=== PATIENT | female | born 1935 | race Caucasian/White ===

== ENCOUNTER 2019-10-29 17:15 | Emergency (ER) | payer MEDICARE, SELFPAY ==
--- NOTE | 2019-10-29 17:21 | ED.EAR ---
HPI - Ear Problem General Chief complaint: Ear Stated complaint: fever, ear pain and feels yuck Time Seen by Provider: 10/29/19 17:25 Source: patient and RN notes reviewed History of Present Illness HPI Narrative: Patient is an 84-year-old female who presents the urgent care with complaints of low-grade fever and left ear pain. Patient states that she did not feel very good when she woke up this morning and after laying back down, woke up with a low-grade fever of 101 and left ear pain. Patient also reports of sinus headache and postnasal drainage. Patient has not taken anything [id number] for her symptoms. Denies taking anything for the fever. States that she does have a history of urinary tract infections but does not currently have any urinary symptoms. Patient denies of any abdominal pain, nausea, vomiting, shortness of breath, chest pain. Patient states that this is not the worst headache she is ever experienced and it seems to be just behind the eyes . Patient denies of any weakness, dizziness, changes in vision. No other acute complaints. No acute distress noted. Patient read the plan of care. Related Data Home Medications Medication Instructions Recorded Confirmed atenolol 25 mg tablet 25 mg PO DAILY 04/15/19 10/29/19 atorvastatin 20 mg tablet 20 mg PO DAILY 04/15/19 10/29/19 loratadine 10 mg tablet 10 mg PO DAILY 04/15/19 10/29/19 verapamil 240 mg 24 hr 240 mg PO DAILY 04/15/19 10/29/19 capsule,extended release gabapentin 100 mg capsule 200 mg PO TID cap 07/25/19 10/29/19 pantoprazole 40 mg tablet,delayed 40 mg PO BID tablet 10/03/19 10/29/19 release Allergies Allergy/AdvReac Type Severity Reaction Status Date / Time adhesive tape Allergy Unknown Rash Verified 10/29/19 17:29 bacitracin Allergy Unknown Rash Verified 10/29/19 17:29 gramicidin D Allergy Unknown Rash Verified 10/29/19 17:29 polymyxin B Allergy Unknown Rash Verified 10/29/19 17:29 BACITRACIN ZINC Allergy Unknown Rash Uncoded 10/03/19 10:29 NEOMYCIN SULFATE Allergy Unknown Rash Uncoded 10/03/19 10:29 POLYMYXIN B SULFATE Allergy Unknown Rash Uncoded 10/03/19 10:29 Review of Systems Review of Systems: Narrative: CONSTITUTIONAL: Denies fever, chills, or sweats. EYES: Denies visual changes, redness, or discharge. ENT: Reports of sinus pressure and left otalgia CARDIOVASCULAR: Denies chest pain, palpitations, or edema. RESPIRATORY: Denies cough or dyspnea. GASTROINTESTINAL: Denies abdominal pain, nausea, vomiting, or diarrhea. GENITOURINARY: Denies dysuria or hematuria. SKIN: Denies rash or itching. MUSCULOSKELETAL: Denies back pain, joint pain, or myalgia. NEUROLOGIC: Denies headache, numbness, or weakness. All other systems reviewed are negative, except as documented in HPI. [facility] Past Medical History Medical History (Updated 10/29/19 @ 18:03 by DAVINA Mead) Anemia, unspecified Gastric ulcer Glaucoma Hip bursitis Incisional hernia Other intervertebral disc degeneration, lumbar region Visual loss Social History Social History Smoking status: Never smoker Alcohol intake: never Comments At the time of my signature, I reviewed and agree with the nursing past medical, surgical, social, and family history. There is no relevant family history pertinent to the patient complaint. Exam Narrative: Exam Narrative: GENERAL: This is a well-nourished, well-developed patient, in no apparent distress. HEAD: normocephalic, atraumatic. Frontal sinus tenderness EYES: PERRL. Sclera clear/white. Vision is grossly intact. EARS: External ears normal, auditory canals clear and without drainage, moderate fluid noted behind the left TM without otitis, left TMs normal without perforation. Hearing grossly intact. NOSE: External nose normal with no obvious nasal discharge, nares without redness, no rhinorrhea. THROAT: Mucous membranes moist, posterior pharynx clear. NECK: Neck supple, non
[2019-10-29 17:22] VITALS: BP 134/64; PULSE 88; RESP 16; TEMP 37.7; O2SAT 100
== END 2019-10-29 18:18 | disposition left against medical advice (07) ==
PROVIDERS: Emergency Provider Nurse Practitioner Family; PCP Family Medicine
DX: R51 Headache (principal); N39.0 Urinary tract infection, site not specified; E78.00 Pure hypercholesterolemia, unspecified; I10 Essential (primary) hypertension; J45.909 Unspecified asthma, uncomplicated; K21.9 Gastro-esophageal reflux disease without esophagitis; F32.9 Major depressive disorder, single episode, unspecified
CPT/HCPCS: 81003; 87086; 99213; G0463

== ENCOUNTER 2019-11-07 10:35 | Outpatient (CLI) | payer MEDICARE, SELFPAY ==
[2019-11-07 10:56] LABS: Basophils Percent Auto 0.6 % (0.2-1.2); Eosinophils Absolute Auto 0.1 K/mm3 (0-0.3); Hematocrit 32.7 % (37.0-47.0); Hemoglobin 10.1 g/dL (12.0-15.0); Immature Granulocyte Absolute 0.02 K/mm3 (0.00-0.031); Immature Granulocyte Percent A 0.4 % (0-0.5); Mean Corpuscular HGB Conc 30.9 g/dl (32-36); Mean Corpuscular Volume 84.3 fl (80-100); Monocytes Absolute Auto 0.4 K/mm3 (0.1-0.6); Monocytes Percent Auto 7.7 % (2.6-8.5); Neutrophils Absolute Auto 3.7 K/mm3 (1.3-6.7); Neutrophils Percent Auto 67.3 % (45.5-73.1); Platelet Count Result 251 k/mm3 (150-375); Red Blood Count 3.88 M/mm3 (4.2-5.4); White Blood Count 5.5 K/mm3 (4.5-10.0)
[2019-11-07 11:11] LABS: Alanine Aminotransferase 16 U/L (4-35); Albumin Level 4.2 g/dL (3.5-5.1); Alkaline Phosphatase 61 U/L (38-126); Aspartate Amino Transferase 23 U/L (14-36); Bilirubin,Total 0.3 mg/dL (0.2-1.3); Blood Urea Nitrogen 13 mg/dL (7-17); Calcium 8.9 mg/dL (8.4-10.2); Carbon Dioxide 30 mmol/L (22-30); Chloride 105 mmol/L (98-107); Cholesterol 183 mg/dL (0-200); Estimated Glomerular Filt Rate > 60; Glucose 95 mg/dL (65-105); HDL Direct 34 mg/dL; Potassium 4.3 mmol/L (3.4-5.0); Sodium 141 mmol/L (137-145); Triglycerides 234 mg/dL (<150)
[2019-11-07 11:22] LABS: LDL Cholesterol Direct 109 mg/dL
== END 2019-11-07 10:36 | disposition home or self-care (01) ==
PROVIDERS: PCP Family Medicine; Visit Provider Nurse Practitioner Family
DX: N39.0 Urinary tract infection, site not specified (principal); I10 Essential (primary) hypertension; E78.5 Hyperlipidemia, unspecified; Z79.899 Other long term (current) drug therapy; Z13.29 Encounter for screening for other suspected endocrine disorder
CPT/HCPCS: 36415; 80053; 80061; 84443; 85025

== ENCOUNTER 2019-11-28 13:23 | Outpatient (CLI) | payer MEDICARE, SELFPAY ==
--- NOTE | ~2019-11-28 | CT_ITS ---
EXAMINATION: CT brain wo/w con EXAM DATE: 11/28/2019 13:15 INDICATION: Memory loss, dizziness. Headache. TECHNIQUE: Spiral CT of the head was performed without contrast. Axial, coronal and sagittal images were reviewed. Patient was then injected with 100 cc Omnipaque 350 intravenous contrast and reimaged. Postcontrast axial, coronal, sagittal reformatted images reviewed. The dose-length product (DLP) fo r this examination was 1059.33 mGy-cm. The exposure was tailored according to patient size, and iter ative reconstruction (ASIR) was used as additional dose reduction technique. Comparison is made to pr ior examination from 10/23/2009. FINDINGS: There is no acute intraparenchymal hemorrhage. No evidence of intraparenchymal brain mass lesion. No evidence of acute infarction. Please note that initial head CT has limited sensitivity f or small or acute infarctions. There is old small right occipital lobe infarction, but new compared to 2010. There is mild periventricular and subcortical hypodensity, nonspecific but probably related to small vessel ischemic disease. There is mild prominence of the sulci and ventricles related to cerebral atrophy. There is intracranial carotid arteriosclerosis. There are no extra-axial collect ions. There is no mass effect or midline shift. Patient has had bilateral ocular lens surgery. Sof t tissue is unremarkable. Mild mucoperiosteal thickening. There are no areas of abnormal enhancemen t on the postcontrast images. IMPRESSION: 1. 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 2. Chronic age related findings. Reviewed, dictated and finalized at location B.
[2019-11-28 13:38] LABS: Hematocrit 32.8 % (37.0-47.0)
== END 2019-11-28 13:24 | disposition home or self-care (01) ==
LOC: ANHIMG 13:25
PROVIDERS: PCP Family Medicine; Visit Provider Family Medicine
DX: R41.3 Other amnesia (principal); D64.9 Anemia, unspecified; R51 Headache
CPT/HCPCS: 36415; 70470; 85014; 85018; Q9967

== ENCOUNTER → 2020-03-12 10:17 | Outpatient (CLI) | payer MEDICARE, SELFPAY ==
--- NOTE | ~2020-03-12 | US_ITS ---
EXAMINATION: US abdomen complete DATE: 03/12/2020 10:44 INDICATION: Liver disease. Diarrhea. TECHNIQUE: Multiple grayscale and Doppler ultrasound images of the abdomen were obtained. COMPARISON: CT abdomen and pelvis 11/27/2017 FINDINGS: The visualized portions of the head and body of the pancreas are normal. Abdominal aorta is normal in caliber. The liver is normal without focal lesion. There is normal flow in main portal vei n. The gallbladder is normal in size. No gallstones or gallbladder wall thickening. There was no sono graphic Rubio sign. The common duct is normal and measures 5 mm. The inferior vena cava is normal. T he kidneys are normal in size. The spleen is normal in size. Calcifications in the spleen are consist ent with old granulomatous disease. IMPRESSION: 1. No etiology for the patient's symptoms. Reviewed, dictated and finalized at location A.
== END ==
PROVIDERS: PCP Family Medicine; Visit Provider Family Medicine
DX: K76.9 Liver disease, unspecified (principal)
CPT/HCPCS: 76700

== ENCOUNTER 2020-04-27 12:07 | Outpatient (CLI) | payer MEDICARE, SELFPAY ==
[2020-04-27 12:43] LABS: Basophils Percent Auto 0.7 % (0.2-1.2); Eosinophils Absolute Auto 0.1 K/mm3 (0-0.3); Eosinophils Percent Auto 2.4 % (0-4.4); Hematocrit 32.3 % (37.0-47.0); Hemoglobin 10.1 g/dL (12.0-15.0); Immature Granulocyte Absolute 0.02 K/mm3 (0.00-0.031); Immature Granulocyte Percent A 0.4 % (0-0.5); Lymphocytes Absolute Auto 1.32 K/mm3 (0.9-3.2); Lymphocytes Percent Auto 24.7 % (18.3-44.2); Mean Corpuscular HGB Conc 31.3 g/dl (32-36); Mean Corpuscular Hemoglobin 28.3 pg (26-34); Mean Corpuscular Volume 90.5 fl (80-100); Mean Platelet Volume 8.9 fl (7.4-10.4); Monocytes Absolute Auto 0.6 K/mm3 (0.1-0.6); Monocytes Percent Auto 11.6 % (2.6-8.5); Neutrophils Absolute Auto 3.2 K/mm3 (1.3-6.7); Neutrophils Percent Auto 60.2 % (45.5-73.1); Platelet Count Result 178 k/mm3 (150-375); Red Blood Count 3.57 M/mm3 (4.2-5.4); Red Cell Distribution Width 16.2 % (11.5-14.5); White Blood Count 5.3 K/mm3 (4.5-10.0)
[2020-04-27 12:59] LABS: Alanine Aminotransferase 16 U/L (4-35); Albumin Level 3.8 g/dL (3.5-5.1); Alkaline Phosphatase 54 U/L (38-126); Anion Gap 3 mmol/L (8-16); Aspartate Amino Transferase 24 U/L (14-36); Bilirubin,Total 0.4 mg/dL (0.2-1.3); Blood Urea Nitrogen 15 mg/dL (7-17); CRP < 0.5 mg/dL (<1.0); Calcium 9.1 mg/dL (8.4-10.2); Carbon Dioxide 33 mmol/L (22-30); Chloride 103 mmol/L (98-107); Estimated Glomerular Filt Rate > 60; Glucose 100 mg/dL (65-105); Potassium 3.8 mmol/L (3.4-5.0); Sodium 139 mmol/L (137-145)
[2020-04-27 13:26] LABS: Thyroid Stimulating Hormone 0.739 uIU/mL (0.465-4.680)
[2020-05-06 23:36] LABS: Calprotectin, Stool 86 mcg/g
== END 2020-04-27 12:08 | disposition home or self-care (01) ==
LOC: ANHLAB 12:11
PROVIDERS: PCP Family Medicine
DX: R19.7 Diarrhea, unspecified (principal)
CPT/HCPCS: 36415; 80053; 83993; 84443; 85025; 86140; 87015; 87045; 87046; 87269; 87272; 87427

== ENCOUNTER → 2020-05-07 15:13 | Outpatient (CLI) | payer MEDICARE, SELFPAY ==
--- NOTE | ~2020-05-07 | MM_ITS ---
EXAMINATION: MM screening clemente BI w byron HISTORY: Screening TECHNIQUE: Craniocaudal and mediolateral oblique 3-D tomosynthesis images were obtained and synthetic 2-D images were generated. CAD analysis was submitted and interpreted. COMPARISON: Comparison to multiple prior studies sequentially, with oldest reviewed study dated 04/28. BREAST PARENCHYMAL COMPOSITION: There are scattered areas of fibroglandular density. FINDINGS: There is no evidence of suspicious mass, calcification, or architectural distortion to sugg est malignancy in either breast. There has been no suspicious interval change. IMPRESSION: 1. No mammographic evidence of malignancy. 2. Recommend routine screening mammography in one year. BI-RADS Category 1: Negative Reviewed, dictated and finalized at location A. 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
== END ==
PROVIDERS: PCP Family Medicine; Visit Provider Obstetrics & Gynecology
DX: Z12.31 Encounter for screening mammogram for malignant neoplasm of breast (principal)
CPT/HCPCS: 77063; 77067

== ENCOUNTER 2020-06-08 14:52 | Outpatient (CLI) | payer MEDICARE, SELFPAY ==
[2020-06-08 15:43] LABS: Basophils Percent Auto 0.4 % (0.2-1.2); Eosinophils Absolute Auto 0.1 K/mm3 (0-0.3); Eosinophils Percent Auto 1.4 % (0-4.4); Hematocrit 35.1 % (37.0-47.0); Hemoglobin 10.8 g/dL (12.0-15.0); Immature Granulocyte Absolute 0.02 K/mm3 (0.00-0.031); Immature Granulocyte Percent A 0.4 % (0-0.5); Lymphocytes Absolute Auto 1.37 K/mm3 (0.9-3.2); Lymphocytes Percent Auto 27.8 % (18.3-44.2); Mean Corpuscular HGB Conc 30.8 g/dl (32-36); Mean Corpuscular Hemoglobin 29.4 pg (26-34); Mean Corpuscular Volume 95.6 fl (80-100); Mean Platelet Volume 9.2 fl (7.4-10.4); Monocytes Absolute Auto 0.5 K/mm3 (0.1-0.6); Monocytes Percent Auto 9.5 % (2.6-8.5); Neutrophils Percent Auto 60.5 % (45.5-73.1); Platelet Count Result 186 k/mm3 (150-375); Red Blood Count 3.67 M/mm3 (4.2-5.4); Red Cell Distribution Width 15.8 % (11.5-14.5); White Blood Count 4.9 K/mm3 (4.5-10.0)
[2020-06-08 15:59] LABS: Anion Gap 5 mmol/L (8-16); Blood Urea Nitrogen 14 mg/dL (7-17); Calcium 8.4 mg/dL (8.4-10.2); Carbon Dioxide 29 mmol/L (22-30); Chloride 104 mmol/L (98-107); Estimated Glomerular Filt Rate > 60; Glucose 95 mg/dL (65-105); Sodium 138 mmol/L (137-145)
== END 2020-06-08 14:53 | disposition home or self-care (01) ==
PROVIDERS: PCP Family Medicine; Visit Provider Family Medicine
DX: R25.2 Cramp and spasm (principal); D64.9 Anemia, unspecified
CPT/HCPCS: 36415; 80048; 83735; 85025

== ENCOUNTER 2020-06-16 13:59 | Outpatient (CLI) | payer MEDICARE, SELFPAY ==
--- NOTE | ~2020-06-16 | US_ITS ---
EXAMINATION: US arterial ankle brachial ind DATE: 06/16/2020 14:33 INDICATION: Decreased pedal pulses TECHNIQUE: Segmental pressures and plethysmographic and Doppler waveforms of the brachial and lower e xtremity arteries were obtained. COMPARISON: None. FINDINGS: Right and left brachial artery pressures of 144 mm Hg and 133 mm Hg, respectively, are concordant (no rmal difference <= 30 mmHg). The right ankle-brachial index (EVERTON) is 1.10 (normal >= 0.9-1.0). The right great toe-brachial index (TBI) is 0.56 (normal >= 0.65). Arterial Doppler waveforms are biphasic with brisk systolic upstrokes of both the right posterior tibial and dorsalis pedis arteries. The left EVERTON is 1.06. The left TBI is 0.65. Arterial Doppler waveforms are biphasic with brisk systol ic upstrokes at both the left posterior tibial and dorsalis pedis arteries. IMPRESSION: 1. Mild arterial occlusive disease to the right lower limb with mildly decreased right TBI. Normal bi lateral ABIs and left TBI. Reviewed, dictated and finalized at location A. 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 Mild arterial occlusive disease to the right lower limb with mildly decrease d right TBI. Normal bilateral ABIs and left TBI.
== END 2020-06-16 14:00 | disposition home or self-care (01) ==
PROVIDERS: PCP Family Medicine; Visit Provider Family Medicine
DX: R09.89 Other specified symptoms and signs involving the circulatory and respiratory systems (principal)
CPT/HCPCS: 93922

== ENCOUNTER → 2020-07-20 12:55 | Outpatient (CLI) | payer MEDICARE, SELFPAY ==
[2020-07-21 14:42] LABS: SARS-CoV-2 RNA PCR Positive
== END ==
PROVIDERS: PCP Family Medicine; Visit Provider Nurse Practitioner Family
DX: U07.1 COVID-19 (principal)
CPT/HCPCS: C9803; U0003; U0005

== ENCOUNTER → 2020-08-25 14:26 | Outpatient (CLI) | payer MEDICARE, SELFPAY ==
--- NOTE | ~2020-08-25 | XR_ITS ---
EXAMINATION: XR humerus LT EXAM DATE: 08/25/2020 15:49 INDICATION: M79.622 - Pain in left upper arm TECHNIQUE: 2 orthogonal projections left humerus. There are no prior studies for comparison. FINDINGS: There are no acute left humerus fractures or dislocations identified. There is no subcutan eous gas. The soft tissue is unremarkable. There are no radiopaque foreign bodies. There is mild glenohumeral and acromioclavicular joint primary osteoarthritis. IMPRESSION: Mild left shoulder osteoarthritis. Reviewed, dictated and finalized at location A.
--- NOTE | ~2020-08-25 | XR_ITS ---
EXAMINATION: XR hip RT min 2V EXAM DATE: 08/25/2020 15:49 INDICATION: Fell 2 Months Ago. Hx Of Arthritis. Lateral Right Hip Pain With Numbness And Tingling Rad iates To Right Femur. Left Medial Elbow Pain Radiates To Left Lateral Shoulder. Pt States Bone Remov ed In First Digit Of Right Foot 25 Years Ago. TECHNIQUE: Right hip frontal, 'frog leg' projections for interpretation. Comparison is made to prior examination from 06/08/2017. FINDINGS: Smooth right hip femoral head contour, no radiographic evidence of avascular necrosis. The re is moderate right hip primary osteoarthritis. There are no acute fractures or dislocations identif ied. There is no subcutaneous gas. The soft tissue is unremarkable. Lumbar fusion hardware and a spine stimulator pack. IMPRESSION: No acute osseous findings. Reviewed, dictated and finalized at location A. IMPRESSION: No acute osseous findings.
--- NOTE | ~2020-08-25 | XR_ITS ---
EXAMINATION: XR foot RT min 3V EXAM DATE: 08/25/2020 15:49 INDICATION: M79.676 - Pain in unspecified toe(s) . PT States Bone Removed In First Digit Of Right F oot 25 Years Ago. TECHNIQUE: Right foot dorsoplantar, lateral and oblique projections obtained and reviewed. There is no prior study for comparison. FINDINGS: Right metatarsal bones unremarkable. There is mild 1st metatarsophalangeal joint primary o steoarthritis. There are no acute fractures or dislocations identified. There is no subcutaneous gas . The soft tissue is unremarkable. There are no radiopaque foreign bodies. IMPRESSION: Mild right 1st MTP osteoarthritis. Reviewed, dictated and finalized at location A.
--- NOTE | ~2020-08-25 | XR_ITS ---
EXAMINATION: XR elbow LT 2V EXAM DATE: 08/25/2020 15:49 INDICATION: Pain in left elbow. Fell 2 Months Ago. Hx Of Arthritis. Lateral Right Hip Pain With Numb ness And Tingling Radiates To Right Femur. Left Medial Elbow Pain Radiates To Left Lateral Shoulder. Pt States Bone Removed In First Digit Of Right Foot 25 Years Ago. TECHNIQUE: Frontal and lateral projections of the left elbow. There is no prior study for compariso n. FINDINGS: There is minimal left elbow primary osteoarthritis. There are no acute fractures or dislo cations identified. There is no subcutaneous gas. The soft tissue is unremarkable. There are no r adiopaque foreign bodies. IMPRESSION: Minimal left elbow osteoarthritis. Reviewed, dictated and finalized at location A.
== END ==
PROVIDERS: PCP Family Medicine; Referring Provider Nurse Practitioner Family; Visit Provider Nurse Practitioner Family
DX: M19.071 Primary osteoarthritis, right ankle and foot (principal); M19.012 Primary osteoarthritis, left shoulder; M19.022 Primary osteoarthritis, left elbow; M25.551 Pain in right hip
CPT/HCPCS: 73060; 73070; 73502; 73630

== ENCOUNTER 2020-11-12 08:45 | Outpatient (CLI) | payer MEDICARE, SELFPAY ==
--- NOTE | ~2020-11-12 | CT_ITS ---
EXAMINATION: CT abdomen pelvis w con DATE: 11/12/2020 09:26 INDICATION: Epigastric pain TECHNIQUE: Computed tomography (CT) of the abdomen and pelvis was performed with 100 cc Omnipaque 350 intravenous contrast. The dose-length product was 241.44 mGy-cm. Automated exposure control and iter ative reconstruction technique were employed. COMPARISON: CT dated 11/27/2017. FINDINGS: Lung bases are unremarkable. Cardiomegaly. No significant pleural or pericardial effusion. There is hiatal hernia with thickening of the distal esophagus. There is abnormal thickening of the d istal aspect of the stomach and duodenum, consistent with gastroenteritis. There are small low-densit y lesions in the liver, most likely benign cysts. There is hepatomegaly. There are calcified granulom as of the spleen. The pancreas, adrenal glands and kidneys are unremarkable. Gallbladder is present. Nonobstructive bowel gas pattern. There are spinal fusion at L2-L5. There are severe lumbar spondylos is. There is a partially visualized spinal stimulator lead. There are surgical changes of the anterio r abdominal wall with atrophy of the rectus muscles. IMPRESSION: 1. Thickening of the distal aspect of the stomach and duodenum, compatible with gastroenteritis. 2: Hiatal hernia with thickening of the distal esophagus, suspicious for reflux esophagitis. 3: Hepatomegaly. 4: Cardiomegaly. Reviewed, dictated and finalized at location A. IMPRESSION: 1. Thickening of the distal aspect of the stomach and duodenum, compatible with gastroenteritis. 2: Hiatal hernia with thickening of the distal esophagus, suspicious for reflu x esophagitis. 3: Hepatomegaly. 4: Cardiomegaly.
[2020-11-12 09:16] LABS: Estimated Glomerular Filt Rate > 60
== END 2020-11-12 08:46 | disposition home or self-care (01) ==
PROVIDERS: PCP Family Medicine; Visit Provider Family Medicine
DX: R10.13 Epigastric pain (principal); R10.2 Pelvic and perineal pain; K59.1 Functional diarrhea; K44.9 Diaphragmatic hernia without obstruction or gangrene; R16.0 Hepatomegaly, not elsewhere classified; I51.7 Cardiomegaly
CPT/HCPCS: 74177; Q9967

== ENCOUNTER 2021-06-12 10:43 | Emergency (ER) | payer MEDICARE, SELFPAY ==
[2021-06-12 10:48] VITALS: BP 135/46; PULSE 98; RESP 16; TEMP 36.5; O2SAT 100
--- NOTE | 2021-06-12 11:31 | ED.GENADULT ---
HPI - General Adult General Chief complaint: Upper Respiratory Infection Stated complaint: sinus problems Time Seen by Provider: 06/12/21 11:31 Source: patient Mode of arrival: ambulatory Limitations: no limitations History of Present Illness HPI narrative: 86-year-old female patient presents to the [facility] with complaints of cold symptoms that started 2 to 3 days ago. Patient was diagnosed with COVID in May 2020 but is not vaccinated. Patient states she has had a cough, slight fever, runny nose and congestion, some drainage to the back of the throat and a sore throat. Patient states she has been taking [id number] NyQuil, DayQuil and Tylenol for her symptoms. Related Data Home Medications Medication Instructions Recorded Confirmed atorvastatin 20 mg tablet 20 mg PO DAILY 04/15/19 06/12/21 atenolol 25 mg PO DAILY 06/12/21 06/12/21 fluoxetine 40 mg PO DAILY 06/12/21 06/12/21 gabapentin 200 mg PO DAILY 06/12/21 06/12/21 gabapentin 400 mg PO HS 06/12/21 06/12/21 Allergies Allergy/AdvReac Type Severity Reaction Status Date / Time adhesive tape Allergy Unknown Rash Verified 06/12/21 11:00 bacitracin Allergy Unknown Rash Verified 06/12/21 11:00 gramicidin D Allergy Unknown Rash Verified 06/12/21 11:00 polymyxin B Allergy Unknown Rash Verified 06/12/21 11:00 montelukast [From Singulair] AdvReac Intermediate Diarrhea Verified 06/12/21 11:00 BACITRACIN ZINC Allergy Unknown Rash Uncoded 06/07/21 12:52 NEOMYCIN SULFATE Allergy Unknown Rash Uncoded 06/07/21 12:52 POLYMYXIN B SULFATE Allergy Unknown Rash Uncoded 06/07/21 12:52 Review of Systems Review of Systems: CONSTITUTIONAL: Denies fever, chills, or sweats. EYES: Denies visual changes, redness, or discharge. ENT: Positive rhinorrhea, congestion, sore throat, and left otalgia. CARDIOVASCULAR: Denies chest pain, palpitations, or edema. RESPIRATORY: positive cough, denies dyspnea. GASTROINTESTINAL: Denies abdominal pain, nausea, vomiting, or diarrhea. GENITOURINARY: Denies dysuria or hematuria. SKIN: Denies rash or itching. MUSCULOSKELETAL: Denies back pain, joint pain, or myalgia. NEUROLOGIC: Denies headache, numbness, or weakness. PSYCHIATRIC: Denies anxiety or depression. [facility] Past Medical History Medical History Abdominal pain, epigastric Anemia, unspecified BMI 22.0-22.9, adult BMI 24.0-24.9, adult Body mass index [BMI] 23.0-23.9, adult Changing skin lesion Decreased pulses in feet Depression, major, in remission Duodenitis Foot callus Foot pain, right Gastric ulcer Glaucoma Headache Hip bursitis Incisional hernia Leg cramps Mixed hyperlipidemia Other intervertebral disc degeneration, lumbar region Sinus complaint Suprapubic abdominal pain Vagina, candidiasis Visual loss Family History Family History Mother Cerebrovascular accident Hypertension Sibling Family history of coronary artery disease Heart disease Hypertension Cerebrovascular accident Cancer Father Parkinsons disease Other Family history of mental disorder Social History Social History Second hand tobacco smoke exposure: No Alcohol intake: never Substance use: current Substance use type: marijuana Other substance usage details: creme/gummies Additional occupation/education comments: [employer] Gender identity (if verbalized by the patient): Female Comments At the time of my signature I agree with nursing past medical history, surgical, social, and family history. There is no relevant family history pertinent to the presenting complaint. Exam Narrative: GENERAL: ill-appearing, well-nourished, and in no acute distress. HEAD: Normocephalic, atraumatic. EYES: PERRLA and EOMI. ENT: Nares with erythema and edema noted bilaterally, no rhinorrhea or epistaxi
== END 2021-06-12 11:50 | disposition home or self-care (01) ==
PROVIDERS: Emergency Provider Nurse Practitioner Family; PCP Family Medicine
DX: U07.1 COVID-19 (principal); H40.9 Unspecified glaucoma; E78.2 Mixed hyperlipidemia; F32.A Depression, unspecified
CPT/HCPCS: 87426; 99213; C9803; G0463

== ENCOUNTER → 2021-11-19 14:21 | Outpatient (CLI) | payer MEDICARE, SELFPAY ==
--- NOTE | ~2021-11-19 | CT_ITS ---
EXAMINATION: CT shoulder LT wo con DATE: 11/19/2021 14:47 INDICATION: Rotator cuff tear presenting with left shoulder pain and limited range of motion TECHNIQUE: High resolution computed tomography (CT) of the left shoulder was performed without intrav enous contrast. Additional sagittal and coronal reconstructions were performed. Automated exposure co ntrol and iterative reconstruction technique were employed. The dose-length product was 247.14 mGy-cm . COMPARISON: 01/11/2011 FINDINGS: The acromion undersurface is curved in morphology (type II). Bone alignment is normal. No fracture. S uture anchor tracks along the lesser and greater tuberosities consistent with interval rotator cuff r epair. Dystrophic calcification and heterotopic ossicles in the soft tissues between the apex of the humeral head and the undersurface of the acromion likely along the rotator cuff tendons which could r epresent sequela prior surgery or calcific tendinitis. Mild acromioclavicular and glenohumeral osteoa rthritis. No bony humeral joint effusion. Visualized portions of the left lung are clear. Atheroscler otic coronary artery calcific location. No pathologically enlarged lymphadenopathy visualized left he mithorax including at the left axilla and left hilum. IMPRESSION: 1. Changes of prior rotator cuff repair on both the greater tuberosity and lesser tuberosity footplat es with dystrophic calcification and heterotopic ossification likely within the rotator cuff overlyin g the apex of the humeral head which could represent sequela of prior surgery or calcific tendinitis. Reviewed, dictated and finalized at location B. IMPRESSION: 1. Changes of prior rotator cuff repair on both the greater tuberosity and less er tuberosity footplates with dystrophic calcification and heterotopic ossifica tion likely within the rotator cuff overlying the apex of the humeral head whic h could represent sequela of prior surgery or calcific tendinitis.
== END ==
PROVIDERS: PCP Family Medicine; Visit Provider Anesthesiology
DX: M75.102 Unspecified rotator cuff tear or rupture of left shoulder, not specified as traumatic (principal)
CPT/HCPCS: 73200

== ENCOUNTER → 2021-12-17 07:35 | Outpatient (CLI) | payer MEDICARE, SELFPAY ==
--- NOTE | ~2021-12-17 | CT_ITS ---
EXAMINATION: CT cervical spine wo con DATE: 12/17/2021 08:08 INDICATION: Right neck pain. Cervical radiculopathy. TECHNIQUE: Computed tomography (CT) of the cervical spine was performed without intravenous contrast. Automated exposure control and iterative reconstruction technique were employed. The dose-length pro duct was 184.41 mGy-cm. COMPARISON: CT cervical spine 01/27/2009 FINDINGS: There is 6 reason levocurvature of cervical spine. There is 3 mm anterolisthesis of C7 on T 1 and T1 on T2 and 2 mm anterolisthesis of T2 on T3. There are changes of anterior fusion procedure f rom C4 to C6 with interbody bone graft and anterior plate and screws. There is moderate decreased dis c height at C2-C3 and severely decreased disc height at C3-C4 and C6-C7. The following disc levels ar e specifically discussed: C2-C3: There is severe right and moderate left uncovertebral joint osteoarthritis. There is severe bi lateral facet joint osteoarthritis. There is mild right neural foraminal stenosis. There is mild cent ral canal stenosis. C3-C4: There is severe bilateral uncovertebral joint osteoarthritis. There is severe bilateral facet joint osteoarthritis. There is mild bilateral neural foraminal stenosis. There is mild central canal stenosis. C4-C5: There is mild left uncovertebral joint hypertrophy. There is ankylosis of the facet joints wit h mild hypertrophy. There is mild left neural foraminal stenosis. There is no central canal stenosis. C5-C6: There is mild bilateral uncovertebral joint hypertrophy. There is mild right facet joint osteo arthritis. There is ankylosis of left facet joint with moderate hypertrophy. There is mild bilateral neural foraminal stenosis. There is mild central canal stenosis. C6-C7: There is severe bilateral uncovertebral joint osteoarthritis. There is severe bilateral facet joint osteoarthritis. There is mild bilateral neural foraminal stenosis. There is mild central canal stenosis. C7-T1: There is no uncovertebral joint osteoarthritis. There is severe bilateral facet joint osteoart hritis. There is mild bilateral neural foraminal stenosis. There is mild central canal stenosis. IMPRESSION: 1. Severe cervical spondylosis, worsened from 01/27/2009. 2. Anterior fusion procedure from C4 to C6. Reviewed, dictated and finalized at location A.
== END ==
PROVIDERS: PCP Family Medicine; Visit Provider Anesthesiology
DX: M47.813 Spondylosis without myelopathy or radiculopathy, cervicothoracic region (principal); M48.03 Spinal stenosis, cervicothoracic region; Z98.1 Arthrodesis status
CPT/HCPCS: 72125

== ENCOUNTER 2022-02-27 14:18 | Emergency (ER) | payer MEDICARE, SELFPAY ==
--- NOTE | ~2022-02-27 | XR_ITS ---
EXAM: XR elbow RT min 3V DATE: 02/27/2022 14:46 HISTORY: FALL X 10 DAYS, POST/LAT LACERATION . COMPARISON: None available. FINDINGS: Decreased mineralization. No fracture or dislocation. No lytic or blastic lesion. Joint sp aces are maintained. No erosion or periosteal change. Posterior soft tissue swelling. IMPRESSION: No acute osseous finding in the right elbow. Reviewed, dictated and finalized at location K.
[2022-02-27 14:24] VITALS: BP 142/48; PULSE 65; RESP 20; TEMP 37.3; O2SAT 99
--- NOTE | 2022-02-27 14:25 | ED.UPPEXIN ---
HPI - Extremity Injury (Upper) General Chief Complaint: Extremity Injury, Upper Stated Complaint: right elbow wound Time Seen by Provider: 02/27/22 14:25 Source: patient and RN notes reviewed History of Present Illness HPI narrative: Patient is an 86-year-old female who presents to urgent care with her spouse with complaints of right elbow pain. Patient states that she fell approximately 10 days ago hitting her elbow on the concrete. Patient denies hitting her head or any other injuries from the fall. States that she has been taking Tylenol. Patient states she leaves to go out of town in a couple days and make sure she does not have an infection. Patient is not up-to-date on her tetanus shot. No other acute complaints. No acute distress noted. Patient aware of the plan of care. Some parts of this dictation were generated by voice recognition software and may contain typographical and/or grammatical inaccuracies. Related Data Home Medications Medication Instructions Recorded Confirmed atenolol 25 mg tablet 25 mg PO DAILY 06/12/21 02/27/22 diclofenac sodium 1 % topical gel 2 g topical BID-TID 12/20/21 02/27/22 (Arthritis Pain (diclofenac)) Allergies Allergy/AdvReac Type Severity Reaction Status Date / Time adhesive tape Allergy Unknown Rash Verified 02/27/22 14:29 bacitracin Allergy Unknown Rash Verified 02/27/22 14:29 gramicidin D Allergy Unknown Rash Verified 02/27/22 14:29 polymyxin B Allergy Unknown Rash Verified 02/27/22 14:29 montelukast [From Singulair] AdvReac Intermediate Diarrhea Verified 02/27/22 14:29 BACITRACIN ZINC Allergy Unknown Rash Uncoded 02/27/22 14:29 NEOMYCIN SULFATE Allergy Unknown Rash Uncoded 02/27/22 14:29 POLYMYXIN B SULFATE Allergy Unknown Rash Uncoded 02/27/22 14:29 Review of Systems Review of Systems: CONSTITUTIONAL: Denies fever, chills, or sweats. EYES: Denies visual changes, redness, or discharge. ENT: Denies rhinorrhea, congestion, sore throat, or otalgia. CARDIOVASCULAR: Denies chest pain, palpitations, or edema. RESPIRATORY: Denies cough or dyspnea. GASTROINTESTINAL: Denies abdominal pain, nausea, vomiting, or diarrhea. GENITOURINARY: Denies dysuria or hematuria. SKIN: Reports of a wound to the right elbow MUSCULOSKELETAL: Reports of right elbow pain with movement NEUROLOGIC: Denies headache, numbness, or weakness. All other systems reviewed are negative, except as documented in HPI. [facility] Past Medical History Medical History (Updated 02/27/22 @ 15:13 by DAVINA Mead) Abdominal pain, epigastric Anemia, unspecified BMI 22.0-22.9, adult BMI 24.0-24.9, adult Body mass index [BMI] 23.0-23.9, adult Changing skin lesion Decreased pulses in feet Depression, major, in remission Duodenitis Family history of endometriosis in first degree relative Foot callus Foot pain, right Gastric ulcer Glaucoma Headache Hip bursitis Incisional hernia Leg cramps Mixed hyperlipidemia Other intervertebral disc degeneration, lumbar region RLQ abdominal pain Sinus complaint Suprapubic abdominal pain Vagina, candidiasis Visual loss Surgical History Surgical History (Updated 02/09/22 @ 11:09 by Bailey Hayden CMA) H/O Spinal surgery H/O: hysterectomy Family History Family History Mother Cerebrovascular accident Hypertension Sibling Family history of coronary artery disease Heart disease Hypertension Cerebrovascular accident Cancer Father Parkinsons disease Other Family history of mental disorder Social History Social History (Updated 02/09/22 @ 11:10 by Bailey Hayden CMA) Smoking status: Never smoker Second hand tobacco smoke exposure: No Alcohol intake: never Substance use: current Substance use type: marijuana Other substance usage details: creme/gummies 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
[2022-02-27 15:00] VITALS: BP 130/60
== END 2022-02-27 15:15 | disposition home or self-care (01) ==
PROVIDERS: Emergency Provider Nurse Practitioner Family; PCP Family Medicine
DX: S51.001A Unspecified open wound of right elbow, initial encounter (principal); W19.XXXA Unspecified fall, initial encounter; H40.9 Unspecified glaucoma; E78.2 Mixed hyperlipidemia
CPT/HCPCS: 73080; 99213; G0463

== ENCOUNTER 2022-05-08 12:12 | Emergency (ER) | payer MEDICARE, SELFPAY ==
[2022-05-08 12:25] VITALS: BP 145/44; PULSE 75; RESP 20; TEMP 36.8; O2SAT 100
--- NOTE | 2022-05-08 14:20 | ED.FEMALEGU ---
HPI - Female Genitourinary General Chief complaint: Urogenital-Female Stated complaint: Urinary Problem Time Seen by Provider: 05/08/22 14:10 Source: patient Mode of arrival: ambulatory Limitations: no limitations History of Present Illness HPI Narrative: 87 year old female who presents to [facility] care with urinary tract symptoms since Monday and feeling weak with no fevers reported. Patient reports that she had scheduled appointment with her doctor on Monday and was diagnosed with UTI and taking Macrobid but continues to feel weak and have bladder pressure, denies any fever. Patient reports that she has had COVID vaccinations but has not had flu shot this year. MD elicited complaint: UTI Onset (ago): day(s) (2) Severity scale (1-10): 4 Treatment prior to arrival: other (on Macrobid) Related Data Home Medications Medication Instructions Recorded Confirmed atenolol 25 mg tablet 25 mg PO DAILY 06/12/21 05/06/22 diclofenac sodium 1 % topical gel 2 g topical BID-TID 12/20/21 05/06/22 (Arthritis Pain (diclofenac)) Allergies Allergy/AdvReac Type Severity Reaction Status Date / Time adhesive tape Allergy Unknown Rash Verified 05/06/22 10:50 bacitracin Allergy Unknown Rash Verified 05/06/22 10:50 gramicidin D Allergy Unknown Rash Verified 05/06/22 10:50 polymyxin B Allergy Unknown Rash Verified 05/06/22 10:50 montelukast [From Singulair] AdvReac Intermediate Diarrhea Verified 05/06/22 10:50 BACITRACIN ZINC Allergy Unknown Rash Uncoded 05/06/22 10:50 NEOMYCIN SULFATE Allergy Unknown Rash Uncoded 05/06/22 10:50 POLYMYXIN B SULFATE Allergy Unknown Rash Uncoded 05/06/22 10:50 Review of Systems Review of Systems: CONSTITUTIONAL: Denies fever, chills, or sweats. CARDIOVASCULAR: Denies chest pain, palpitations, or edema. RESPIRATORY: Denies cough or dyspnea. GASTROINTESTINAL: Denies abdominal pain,some nausea, no vomiting, or diarrhea. GENITOURINARY: Reports dysuria, frequency, urgency, bladder pain Denies flank pain or hematuria. SKIN: Denies rash or itching. MUSCULOSKELETAL: Denies back pain or myalgia. Denies CVA tenderness NEUROLOGIC: Denies headache, reports feels weak All systems reviewed & are unremarkable except as noted in HPI and below PMFSH Past Medical History Medical History Abdominal pain, epigastric Anemia, unspecified BMI 22.0-22.9, adult BMI 24.0-24.9, adult Body mass index [BMI] 23.0-23.9, adult Changing skin lesion Decreased pulses in feet Depression, major, in remission Duodenitis Family history of endometriosis in first degree relative Foot callus Foot pain, right Gastric ulcer Glaucoma Headache Hip bursitis Incisional hernia Leg cramps Mixed hyperlipidemia Other intervertebral disc degeneration, lumbar region RLQ abdominal pain Sinus complaint Suprapubic abdominal pain Vagina, candidiasis Visual loss Surgical History Surgical History H/O Spinal surgery H/O: hysterectomy Family History Family History Mother Cerebrovascular accident Hypertension Sibling Family history of coronary artery disease Heart disease Hypertension Cerebrovascular accident Cancer Father Parkinsons disease Other Family history of mental disorder Social History Social History Smoking status: Never smoker Second hand tobacco smoke exposure: No Alcohol intake: never Substance use: current Substance use type: marijuana Other substance usage details: creme/gummies 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 There is no relevant family history pertinent to the
== END 2022-05-08 14:51 | disposition home or self-care (01) ==
PROVIDERS: Emergency Provider Registered Nurse; PCP Family Medicine
DX: N39.0 Urinary tract infection, site not specified (principal); J10.1 Influenza due to other identified influenza virus with other respiratory manifestations; Z20.822 Contact with and (suspected) exposure to COVID-19; H40.9 Unspecified glaucoma; E78.2 Mixed hyperlipidemia
CPT/HCPCS: 81003; 87086; 87426; 87804; 99213; C9803; G0463

== ENCOUNTER 2022-05-28 14:04 | Emergency (ER) | payer MEDICARE, SELFPAY ==
[2022-05-28 14:13] VITALS: BP 154/35; PULSE 68; RESP 16; TEMP 37; O2SAT 100
--- NOTE | 2022-05-28 14:49 | ED.URI ---
HPI - URI/Sore Throat General Chief Complaint: Upper Respiratory Infection Stated Complaint: cold Time Seen by Provider: 05/28/22 14:49 Source: patient, RN notes reviewed and old records reviewed Mode of arrival: ambulatory Limitations: no limitations History of Present Illness MD elicited complaint: cough and sore throat Related Data Home Medications Medication Instructions Recorded Confirmed atenolol 25 mg tablet 25 mg PO DAILY 06/12/21 05/06/22 diclofenac sodium 1 % topical gel 2 g topical BID-TID 12/20/21 05/06/22 (Arthritis Pain (diclofenac)) Allergies Allergy/AdvReac Type Severity Reaction Status Date / Time adhesive tape Allergy Unknown Rash Verified 05/06/22 10:50 bacitracin Allergy Unknown Rash Verified 05/06/22 10:50 gramicidin D Allergy Unknown Rash Verified 05/06/22 10:50 polymyxin B Allergy Unknown Rash Verified 05/06/22 10:50 [email or web address] [From Singulair] AdvReac Intermediate Diarrhea Verified 05/06/22 10:50 BACITRACIN ZINC Allergy Unknown Rash Uncoded 05/06/22 10:50 NEOMYCIN SULFATE Allergy Unknown Rash Uncoded 05/06/22 10:50 POLYMYXIN B SULFATE Allergy Unknown Rash Uncoded 05/06/22 10:50 Review of Systems Review of Systems: CONSTITUTIONAL: Denies malaise, chills, sweats, or fever. EYES: Denies visual changes, redness, or discharge. ENT: Reports rhinorrhea, congestion, sinus pain, otalgia and sore throat. CARDIOVASCULAR: Denies chest pain, palpitations, or edema. RESPIRATORY: Reports cough.? Denies dyspnea. GASTROINTESTINAL: Denies abdominal pain, nausea, vomiting, diarrhea SKIN: Denies rash or itching. MUSCULOSKELETAL: Denies myalgia. NEUROLOGIC: Denies headache. All systems reviewed & are unremarkable except as noted in HPI and below PMFSH Past Medical History Medical History Abdominal pain, epigastric Anemia, unspecified BMI 22.0-22.9, adult BMI 24.0-24.9, adult Body mass index [BMI] 23.0-23.9, adult Changing skin lesion Decreased pulses in feet Depression, major, in remission Duodenitis Family history of endometriosis in first degree relative Foot callus Foot pain, right Gastric ulcer Glaucoma Headache Hip bursitis Incisional hernia Leg cramps Mixed hyperlipidemia Other intervertebral disc degeneration, lumbar region RLQ abdominal pain Sinus complaint Suprapubic abdominal pain Vagina, candidiasis Visual loss Surgical History Surgical History H/O Spinal surgery H/O: hysterectomy Family History Family History Mother Cerebrovascular accident Hypertension Sibling Family history of coronary artery disease Heart disease Hypertension Cerebrovascular accident Cancer Father Parkinsons disease Other Family history of mental disorder Social History Social History Smoking status: Never smoker Second hand tobacco smoke exposure: No Alcohol intake: never Substance use: current Substance use type: marijuana Other substance usage details: creme/gummies Additional occupation/education comments: [employer] Gender identity (if verbalized by the patient): Female Comments At time of signature, agree with nursing past medical, surgical, social and family history. There is no relevant family history pertinent to the presenting complaint Exam Narrative: GENERAL: Well-appearing, well-nourished, and in no acute distress. HEAD: Normocephalic EYES: PERRLA, conjunctivae clear ENT: Nares clear, turbinates edematous and erythematous, clear discharge. Mucous membranes moist. TM pearly meza with dull light reflex bilaterally; no tragal tenderness. Oropharynx erythematous without lesions. Tonsils not enlarged and without exudate, no drooling, no hoarseness, no trismus, uvula midline.
--- NOTE | 2022-05-28 15:06 | ED.URI ---
HPI - URI/Sore Throat General Chief Complaint: Upper Respiratory Infection Stated Complaint: cold Time Seen by Provider: 05/28/22 14:49 Source: patient, RN notes reviewed and old records reviewed Mode of arrival: ambulatory Limitations: no limitations History of Present Illness HPI Narrative: 87 year old female accompanied by with 2 weeks of nasal drainage and has noted cough at night. Patient reports that she has had some sinus pressure and some headache discomfort. Patient reports that she has been taking DayQuil for her symptoms without relief. Patient also requests urine screen because she has had previous UTI and wants to make sure it has cleared, denies any urinary symptoms or any fevers. Patient has not had COVID vaccinations or any flu shot. MD elicited complaint: cough, rhinorrhea and nasal congestion Onset (ago): week(s) (2) Able to tolerate fluids by mouth: Yes Treatments prior to arrival: other (DayQuil) Related Data Home Medications Medication Instructions Recorded Confirmed atenolol 25 mg tablet 25 mg PO DAILY 06/12/21 05/06/22 diclofenac sodium 1 % topical gel 2 g topical BID-TID 12/20/21 05/06/22 (Arthritis Pain (diclofenac)) Allergies Allergy/AdvReac Type Severity Reaction Status Date / Time adhesive tape Allergy Unknown Rash Verified 05/06/22 10:50 bacitracin Allergy Unknown Rash Verified 05/06/22 10:50 gramicidin D Allergy Unknown Rash Verified 05/06/22 10:50 polymyxin B Allergy Unknown Rash Verified 05/06/22 10:50 [email or web address] [From Singulair] AdvReac Intermediate Diarrhea Verified 05/06/22 10:50 BACITRACIN ZINC Allergy Unknown Rash Uncoded 05/06/22 10:50 NEOMYCIN SULFATE Allergy Unknown Rash Uncoded 05/06/22 10:50 POLYMYXIN B SULFATE Allergy Unknown Rash Uncoded 05/06/22 10:50 Review of Systems Review of Systems: CONSTITUTIONAL: Denies malaise, chills, sweats, or fever. EYES: Denies visual changes, redness, or discharge. ENT: Reports rhinorrhea, congestion, sinus pain,no otalgia or sore throat. CARDIOVASCULAR: Denies chest pain, palpitations, or edema. RESPIRATORY: Reports cough.? Denies dyspnea. GASTROINTESTINAL: Denies abdominal pain, nausea, vomiting, diarrhea SKIN: Denies rash or itching. MUSCULOSKELETAL: Denies myalgia. NEUROLOGIC: reports headache. All systems reviewed & are unremarkable except as noted in HPI and below PMFSH Past Medical History Medical History Abdominal pain, epigastric Anemia, unspecified BMI 22.0-22.9, adult BMI 24.0-24.9, adult Body mass index [BMI] 23.0-23.9, adult Changing skin lesion Decreased pulses in feet Depression, major, in remission Duodenitis Family history of endometriosis in first degree relative Foot callus Foot pain, right Gastric ulcer Glaucoma Headache Hip bursitis Incisional hernia Leg cramps Mixed hyperlipidemia Other intervertebral disc degeneration, lumbar region RLQ abdominal pain Sinus complaint Suprapubic abdominal pain Vagina, candidiasis Visual loss Surgical History Surgical History H/O Spinal surgery H/O: hysterectomy Family History Family History Mother Cerebrovascular accident Hypertension Sibling Family history of coronary artery disease Heart disease Hypertension Cerebrovascular accident Cancer Father Parkinsons disease Other Family history of mental disorder Social History Social History Smoking status: Never smoker Second hand tobacco smoke exposure: No Alcohol intake: never Substance use: current Substance use type: marijuana Other substance usage details: creme/gummies 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
== END 2022-05-28 15:19 | disposition home or self-care (01) ==
PROVIDERS: Emergency Provider Registered Nurse; PCP Family Medicine
DX: J06.9 Acute upper respiratory infection, unspecified (principal); H40.9 Unspecified glaucoma; E78.2 Mixed hyperlipidemia
CPT/HCPCS: 81003; 99212; G0463

== ENCOUNTER → 2022-10-06 12:49 | Outpatient (CLI) | payer MEDICARE, SELFPAY ==
--- NOTE | ~2022-10-06 | CT_ITS ---
EXAMINATION: CT lumbar spine wo con DATE: 10/06/2022 13:13 INDICATION: Lumbar radiculopathy. TECHNIQUE: Computed tomography (CT) of the lumbar spine was performed without intravenous contrast. A utomated exposure control and iterative reconstruction technique were employed. The dose-length produ ct was 486.09 mGy-cm. COMPARISON: None FINDINGS: There is 22 degrees levoscoliosis of lumbar spine. S1 is a transitional segment. There is 5 mm retrolisthesis of L2 on L3. There is severely decreased disc height at T12-L1 and L1-L2 with endp late remodeling. There is severely decreased disc height at L2-L3 and L3-L4 with interbody fusion. Th ere are changes of anterior fusion procedure at L4-L5 with interbody device. There is mildly decrease d disc height at L5-S1. There are changes of posterior fusion procedure from L2 to L5 with pedicle sc rews. The following disc levels are specifically discussed: T12-L1: The disc is bulging. There is severe bilateral facet joint osteoarthritis. There is mild bila teral neural foraminal stenosis. There is mild central canal stenosis. L1-L2: The disc is bulging. There is severe bilateral facet joint osteoarthritis. There is mild bilat eral neural foraminal stenosis. There is mild central canal stenosis. L2-L3: There is moderate right and mild left facet joint hypertrophy. There is moderate right and mil d left neural foraminal stenosis. There is mild central canal stenosis with posterior decompression. L3-L4: The disc is bulging. There is mild bilateral facet joint hypertrophy. There is mild bilateral neural foraminal stenosis. There is mild central canal stenosis with posterior decompression. L4-L5: There is mild right and moderate left facet joint hypertrophy. There is mild bilateral neural foraminal stenosis. There is no central canal stenosis. L5-S1: The disc is bulging. There is severe bilateral facet joint osteoarthritis. There is mild bilat eral neural foraminal stenosis. There is mild central canal stenosis. IMPRESSION: 1. Severe lumbar spondylosis. 2. Lumbar levoscoliosis. 3. Anterior and posterior fusion from L2 to L5. Reviewed, dictated and finalized at location E.
--- NOTE | ~2022-10-06 | CT_ITS ---
EXAMINATION: CT cervical spine wo con DATE: 10/06/2022 13:13 INDICATION: Cervical radiculopathy. TECHNIQUE: Computed tomography (CT) of the cervical spine was performed without intravenous contrast. Automated exposure control and iterative reconstruction technique were employed. The dose-length pro duct was 155.94 mGy-cm. COMPARISON: CT cervical spine 12/17/2021 FINDINGS: There is 2 mm anterolisthesis of C3 on C4 and C6 on C7 and 3 mm anterolisthesis of C7 on T1 , T1 on T2, and T2 on T3. Vertebral body heights are normal. There are changes of anterior fusion pro cedure from C4 to C6 with interbody bone graft and anterior plate and screws. There is moderately dec reased disc height at C2-C3 and severely decreased disc height at C3-C4 and C6-C7. The following disc levels are specifically discussed: C2-C3: There is severe right and moderate left uncovertebral joint osteoarthritis. There is severe bi lateral facet joint osteoarthritis. There is mild bilateral neural foraminal stenosis. There is mild central canal stenosis. C3-C4: There is severe bilateral uncovertebral joint osteoarthritis. There is severe bilateral facet joint osteoarthritis. There is mild bilateral neural foraminal stenosis. There is mild central canal stenosis. C4-C5: There is mild left uncovertebral joint hypertrophy. There is moderate right and mild left face t joint hypertrophy. There is mild bilateral neural foraminal stenosis. There is no central canal bethany nosis. C5-C6: There is mild bilateral uncovertebral joint hypertrophy. There is mild bilateral facet joint h ypertrophy. There is mild lateral neural foraminal stenosis. There is mild central canal stenosis. C6-C7: There is severe bilateral uncovertebral joint osteoarthritis. There is severe bilateral facet joint osteoarthritis. There is mild bilateral neural foraminal stenosis. There is mild central canal stenosis. C7-T1: There is no uncovertebral joint osteoarthritis. There is severe bilateral facet joint osteoart hritis. There is mild bilateral neural foraminal stenosis. There is mild central canal stenosis. IMPRESSION: 1. Severe cervical spondylosis, stable from 12/17/2021. 2. Anterior fusion procedure from C4 to C6. Reviewed, dictated and finalized at location E.
== END ==
PROVIDERS: PCP Family Medicine; Visit Provider Anesthesiology
DX: M47.22 Other spondylosis with radiculopathy, cervical region (principal); M47.26 Other spondylosis with radiculopathy, lumbar region; M41.9 Scoliosis, unspecified; Z98.1 Arthrodesis status
CPT/HCPCS: 72125; 72131

== ENCOUNTER 2022-10-14 13:02 | Outpatient (CLI) | payer MEDICARE, SELFPAY ==
--- NOTE | ~2022-10-14 | CT_ITS ---
EXAMINATION: CT brain wo con DATE: 10/14/2022 13:25 INDICATION: Transient cerebral ischemic attack, unspecified. Dizziness. TECHNIQUE: Computed tomography (CT) of the head was performed without intravenous contrast. The mA wa s adjusted according to patient size. Iterative reconstruction technique was employed. The dose-lengt h product was 529.67 mGy-cm. COMPARISON: Head CT 11/28/2019 FINDINGS: There is an old infarct involving the left temporal occipital region in the expected distri bution of left posterior cerebral artery. There is no intracranial hemorrhage, acute infarction, or a bnormal intracranial mass lesion. The ventricles are normal in size. There are likely changes of ocul ar lens replacement surgeries. There is mild mucosal thickening in the paranasal sinuses. The mastoid air cells are normal. IMPRESSION: 1. 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 Reviewed, dictated and finalized at location A.
== END 2022-10-14 13:03 | disposition home or self-care (01) ==
LOC: ANHIMG 13:04
PROVIDERS: PCP Family Medicine; Visit Provider Family Medicine
DX: G45.9 Transient cerebral ischemic attack, unspecified (principal); R42 Dizziness and giddiness
CPT/HCPCS: 70450

== ENCOUNTER → 2022-12-07 13:30 | Outpatient (CLI) | payer MEDICARE, SELFPAY ==
--- NOTE | ~2022-12-07 | XR_ITS ---
EXAMINATION: XR_KNEE1-2VRT_CR, XR_KNEE1-2VLT_CR DATE: 12/07/2022 14:00 INDICATION: Nontraumatic bilateral knee pain TECHNIQUE: 1. Standing AP and lateral views of the right knee were obtained. 2. Standing AP and lateral views of the left knee were obtained. COMPARISON: None. FINDINGS: Alignment is normal at both knees. Chondrocalcinosis and mild joint space narrowing in the medial com partments of both knees. Joint spaces appear normal on the lateral and patellofemoral compartments. T iny patellofemoral marginal osteophytes. Soft tissues are unremarkable with no knee joint effusion at either knee. IMPRESSION: 1. Chondrocalcinosis and mild medial compartment predominant, medial and patellofemoral osteoarthriti s of both knees. Reviewed, dictated and finalized at location A. IMPRESSION: 1. 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
== END ==
PROVIDERS: PCP Nurse Practitioner Family; Visit Provider Nurse Practitioner Family
DX: M17.0 Bilateral primary osteoarthritis of knee (principal)
CPT/HCPCS: 73560

== ENCOUNTER 2023-05-29 09:29 | Emergency (ER) | payer MEDICARE, SELFPAY ==
[2023-05-29 09:38] VITALS: BP 154/50; PULSE 88; RESP 20; TEMP 37; O2SAT 98
--- NOTE | 2023-05-29 09:44 | ED.EAR ---
HPI - Ear Problem General Chief complaint: Upper Respiratory Infection Stated complaint: Sever Ear Pain Time Seen by Provider: 05/29/23 09:40 Source: patient, family, RN notes reviewed and old records reviewed Mode of arrival: ambulatory Limitations: no limitations History of Present Illness HPI Narrative: 88 year old female accompanied by spouse with complaints of left ear pain,headache, some sore throat, cough and congestion for the past 2 days. Patient reports pain to her left ear is severe and is holding her ear. Patient reports that she takes Tylenol 4 tabs daily routinely for her arthritis and has taken some NyQuil also at night for her cough and congestion. Patient reports that she has had unknown fevers but chills, has some generalized aching also and headaches. Patient has not had COVID or Flu vaccinations. MD Complaint: ear pain and decreased hearing Location: left ear Duration: constant Severity: severe Discharge from ear: Reports no Associated symptoms ear: decreased hearing Treatment prior to arrival: oral analgesic and other (NyQuil and Tylenol) Related Data Home Medications Medication Instructions Recorded Confirmed diclofenac sodium 1 % topical gel 2 g topical BID-TID 12/20/21 05/29/23 (Arthritis Pain (diclofenac)) gabapentin 100 mg capsule 300 mg PO TID 05/29/23 05/29/23 Allergies Allergy/AdvReac Type Severity Reaction Status Date / Time adhesive tape Allergy Unknown Rash Verified 05/29/23 09:36 bacitracin Allergy Unknown Rash Verified 05/29/23 09:36 gramicidin D Allergy Unknown Rash Verified 05/29/23 09:36 polymyxin B Allergy Unknown Rash Verified 05/29/23 09:36 montelukast [From Singulair] AdvReac Intermediate Diarrhea Verified 05/29/23 09:36 Review of Systems Review of Systems: CONSTITUTIONAL: Reports malaise,positive for chills, sweats, no known fever. EYES: Denies visual changes, redness, or discharge. ENT: Reports rhinorrhea, congestion,no sinus pain, left otalgia and sore throat. CARDIOVASCULAR: Denies chest pain, palpitations, or edema. RESPIRATORY: Reports cough.? Denies dyspnea. GASTROINTESTINAL: Denies abdominal pain, nausea, vomiting, diarrhea SKIN: Denies rash or itching. MUSCULOSKELETAL: positive myalgia. NEUROLOGIC: Positive for headache. All systems reviewed & are unremarkable except as noted in HPI and below PMFSH Past Medical History Medical History Abdominal pain, epigastric Anemia, unspecified BMI 22.0-22.9, adult BMI 24.0-24.9, adult BMI 25.0-25.9,adult Body mass index [BMI] 23.0-23.9, adult Changing skin lesion Contracture of palmar fascia Decreased pulses in feet Depression, major, in remission Duodenitis Elevated white blood cell count Family history of endometriosis in first degree relative Foot callus Foot pain, right Gastric ulcer Glaucoma H/O cataract Headache Hip bursitis Incisional hernia Leg cramps Mixed hyperlipidemia Other intervertebral disc degeneration, lumbar region RLQ abdominal pain Sinus complaint Strain of left triceps muscle Suprapubic abdominal pain Vagina, candidiasis Visual loss Surgical History Surgical History H/O Spinal surgery H/O: hysterectomy Family History Family History Mother Cerebrovascular accident Hypertension Sibling Family history of coronary artery disease Heart disease Hypertension Cerebrovascular accident Cancer Acute myocardial infarction Father Parkinsons disease Sibling Acute myocardial infarction Other Family history of mental disorder Social History Social History Smoking status: Never smoker Second hand tobacco smoke exposure: No Alcohol intake: never Substance use: current Substance use type: marijua
== END 2023-05-29 10:15 | disposition home or self-care (01) ==
PROVIDERS: Emergency Provider Registered Nurse; PCP Family Medicine
DX: H66.002 Acute suppurative otitis media without spontaneous rupture of ear drum, left ear (principal); Z20.822 Contact with and (suspected) exposure to COVID-19; E78.2 Mixed hyperlipidemia; H40.9 Unspecified glaucoma; M51.36 Other intervertebral disc degeneration, lumbar region
CPT/HCPCS: 87426; 87804; 99213; C9803; G0463

== ENCOUNTER 2023-10-06 11:16 | Outpatient (CLI) | payer OTHER, SELFPAY ==
--- NOTE | ~2023-10-06 | XR_ITS ---
Clinical Indication: Cough PA and lateral views of the chest: Comparison: 10/21/2009 Findings: The lungs are clear, without evidence of focal consolidation or pleural effusion. Cardiome diastinal silhouette is within normal limits. Stable calcified right hilar and right paratracheal lym ph nodes. Bones and soft tissues are unremarkable. Impression: No acute reality. Reviewed, dictated and finalized at location . Impression: No acute reality.
== END 2023-10-06 11:17 ==
PROVIDERS: PCP Family Medicine; Visit Provider Nurse Practitioner Adult Health
DX: R05.8 Other specified cough (principal)
CPT/HCPCS: 71046

== ENCOUNTER 2023-10-31 12:26 | Outpatient (CLI) | payer OTHER, SELFPAY ==
--- NOTE | ~2023-10-31 | CT_ITS ---
EXAMINATION: CT cervical spine wo con DATE: 10/31/2023 12:55 INDICATION: Chronic neck pain. TECHNIQUE: Computed tomography (CT) of the cervical spine was performed without intravenous contrast. Automated exposure control and iterative reconstruction technique were employed. The dose-length pro duct was 124.65 mGy-cm. COMPARISON: CT cervical spine 10/06/2022 FINDINGS: There is a left mastoid effusion. There is 4 mm anterolisthesis of C7 on T1 and 3 mm alicia listhesis of T1 on T2. There are changes of anterior fusion procedure from C4 to C6 with interbody crissy ne graft and anterior plate and screws. There is severely decreased disc height at C2-C3, C3-C4, and C6-C7 and mildly decreased disc height at C7-T1. The following disc levels are specifically discussed : C2-C3: There is severe bilateral uncovertebral joint osteoarthritis. There is severe bilateral facet joint osteoarthritis. There is mild bilateral neural foraminal stenosis. There is mild central canal stenosis. C3-C4: There is severe bilateral uncovertebral joint osteoarthritis. There is severe bilateral facet joint osteoarthritis. There is mild bilateral neural foraminal stenosis. There is mild central canal stenosis. C4-C5: There is mild bilateral uncovertebral joint hypertrophy. There is ankylosis of the facet joint s with mild hypertrophy. There is mild left neural foraminal stenosis. There is no central canal sten osis. C5-C6: There is mild bilateral uncovertebral joint hypertrophy. There is moderate right facet joint o steoarthritis. There is ankylosis of left facet joint with mild hypertrophy. There is mild bilateral neural foraminal stenosis. There is mild central canal stenosis. C6-C7: There is severe bilateral uncovertebral joint osteoarthritis. There is severe bilateral facet joint osteoarthritis. There is mild bilateral neural foraminal stenosis. There is mild central canal stenosis. C7-T1: There is no uncovertebral joint osteoarthritis. There is severe bilateral facet joint osteoart hritis. There is mild bilateral neural foraminal stenosis. There is no central canal stenosis. IMPRESSION: 1. Severe cervical spondylosis, stable from 10/06/2022. 2. Anterior fusion procedure from C4 to C6. Reviewed, dictated and finalized at location A.
== END 2023-10-31 12:27 | disposition home or self-care (01) ==
PROVIDERS: PCP Family Medicine; Visit Provider Nurse Practitioner Family
DX: M43.02 Spondylolysis, cervical region (principal); M25.512 Pain in left shoulder; Z98.1 Arthrodesis status
CPT/HCPCS: 72125

== ENCOUNTER 2024-01-09 09:24 | Day surgery (SDC) | payer OTHER, SELFPAY ==
[2024-01-04 12:57] VITALS: BMI 25.8
--- NOTE | ~2024-01-09 | XR_ITS ---
EXAMINATION: XR fluoroscopy no charge DATE: 01/09/2024 11:45 CDT INDICATION: YARIEL SI JT INJ . TECHNIQUE: 9 fluoroscopic images and one cine clip of the bilateral SI joints were obtained during bi lateral SI joint injection, performed by Faisal Escudero MD. I was not present during the procedure. Fluoroscopy exposure time was 17.2 seconds. Air Kerma 4.17 mGy. COMPARISON: None FINDINGS/IMPRESSION: Fluoroscopic documentation of bilateral SI joint injection. Please refer to the operative note for co mplete procedural details . Reviewed, dictated and finalized at location K.
--- NOTE | 2024-01-09 05:54 | WPDHPUPDATE1 ---
History and Physical Update Update Date/Time: 01/09/24 05:54 History and Physical has been reviewed, including an updated exam of the patient. There are NO changes in the patient's condition. Risks, benefits, and alternatives have been discussed and questions answered. Patient agrees to proceed with procedure.
--- NOTE | 2024-01-09 05:56 | W.PM.PROC2 ---
Procedure Note - Detailed Date of Procedure 01/09/24 Pre-op Diagnosis Sacroiliitis, chronic low back pain Post-op Diagnosis Same Procedure Performed Bilateral Sacroiliac Joint Steroid Injection under Fluoroscopic Guidance and with Contrast Control. Surgeon Faisal Escudero MD Anesthesia Local Description of Procedure INFORMED CONSENT: Risks, benefits and alternatives to the procedure were discussed in detail with the patient who expressed explicit understanding and consent to proceed. Patient was informed verbally and in written form regarding the risks associated with the procedure including the low risk of serious infection, bleeding/bruising, allergic reaction, nerve or organ injury, paralysis, procedural site pain or discomfort, worsening pain and/or mobility, failure to treat and/or disfigurement. The patient expressed explicit understanding and consent to proceed. All materials required for the procedure were available prior to procedure start. Site and side were marked prior to procedure and confirmed in the presence of the patient. PROCEDURE IN DETAIL: The patient was brought to the procedural suite and placed in the prone position. Patient was made comfortable with use of pillows under the head/chest, hips and ankles. Skin overlying the injection site on the affected side(s) was prepared broadly with ChloraPrep applicator and draped in a sterile manner. Aseptic technique was used throughout. The right SI joint was identified in the AP view and contralateral oblique angulation with caudal tilt was utilized to optimize visualization of the inferior and medial joint line representing the posterior portion of the joint. Local anesthesia was established by infiltration with approximately 5 mL of 2% lidocaine via a 1-1/2 inch 27-gauge needle. A 22-gauge 3.5 inch Quincke spinal needle was advanced until the needle entered the inferior third of the joint space approximately 1cm cephalad from its most inferior point. In the AP view, 0.5 mL of Omnipaque 300 contrast medium was injected after negative aspiration for CSF, blood or other bodily fluid, showing appropriate intra-articular spread of contrast without evidence of intravascular, perineural or intrathecal placement. A 1.5 mL solution containing 3 mg of betamethasone in 0.5% PF bupivacaine was injected after repeat negative aspiration. Appropriate spread of the injectate was confirmed with washout of previous injected contrast. No parasthesias were elicited. Needle was removed completely intact without difficulty. The same exact procedure was repeated for all remaining levels on the contralateral side, left SI joint, modified as necessary to accommodate for the new target location with identical findings/results and no evidence of complication. Images were saved and documented in the patient chart. Patient's skin was cleansed and sterile bandage applied. The patient tolerated the procedure well. The patient was transported to the recovery area in stable condition where they were observed for an appropriate amount of time prior to discharge, without evidence of complication. The patient was instructed to avoid excessive activity for the next 48 hours, including climbing and frequent use of stairs. Showers only for 48 hours. They were instructed not to drive or operate heavy machinery for 24 hours. They are to monitor for severe headaches, fevers, chills, night sweats, erythema/swelling at the site or any other signs of infection, bleeding/bruising, bowel or bladder changes as well as new pain, weakness or numbness in the upper or lower extremity. Should they notice these changes, they are instructed to call our office immediately or report directly to the nearest Emergency Department if no answer or if after posted office hours. COMPLICATIONS: None COMMENTS: None CONTRAST WASTED: 29.0mL Omnipaque 300. Complications No immediate complications Condition Stable Disposition Same day [facility]
[2024-01-09 11:42] VITALS: BP 126/33; PULSE 66; RESP 18; TEMP 37; O2SAT 100; BMI 25.8
[2024-01-09 11:54] VITALS: BP 135/77; PULSE 69; RESP 16; O2SAT 100
[2024-01-09] MEDS: LIDOCAINE HCL 1% PF INJ 5 ML VIAL 3 ML INFILTRATE (11:54)
[2024-01-09] MEDS: BETAMETHASONE SODIUM PHOSPHATE PF INJ 6 MG/ML VIAL INFILTRATE (11:59)
[2024-01-09] MEDS: BUPivacaine HCL 0.5% PF 30 ML VIAL INFILTRATE (11:59)
[2024-01-09 12:06] VITALS: BP 112/42; PULSE 67; RESP 16; O2SAT 100
== END 2024-01-09 12:21 | disposition home or self-care (01) ==
PROVIDERS: PCP Family Medicine; Visit Provider Anesthesiology Pain Medicine
PROC: (CPT 27096; principal; 2024-01-09 11:45)
DX: M46.1 Sacroiliitis, not elsewhere classified (principal); M54.59 Other low back pain
CPT/HCPCS: 27096 ×2; 99199; G0260

== ENCOUNTER 2024-01-19 09:11 | Outpatient (CLI) | payer OTHER, SELFPAY ==
--- NOTE | ~2024-01-19 | XR_ITS ---
XR shoulder RT min 2V Ordering provider: Moisés Apodaca NP History: . a couple recent falls bilateral shoulder pain . Comparison: None. FINDINGS: BONES: No acute fracture or dislocation. JOINT SPACES: The acromioclavicular joint is normal. The glenohumeral joint is normal. SOFT TISSUES: Normal. Spinal stimulator is seen in the midthoracic area. Calcified right hilar lymph nodes. IMPRESSION: No acute osseous abnormality right shoulder. Reviewed, dictated and finalized at location A.
--- NOTE | ~2024-01-19 | XR_ITS ---
XR shoulder LT min 2V Ordering provider: Moisés Apodaca NP History: . a couple recent falls bilateral shoulder pain . Comparison: October 31, 2022 FINDINGS: BONES: No acute fracture or dislocation. JOINT SPACES: The acromioclavicular joint is normal. The glenohumeral joint is normal. SOFT TISSUES: Normal. IMPRESSION: No acute osseous abnormality left shoulder. Reviewed, dictated and finalized at location A.
--- NOTE | ~2024-01-19 | XR_ITS ---
2 VIEWS SOFT TISSUES NECK Ordering provider: Moisés Apodaca NP History: . neck pain right side after a few falls hx of neck surgery . Comparison: January 06, 2009 FINDINGS: SOFT TISSUES: No prevertebral soft tissue swelling. The epiglottis is normal. The pharynx and trach ea appear patent. VERTEBRAL BODIES: Normal height and alignment. No acute osseous findings. Postoperative changes at th e level of C4, C5 and C6 with disc spacers. Multilevel facet joint disease. DISK SPACES: Narrowing of the disc C6-C7. IMPRESSION: No acute osseous abnormality. Normal prevertebral soft tissues. Postoperative changes. Degenerative disc disease at the level of C6-C7. Reviewed, dictated and finalized at location A.
== END 2024-01-19 09:12 ==
PROVIDERS: PCP Family Medicine
DX: M25.511 Pain in right shoulder (principal); M25.512 Pain in left shoulder; R29.6 Repeated falls; M79.89 Other specified soft tissue disorders; M50.323 Other cervical disc degeneration at C6-C7 level
CPT/HCPCS: 70360; 73030

== ENCOUNTER 2024-04-08 00:40 | Day surgery (SDC) | payer OTHER, SELFPAY ==
[2024-03-29 13:56] VITALS: BMI 25.6
--- NOTE | 2024-03-29 14:23 | PC.NURSE ---
Spoke with patient regarding medication Plavix. Pt. verbalizes understanding that the last dose of Plavix is to be taken on 04/02/2024 and the Endoscopist will instruct them when to restart after the procedure. Called and clarified with [facility] office the note that was sent over on the clearance for the Plavix. 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
[2024-04-08 07:02] VITALS: BP 143/32; PULSE 71; RESP 18; TEMP 36.1; O2SAT 99
[2024-04-08] MEDS: LACTATED RINGERS 1,000 ML 150 ML IV CONT (07:16)
--- NOTE | 2024-04-08 07:40 | P.PNAN_ITS ---
Anes - Initial Pre Proc Eval Procedure: Operation Date: 04/08/24 08:00 Proposed Procedures p Esophagogastroduodenoscopy - Los Cagle MD Date/Time: 04/08/24 07:40 Surgeon: Los Cagle MD Pre Op Diagnosis: GERD, hx of peptic ulcer disease Patient Data Age: 89 Gender: F Height: 1.55 m Weight: 61.5 kg Last Vital Signs Temp 36.1 C L 04/08/24 07:02 Pulse 71 04/08/24 07:02 Resp 18 04/08/24 07:02 BP 143/32 H 04/08/24 07:02 Pulse Ox 99 04/08/24 07:02 O2 Del Method Room Air 04/08/24 07:02 Allergies Allergy/AdvReac Type Severity Reaction Status Date / Time adhesive tape Allergy Unknown Rash Verified 04/08/24 06:43 bacitracin Allergy Unknown Rash Verified 04/08/24 06:43 gramicidin D Allergy Unknown Rash Verified 04/08/24 06:43 polymyxin B Allergy Unknown Rash Verified 04/08/24 06:43 OBEY Inhibitors AdvReac Intermediate Cough Verified 04/08/24 06:43 montelukast [From Singulair] AdvReac Intermediate Diarrhea Verified 04/08/24 06:43 Home Medications Medication Instructions Recorded Confirmed Type aspirin 81 mg tablet,delayed 81 mg PO DAILY 06/13/23 04/08/24 History release (Adult Low Dose Aspirin) clopidogrel 75 mg tablet 75 mg PO DAILY 06/13/23 04/08/24 History carvedilol 12.5 mg tablet 12.5 mg PO BID 08/28/23 04/08/24 History atorvastatin 80 mg tablet 80 mg PO DAILY 09/25/23 04/08/24 History losartan 50 mg tablet 50 mg PO DAILY #30 tabs 11/28/23 04/08/24 Rx fluticasone propionate 50 2 spray intranasal DAILY #16 grams 12/28/23 04/08/24 Rx mcg/actuation nasal spray,suspension (Flonase Allergy Relief) pantoprazole 40 mg tablet,delayed 40 mg PO DAILY #90 tabs 03/04/24 04/08/24 Rx release famotidine 40 mg tablet 40 mg PO DAILY #100 tabs 03/05/24 04/08/24 Rx gabapentin 600 mg tablet 600 mg PO TID #300 tabs 03/05/24 04/08/24 Rx duloxetine 60 mg capsule,delayed 30 mg PO DAILY 03/29/24 04/08/24 History release albuterol sulfate 90 mcg/actuation 1 inh inhalation Q4H PRN shortness 04/02/24 04/08/24 Rx aerosol inhaler of breath or wheezing #6.7 grams Patient hx anesthesia problems: none Family hx anesthesia problems: none Results Review: All pre-operative results and documents have been reviewed as part of the pre- operative evaluation. [facility] Past Medical History Medical History (Updated 04/07/24 @ 10:01 by Carlos Mcclain DO) Abdominal pain, epigastric Anemia Anemia, unspecified Asthma CAD (coronary artery disease) Changing skin lesion Chronic rhinitis Contracture of palmar fascia Cough due to OBEY inhibitor Cough present for greater than 3 weeks COVID-19 virus infection Decreased pulses in feet Depression, major, in remission Duodenitis Elevated white blood cell count Face pain Fall Family history of endometriosis in first degree relative Foot callus Foot pain, right Gastric ulcer Glaucoma H/O cataract Headache Hip bursitis History of heart attack Hypertension Incisional hernia Leg cramps Mixed hyperlipidemia Neuralgia and neuritis, unspecified Otalgia of left ear Other intervertebral disc degeneration, lumbar region RLQ abdominal pain Shingles outbreak Sinus complaint Strain of left triceps muscle Suprapubic abdominal pain UTI (urinary tract infection) Vagina, candidiasis Visual loss Surgical History Surgical History (Updated 04/07/24 @ 10:01 by Carlos Mcclain DO) H/O heart artery stent x3 H/O Spinal surgery H/O: hysterectomy Hx of right coronary artery stent placement Family History Family History Mother Cerebrovascular accident Hypertension Sibling Family history of coronary artery disease Heart disease Hypertension Cerebrovascular accident Cancer Acute myocardial infarction Father Parkinsons disease Sibling Acute myocardial infarction Heart disease Other Family history of mental disorder Social History Social History Social History: Caffeine-tea Smoking status: Never smoker Second hand tobacco smoke exposure: Yes Alcohol intake: never Substance use: current Substance use type: does not use Other substance usage details: THC cream for pain Do You Feel Safe in your Home?: Yes Lack of Transportation: No Lack of Food: Never True Current Housing: I Have Housing Concerned About Future Housing: No Difficulty Paying Gas/Electric Bills: No Difficulty Paying for Meds: No Currently Unemployed: No Education: High School Diploma/GED Difficulty w/ Childcare or Family Care: No Living arrangements: with family Additional living arrangements comments: with sp Occupation/Education: retired 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 Informed Consent: The patient's anesthetic plan and its attendant risks and benefits were discussed with the patient/family/POA. Questions were solicited and answers provided to the satisfaction of the patient/family/POA.
[2024-04-08 07:53] VITALS: BP 123/47; PULSE 69; RESP 19; O2SAT 100
--- NOTE | 2024-04-08 07:56 | PM.HPGS ---
History of Present Illness History of Present Illness Consent: Risks, benefits, and alternatives have been discussed and questions answered. Patient agrees to proceed with procedure. Chief complaint: GERD, hx of peptic ulcer disease Narrative: Vicki Lezama is a 89 year old female with epigastric pain, remote history of gastric ulcer, now on ppi Review of Systems Review of Systems: All systems reviewed & are unremarkable except as noted in HPI and below PMFSH Past Medical History Medical History (Updated 04/07/24 @ 10:01 by Carlos Mcclain DO) Abdominal pain, epigastric Anemia Anemia, unspecified Asthma CAD (coronary artery disease) Changing skin lesion Chronic rhinitis Contracture of palmar fascia Cough due to OBEY inhibitor Cough present for greater than 3 weeks COVID-19 virus infection Decreased pulses in feet Depression, major, in remission Duodenitis Elevated white blood cell count Face pain Fall Family history of endometriosis in first degree relative Foot callus Foot pain, right Gastric ulcer Glaucoma H/O cataract Headache Hip bursitis History of heart attack Hypertension Incisional hernia Leg cramps Mixed hyperlipidemia Neuralgia and neuritis, unspecified Otalgia of left ear Other intervertebral disc degeneration, lumbar region RLQ abdominal pain Shingles outbreak Sinus complaint Strain of left triceps muscle Suprapubic abdominal pain UTI (urinary tract infection) Vagina, candidiasis Visual loss Surgical History Surgical History (Updated 04/07/24 @ 10:01 by Carlos Mcclain DO) H/O heart artery stent x3 H/O Spinal surgery H/O: hysterectomy Hx of right coronary artery stent placement Family History Family History Mother Cerebrovascular accident Hypertension Sibling Family history of coronary artery disease Heart disease Hypertension Cerebrovascular accident Cancer Acute myocardial infarction Father Parkinsons disease Sibling Acute myocardial infarction Heart disease Other Family history of mental disorder Social History Social History Social History: Caffeine-tea Smoking status: Never smoker Second hand tobacco smoke exposure: Yes Alcohol intake: never Substance use: current Substance use type: does not use Other substance usage details: THC cream for pain Do You Feel Safe in your Home?: Yes Lack of Transportation: No Lack of Food: Never True Current Housing: I Have Housing Concerned About Future Housing: No Difficulty Paying Gas/Electric Bills: No Difficulty Paying for Meds: No Currently Unemployed: No Education: High School Diploma/GED Difficulty w/ Childcare or Family Care: No Living arrangements: with family Additional living arrangements comments: with sp Occupation/Education: retired 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[employer] Gender identity (if verbalized by the patient): Female Spiritual care concerns: No Meds Home Medications and Allergies Home Medications Medication Instructions Recorded Confirmed Type aspirin 81 mg tablet,delayed 81 mg PO DAILY 06/13/23 04/08/24 History release (Adult Low Dose Aspirin) clopidogrel 75 mg tablet 75 mg PO DAILY 06/13/23 04/08/24 History carvedilol 12.5 mg tablet 12.5 mg PO BID 08/28/23 04/08/24 History atorvastatin 80 mg tablet 80 mg PO DAILY 09/25/23 04/08/24 History losartan 50 mg tablet 50 mg PO DAILY #30 tabs 11/28/23 04/08/24 Rx fluticasone propionate 50 2 spray intranasal DAILY #16 grams 12/28/23 04/08/24 Rx mcg/actuation nasal spray,suspension (Flonase Allergy Relief) famotidine 40 mg tablet 40 mg PO DAILY #100 tabs 03/05/24 04/08/24 Rx gabapentin 600 mg tablet 600 mg PO TID #300 tabs 03/05/24 04/08/24 Rx duloxetine 60 mg capsule,delayed 30 mg PO DAILY 03/29/24 04/08/24 History release albuterol sulfate 90 mcg/actuation 1 inh inhalation Q4H PRN shortness 04/02/24 04/08/24 Rx aerosol inhaler of breath or wheezing #6.7 grams pantoprazole 40 mg tablet,delayed 40 mg PO Q12H #180 tabs 04/08/24 04/08/24 Rx release Allergies Allergy/AdvReac Type Severity Reaction Status Date / Time adhesive tape Allergy Unknown Rash Verified 04/08/24 06:43 bacitracin Allergy Unknown Rash Verified 04/08/24 06:43 gramicidin D Allergy Unknown Rash Verified 04/08/24 06:43 polymyxin B Allergy Unknown Rash Verified 04/08/24 06:43 OBEY Inhibitors AdvReac Intermediate Cough Verified 04/08/24 06:43 montelukast [From Singulair] AdvReac Intermediate Diarrhea Verified 04/08/24 06:43 Vital Signs Vital Signs - 24 hr 04/08/24 07:02 Temperature 97 F L Pulse Rate 71 Respiratory Rate 18 Blood Pressure 143/32 H Pulse Oximetry 99 Oxygen Delivery Room Air Exam Const: General: comfortable and no acute distress HENMT: Face/Nose/Sinus: Normal nares present Eyes: General: appearance normal, both eyes and all related structures Neck: Neck: no JVD Resp: Auscultation: clear to auscultation bilaterally Cardio: Rate: regular rate Rhythm: regular rhythm GI: Inspection: non-distended GI Palp: Yes Soft to palpation Skin: General skin exam: normal color Neuro: General: gait normal Speech: normal speech Extrem: General: normal to inspection Psych: Mental Status: mental status grossly normal Assessment and Plan Assessment and plan (1) History of gastric ulcer: Code(s): Z87.11 - Personal history of peptic ulcer disease Status: Acute Assessment and Plan: egd with bx (2) Abdominal pain, epigastric: Code(s): R10.13 - Epigastric pain Status: Acute
[2024-04-08 08:03] VITALS: BP 103/39; PULSE 68; RESP 24; O2SAT 96
[2024-04-08 08:13] VITALS: BP 125/50; PULSE 71; RESP 26; O2SAT 98
[2024-04-08 09:00] LABS: HPYLORIRESULT Negative (Negative)
== END 2024-04-08 08:30 | disposition home or self-care (01) ==
PROVIDERS: PCP Family Medicine; Referring Provider Family Medicine; Visit Provider Internal Medicine Gastroenterology
PROC: 0DJ08ZZ Inspection of Upper Intestinal Tract, Via Natural or Artificial Opening Endoscopic (ICD-10-PCS; CPT 43235; principal; 2024-04-08 08:00)
DX: K29.50 Unspecified chronic gastritis without bleeding (principal); K44.9 Diaphragmatic hernia without obstruction or gangrene; K31.7 Polyp of stomach and duodenum; Z87.11 Personal history of peptic ulcer disease; I25.10 Atherosclerotic heart disease of native coronary artery without angina pectoris; J45.909 Unspecified asthma, uncomplicated; I10 Essential (primary) hypertension; E78.2 Mixed hyperlipidemia; I25.2 Old myocardial infarction; F32.5 Major depressive disorder, single episode, in full remission; Z79.82 Long term (current) use of aspirin; Z79.02 Long term (current) use of antithrombotics/antiplatelets; Z79.51 Long term (current) use of inhaled steroids; Z95.5 Presence of coronary angioplasty implant and graft
CPT/HCPCS: 43239; 87081; 88305; J2704; J7120

== ENCOUNTER 2024-04-23 16:46 | Outpatient (CLI) | payer OTHER, SELFPAY ==
--- NOTE | ~2024-04-23 | XR_ITS ---
EXAMINATION: XR chest 2V Exam Date/Time: 04/23/2024 16:48 PAIRER HISTORY: R07.89 - Other chest pain Comparison: None. RESULT: Lines, tubes, and devices: Partially visualized cervical and lumbar fusion hardware. Stimulator lead s project over the midthoracic spine. Lungs and pleura: Senescent/emphysematous change. Calcified right lower lobe granuloma. Cardiomediastinal silhouette: Stable. Moderate hiatal hernia. Calcified hilar and mediastinal lymph nodes. Other: No acute osseous or upper abdominal finding. IMPRESSION: No acute cardiopulmonary process. Reviewed, dictated and finalized at location K. ER
--- NOTE | ~2024-04-23 | XR_ITS ---
EXAM: XR hip LT min 2V DATE: 04/23/2024 16:58 HISTORY: M25.559 - Pain in unspecified hip . COMPARISON: 07/06/2016. FINDINGS: Incompletely visualized lumbar fusion hardware. Soft tissue sutures project over the midli ne. Decreased mineralization. No fracture or dislocation. No lytic or blastic lesion. Mild degenerati ve changes in the left hip and pubic symphysis. No erosion or periosteal change. Soft tissues within normal limits. IMPRESSION: Osteopenia. Mild left hip osteoarthritis. Mild osteitis pubis. Reviewed, dictated and finalized at location K. OM STAINER
== END 2024-04-23 16:47 | disposition home or self-care (01) ==
LOC: MICIMG 16:47
PROVIDERS: PCP Family Medicine; Visit Provider Nurse Practitioner Adult Health
DX: R07.89 Other chest pain (principal); M16.12 Unilateral primary osteoarthritis, left hip; M81.0 Age-related osteoporosis without current pathological fracture
CPT/HCPCS: 71046; 73502

== ENCOUNTER 2024-04-30 11:05 | Outpatient (CLI) | payer OTHER, SELFPAY ==
--- NOTE | ~2024-04-30 | US_ITS ---
EXAMINATION: US soft tissue chest DATE: 04/30/2024 11:24 INDICATION: Right upper chest pain. TECHNIQUE: Multiple grayscale and Doppler ultrasound images of the chest were obtained. COMPARISON: None FINDINGS: There is no abnormal mass in the right chest wall in the patient's area of concern. IMPRESSION: 1. No abnormal mass in the right chest wall in the patient's area of concern. Reviewed, dictated and finalized at location A. ICAL EDUCATION PROFESSOR
== END 2024-04-30 11:06 | disposition home or self-care (01) ==
LOC: MICIMG 11:05
PROVIDERS: PCP Family Medicine; Visit Provider Nurse Practitioner Adult Health
DX: R07.89 Other chest pain (principal); R22.2 Localized swelling, mass and lump, trunk
CPT/HCPCS: 76604

== ENCOUNTER 2024-06-21 12:20 | Outpatient (CLI) | payer OTHER, SELFPAY ==
--- OUTSIDE RECORDS SUMMARY | 2024-06-21 12:34 | XMS_ITS | Clinical Summary ---
Author Organization [facility] Address [address] [place] [address] Phone Care Team Providers Care Conservator Artifacts Name Role Phone Satish Desai MD Primary Care Provider [phone] Allergies Active Allergy Reactions Criticality Noted Date Comments Adhesive Rash Low 02/14/2017 Adhesive Tape-Silicones Rash,Itching Low 05/04/2011 Medications atenolol (TENORMIN) 25 mg Oral tablet Take 25 mg by mouth Daily LATE. Active calcium carbonate-vitam in d2 (OSCAL) 250 (625)-125 mg-unit Oral tablet Take 1 Tab by mouth daily. Active multivitamin (DAILY-LORENZA) Oral tablet Take 1 Tab by mouth daily. Active ACETAMINOPHEN (TYLENOL ARTHRITIS ORAL) Take 1 Tab by mouth 1 time daily as needed. Active vitamin E 1,000 unit Oral Cap Take 1,000 Units by mouth daily. Active docusate sodium (STOOL SOFTENER) 100 mg Oral capsule Take 100 mg by mouth daily at bedtime. Active FLUoxetine (PROzac) 20 mg capsule Take 20 mg by mouth daily. Active gabapentin (NEURONTIN) 600 mg tablet Take 200 mg by mouth 2 times daily. 200 mg in the morning and 400 mg at night Active montelukast (SINGULAIR) 10 mg tablet Take 10 mg by mouth daily at bedtime. Active fluticasone furoate (ARNUITY ELLIPTA INHALATION) Take by inhalation. Active donepezil HCl (DONEPEZIL ORAL) Take by mouth. Activ e pantoprazole (PROTONIX) 40 mg Tablet, Delayed Release (E.C.)Indicatio ns:Acute gastric ulcer with hemorrhage TAKE 1 TABLET BY MOUTH BEFORE BREAKFAST 30 Tablet 14 1 Active Active Problems Problem Noted Date Diagnosed Date Acute upper GI bleed 08/02/2019 Epigastric abdominal pain 08/02/2019 Depression with anxiety 08/02/2019 Mild intermittent asthma without complication HTN (hypertension), benign 08/02/2019 Dyslipidemia 08/02/2019 Acute blood loss anemia 08/02/2019 Heartburn 09/16/2011 Colon adenoma 09/16/2011 Vaginal vault prolapse after hysterectomy 2010 Immunizations Immunization Administration Dates Next Due Influenza Seasonal Unspecified Formulation IM ,02/26/2011 Family History Medical History Relation Name Comments Heart Disease Brother Stroke Brother Heart Disease Sister Colon Cancer Neg Hx Relation Name Status Comments Brother Sister Social History Tobacco Use Types Packs/Day Years Used Date Smoking Tobacco: Never Smokeless Tobacco: Never Alcohol Use Standard Drinks/Week Comments No 0 (1 standard drink = 0.6 oz pur e alcohol) Comments No Sex and Gender Information Value Date Recorded Sex Assigned at Not on file Legal Sex Female 4:00 AM PIZZA DELIVERY Gender Identity Not on file Sexual Orientation Not on file Occupation Industry Job Start Date Job End Date Not on file Not on file Not on file Not on file Last Filed Vital Signs Vital Sign Reading Time Taken Comments Blood Pressure 142/80 11/25/2020 1:22 PM CDT Pulse 78 11/25/2020 1:22 PM CDT Temperature 36.1 ??C (97 ??F) 10/25/2019 8:24 AM CDT Respiratory Rate 18 10/25/2019 8:41 AM CDT Oxygen Saturation 97% 10/25/2019 8:41 AM CDT Inhaled Oxygen Concentration - - Weight 53.5 kg (118 lb) 11/25/2020 1:22 PM CDT Height 154.9 cm (5' 1 ) 11/25/2020 1:22 PM CDT Body Mass Index 22.3 11/25/2020 1:22 PM CDT Plan of Treatment Health Maintenance Due Date Last Done Comments DTAP/TDAP/TD VACCINES (1 - Tdap) 1956 PNEUMOCOCCAL VACCINE 65+ YEA RS (1 of 2 - PCV) 1956 ZOSTER VACCINE (1 of 2) 1987 OSTEOPOROSIS SCREENING 2002 RSV VACCINE (60+ or ) (1 - 1-dose 75+ series) 2012 INFLUENZA VACCINE (#1) 2023 02/26/2019, 2010 COLORECTAL SCREENING 04/19/2024 04/19/2019, 04/19/2019, 02/16/2017, Additional history exists Medical Devices Implanted Type Area Vision Specialist Device Identifier Shelf Expiration Date Model / Serial / Lot Log [id number] - Bladder Slings And Tapes - 1 - Sling Desara System [id number]-[id number] Implanted:Qty: 1 on 05/07/2011 at [facility] Sling Vagina [employer] 08/05/2013 NAVIN-DS01 / / [id number] Procedures Procedure Name Priority Date/Time Associated Diagnosis Comments COLONOSCOPY REPORT 04/19/2019 12 :22 PM PIZZA DELIVERY from Last 3 Months or Most Recently Relevant to Health Maintenance Results * COLONOSCOPY REPORT (04/19/2019 12:22 PM PIZZA DELIVERY) Narrative Procedure Note Jason Huang MD - 04/19/2019 12:22 PM CST [facility] Endoscopy Patient Name: Vicki Lezama Procedure Date: 04/19/2019 Date of : 1935 Admit Type: Outpatient Attending MD: Jason Huang MD Procedure: Colonoscopy Indications: Chronic diarrhea, Personal history of colonic polyps Providers: Jason Huang MD Referring MD: Satish Desai MD Medicines: Monitored Anesthesia Care Complications: No immediate complications. Procedure: Informed consent was obtained for the procedure, including moderate sedation after risks were discussed. Based on the pre-procedure assessment, including review of the patient's medical history, medications, allergies, and review of systems, the patient was deemed to be an appropriate candidate for sedation. A timeout was performed. Continuous ECG monitoring, pulse oximetry, blood pressure monitoring, and direct observation were performed. The Colonoscope was introduced through the anus and advanced to the terminal ileum. The quality of the bowel preparation was excellent. Estimated Blood Loss: Estimated blood loss: none. Findings: Normal mucosa was found in the entire colon. Biopsies for histology were taken with a cold forceps for evaluation of microscopic colitis. A 7 mm polyp was found in the ascending colon. The polyp was flat. The polyp was removed with a cold snare. Resection and retrieval were complete. External and internal hemorrhoids were found during retroflexion and during perianal exam. The hemorrhoids were mild. The terminal ileum appeared normal. Impression: - Normal mucosa in the entire examined colon. Biopsied. - One 7 mm polyp in the ascending colon, removed with a cold snare. Resected and retrieved. - External and internal hemorrhoids. - The examined portion of the ileum was normal. Recommendation: - Await pathology results. - Repeat colonoscopy could be considered in 5 years for surveillance depending on pathology and overall health. However, risks may outweigh benefits at 89. - Patient reports symptoms have improved. Jason Huang MD 04/19/2019 12:22:19 PM This report has been signed electronically. Number of Addenda: [address]; [place] [address] Jason Huang MD GI PROCEDURE ORDERABLES Final Result from Last 3 Months or Most Recently Relevant to Health Maintenance Insurance MEDICARE PART A AND B [facility] MEDICARE SUPPLEMENT Advance Directives For more information, please contact: [phone] * Full Code (Latest Code Status on File) Date Activated Date Inactivated Comments 10/25/2019 7:28 AM 10/25/2019 11:09 AM * Full Code Date Activated Date Inactivated Comments 08/02/2019 6:48 PM 08/05/2019 6:36 PM * Full Code Date Activated Date Inactivated Comments 02/16/2017 10:11 AM 02/16/2017 2:50 PM * Full Code Date Activated Date Inactivated Comments 10/06/2011 7:26 AM 10/07/2011 2:01 AM * Full Code Date Activated Date Inactivated Comments 05/07/2011 10:07 AM 05/08/2011 1:30 PM Care Teams Conservator Artifacts Relationship Specialty Start Date End Date Satish Desai MD [address] [place] [address] PCP - General Family Practice 05/04/11
--- OUTSIDE RECORDS SUMMARY | 2024-06-21 12:34 | XMS_ITS ---
Author Organization [facility] Address [address] [place] [address] [place] [address] Care Team Providers Care Lending Activities Supervisor Name Role Phone CAYLA ALEXANDER, SUSAN Primary Care Provider Odilon Medina Unavailable [phone] ALLERGIES Allergen (clinical drug ingredient) Drug/Non Drug Allergy documented on EMR Reaction Allergy Type Onset Date Status neomycin Neomycin hives Drug Allergy Active Tape peels skin off Allergy Activ e REASON FOR VISIT Left > Right Neck Pain, Left Upper Extremity Pain MEDICATIONS Medication SIG (Take, Route, Frequency, Duration) Notes Start Date End Date Status Lisinopril 10 MG TAKE 1 TABLET BY CHUN TH DAILY Oral for 90 Active Losartan Potassium 50 MG Oral for 90 Active Voltaren 1 % apply 4 grams to beto nful joint(s) Transdermal 4x/day as needed for pain for 30 days Active FLUoxetine HCl 40 MG 1 capsule Orally On ce a day for 30 day(s) Active Gabapentin 100 MG as directed Orally 2 am, 2 at noon, and 3 at night Active Pantoprazole Sodium 20 MG 1 tablet Orall y Once a day for 30 day(s) Active Carvedilol 12.5 MG Oral for 90 Active Calcium 600 MG 1 tablet with meals Orally Twice a day for 30 day(s) Active DULoxetine HCl 60 MG TAKE 1 CAPSULE BY M OUTH DAILY Oral for 90 Active Aspirin 81 81 MG 1 tablet Orally Once a day for 30 day(s) Active Fluticasone Propionate 50 MCG/ACT Nasal for 30 Active Atorvastatin Calcium 40 MG Oral for 90 Active Clopidogrel Bisulfate 75 MG Oral for 90 Active Airsupra 90-80 MCG/ACT Inhalation for 30 Active VITAL SIGNS Blood pressure systolic 147 mm Hg 11/06/19 24 Blood pressure diastolic 60 mm Hg 024 Heart Rate 73 /min 11/06/2023 Respiratory Rate 16 /min 11/06/2023 Height 5 ft 1 in in 11/06/2023 Weight 125 lbs 11/06/2023 BMI 23.62 kg/m2 11/06/2023 Post procedure javmgr=TJ=059 /84, P=69, R=14. Discharged home per ambulatory. Josué acute distress noted. Encounters Encounter Location Date Provider Diagnosis [facility] [address] [facility] [place] [address] 11/06/2023 Odilon Davisick Radiculopathy, cervical region M54.12 ; Radiculopathy, cervicothoracic region M54.13 and Spinal stenosis, cervical region M48.02 ASSESSMENTS Encounter Date Diagnosis Assessment Notes Treatment Notes Treatment Clinical Notes 11/06/2023 Radiculopathy, cervical region (ICD-10 - M54.12) 11/06/2023 Radiculopathy, cervicothoracic region (ICD-10 - M54.13) 11/06/2023 Spinal stenosis, cervical region (ICD-10 - M48.02) PLAN OF TREATMENT Next Appt Details Follow Up: 11/21/23 OPV, Reas on: Procedure Notes * Category Sub-Category Detail Notes Cervical Epidural Steroid In jection Under Fluoroscopy Anesthesia: Local without IV sedation Operative Technique: After the risks, be nefits, alternative treatment options and potential complications related to the procedure were discussed, informed consent was obtained. The specific risks of this procedure including pain, bleeding, infection, spinal headache, persistent spinal fluid leak, epidural hematoma, nerve damage, spinal cord injury, paralysis, total spinal anesthesia resulting in cardiopulmonary arrest/, respiratory distress requiring intubation, insomnia, hyperglycemia, hair loss, muscle atrophy, skin depigmentation, weight gain, fluid retention, adrenal suppression, immunosuppression, osteoporosis resulting in fractures, avascular necrosis of the hip, cataracts, bleeding gastric ulcer, worsening pain and failure to relieve pain were discussed and the patient is agreeable to proceeding at this time. The patient was placed in the prone position on the fluoroscopy table and standard ASA monitors were applied. The neck was prepped and draped in the usual sterile fashion with chlorhexidine 2%/IPA 70%. The C7-T1 interspace was identified under x-ray guidance and the skin and subcutaneous structures above it were anesthetized with 3 mL of 1% Preservative-Free lidocaine through a 25 g 1.5 inch needle and then through the epidural needle. A 20 gauge 9 cm Toy epidural needle was inserted under fluoroscopic guidance. Multiple AP and lateral views were taken to ensure correct needle tip placement. Using a NANCY technique, 1 mL of Preservative-Free normal saline was injected into the posterior epidural space. After negative aspiration for blood, air or CSF, 2 mL of Omnipaque 240 contrast dye was injected for an epidurogram under live fluoroscopy (except in cases of contrast allergy) showing good spread within the epidural space. No intravascular or intrathecal spread was noted. A solution of 10 mg of Dexamethasone (10 mg/mL) plus 2 mL of Preservative-Free normal saline was mixed and after negative aspiration this solution was slowly injected into the epidural space without resistance. The needle was removed, the skin was cleaned and a band-aid was placed over the puncture site. The patient tolerated the procedure well, was able to ambulate without difficulty and was monitored for 20 minutes. The patient remained hemodynamically and neurologically stable. No apparent complications were observed. Postoperative instructions were reviewed with the patient. 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 X-ray time: 6 seconds Progress Notes * Examination Category Sub-Category Detail Notes Examination/ Pre-Anesthesia Assessment General: The patient is alert and keyona ented X 3 in moderate distress secondary to pain HEENT: Normocephalic, atrau matic. PERRL. The oropharynx is clear Neck: There is limited ran ge of motion of the cervical spine to 60 degrees with extension and lateral rotation bilaterally. There is tenderness to palpation over the bilateral C3-4 through C7-T1 facet joints. Extension and lateral rotation of the cervical spine reproduces the patients typical axial neck pain. The axial loading test is positive. There is diffuse tenderness to palpation over the bilateral cervical paraspinal muscles and significant muscle spasm throughout. There are palpable myofascial trigger points within the body of the trapezius muscles bilaterally Heart: Regular rate and rhy thm Chest: Clear to auscultatio n bilaterally Abdomen: Soft and benign Musculoskeletal and Extremities: There i s tenderness to palpation over the bilateral L2-3 through L5-S1 facet joints. Extension and lateral rotation of the lumbar spine reproduces the patient's typical axial low back pain. Racheal's Malvern's and Gaenslen's are positive bilaterally. There is severe tenderness to palpation over the bilateral sacroiliac joints. There is tenderness to palpation over the bilateral lumbar paraspinal muscles and palpable myofascial trigger points throughout. There is weakness and atrophy of the bilateral lumbar paraspinal muscles. There is tenderness to palpation about the left shoulder. The patient's typical left shoulder pain is reproducible by left shoulder abduction. There is left shoulder impingement at 90 degrees Neurological: There is positive st raight leg raising bilaterally. Spurling sign is positive bilaterally. There are no focal strength deficits in the bilateral upper and lower extremities Skin: Clean, dry and intac t Psychiatric: Mood and affect are normal History and Physical Notes * HPI (History of Present Illness) Category Sub-Category Detail Notes Pain Management Radiographic Imaging CT cervical spine done on 01/14/15 demonstrating an anterior discectomy and fusion at C4-5 and C5-6. There is DDD above at C3-4. There is bilateral facet arthropathy from C2-3 through C7-T1. There is bilateral foraminal stenosis at C7-T1. A CT lumbar spine done on 06/07/13 demonstrates a laminectomy and posterior fusion at L4-5. There is bilateral facet arthropathy from L1-2 through L5-S1. There is severe DDD at L2-3 and L3-4. There is mild DDD at L1-2 and L5-S1. There is a retrolisthesis of L2 on L3 and L3 on L4. There is a moderate mid lumbar levoscoliosis. There is bilateral foraminal stenosis at L2-3, L3-4 and L5-S1 . Left shoulder. CT scan without contrast 11/15/21: Acromioclavicular and glenohumeral osteoarthritis. Changes of prior rotator cuff repair Lumbar CT performed on 10/06/22: T12-L1: Disc bulge. Severe bilateral facet joint osteoarthritis. There is mild bilateral neural foraminal stenosis. There is mild central canal stenosis. L1-L2 bulging disc. There is severe bilateral facet joint osteoarthritis. There is mild bilateral neural foraminal stenosis. There is mild central canal stenosis. There is moderate right and mild left neural foraminal stenosis. There is mild central canal stenosis with posterior decompression. L3-4 bulging disc there is bilateral facet joint hypertrophy. There is mild bilateral neural foraminal stenosis. Mild central canal stenosis with posterior decompression. L4-5 mild right and moderate left facet joint hypertrophy. Mild bilateral neural foraminal stenosis. No central canal stenosis noted. L5-S1 bulging disks. There is severe bilateral facet joint osteoarthritis. Mild bilateral neural foraminal stenosis. There is mild central canal stenosis. CT of cervical spine performed on 12/17/21: C2-3 severe right and moderate left uncovertebral joint osteoarthritis. Severe bilateral facet joint osteoarthritis. Mild right neuroforaminal stenosis. Mild central canal stenosis. C3-C4 there is severe bilateral uncovertebral joint osteoarthritis. There is severe bilateral facet joint osteoarthritis. Mild bilateral neural foraminal stenosis. Mild central canal stenosis. C4-5: Mild left uncovertebral joint hypertrophy. Ankylosis of the facet joints with mild hypertrophy. Mild left neural foraminal stenosis. No central canal stenosis. C5-C6 mild bilateral uncovertebral joint hypertrophy. Mild right facet joint osteoarthritis. Ankylosis of the left facet joint with moderate hypertrophy. Bilateral neural foraminal stenosis. Mild central canal stenosis. C6-C7 severe bilateral uncovertebral joint osteoarthritis. Severe bilateral facet joint osteoarthritis. Mild bilateral neural foraminal stenosis. Mild central canal stenosis. C7-T1: Severe bilateral facet joint osteoarthritis. Mild bilateral neural foraminal stenosis. Mild central canal stenosis. Assessment and Follow-up: Follow-up Plan documevan jacqueline:: Yes MIPS Quality 2020: MIPS Documented:: Compliant
--- OUTSIDE RECORDS SUMMARY | 2024-06-21 12:34 | XMS_ITS | Clinical Summary ---
Author Organization [facility] Address [address] [place] [address] Care Team Providers Care Insert Molding Operator Name Role Phone Satish Desai MD Primary Care Provider Allergies Active Allergy Reactions Criticality Noted Date Comments Adhesive Rash Medium Adhesive Tape-Silicones Itching,Rash Medium 05/04/2011 Neomycin Hives Medium 12/27/2021 Hsauycmr-Hrckhkeblw-Ezbpeqhcx Rash Medium 2018 Neosporin (Neomycin-Polymyx) Rash Medium Medications docusate sodium (COLACE) 100 mg capsule Take 1 capsule (100 mg total) by mouth daily as needed Active FLUoxetine (PROzac) 40 mg capsule Take 1 capsule (40 mg total) by mouth every morning Active gabapentin (NEURONTIN) 100 mg capsule Take 2 capsules (200 mg total) by mouth 2 (two) times a day 9 Active multivitamin tablet Take 1 tablet by mouth daily Active acetaminophen ER (TYLENOL) 650 mg 8 hr tablet Take 1 tablet (650 mg total) by mouth 2 (two) times a day 2 in morning and 2 in evening Active pantoprazole DR (PROTONIX) 40 mg EC tablet 0 Active calcium carbonate (OS-NAVIN) 1,500 mg (600 mg elemental) tablet every 12 hours Activ e diclofenac sodium (Voltaren Arthritis Pain) 1 % gel Active aspirin 81 mg chewable tablet Take 1 tablet (81 mg total) by mouth daily 30 tablet 11 4 Active lisinopriL (PRINIVIL,ZESTR IL) 10 mg tablet Take 1 tablet (10 mg total) by mouth daily 30 tablet 11 4 Active Additional Information Patient not taking.Reported on 07/17/2023 losartan (COZAAR) 50 mg tablet Oral for 90 Active gabapentin (NEURONTIN) 300 mg capsule TAKE 1 CAPSULE BY MOUTH EVERY MORNING AND AFTERNOON AND 2 EVERY NIGHT AT BEDTIME 4 Active atorvastatin (LIPITOR) 80 mg tablet Take 1 tablet (80 mg total) by mouth daily 30 tablet 11 4 07/16/19 25 Active carvediloL (COREG) 12.5 mg tablet Take 1 tablet (12.5 mg total) by mouth 2 (two) times a day with meals 180 tablet 3 4 Active clopidogreL (PLAVIX) 75 mg tablet TAKE 1 TABLET BY MOUTH EVERY DAY 90 tablet 1 4 Active Active Problems Problem Noted Date Diagnosed Date Bilateral carotid artery stenosis 07/17/2023 CAD (coronary artery disease) 06/08/2023 Nonrheumatic aortic valve insufficiency 06/08/19 24 Chest pain 06/02/2023 Coronary artery disease invo lving [place] coronary artery of [place] heart 06/02/2023 Myogenic ptosis of eyelid of both eyes 2 Assessment & Plan (12/30/2021 9:53 PM CDT): Bilateral upper eyelid ptosis with symptomatic visual obstruction. Risks, benefits and alternatives were discussed. Risks of surgery included but were not limited to pain, infection, bleeding, scarring, eyelid asymmetry, need for additional procedures, anesthetic morbidity. Following this discussion, the patient wishes to proceed with bilateral upper eyelid ptosis repair. We will schedule this in the near future pending GVF ptosis testing. Decreased peripheral vision, bilateral 2 Acquired spondylolisthesis 12/28/2021 Lumbar radiculopathy 12/28/2021 Lumbosacral radiculopathy 12/28/2021 Spinal stenosis in cervical region 12/28/2021 Spinal stenosis of lumbar region 12/28/2021 Cervical spondylosis without myelopathy 12/29/19 22 Degeneration of lumbar intervertebral disc 12/28 Lumbosacral spondylosis without myelopathy 12/28 Osteoarthritis 12/28/2021 Muscle pain 12/28/2021 Overflow incontinence of urine 12/28/2021 Scoliosis 12/28/2021 Sacroiliitis, not elsewhere classified 2 Primary localized osteoarthrosis of shoulder reg ion 12/28/2021 Vulvitis 12/28/2021 Urinary urgency 12/28/2021 Unspecified rotator cuff tea r or rupture of left shoulder, not specified as traumatic 12/28/2021 Dermatochalasis of both upper eyelids 08/21/2020 Assessment & Plan (08/21/2020 11:44 AM CDT): Bilateral upper eyelid dermatochalasis. Risks, benefits and alternatives were discussed. Risks included but were not limited to pain, infection, bleeding, scarring, eyelid asymmetry, need for additional procedures, anesthetic morbidity. Following this discussion, we have elected to defer surgery as the patient is not having symptoms related to the dermatochalasis that is impacting ADLs. Atherosclerosis of [place] ar kieran of both lower extremities with intermittent claudication 07/06/2020 Assessment & Plan (07/06/2020 11:20 AM BELT BRANDER): Impression: Patient complain of cool right foot with outside facility lower extremity arterial Doppler study suggestive of mild arterial occlusive disease of her right lower extremity. Arterial Doppler studies performed in office were benign with normal blood flow both lower extremities with ABIs of 1+. Plan: No further vascular surgical workup or ntervention needed at this time. Recommend following up with her primary care physician to further evaluate her complaint. Patient follow-up with our practice on a as needed basis. Essential hypertension 07/06/2020 Assessment & Plan (07/06/2020 11:26 AM BELT BRANDER): Impression: Stable chronic hypertension. Plan: Medications reviewed and I recommend continued ongoing daily antihypertensive regimen as directed by her primary care physician. PCO (posterior capsular opacification) 0 Assessment & Plan (02/07/2020 11:20 AM CDT): Patient presents for YAG capsulotomy OS. The patient understands the risks, benefits, alternatives and wishes to proceed with YAG capsulotomy OS. RTC 1-2 weeks with MRx Acute upper GI bleed 08/02/2019 Acute blood loss anemia 08/02/2019 Dyslipidemia 08/02/2019 Depression with anxiety 08/02/2019 Epigastric abdominal pain 08/02/2019 Mild intermittent asthma without complication HTN (hypertension), benign 08/02/2019 Punctate keratitis of both eyes 03/29/2019 Postop check 03/05/2019 Pseudophakia of both eyes 12/22/2017 Primary open angle glaucoma (POAG) of right eye, moderate stage 08/15/2017 Assessment & Plan (03/08/2019 10:14 AM CDT): POW1 Placement Glaucoma Drainage Implant With Pharmacy Med - Xen Implant Right Eye With [facility] - Right Postoperative instructions were given. The patient is to use: Durezol QID until seen again D/C antibiotic on Monday Continue Durezol BID on the left Hold timolol/PGA OU Signs, symptoms of retinal detachment, tear, hole, and endophthalmitis and hypotony were reviewed and the patient is to call immediately for concerns. We discussed that things should improve until they stabilize. Should there be any worsening of pain, vision, or redness the patient is to call. Primary open-angle glaucoma, left eye, moderate stage 02/09/2017 Shoulder joint pain 01/11/2012 Colon adenoma 09/16/2011 Heartburn 09/16/2011 Delayed union of fracture 12/28/2010 Resolved Problems Problem Noted Date Diagnosed Date Resolved Date Primary open angle glaucoma of left eye, moderate stage 02/06/2019 01/28/2020 Overview (02/06/2019): Added automatically from request for surgery [id number] Borderline glaucoma with ocular hypertension 7 02/08/2018 Immunizations Name Administration Dates Next Due Tdap 04/21/2023 Surgical History Surgery Date Site/Laterality Comments EYE SURGERY CATARACT EXTRACTION W/ INTRA OCULAR LENS IMPLANT Bilateral TRABECULOPLASTY 08/31/2017 Left XEN BACK SURGERY lumbar, cervical HYSTERECTOMY COLON SURGERY Medical History Medical History Date Comments Glaucoma Asthma Depression Hypertension Back pain Family History Medical History Relation Name Comments Heart attack Brother Leukemia Brother Stroke Brother Heart attack Sister Relation Name Status Comments Brother Sister Social History Tobacco Use Types Packs/Day Years Used Date Smoking Tobacco: Never Smokeless Tobacco: Never Tobacco Cessation:Counseling Given: Not Answered Alcohol Use Standard Drinks/Week Comments Never 0 (1 standard drink = 0.6 oz pur e alcohol) AUDIT-C Answer Date Recorded Frequency of Alcohol Consumption Never 02/18/2019 Average Number of Drinks Not on file 019 Frequency of Binge Drinking Not on file 01/28 PHQ-2 Answer Date Recorded PHQ-2 Score 0 04/05/2019 Personal Safety Answer Date Recorded Have you ever been in or are you currently in a harmful physical or emotional relationship or is someone making you feel afraid or unsafe? Denies 06/08/2023 Comments No Sex and Gender Information Value Date Recorded Sex Assigned at Not on file Legal Sex Female 2:03 AM BELT BRANDER Gender Identity Not on file Sexual Orientation Not on file Obstetrics History Last Filed Vital Signs Vital Sign Reading Time Taken Comments Blood Pressure 115/43 01/30/2024 2:15 PM CDT Pulse 71 01/30/2024 2:15 PM CDT Temperature 36.3 ??C (97.4 ??F) 06/09/2023 4:02 AM CS T Respiratory Rate 18 01/30/2024 2:15 PM CDT Oxygen Saturation 97% 06/09/2023 4:02 AM BELT BRANDER Inhaled Oxygen Concentration - - Weight 61.2 kg (135 lb) 01/30/2024 2:15 PM CDT Height 154.9 cm (5' 1 ) 01/30/2024 2:15 PM CDT Body Mass Index 25.51 01/30/2024 2:15 PM CDT Plan of Treatment Health Maintenance Due Date Last Done Comments Pneumococcal vaccine 65+ (1 of 2 - PCV) 1943 Hepatitis B Screening 1955 Zoster Vaccine (1 of 2) 1987 Well Visit 65+ 2002 Depression Screening 04/04/2020 04/04/2019 Influenza Vaccine (#1) 2024 9, 04/03/2018, 02/01/2016, Additional history exists Fall Risk Assessment 06/09/2024 06/09/2023 DTaP/Tdap/Td Vaccine (2 - Td or Tdap) 04/21/2033 04/21/2023 Medical Devices Implanted Type Area Machine Clipper Device Identifier Shelf Expiration Date Model / Serial / Lot [employer] 5513-001 Xen 150um 45um 6mm Treatment System Preload Injector Intraocular Latex Free - [id number] - [id number] Implanted:Qty: 1 on 03/04/2019 by Katerina Shirley MD at [facility] Advanced Medicine Drain Right: Eye [employer] [id number] 07/26/2021 5513-001 / [id number] / [id number] Description:XEN REF 5513-001 Right eye Spinal Cord Stimulator Back [employer] Synergy Xd Monorail 2.25mm 16mm 144cm Delivery System 1 Access [id number] - [id number] Implanted:Qty: 1 on 06/08/2023 by Daniel Prince MD at [facility] [employer] Scientific Maya 11/22/2024 [id number] / / [id number] [place] [employer] Synergy Xd Monorail 2.5mm 20mm 144cm Delivery System 1 Access [id number] - [id number] Implanted:Qty: 1 on 06/08/2023 by Daniel Prince MD at [facility] [employer] 06/12/2024 [id number] / / [id number] [place] [employer] Synergy Xd Monorail 3.5mm 24mm 144cm Delivery System 1 Access [id number] - [id number] Implanted:Qty: 1 on 06/08/2023 by Daniel Prince MD at [facility] [employer] 06/07/2024 [id number] / / [id number] [employer] Angio-Seal Vip 6fr Closere Device [id number] - [id number] Implanted:Qty: 1 on 06/08/2023 by Daniel Prince MD at [facility] [employer] 01/19/2024 [id number] / / [id number] Insurance COMMERCIAL GENERIC MEDICARE [facility] [place] [address] Advance Directives For more information, please contact: [phone] * Full Code (Latest Code Status on File) Date Activated Date Inactivated Comments 06/08/2023 2:44 PM 06/09/2023 3:19 PM Care Teams Insert Molding Operator Relationship Specialty Start Date End Date Satish Desai MD [facility] - General 03/08/11
--- OUTSIDE RECORDS SUMMARY | 2024-06-21 12:34 | XMS_ITS ---
Author Organization [facility] Address [address] [place] [address] [place] [address] Care Team Providers Care Production Or Plant Engineer Name Role Phone CAYLA ALEXANDER, SUSAN Primary Care Provider Odilon Medina Unavailable [phone] ALLERGIES Allergen (clinical drug ingredient) Drug/Non Drug Allergy documented on EMR Reaction Allergy Type Onset Date Status neomycin Neomycin hives Drug Allergy Active Tape peels skin off Allergy Activ e REASON FOR VISIT Follow Up, Left > Right Low Back Pain, Right equal to left neck pain MEDICATIONS Medication SIG (Take, Route, Frequency, Duration) Notes Start Date End Date Status Lisinopril 10 MG TAKE 1 TABLET BY CHUN TH DAILY Oral for 90 Active Clopidogrel Bisulfate 75 MG Oral for 90 Active Voltaren 1 % apply 4 grams to beto nful joint(s) Transdermal 4x/day as needed for pain for 30 days Active Losartan Potassium 50 MG Oral for 90 Active Atorvastatin Calcium 40 MG Oral for 90 Active Gabapentin 100 MG as directed Orally 2 am, 2 at noon, and 3 at night Active FLUoxetine HCl 40 MG 1 capsule Orally On ce a day for 30 day(s) Active Calcium 600 MG 1 tablet with meals Orally Twice a day for 30 day(s) Active Pantoprazole Sodium 20 MG 1 tablet Orall y Once a day for 30 day(s) Active Aspirin 81 81 MG 1 tablet Orally Once a day for 30 day(s) Active DULoxetine HCl 60 MG TAKE 1 CAPSULE BY M OUTH DAILY Oral for 90 Active Carvedilol 12.5 MG Oral for 90 Active Fluticasone Propionate 50 MCG/ACT Nasal for 30 Active Airsupra 90-80 MCG/ACT Inhalation for 30 Active PROBLEMS Problem Type ICD Code Onset Dates Problem Status W/U Status Risk SNOMED Code Notes Problem 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 (Z79.01) Active confirmed Long-term current use of anticoagulant (488472180) VITAL SIGNS Blood pressure systolic 122 mm Hg 10/27/19 24 Blood pressure diastolic 55 mm Hg 024 Heart Rate 68 /min 10/27/2023 Respiratory Rate 18 /min 10/27/2023 Height 5 ft 1 in in 10/27/2023 Weight 125 lbs 10/27/2023 BMI 23.62 kg/m2 10/27/2023 Encounters Encounter Location Date Provider Diagnosis [facility] [address] [place] [address] 10/27/2023 Odilon Benton Radiculopathy, lumbosacral region M54.17 ; Radiculopathy, cervical region M54.12 ; Sacroiliitis, not elsewhere classified M46.1 ; Spondylosis without myelopathy or radiculopathy, cervical region M47.812 ; Spondylosis without myelopathy or radiculopathy, lumbar region M47.816 ; Postlaminectomy syndrome, not elsewhere classified M96.1 ; Primary osteoarthritis, 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 The risks of this procedure including pain, bleeding, [...] is agreeable to proceeding at this time. 10/27/2023 Sacroiliitis, not elsewhere classified (ICD-10 - M46.1) 10/27/2023 Spondylosis without myelopathy or radiculopathy, 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) 10/27/2023 Spondylosis without myelopathy or radiculopathy, lumbar region (ICD-10 - M47.816) 10/27/2023 Postlaminectomy syndrome, not elsewhere classified (ICD-10 - M96.1) 10/27/2023 Primary osteoarthritis, left shoulder (ICD-10 - M19.012) 10/27/2023 Unspecified rotator cuff tear or rupture of left shoulder, not specified as traumatic (ICD-10 - M75.102) 10/27/2023 Radiculopathy, lumba r region (ICD-10 - M54.16) 10/27/2023 Osseous stenosis of neural canal of cervical region (ICD-10 - M99.31) 10/27/2023 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 (ICD-10 - Z79.01) The patient was instructed to discontinue aspirin for 6 days prior to the procedure. I made the patient aware that she will be at an increased risk for a thromboembolic event during this time and she is willing to accept this risk. The patient was instructed to notify her primary care physician and/or case management associate to obtain clearance prior to discontinuing this medication. 10/27/2023 Other The above-named patient was evaluated in conjunction with Dr. Benton. I have discussed and reviewed all of the pertinent history, physical examination findings and diagnostic imaging results with him. As a result of our discussion, Dr. Benton has determined the above assessment and directed the treatment plan. This note was dictated using voice recognition software and therefore inadvertent errors may have occurred. This note was dictated by DELFIN Burch PLAN OF TREATMENT Treatment Notes Assessment Notes Radiculopathy, cervical region Schedule a cervical epidural steroid injection at C7-T1. The risks of this procedure including pain, bleeding, [...] is agreeable to proceeding at this time. termite treater helper (current) use of anticoagulant s The patient was instructed to discontinue aspirin for 6 days prior to the procedure. I made the patient aware that she will be at an increased risk for a thromboembolic event during this time and she is willing to accept this risk. The patient was instructed to notify her primary care physician and/or case management associate to obtain clearance prior to discontinuing this medication. Other The above-named katja ent was evaluated in conjunction with Dr. Benton. I have discussed and reviewed all of the pertinent history, physical examination findings and diagnostic imaging results with him. As a result of our discussion, Dr. Benton has determined the above assessment and directed the treatment plan. This note was dictated using voice recognition software and therefore inadvertent errors may have occurred. This note was dictated by DELFIN Burch Next Appt Details Follow Up: SHANTEL C7-T1 , Reas on: Progress Notes * Examination Category Sub-Category Detail [...] patient's typical axial low back pain. Racheal's [place]'s and [place]'s are positive bilaterally. There is [...] and Follow-up: Follow-up Plan documevan jacqueline:: Yes [facility] Quality 2020: [facility] Documented:: Compliant
--- OUTSIDE RECORDS SUMMARY | 2024-06-21 12:34 | XMS_ITS | Referral Summary ---
Author Organization [facility] Address [address] [place] [address] Care Team Providers Care Rivet Machine Operator Name Role Phone Satish Desai MD Primary Care Provider Allergies Active Allergy Reactions Criticality Noted Date Comments Adhesive Rash Medium Adhesive Tape-Silicones Itching,Rash Medium 05/04/2011 Neomycin Hives Medium 12/27/2021 Jdcughzl-Lpwwftydbt-Byqhfgmgj Rash Medium 2018 Neosporin (Neomycin-Polymyx) Rash Medium [...] 07/06/2020 Assessment & Plan (07/06/2020 11:20 AM TOOL POLISHING MACHINE OPERATOR): Impression: Patient complain of cool right foot [...] 07/06/2020 Assessment & Plan (07/06/2020 11:26 AM TOOL POLISHING MACHINE OPERATOR): Impression: Stable chronic hypertension. Plan: Medications reviewed [...] (02/06/2019): Added automatically from request for surgery [id number] Borderline glaucoma with ocular hypertension 7 02/08/2018 Immunizations Name Administration Dates Next Due Tdap 04/21/2023 Social History Tobacco Use Types Packs/Day Years [...] on file Legal Sex Female 2:03 AM TOOL POLISHING MACHINE OPERATOR Gender Identity Not on file Sexual Orientation Not on file Last Filed Vital Signs Vital Sign Reading Time Taken Comments Blood Pressure 115/43 01/30/2024 2:15 PM CDT Pulse 71 01/30/2024 2:15 PM CDT Temperature 36.3 ??C (97.4 ??F) 06/09/2023 4:02 AM CS T Respiratory Rate 18 01/30/2024 2:15 PM CDT Oxygen Saturation 97% 06/09/2023 4:02 AM TOOL POLISHING MACHINE OPERATOR Inhaled Oxygen Concentration - - Weight 61.2 kg (135 lb) 01/30/2024 2:15 PM CDT Height 154.9 cm (5' 1 ) 01/30/2024 2:15 PM CDT Body Mass Index 25.51 01/30/2024 2:15 PM CDT Plan of Treatment Not on file Medical Devices Implanted Type Area Fourth Grade Teacher Device Identifier Shelf Expiration Date Model / Serial / Lot [employer] 5513-001 Xen 150um 45um 6mm Treatment System Preload Injector Intraocular Latex Free - [id number] - [id number] Implanted:Qty: 1 on 03/04/2019 by Katerina Shirley MD at [facility] Drain Right: Eye [employer] [id number] 07/26/2021 5513-001 / [id number] / [id number] Description:XEN REF 5513-001 Right eye Spinal Cord Stimulator Back [employer] Synergy Xd Monorail 2.25mm 16mm 144cm Delivery System 1 Access [id number] - [id number] Implanted:Qty: 1 on 06/08/2023 by Daniel Prince MD at [facility] [employer] 11/22/2024 [id number] / / [id number] [place] [employer] Synergy Xd Monorail 2.5mm 20mm 144cm Delivery System 1 Access [id number] - [id number] Implanted:Qty: 1 on 06/08/2023 by Daniel Prince MD at [facility] [employer] 06/12/2024 [id number] / / [id number] [employer] Synergy Xd Monorail 3.5mm 24mm 144cm Delivery System 1 Access [id number] - [id number] Implanted:Qty: 1 on 06/08/2023 by Daniel Prince MD at [facility] [employer] 06/07/2024 [id number] / / [id number] [employer] Angio-Seal Vip 6fr Closere Device [id number] - [id number] Implanted:Qty: 1 on 06/08/2023 by Daniel Prince MD at [facility] [employer] 01/19/2024 [id number] / / [id number] Insurance COMMERCIAL GENERIC MEDICARE [employer] [place] [address] Advance Directives For more information, please contact: [phone] * Full Code (Latest Code Status on File) Date Activated Date Inactivated Comments 06/08/2023 2:44 PM 06/09/2023 3:19 PM Care Teams Rivet Machine Operator Relationship Specialty Start Date End Date Satish Deasi MD PCP - General 03/08/11
--- OUTSIDE RECORDS SUMMARY | 2024-06-21 12:34 | XMS_ITS | Continuity of Care Document ---
Author Organization [facility] Address [address] [place] [address] Phone Care Team Providers Care Steel Die Printer Name Role Phone Omid Tobar MD Unavailable Unavailable Allergies, Adverse Reactions, Alerts Substance Reaction Status Criticality No Known Drug Allergies Active No I nformation Procedures Procedure Date Office/outpatient visit,toña han 2012 Asp/inject major joint or bursa 013 Depo Medrol Methylprednisolone 40 MG inj Asp/inject major joint or bursa 013 Depo Medrol Methylprednisolone 40 MG inj X-ray exam shoulder minimun 2 views Office/outpatient visit,eliseo antony 2012 Advance Directives Directive Yes / No Effective Date File Name Resuscitation Not Answered N/A N/A Life Support Not Answered N/A N/A Intubation Not Answered N/A N/A Antibiotics Not Answered N/A N/A IV Fluid Support Not Answered N/A N/A Tube Feed Not Answered N/A N/A Other Directive N/A N/A WARNING:The information contained in this section is historical and is provided for information only and does not constitute a legal document or any assurance that the information is still accurate. Please verify the information with the forrester of the legal document before using it for clinical purposes. Encounters Encounter Description Practice Location Reason(s) For Visit Diagnoses Date Provider Providers Copied on Encounter Office/outpat ient visit,toña han [facility], [address], [place], [place], [id number], [place] tel:[phone] [facility] LOC PRIM OSTEOARTH-ONEAL DROTATOR CUFF RUPTURE 3-201 3 Ekaterina Anne. [address], [address], [place], [place], [id number] , [place]. tel:[phone] Referring Provider: Robert Alvarado, [address] [place] [address], [place], [address]. tel:[phone] Office/outpat ient visit,[place] [facility], [address] [facility], [place], [place], [id number], tel:[phone] [facility] PAIN IN LIMBROTATOR CUFF RUPTURE 3 Ekaterina Anne. [address], [address], [place], [place], [id number] , [place]. tel:[phone] Referring Provider: Robert Alvarado, [address] [place] [address], [place], [address]. tel:[phone] Family History Family Member Type Diagnosis Age At Onset No Information Immunizations Vaccine Date Status Comments Flu (split) (3 yrs or older) administered Source: New Immunization Record Payers Payer name Insurance type Covered alliance party ID Authoriza tion(s) [place] [id number] [facility] [id number] Social History Type Description Quantity Date Captured Comments Alcohol Use Details Unknown Caffeine Use Details Unknown Tobacco Use Status No Information Smoking Status Never smoker Sex Female Chief Complaint And Reason For Visit No Information Reason For Referral Reason For Referral No Information Plan Of Treatment Date Type Action Status Referral Ordered: Other LT shoulder Appointment date/timeframe: 09/25/2012 ordered Referral Ordered: X-ray exam shoulder minimun 2 views LT shoulder ordered History Of Present Illness Encounter Date Complaint History Of Prese nt Illness No Information Functional Status Date Functional Assessmen t No Information Instructions Date Instruction Additional Infor mation No Information Assessments Type Assessment Date No Information Patient Care Teams Name Effective Dates (start - stop) Status Members No Information
--- NOTE | 2024-06-21 12:35 | ECG_ITS ---
Test Date: 2024-06-21 12:50:09 Measurements Intervals [place] Rate: 68 P: 23 AR: 147 QRS: -32 QRSD: 106 T: -3 QT: 401 QTc: 429 Interpretive Statements SINUS RHYTHM MARKED LEFT AXIS DEVIATION [QRS AXIS < -30] MODERATE VOLTAGE CRITERIA FOR LVH, CONSIDER NORMAL VARIANT [MEETS CRITERIA IN ONE OF: R(aVL), S(V1), R(V5), R(V5/V6)+S(V1)] POSSIBLE ANTERIOR MYOCARDIAL INFARCTION [30 ms Q WAVE IN V3/V4, OR R < 0.2 mV IN V4], PROBABLY OLD No previous ECG available for comparison Electronically Signed On 06-21-2024 23:56:07 SUPERVISOR OF COMMUNICATIONS by Hema Kwan M.D.
--- OUTSIDE RECORDS SUMMARY | 2024-06-21 12:35 | XMS_ITS | Clinical Summary ---
Author Organization [facility] Address [address] [place] [address] Care Team Providers Care Operations Leader Name Role Phone Satish Desai MD Primary Care Provider [phone] Source Comments [facility],non-owned Affiliates and Associated Physician Practices is amultiple site organization consisting of ambulatory clinics and hospital sitesin [place], [place], [place] and [place]. This disclosure is being madepursuant to the Care Everywhere program and may not contain all information available regarding this patient. Last updated 18.[facility] Allergies Active Allergy Reactions Criticality Noted Date Comments Qwdcwmxo-Ejnkpbjrwf-Lnjrwjigi Rash Medium 2018 Medications * Be aware that medications may not be up to date on this document. Alwaysverify current medications with the patient. Medication Sig Dispensed Refills Start Date End Date Status ARNUITY ELLIPTA 100 MCG/ACT inhaler 1 tablet every morning 08/18/2018 Active atenolol (TENORMIN) 25 MG tablet 1 tablet every morning 09/03/2018 Active montelukast (SINGULAIR) 10 MG tablet 1 tablet at bedtime 09/03/2018 Active omeprazole (PRILOSEC) 40 MG capsule 1 capsule every morning 08/02/2018 Active gabapentin (NEURONTIN) 600 MG tablet 1 tablet 2 times daily 08/02/2018 Active traMADol (ULTRAM) 50 MG tablet 1 tablet as needed 05/28/2018 Active timolol maleate (TIMOPTIC) 0.5 % ophthalmic solution 1 drop once daily 08/20/2018 Active ketorolac 0.5% (ACULAR) 0.5 % ophthalmic solution 1 drop once daily 08/18/2018 Active latanoprost (XALATAN) 0.005 % ophthalmic solution 1 drop once daily 08/02/2018 Active FLUoxetine (PROZAC) 40 MG capsule Take 40 mg by mouth once daily Active aspirin (ASPIRIN) 81 MG tablet Take 81 mg by mouth once daily Active SIMBRINZA 1-0.2 % ophthalmic suspension 1 drop once daily 07/21/2018 Active Social History Tobacco Use Types Packs/Day Years Used Date Smoking Tobacco: Never Smokeless Tobacco: Never Alcohol Use Standard Drinks/Week Comments No 0 (1 standard drink = 0.6 oz pur e alcohol) Sex and Gender Information Value Date Recorded Sex Assigned at Not on file Gender Identity Not on file Sexual Orientation Not on file Plan of Treatment Health Maintenance Due Date Last Done Comments BONE DENSITY TESTING 1935 MEDICARE AWV ? 12 MONTHS 1935 DTAP/TDAP/TD VACCINES (1 - Tdap) 1956 PNEUMOCOCCAL VACCINE 50+ (1 of 1 - PCV) 1987 ZOSTER VACCINE (1 of 2) 1987 Respiratory Syncytial Virus (RSV) Vaccine Pt: or over 60 yrs (1 - 1-dose 75+ series) 2012 COVID-19 VACCINE (2023-2 5 season) 2024 INFLUENZA VACCINE (#1) 2024 DEPRESSION SCREENING 05/29/2024 HEPATITIS B VACCINE Aged Out No longe r eligible based on patient's age to complete this topic HIB VACCINE Aged Out No longer eligi ble based on patient's age to complete this topic HPV VACCINE Aged Out No longer eligi ble based on patient's age to complete this topic MENINGOCOCCAL (Group B) VACCINE Aged Out No longer eligible based on patient's age to complete this topic MENINGOCOCCAL VACCINE Aged Out No cristofer ruben eligible based on patient's age to complete this topic Care Teams Operations Leader Relationship Specialty Start Date End Date Satish Desai MD [address] [place] [address] PCP - General 09/18/18
--- OUTSIDE RECORDS SUMMARY | 2024-06-21 12:35 | XMS_ITS | Continuity of Care Document ---
Author Organization [facility] Address [address] [place] [address] Phone Care Team Providers Care Venipuncturist Name Role Phone Alden ESPINOSA, Katelynn Unavailable Unavailable Allergies, Adverse Reactions, Alerts Substance Reaction Status Criticality TAPE, OCCLUSIVE ADHESIVE Active No Information PRAMOXINE HCL Active No Information POLYMYXIN B SULFATE Active No Infor mation NEOMYCIN SULFATE Active No Informat ion BACITRACIN ZINC Active No Informati on naproxen Active No Information Medications Medication Instructions Dosage Effective Dates (start - stop) Status Comments Calcium 600 600 mg calcium (1,500 mg) tablet take one tablet daily - Active Tylenol Arthritis Pain 650 mg tablet,extended release take 2 tablet by oral route every 8 hours as needed swallowing whole with water. Do not break, crush, dissolve and/or chew. 1300 MG - Active aspirin 81 mg tablet,delayed release take 1 tablet by oral route every day 81 MG - Active multivitamin capsule take 1 capsule by oral route every day - Active Stool Softener 50 mg capsule take 1 capsule by oral route every day at bedtime as needed 50 MG - Active gabapentin 300 mg capsule take 1 capsule by oral route 3 times every day 300 MG - Active vitamin E 400 unit capsule take one tablet daily - No Longer Active omeprazole 40 mg capsule,delayed release take 1 capsule by oral route every day before a meal 40 MG - No Longer Active Prozac 20 mg capsule take 1 capsule by oral route every day in the morning 20 MG - No Longer Active Arnuity Ellipta 100 mcg/actuation powder for inhalation inhale 1 puff by inhalation route every day at the same time each day 100 MCG - No Longer Active montelukast 10 mg tablet take 1 tablet by oral route every day in the evening 10 MG - No Longer Active ProAir HFA 90 mcg/actuation aerosol inhaler inhale 2 puff by inhalation route every 4 - 6 hours as needed - No Longer Active verapamil ER (SR) 240 mg tablet,extended release take 1 tablet by oral route every day with food 240 MG - No Longer Active ATENOLOL (unknown strength) take 1 tablet by oral route every day Not Available - No Longer Active Procedures Procedure Date No Charge Optomap Fundus Photos 024 Office/outpatient Visit, Est Refraction SCODI, Retina No Charge Optomap Fundus Photos 023 Eye Exam & Treatment No Charge Optomap Fundus Photos 022 SCODI, Retina Eye Exam & Treatment Fundus Photography W/ Report Refraction Eye Exam & Treatment Fundus Photography W/ Report Eye Exam & Treatment Visual Field Examination(s) SCODI, Retina No Charge Refraction Office/outpatient Visit, Est No Charge Refraction SCODI, Posterior Segment Visual Field Examination(s) Eye Exam & Treatment SCODI, Posterior Segment Refraction No Charge GDX Retina Eye Exam & Treatment Visual Field Examination(s) Office/outpatient Visit, Est Office/outpatient Visit, Est Office/outpatient Visit, Est No Charge Refraction SCODI, Posterior Segment Eye Exam Established Pt Fundus Photography W/ Report Office/outpatient Visit, Est Office/outpatient Visit, Est Office/outpatient Visit, Est Office/outpatient Visit, Est Office/outpatient Visit, Est Fundus Photography W/ Report Eye Exam & Treatment Eye Exam & Treatment Fundus Photography W/ Report Office/outpatient Visit, Est Fundus Photography W/ Report Office/outpatient Visit, Est Office/outpatient Visit, Est No Charge Optomap Fundus Photos 013 One Or More Rx Generated And Transmitted Office/outpatient Visit, Est Post-op Follow-up Visit No Charge Refraction Post-op Follow-up Visit Remove Cataract, Post Op Care 2 Remove Cataract, Insert Lens,Comanaged N Echo Exam Of Eye-Professional 2 Office/outpatient Visit, Est Certified EMR Fundus Photography W/ Report Eye Exam & Treatment Eye Exam & Treatment Eye Exam & Treatment Office/outpatient Visit, Est Eye Exam & Treatment Eye Exam & Treatment Advance Directives Directive Yes / No Effective Date File Name Other Directive No N/A N/A WARNING:The information contained in this [...] Diagnoses Date Provider Providers Copied on Encounter Office/outpa tient Visit, Est [facility], [address], [place], [place], [address], [place] tel:[phone] SEC Cong SLADE Professional Work In Emergency (chief complaint) Subconjuncti vamsi hemorrhage of left eye Oct-2 4 Alden OD Katelynn. [address] [place] [address] [address], [address], [place], [place], [address], [place]. tel:[phone] Ray Hernandez MD.Omid Mitchell MD.Scooter Solorzano MD.Referrin g Provider: Trev Mead, [facility] [address] [employer] [facility] [address], [place], [address]. tel:[phone] [facility], [address] [place] [address] [address], [place], [place], [address], [place] tel:[phone] SEC [place] Professional Follow up visit (chief complaint) Pseudophakia of both eyesEpiretin al membrane (ERM) of left eyePrimary open-angle glaucoma, bilateral, severe stage 3 Kip Biggs. [address] [facility], [address], [place], [place], [address], [place]. tel:[phone] Ray Hernandez MD.Omid Mitchell MD.Scooter Solorzano MD.Referrin g Provider: Trev Mead, [facility] [address], [place], [address]. tel:[phone] [facility], [address] [place] [address] [address], [place], [place], [address], [place] tel:[phone] SEC [place] Professional Complete Exam (chief complaint) Chorioretina l scar of right eyePseudopha kit of both eyesEpiretin al membrane (ERM) of left eyePrimary open-angle glaucoma, bilateral, severe stagePtosis of both upper eyelids 2 Kip Biggs. [address] [facility], [address], [place], [place], [address], [place]. tel:[phone] Ray Hernandez MD.Omid Mitchell MD.Scooter Solorzano MD.Speciali [place]: [place], [address] [facility] [address], [place], [address]. tel:[phone] ring Provider: Trev Mead, [facility] [address], [place], [address]. tel:[phone] [employer] [facility], [facility] [address], [place], [place], [address], [place] tel:[phone] SEC [place] Professional Complete Exam (chief complaint) Chorioretina l scar of right eyeEpiretina l membrane (ERM) of left eyePrimary open-angle glaucoma, bilateral, severe stagePseudop hakia of both eyes 1 Kip Biggs. [address], [address], [place], [place], [address], [place]. tel:[phone] Specialist: Ray Hernandez MD, [address] [facility] 6th [facility], [place], [address]. [phone] alist: Omid Mitchell MD, [address] [place], [address]. [phone] alist: Scooter Solorzano MD, [address] [place], [address]. [phone] [facility] Provider: Trev Mead, [address] [address], [place], [address]. tel:[phone] [employer] [facility], [facility] [address] [facility] [address], [place], [place], [address], [place] tel:[phone] SEC Cong [place] Professional Complete Exam (chief complaint) Primary open-angle glaucoma, bilateral, severe stagePresenc e of pseudophakia Other secondary cataract, left eye 0 Kip Biggs. [address], [address], [place], [place], [address], [place]. tel:[phone] Ray Hernandez MD.Omid Mitchell MD.Referrin g Provider: Trev Mead, [address] [address] [address], [place], [address]. [phone] Office/outpa tient Visit, Est [facility], [address], [place], [place], [address], [place] tel:[phone] SEC Cong [place] Professional WIE (chief complaint) Bilateral visual field constriction Band keratopathy of right eyeAge-relat ed macular degeneration with central geographic atrophyGlauc bonnie filtering bleb of left eyeOther secondary cataract, left eyePrimary open-angle glaucoma, bilateral, severe stage Feb-2 6-202 0 Sakina OD Jak. [address], [place], [address], [place]. tel:[phone] Specialist: Ray Hernandez MD, [address] [facility] [address] [facility], [place], [address]. tel:[phone] alist: Omid Mitchell MD, [address] [place], [address]. tel:[phone] ring Provider: Trev Mead, [address], [place], [address]. tel:[phone] [facility], [address], [place], [place], [address], [place] tel:[phone] SEC Cong [employer] Professional Complete Exam (chief complaint) Primary open-angle glaucoma, bilateral, severe stagePseudop hakia of both eyesOther secondary cataract, left eyeBand keratopathy of right eyeChorioret inal scar of right eyeEpiretina l membrane (ERM) of left eyeVitreous degeneration , left eyeGlaucoma filtering bleb of left eyeRPE mottling of macula 9-201 9 Kip Biggs. [address] [facility], [address], [place], [place], [address], [place]. tel:[phone] Specialist: Ray Hernandez MD, [facility], [place], [address]. tel:[phone] alist: Omid Mitchell MD, [address] [facility], [address], [place], [address]. tel:[phone] Provider: Omid Mitchell MD, [address] [facility], [address], [place], [address]. tel:[phone] Provider: Ray Hernandez MD, [address] [facility] [address] [address], [place], [address]. tel:[phone] ring Provider: Trev Mead, [address], [place], [address]. tel:[phone] [facility], [address] [place] [address] [address], [place], [place], [address], [place] tel:[phone] SEC Cong [employer] Professional Complete Exam and OCT (chief complaint) Primary open-angle glaucoma, bilateral, severe stageVitreou s degeneration , left eyeDry eye syndrome of bilateral lacrimal glandsPresen ce of pseudophakia Epiretinal membrane (ERM) of right eyeAge-relat ed macular degeneration with central geographic atrophyMacul ar edema 8 Kip Biggs. [address] [facility], [address], [place], [place], [address], [place]. tel:[phone] Referring Provider: Trev Mead, [address] [facility] [address], [place], [address]. tel:[phone] Office/outpa tient Visit, [facility], [address], [place], [place], [address], [place] tel:[phone] SEC Jorge Umanzor glaucoma, pressure check (chief complaint) No Information 7 Kip Biggs. [address] [facility], [address], [place], [place], [address], [place]. tel:[phone] Referring Provider: Roney Mead, [address] [facility] [address], [place], [address]. tel:[phone] Office/outpa tient Visit, [facility], [facility] [address], [place], [place], [address], tel:[phone] SEC [place] YANY Professional glaucoma, pressure check (chief complaint) No Information Kip Biggs. [address], [address], [place], [place], [address], . tel:[phone] Referring Provider: Roney Mead, [address], [place], [address]. tel:[phone] Office/outpa tient Visit, [facility], [address] [place] [address] [address], [place], [place], [address], tel:[phone] SEC Kimberly N [address] IOP ck (chief complaint) No Information Kip Biggs. [address], [place], [address], . tel:[phone] Referring Provider: Roney Mead, [address], [place], [address]. tel:[phone] [facility], [address] [place] [address] [address], [place], [place], [address], tel:[phone] SEC Jorge N [address] Blurry vision (chief complaint) No Information Karthikeyan Karimi. [address] [place] [address], [address], [place], [place], [address], [place]. tel:[phone] Referring Provider: Roney Mead, [address], [place], [address]. tel:[phone] Office/outpa tient Visit, [facility], [address] [place] [address] [address], [place], [place], [address], tel:[phone] SEC Cong [place] Professional glaucoma, pressure check (chief complaint) No Information 7 Karthikeyan Karimi. [address] [place] [address], [address], [place], [place], [address], [place]. tel:[phone] Referring Provider: Roney Mead, [address] [facility] [address], [place], [address]. tel:[phone] Office/outpa tient Visit, [facility], [address] [place] [address] [address], [place], [place], [address], [place] tel:[phone] SEC [facility] Professional IOP ck (chief complaint) No Information 6 [place] Trev. [address] [place] [address], [address], [place], [place], [address], [place]. tel:[phone] Referring Provider: Roney Mead, [address] [facility] [address], [place], [address]. tel:[phone] Office/outpa tient Visit, [facility], [address] [place] [address] [address], [place], [place], [address], [place] [phone] SEC [place] Professional Discharge, mucus (chief complaint) No Information 6 Kip Biggs. [address] [facility], [facility], [place], [place], [address], [place]. tel:[phone] Referring Provider: Roney Mead, [address] [facility] [address], [place], [address]. tel:[phone] Office/outpa tient Visit, [facility], [address] [place] [address] [address], [place], [place], [address], [place] tel:[phone] [facility] (chief complaint) No Information 6 Karthikeyan Trev. [address] [place] [address], [address], [place], [place], [address], [place]. tel:[phone] Referring Provider: Omid Verduzco, [address] [place], [address]. tel:[phone] Office/outpa tient Visit, Est [facility], [address], [place], [place], [address], [place] tel:[phone] SEC Cong [employer] Professional 3 week IOP check (chief complaint) No Information 6 Reganbessy Sim. [address], [address], [place], [place], [address], [place]. tel:[phone] Referring Provider: Roney Mead, [address] [employer] [address], [place], [address]. [phone] [facility], [address] [place] [address] [address], [place], [place], [address], [place] tel:[phone] SEC Cong [place] Professional Yearly-Compl ete (chief complaint) No Information 6 Karthikeyan Karimi. [facility] [address], [address], [place], [place], [address], [place]. tel:[phone] Referring Provider: Roney Mead, [address], [place], [address]. [phone] [facility], [address], [place], [place], [address], [place] tel:[phone] SEC Cong [employer] Professional No Information 6 Nathan Sim. [address], [address], [place], [place], [address], [place]. tel:[phone] [address] Eye [facility], [address], [place], [place], [address], [place] tel:[phone] SEC Jorge Silva Complete Exam (chief complaint) No Information 4 [place] Trev. [address] [facility], [address], [place], [place], [address], . tel:[phone] Referring Provider: Roney Mead, [address] [facility], [place], [address]. tel:[phone] Office/outpa tient Visit, [facility], [address] [place] [address] [address], [place], [place], [address], tel:[phone] SEC Jorge Umanzor 4 Month IOP Check (chief complaint) No Information 4 Karthikeyan Karimi. [address] [place] [address], [address], [place], [place], [address], . tel:[phone] Referring Provider: Roney Mead, [address] [facility], [place], [address]. tel:[phone] Office/outpa tient Visit, [facility], [address] [place] [address] [address], [place], [place], [address], [place] tel:[phone] SEC Jorge Umanzor eyes doing well, without complaint. (chief complaint) No Information Apr- 3 Karthikeyan Karimi. [address] [place] [address], [address], [place], [place], [address], . tel:[phone] Referring Provider: Roney Mead, [address] [facility], [place], [address]. tel:[phone] Office/outpa tient Visit, [facility], [address] [place] [address] [address], [place], [place], [address], [place] tel:[phone] SEC Kimberly N [address] a comprehensiv e exam (chief complaint)a comprehensiv e exam (chief complaint)ey es doing well, without complaint. (chief complaint) No Information Jan- 3 Karthikeyan Karimi. [address] [place] [address], [address], [place], [address], [place]. tel:[phone] Referring Provider: Omid Verduzco, [address] [place], [address]. tel:[phone] Office/outpa tient Visit, Est [facility], [address], [place], [place], [address], [place] tel:[phone] SEC [place] Professional eyes doing well, without complaint. (chief complaint) No Information 0 3 Nathan Sim. [address], [address], [place], [place], [address], [place]. tel:[phone] Referring Provider: Roney Mead, [address], [place], [address]. tel:[phone] [facility], [address], [place], [place], [address], [place] tel:[phone] SEC [place] Professional blurry vision (chief complaint)bl urry vision (chief complaint) No Information 3 Nathan Sim. [address], [address], [place], [place], [address], [place]. tel:[phone] Referring Provider: Roney Mead, [address], [place], [address]. tel:[phone] [facility], [address], [place], [place], [address], [place] tel:[phone] SEC [place] Professional a comprehensiv e exam (chief complaint) No Information 3-201 2 Reganbessy Learyald. [address], [address], [place], [place], [address], [place]. tel:[phone] Referring Provider: Roney Mead, [address], [place], [address]. tel:[phone] [address] Eye [facility], [address] [address], [place], [place], [address], [place] tel:[phone] SEC [place] Professional 1 day post op (chief complaint) No Information Mar-3 0-201 2 Wanbessy Sim. [address], [address], [place], [place], [address], [place]. tel:[phone] Referring Provider: Roney Mead, [address], [place], [address]. tel:[phone] [employer] [facility], [address], [place], [place], [address], tel:[phone] NovFormerly [facility] No Information 2 [place] Trev. [facility] [address], [address], [place], [place], [address], [place]. tel:[phone] Referring Provider: Roney Mead, [address], [place], [address]. tel:[phone] [employer] [facility], [address], [place], [place], [address], [place] tel:[phone] SEC Kimberly Mag[facility] No Information 2 Karthikeyan Trev. [address], [address], [place], [place], [address], [place]. tel:[phone] Referring Provider: Roney Mead, [address], [place], [address]. tel:[phone] Office/outpa tient Visit, Est [facility], [address] [address], [place], [place], [address], [place] tel:[phone] SEC [place] Professional blurry vision (chief complaint) No Information 1-201 2 Karthikeyan Karimi. [address] [place] [address], [address], [place], [place], [address], [place]. tel:[phone] Referring Provider: Roney Mead, [address] [facility] [address], [place], [address]. tel:[phone] [facility], [address] [place] [address] [address], [place], [place], [address], [place] tel:[phone] SEC Cong [place] Professional No Information 3-201 2 Wankanderson Roney. [address] [facility], [facility] [place], [address], [place]. tel:[phone] Referring Provider: Roney Mead, [address] [facility] [place], [address]. tel:[phone] [facility], [address] [place] [address] [address], [place], [place], [address], [place] tel:[phone] SEC Cong [place] Professional No Information 8201 1 Wankum Roney. [address] [facility], [facility], [place], [place], [address], [place]. tel:[phone] [facility], [address], [place], [place], [address], [place] tel:[phone] SEC [place] Professional No Information 0 7-201 0 Wankum Roney. [address] [facility], [address] [place], [place], [address], [place]. tel:[phone] Office/outpa tient Visit, Est [facility], [address], [place], [place], [address], [place] tel:[phone] SEC [place] Professional No Information Nov-2 4-200 9 Wankum Roney. [address], [facility] [place], [address], . tel:[phone] [facility], [address], [place], [place], [address], tel:[phone] SEC [place] YANY Professional No Information 9 Nathan Sim. [address] [facility], [facility] [place], [address], . tel:[phone] [facility], [address], [place], [place], [address], tel:[phone] SEC [place] Professional No Information 8 Nathan Sim. [address] [employer] [facility], [facility], [place], [place], [address], . tel:[phone] Family History Family Member Type Diagnosis Age At Onset Multiple Problem (finding) Heart Disease Problem (finding) Family history of diabetes mellitus type 2 Payers Payer name Insurance type Covered constitution party ID Authorsamsona tidomonique(s) [employer] Claims [id number] Social History Type Description Quantity Date Captured Comments Alcohol Use Details No Caffeine Use Details 1 cup per day Tobacco Use Status Current non-smoker Smoking Status Never smoker Non-Smoking Tobacco Use Details : No Details Available : No Details Available Sex Female Chief Complaint And Reason For Visit From encounter dated '03/21/2024 09:15'. Work In Emergency (chief complaint). Description: The 89 year old patient presents for evaluation of Work In Emergency in the left eye. Pt states Monday evening she noticed her eye was looking like it was all bloody. Pt states later in the evening she felt a lot of pressure on her eye like there was something in her eye. Pt states it cleared up a lot by next morning but is still looking bloody. Pt denies any pain or change to vision. Pt states she did sneeze hard the other day but can not recall if it was around the same time as this occurred. Pt is taking an Aspirin 81mg but no other blood thinners. Pt states she has had 3 stents placed since we last saw her and she also states her BP has been quite high lately and is on a few new meds but can not recall the names of them. Pt hx of ERM OS. Reason For Referral Reason For Referral No Information Plan Of Treatment Date Type Action Status Referral Referred To: Ray Hernandez [address], [place] [id number] Ordered: Referrals: Ophthalmology. Ray Hernandez. Evaluate and treat ordered Patient Education Open-Angle Glaucoma: Ca re Instructions completed Patient Education Open-Angle Glaucoma: Ca re Instructions completed Patient Education Open-Angle Glaucoma: Ca re Instructions completed Patient Education Open-Angle Glaucoma: Ca re Instructions completed Patient Education Open-Angle Glaucoma: Ca re Instructions completed History Of Present Illness Encounter Date Complaint History Of Prese nt Illness Work In Emergency The 89 year ol d patient presents for evaluation of Work In Emergency in the left eye. Pt states Monday evening she noticed her eye was looking like it was all bloody. Pt states later in the evening she felt a lot of pressure on her eye like there was something in her eye. Pt states it cleared up a lot by next morning but is still looking bloody. Pt denies any pain or change to vision. Pt states she did sneeze hard the other day but can not recall if it was around the same time as this occurred. Pt is taking an Aspirin 81mg but no other blood thinners. Pt states she has had 3 stents placed since we last saw her and she also states her BP has been quite high lately and is on a few new meds but can not recall the names of them. Pt hx of ERM OS. Follow up visit The 87 year old patient presents for an office visit. Patient is pseudo ou with yag caps ou, S/p SLT ou and XEN ou. Patient has Band K ou. Patient states she was going to [facility] for glaucoma but hasn't gone for about 1 year. Patient is using AT prn. Patient states for the last 3 weeks she doesn't think she is seeing as well. Complete Exam The 86 year old patient presents for evaluation of Complete Exam in the right eye and left eye. Hx of POAG OU s/p SLT OU, PCIOL OU, CME OU, YAG PC OU, Band-K OU, PVD OS, CR Scar OD, Vitrectomy OD, and XEN OU. Patient states she wishes her VA could be better at a distance and up close. Patient states she hasn't seen Dr. Solorzano for awhile and she is followed by ARJUN for her glaucoma. Patient not using any gtts at this time. Complete Exam The 85 year old female presents for evaluation of Complete Exam in the right eye and left eye. Hx of PCIOL OU, YAG PC OU, PVD OS, ERM OS, POAG OU s/p SLT OU, Vitrectomy OD, and Bleb OS. Patient denies any changes with eyes. VA seems stable OU. Patient using Pred and Ket BID OU and an ART prn OU. Complete Exam The 84 year old female presents for a complete POAG ou IOP check. Patient is pseudo ou. Patient has hx of Vitrectomy OD, Bleb OS, and SLT ou. Patient is using Pred qd ou and Ketorolac qd ou per Dr. Mitchell. Patient saw him last week. Patient states her floaters are better. Patient denies any changes in vision ou. WIE The 84 year old female presents for evaluation of WIE in the right eye. Hx of PCIOL OU, YAG PC OU, Vitrectomy OD, XEN implant OS, CME OD, POAG OU s/p SLT OU, Bleb OS, PVD OS, ERM OS, and RPE mottling OD. Patient states there is an area in her right eye VA that she lost VA out of this morning. Patient states when she was watching tv the temporal side of right VA was not there. Denies any flashes or increased floaters. Has had floaters in the past but not noticing any today. Patient states she is NOT on any gtts at this time. She had a XEN implant put into the right eye back in March 2019 and has been off all gtts. Patient sees Dr. Mitchell her last visit to him was on Monday. Complete Exam The 83 year old female presents for evaluation of Complete Exam in the right eye and left eye. Hx of PCIOL OU, YAG PC OU, Vitrectomy OD, CME OD (followed by RUPESH), POAG OU s/p Bleb OS, SLT OU, and Xen procedure OS (followed by Dr. Hernandez), Ptosis OU. Pt reports she uses Pred QAM OD only, Timolol QAM OS only, Ketorolac BID OU, Simbrinza BID OU, and Latanoprost QHS OD only. Pt reports she last used the Simbrinza and Timolol about 5:45 am today and last used the Latanoprost at 9:30-10 pm last night. Pt reports she has been having real sharp pains in OS, lasting 10-15 seconds, has had 2 episodes in the last couple weeks. Pt reports VA has decreased, OU, and she doesn't drive because of her VA, x several mos Complete Exam and OCT The 82 yea r old female presents for Complete Exam and OCT in the right eye and left eye. Hx POAG OU, Vitrectomy OD, PCIOL OU, CME OU, Epiretinal Membrane OU, Ocular Hypertension OU, YAG-PC OU, PPCA OU, SLT OU. Pt currently using Ketorolac BID OU, Latanoprost QHS OU, and Simbrinza TID OU. Pt states vision after STL is still very blurred, reports sometimes are better than other but is always blurry. Pt has tried blinking, covering one eye at a time to clear vision and to see if it is one eye or the other, but nothing resolves the blurriness and can not determine if it is one eye or both. Pt scheduled to have Pt reports that blurriness worsens sporadically. Pt denies any new flashers, floaters pain or discomfort at this time. glaucoma, pressure check The 81 year old female presents for POAG, pressure check OU and HVF 24-2. Patient is using Timolol OU BID, Travatan QHS OU almost ready to switch to latanoprost, Simbrinza TID OU and Ketorolac BID OU. Pt also has Hx of MGD; she reports she has been doing warm compresses OU at least one time a day, occasionally she will do them BID and using AFTS BID in the am and pm and cold compress for itching PRN. Pt reports last Monday her eye felt funny and she experienced blurry visioin; like there was a film over her eye. Pt reports this lasted throughout the entire day and then eventually went way. glaucoma, pressure check The 81 year old female presents for a POAG ou IOP check. Patient saw Dr. Mitchell yesterday and wanted her pressure checked today. Patient is using Travatan qhs ou, Simbrinza tid ou and Ketorolac bid ou. IOP ck The 81 year old female presents for IOP ck in the right eye and left eye. Hx of PC IOL OU, Yag PC OD, Vitrectomy OD, CME OU, ERM OU, and Oc HTN OU. Pt using FML OU qd, Simbrinza OU tid, Keroolac OU bid, Travatan Z OU qhs. Pred was changed to FML OU and Keanu Z was added at last visit. Pt states OU VA is stable and denies any pain or discomfort from new gtts. Blurry vision The 81 year old female presents for Blurry vision, patient states she has been having problems seeing for the last couple of months but Monday it seemed to get very bad, she states that the v/a became better this morning, patient believes that it is both eyes that have decresed, not just OS. Patient has mostly noticed it while watching TB and up close work. Patient denies any pain or discomfort at this time. Patient states she is more concerned with the film that came over her eye Monday in OS. Patient uses Simbrinza TID OU, Pred BID OU, and Ketorolac BID OU. Hx of PCIOL OU, YAG PC OD, PCF OS, PPCA OU. glaucoma, pressure check The 81 year old female presents for a 6 month IOP check due to ocular hypertension. Patient is using Simbrinza tid ou, Pred bid ou and Ketorolac bid ou. Patient has hx of pseudo ou and yag cap OD and hx of Vitrectomy OD. Patient denies any changes in vision ou. Patient sees Dr. Mitchell in October 2016. IOP ck The 80 year old female presents for IOP ck in the right eye and left eye. Hx of PC IOL OU, Yag PC OD, OCC HTN, and Vitrectomy followed by Dr Mitchell at [place]. Pt saw [place] 02-26-[address] Mitchell suggests adding to the existing Glc Tx, due to recurrent CME when Prednisolone is d/c'd. Pt using Simbrinza OU TID, PF1% OU BID, and Kertorolac OU BID. Pt states no VA or discomfort complaints. Discharge, mucus The 80 year old female presents for an evaluation of yellow discharge ou x 1 day. Patient states it is much better today but was worried since today is Monday. Patient uses Simbrinza tid ou, Pred bid ou and Ketorolac bid ou.*Dr. Mitchell prescribed the Prednisolone and Ketorolac for Macular Edema OU. IOP ck The 80 year old female presents for evaluation of IOP in the right eye. Hx of PC IOL OU, Yag PC OD, Vitrectomy, and Occ HTN. Pt saw Dr Mitchell at [place] and he was concrened that OD IOP was 23 on 11-23-15. Pt states no pain, feeling of pressure, or VA loss. Pt is taking Ketoralac, PF1% OU BID and Brim OU TID 3 week IOP check The 80 year old female presents for a 3 week IOP check in the right eye and left eye. Patient denies any problems or changes since she was here last. Patient D/C Pred and increased the Ketorlac and Brim to TID OD. OS gtts the same. Patient needs refills on gtts. Yearly-Complete The 80 year old female with history of Ocular Hypertension, PCIOL OU, YAG OD, Vitrectomy OD, and Macular Puker, presents for yearly evalutaion. Patient states she is using Prednisolone BID OU, Brimonidine BID OU, and Ketorolac BID OU. Patient says her vision has been doing really good. Patient says but last week she noticed her left eye had for about one day had been blurry and then cleared up she said the eye got blurry and then clear. Patient says it hasn't done it since and no pain associated with it. Patient was a little concerned, but states it hasn't happened again. Complete Exam The 78 year old female presents for a Compete Eye Exam. Patient has HX OHTN OU, HX Vitrectomy OD, IOL OU and Yag OD.Patient taking Brimonidine OU BID and Ketorolac Tromethamine 0.5% QD OU.Patient states vision doing the same with no changes.Patient see's Dr Mitchell at [place]. Functional Status Date Functional Assessmen t No Information Instructions Date Instruction Additional Infor nola Impression/Plan Impression/Plan Impression/Plan Impression/Plan Impression/Plan Impression/Plan Impression/Plan Use of eye drops discussed. Rela jacqueline to Primary open-angle glaucoma, bilateral, severe stage Impression/Plan Primary open-angle g laucoma, right eye, severe stage - Educational material provided Related to Primary open-angle glaucoma, right eye, severe stage Impression/Plan - PO AG OU:- IOP elevated OU- Patient on maximum drop regimen- Recent treatment with topical steroids for CME; stopped due to IOP elevation; Off all steroids for 2 weeks; IOP still elevated- HVF today shows significant VF defects OU (OS>OD)- Advised referral to undercar specialist for evaluation for possible surgical treatment given inadequate response to maximal drop therapy- Refer to Ray Hernandez MD for evaluation and treatment- Continue same drops in the interim Follow up - Refer to [facility] Dr Hernandez for Glaucoma evaluation and possible treatment Impression/Plan - PO AG with elevated IOP OS:- IOP in 30s OS yesterday in Dr. 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 Follow up - Return t o clinic in 1 month for Complete + HVF 24-2 and PACHS Follow up - IOP check in 1-2 wee ks Impression/Plan - IO P is significant elevated today on current regimen. OCT obtained for baseline and does show early damage associated with IOP elevation. Will DC Pred and use FML ou Qday- Erx to [facility]. Continue Simbrinza ou TID, Ketorolac ou BID and add Travatan Z ou Qhs. Sample given. If IOP is improved when she returns in 1-2 weeks for IOP check will send in Latanoprost or Travatan depending on her insurance coverage. Ok to schedule in [place] with JOSE or ALETA. Pt will be leaving town for 1 week to take care of her sister. Primary open-angle g laucoma, bilateral, mild stage - Use of eye drops discussed Related to Primary open-angle glaucoma, bilateral, mild stage Other secondary landry ract, left eye - Surgery not indicated now. Related to Other secondary cataract, left eye Impression/Plan - PC F discussed along with signs/symptoms of progression explained and YAG PC for treatment. Pt aware treatment is not indicated at this time, but rec returning sooner if vision worsens Intraocular pressure well controlled, tolerating medications. Will continue with same regimen. No refills are needed at this time. Discussed her occasional headaches and location. Explained these can be associated with her sinus and rec she discuss this with her PCP. Follow up - 6 months complete ex am Follow up - 6 moths IOP check Impression/Plan - In traocular pressure well controlled, tolerating medications. Will continue with same regimen. Will alternate visits with Dr. Mitchell so she is being seen by someone every 6 months. Ocular hypertension, bilateral - Use of eye drops discussed Related to Ocular hypertension, bilateral Impression/Plan - Di agnosis discussed with patient. Explained there is no evidence of an infection or other superficial problem OU. Reassured her there are no signs for anything concerning at this time. The IOP OD>OS was slightly elevated today. Patient is on Prednisolone and Ketorolac per Dr. Mitchell for CME OU. We have her using Simbrinza TID OU, which is helping, but the IOP is still above normal. Explained the Prednisolone can raise the eye pressure. Advised patient speak with Dr. Mitchell at her appointment next month and ask if there is a way to decrease the Prednisolone and to eventually discontinue it. Patient understands to continue both medications as directed until Dr. Mitchell tells her otherwise. Recommend patient return as scheduled or sooner with problems. Follow up - Return t o clinic as scheduled Impression/Plan - IO P is not at target. Will change to Simbrinza TID. ERX to [facility]. If too expensive she will contact our office for a substitution. Return to the office in a few months for IOP check Follow up - Return t o Dr Mitchell for follow up Impression/Plan - IO P within normal range. Use Ketorlac and Brim to BID OD. Keep appt with Dr Mitchell in 2 weeks. Return to clinic as needed. Impression/Plan - Di agnosis discussed in detail with patient. Discussed with patient that her IOP was elevated in the right eye today. Due to this we instructed patient to decrease the Prednisolone to QD OD for a few days, then DC. Patient will increase the Ketorolac and Brimonidine to TID OD. Patient understands to keep all drops the same in OS. Patient continue to follow retina for ERM/CME OU. Ocular hypertension, bilateral - Educational material provided Related to Ocular hypertension, bilateral Follow up - 2 week I OP Check with RAFAELA or JOSE - 6 months follow up Related to See list of assessments above - OU: Discussed diag nosis in detail with patient. Will continue to observe condition and or symptoms. Call if VA worsens. Educational materials provided:about today's exam. Keep appointment with Dr. Mitchell Related to See list of assessments above - 3-4 months complete Related to MACULAR PUCKERING OCULAR HYPERTENSION MACULAR PUCKERING monitored by RI - Meds reviewed Pred taper to qday for 1 week, then every other day for 1 week then stop Pred. Continue Bromday. Use Brimonidine OU BID. Pt planning a trip to [place] to see her son. Educational materials provided:about today's exam.Pt will call if refills are needed Related to MACULAR PUCKERING - 4 months IOP check Related to See impression: general plan General plan -OCULAR HYPERTENSION - Intraocular pressure well controlled, tolerating medications. Will continue with same regimen. Educational materials provided:Medication Instruction.will rotate every [address] Mitchell Related to See impression: general plan OCULAR HYPERTENSION OU - Ocular hypertension, intraocular pressure elevated OD, will start medication(s). Brimonidine OD qday- Erx'd to pharmacy Prescription(s) given to patient. Diagnosis explained and patient verbalized understanding. Related to OCULAR HYPERTENSION - 3 months IOP check Related to OCULAR HYPERTENSION - [facility]. [facility] elevated iop os but nl optic n cme-saw Dr. Mitchell and he adjusted meds ou and told her ok to get glasses os-already has od - new left lens resolving cme-review ed Dr Hernandez letter from [place]-he suggested tapering drops - PF bid for 2weeks then dc os - 3-4 weeks and rech armando iop and refract ou FOLLOW-UP SURGERY NO S, OS - 2 week po phaco w/ PCIOL- established, stable - vision worse - will continue to monitor - Continue tapering gtts. No activity restrictions. Discussed blurred vision. Start Bromday qd OS. Mrx given for OD, anticipates OS to change. Rx given for Pred 1% BID OS until seen. Recommends having Dr. Hernandez check retina OS. Related to FOLLOW-UP SURGERY NOS - Dr. Hernandez to see pt then return to [facility] Related to FOLLOW-UP SURGERY NOS 1day postop cat with pciol os-corneal edema - start drops - 2weeks-refract ou Cataract, Nuclear Sc lerosis, OS - established, worsening - vision affected - may improve with surgery - Cataract(s) accounts for patient's complaints. Discussed all risks, benefits, procedures and recovery. Patient understands changing glasses will not improve vision. Patient desires to have surgery, recommend PE w/IOL. Related to Cataract, Nuclear Sclerosis - eval with Dr. Hernandez prior to CE Related to EpiRetinal Membrane EpiRetinal Membrane, OD - vision affected, h/o PPV 2008 - Discussed dx with pt rec seeing Dr. Hernandez for eval and treatment prior to any surgery in the OSLetter dictated to Dr. Hernandez Related to EpiRetinal Membrane - sched CE OS Related to Catar act, Nuclear Sclerosis Assessments Type Assessment Date assessment Subconjunctival hemorrhage of le ft eye Patient Care Teams Name Effective Dates (start - stop) Status Members No Information
--- OUTSIDE RECORDS SUMMARY | 2024-06-21 12:35 | XMS_ITS | Patient Health Summary ---
Author Organization [facility] Address [address] [place] [address] Care Team Providers Care Sales Representative [employer] Name Role Phone Satish Desai MD Primary Care Provider [phone] [facility],non-owned Affiliates and Associated Physician Practices is amultiple site organization consisting of ambulatory clinics and hospital sitesin [place], [place], [place] and [place]. This disclosure is being madepursuant to the Care Everywhere program and may not contain all information available regarding this patient. Last updated 18.[facility] Allergies * Kpabffsh-Yltkbjxtno-Nelfybqep(Rash) -Medium Criticality Medications * Be aware that medications may not be up to date on this document. Alwaysverify current medications with the patient. * ARNUITY ELLIPTA 100 MCG/ACT inhaler(Started 08/18/2018) 1 tablet every morning * atenolol (TENORMIN) 25 MG tablet(Started 09/03/2018) 1 tablet every morning * montelukast (SINGULAIR) 10 MG tablet(Started 09/03/2018) 1 tablet at bedtime * omeprazole (PRILOSEC) 40 MG capsule(Started 08/02/2018) 1 capsule every morning * gabapentin (NEURONTIN) 600 MG tablet(Started 08/02/2018) 1 tablet 2 times daily * traMADol (ULTRAM) 50 MG tablet(Started 05/28/2018) 1 tablet as needed * timolol maleate (TIMOPTIC) 0.5 % ophthalmic solution(Started 08/20/2018) 1 drop once daily * ketorolac 0.5% (ACULAR) 0.5 % ophthalmic solution(Started 08/18/2018) 1 drop once daily * latanoprost (XALATAN) 0.005 % ophthalmic solution(Started 08/02/2018) 1 drop once daily * FLUoxetine (PROZAC) 40 MG capsule Take 40 mg by mouth once daily * aspirin (ASPIRIN) 81 MG tablet Take 81 mg by mouth once daily * SIMBRINZA 1-0.2 % ophthalmic suspension(Started 07/21/2018) 1 drop once daily Social History Tobacco Use Types Packs/Day Years Used Date Smoking Tobacco: Never Smokeless Tobacco: Never Alcohol Use Standard Drinks/Week Comments No 0 (1 standard drink = 0.6 oz pur e alcohol) Sex and Gender Information Value Date Recorded Sex Assigned at Not on file Gender Identity Not on file Sexual Orientation Not on file Procedures * EYE EXAM(Performed 09/19/2018) * DERMATOPATHOLOGY(Performed 02/25/2015) * DERMATOPATHOLOGY(Performed 04/03/2013) * DERMATOPATHOLOGY(Performed 02/02/2012) * DERMATOPATHOLOGY(Performed 11/11/2011) Results * EYE EXAM (09/19/2018 8:56 AM CDT) Anatomical Region Laterality Modality Other Narrative 09/19/2018 8:56 AM CDT Ordered by an unspecified provider. Scanned Document SCANNING ONLY * PATHOLOGY TISSUE FOR DERMATOLOGY (02/25/2015 12:00 AM CDT) Only the most recent of4 resultswithin the time period is included. 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 Check margins. GROSS DESCRIPTION: Received is one formalin filled container labeled with the patients name and designated ant to right sideburn. The specimen consists of a shave biopsy measuring [id number]. The margin is inked green. Jar 0. MICROSCOPIC DESCRIPTION: Sections show an acanthotic lesion composed of relatively uniform keratinocytes. There is hyperkeratosis and pseudo horn cysts. ??Pigment is present in the keratinocytes composing this tumor. Lesion is present at the margin of the specimen. Electronically signed out by Della Torres M.D., PhD. 02/27/2015 2:47:25PM [facility] DERMATOLOGY LAB Comment: Performed at: Dermatopathology Laboratory [facility] - Department of Dermatology [address] [place] [address], [address] [place] [address] Phone number: [phone] FAX: [phone] 02/25/2015 02/26/2015 Sarbjit Han MD LAB - PATHOLOGY/CYTO LOGY ORDER[facility] DERMATOLOGY LAB [address] [place] [address], [facility] [phone] Care Teams Sales Representative [employer] Relationship Specialty Start Date End Date Satish Desai MD [address] [place] [address] PCP - General 09/18/18
--- OUTSIDE RECORDS SUMMARY | 2024-06-21 12:35 | XMS_ITS | Encounter Summary ---
Author Organization [facility] Healthcare Address [address] [place] [address] Care Team Providers Care Airborne Weapons Technical Manager Name Role Phone Satish Desai MD Primary Care Provider [phone] Encounter Details Date Type Department Care Team (Late st Contact Info) Description 02/15/2019 Telephone [facility] - Interventional Radiology [address] [place] [address] Keyonna Canela RN Social History Tobacco Use Types Packs/Day Years Used Date Smoking Tobacco: Never Smokeless Tobacco: Never AUDIT-C Answer Date Recorded Frequency of Alcohol Consumption Never 02/18/2019 Average Number of Drinks Not on file 019 Frequency of Binge Drinking Not on file 01/28 Comments Unknown Sex and Gender Information Value Date Recorded Sex Assigned at Not on file Legal Sex Female 2:03 AM ADULT CARE MANAGER Gender Identity Not on file Sexual Orientation Not on file documented as of this encounter Plan of Treatment Not on file documented as of this encounter Visit Diagnoses Not on filedocumented in this encounter Care Teams Airborne Weapons Technical Manager Relationship Specialty Start Date End Date Satish Desai MD PCP - General 03/08/11 documented as of this encounter
--- OUTSIDE RECORDS SUMMARY | 2024-06-21 12:35 | XMS_ITS | Referral Summary ---
Author Organization [facility] Address [address] [place] [address] Care Team Providers Care Silver Solderer Name Role Phone Satish Desai MD Primary Care Provider [phone] Source Comments [facility],non-owned Affiliates and Associated Physician Practices is amultiple site organization consisting of ambulatory clinics and hospital sitesin [place], [place], [place] and [place]. This disclosure is being madepursuant to the Care Everywhere program and may not contain all information available regarding this patient. Last updated 18.[facility] Allergies Active Allergy Reactions Criticality Noted Date Comments Qaivzskn-Snrghcsskg-Xdfazumnh Rash Medium 2018 Medications * Be aware [...] Orientation Not on file Plan of Treatment Not on file Care Teams Silver Solderer Relationship Specialty Start Date End Date Satish Desai MD [address] [place] [address] PCP - General 09/18/18
--- OUTSIDE RECORDS SUMMARY | 2024-06-21 12:35 | XMS_ITS ---
Author Organization [facility] Address [address] [place] [address] [facility] [place] [address] Care Team Providers Care Land Leases And Rentals Manager Name Role Phone CAYLA ALEXANDER, SUSAN Primary Care Provider Odilon Medina Unavailable [phone] ALLERGIES Allergen (clinical drug ingredient) Drug/Non Drug Allergy documented on EMR Reaction Allergy Type Onset Date Status neomycin Neomycin hives Drug Allergy Active Tape peels skin off Allergy Activ e REASON FOR VISIT FOLLOW UP- ESSENCE PPO MEDICATIONS Medication SIG (Take, Route, Frequency, Duration) Notes Start Date End Date Status Atorvastatin Calcium 40 MG Oral for 90 Active Fluticasone Propionate 50 MCG/ACT Nasal for 30 Active Carvedilol 12.5 MG Oral for 90 Active Airsupra 90-80 MCG/ACT Inhalation for 30 Active DULoxetine HCl 60 MG TAKE 1 CAPSULE BY M OUTH DAILY Oral for 90 Active Voltaren 1 % apply 4 grams to beto nful joint(s) Transdermal 4x/day as needed for pain for 30 days Active Losartan Potassium 50 MG Oral for 90 Active FLUoxetine HCl 40 MG 1 capsule Orally On a day for 30 day(s) Active Lisinopril 10 MG TAKE 1 TABLET BY CHUN TH DAILY Oral for 90 Active Clopidogrel Bisulfate 75 MG Oral for 90 Active Calcium 600 MG 1 tablet with meals Orally Twice a day for 30 day(s) Active Pantoprazole Sodium 20 MG 1 tablet Orall y Once a day for 30 day(s) Active Aspirin 81 81 MG 1 tablet Orally Once a day for 30 day(s) Active Gabapentin 100 MG as directed Orally 2 am, 2 at noon, and 3 at night Active Encounters Encounter Location Date Provider Diagnosis [facility] [address] [facility] [place] [address] 11/21/2023 Odilon Stynowick Radiculopathy, lumbosacral region M54.17 ; Radiculopathy, cervical [...] neural canal of cervical region M99.31 and 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 of anticoagulants Z79.01 ASSESSMENTS Encounter Date Diagnosis Assessment Notes Treatment Notes Treatment Clinical Notes 11/21/2023 Radiculopathy, lumbosacral region (ICD-10 - M54.17) 11/21/2023 Radiculopathy, cervical region (ICD-10 - M54.12) 11/21/2023 Sacroiliitis, not elsewhere classified (ICD-10 - M46.1) 11/21/2023 Spondylosis without myelopathy or radiculopathy, 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) 11/21/2023 Spondylosis without myelopathy or radiculopathy, lumbar region (ICD-10 - M47.816) 11/21/2023 Postlaminectomy syndrome, not elsewhere classified (ICD-10 - M96.1) 11/21/2023 Primary osteoarthritis, 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 Racheal's [place]'s and Gaenslen's are positive bilaterally. There is [...] canal stenosis. Assessment and Follow-up: Follow-up Plan documen jacqueline:: Yes [facility] Quality 2020: [facility] Documented:: Compliant
== END 2024-06-21 12:21 | disposition home or self-care (01) ==
PROVIDERS: PCP Family Medicine; Visit Provider Anesthesiology Pain Medicine
DX: Z01.818 Encounter for other preprocedural examination (principal); I10 Essential (primary) hypertension; E78.2 Mixed hyperlipidemia; I44.4 Left anterior fascicular block; Z95.5 Presence of coronary angioplasty implant and graft
CPT/HCPCS: 93005

== ENCOUNTER 2024-06-25 00:16 | Day surgery (SDC) | payer OTHER, SELFPAY ==
[2024-06-20 13:16] VITALS: BMI 25.0
--- NOTE | 2024-06-20 13:31 | PC.NURSE ---
Report to the Outpatient Waiting Room, entrance under the green pavilion located off [facility], at time __07:00am on date _06/25/24 Planned Procedure Time: _09:00am .? Time changes happen often and if your time is changed the preop area will call you the afternoon before. - You and your visitor will be asked to self-screen and do not enter if you have any COVID symptoms. Please call surgeon if you need to reschedule. - A mask is optional within the hospital at this time. Patients - No food from midnight until time of surgery and no smoking. This includes no chewing gum, candy or mints. Take only the following medications with a SIP of water on the morning of surgery: ____Coreg, Albuteral, Duloxetine, Gabapentin DO NOT STOP ANY OF YOUR OTHER PRESCRIPTION MEDICATIONS PRIOR TO SURGERY EXCEPT THE FOLLOWING Medications to discontinue per physician ___Hold your Aspirin and Plavix/Clopidogrel for 7 days prior to surgery per Dr. Escudero Date to take last dose____06/17/24 Please no make-up, nail thai, hairspray, perfume, deodorant, or body powder the day of surgery.? No jewelry (including any body piercings) or valuables the day of surgery, leave them at home.? Please take a shower or bath the night before, & the morning of, surgery with an antibacterial soap.? Wear comfortable, loose fitting clothing.? - Jewelry must be removed prior to entering the operating room.? Rings and piercings that are not removed may be cut off. - The hospital will not accept responsibility for valuables.? - Please leave all valuables, including medications, at home the day of surgery. If you are going home after surgery, a licensed driver guide must drive you home.? - NO public transportation without another adult if you receive anesthesia. - We recommend that an adult stay with you for 24 hours following discharge. - We also recommend that you do not drive, make important decision, drink alcoholic beverages, or take any drugs that were not prescribed by your health care provider for at least 24 hours after your discharge time. Follow any additional instructions given to you from your surgeon. Telephone instructions given to __patient & and asked if any additional questions and then verbalized understanding. Patient advised to call surgeon office or pre surgery nurse liaison [phone] if any additional questions.
[2024-06-25] VITALS (12 sets, daily range): BP systolic 114–157; BP diastolic 42–62; PULSE 69–88; RESP 12–19; TEMP 36.8–36.9; O2SAT 92–99; BMI 26.0
--- NOTE | ~2024-06-25 | XR_ITS ---
EXAMINATION: XR fluoroscopy no charge DATE: 06/25/2024 11:53 INDICATION: Implant exchange TECHNIQUE: 6 fluoroscopic images of the lumbar and lower thoracic spine and adjacent paraspinal soft tissue tissues were obtained during procedure performed by Dr. Escudero. Radiologist was not present for the imaging or procedure. The amount of fluoroscopy time used during this procedure was 0.3 minutes. Total DAP was 1.28 Gycm^2 COMPARISON: None. FINDINGS: Images demonstrate a power supply for a projecting lateral to L5. There are postoperative change of p rior instrumented L4-L5 anterior spinal fusion and lower lumbar posterior spinal fusion with vertical robin and pedicle screw fixation. Projects over the lower thoracic central canal. IMPRESSION: 1. Fluoroscopy utilized during spinal stimulator implant placement. See procedure note for further de tail. Reviewed, dictated and finalized at location A. [facility] [employer] IMPRESSION: 1. Fluoroscopy utilized during spinal stimulator implant placement. See procedu re note for further detail.
--- OUTSIDE RECORDS SUMMARY | 2024-06-25 00:20 | XMS_ITS | Continuity of Care Document ---
Author Organization [facility] Address [address] [place] [address] Phone Care Team Providers Care Conventional Underwriter Name Role Phone Omid Tobar MD Unavailable [...] on Encounter Office/outpat ient visit,toña han [facility], [address], [place], [place], [address], [place] tel:[phone] [facility] LOC PRIM OSTEOARTH-ONEAL DROTATOR CUFF RUPTURE 3-201 3 Ekaterina Anne. [address], [address], [place], [place], [address] , [place]. tel:[phone] Referring Provider: Robert Alvarado, [address] [place] [address], [place], [address]. tel:[phone] Office/outpat ient visit,new, [facility], [address] [facility], [place], [place], [address], tel:[phone] [facility] PAIN IN LIMBROTATOR CUFF RUPTURE 3 Ekaterina Anne. [address], [address], [place], [place], [address] , [place]. tel:[phone] Referring Provider: Robert Alvarado, [address] [place] [address], [place], [address]. tel:[phone] Family History Family Member Type Diagnosis Age At Onset No Information Immunizations Vaccine Date Status Comments Flu (split) (3 yrs or older) administered Source: New Immunization Record Payers Payer name Insurance type Covered constitution party ID Authoriza tion(s) [place] Part B [id number] [facility] [id number] Social History Type Description Quantity Date Captured Comments Alcohol Use Details Unknown Caffeine Use Details Unknown Tobacco Use Status No Information Smoking Status Never smoker Sex Female Chief Complaint And Reason For Visit No Information Reason For Referral Reason For Referral No Information Plan Of Treatment Date Type Action Status Referral Ordered: X-ray exam shoulder minimun 2 views LT shoulder ordered Referral Ordered: Other LT shoulder Appointment date/timeframe: 09/25/2012 ordered History Of Present Illness Encounter Date Complaint History Of Prese nt Illness No Information Functional Status Date Functional Assessmen t No Information Instructions Date Instruction Additional Infor mation No Information Assessments Type Assessment Date No Information Patient Care Teams Name Effective Dates (start - stop) Status Members No Information
--- OUTSIDE RECORDS SUMMARY | 2024-06-25 00:20 | XMS_ITS ---
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.01) Active confirmed Long-term current use of anticoagulant (131050446) VITAL SIGNS Blood pressure systolic 122 mm Hg 10/27/19 24 Blood pressure diastolic 55 mm Hg 024 Heart Rate 68 /min 10/27/2023 Respiratory Rate 18 /min 10/27/2023 Height 5 ft 1 in in 10/27/2023 Weight 125 lbs 10/27/2023 BMI 23.62 kg/m2 10/27/2023 Encounters Encounter Location Date Provider Diagnosis [facility] [address] [place] [address] 10/27/2023 Odilon Benton Radiculopathy, lumbosacral region M54.17 [...] neural canal of cervical region M99.31 and half-way (current) use of anticoagulants Z79.01 ASSESSMENTS Encounter [...] of cervical region (ICD-10 - M99.31) 10/27/2023 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 I made the patient aware that she will be at an increased risk for a thromboembolic event during this time and she is willing to accept this risk. The patient was instructed to notify her primary care physician and/or recyclable products sorter to obtain clearance prior to discontinuing this [...] is agreeable to proceeding at this time. 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 I made the patient aware that she will be at an increased risk for a thromboembolic event during this time and she is willing to accept this risk. The patient was instructed to notify her primary care physician and/or recyclable products sorter to obtain clearance prior to discontinuing this [...] patient's typical axial low back pain. Racheal's [place]'s and Gaenslen's are positive bilaterally. There is [...] and Follow-up: Follow-up Plan documevan jacqueline:: Yes [facility] Quality 2020: [facility] Documented:: Compliant
--- OUTSIDE RECORDS SUMMARY | 2024-06-25 00:20 | XMS_ITS ---
Author Organization [facility] Address [address] [place] [address] [place] [address] Care Team Providers Care Rn Physician Office Name Role Phone CAYLA ALEXANDER, SUSAN Primary Care Provider Odilon Medina Unavailable [phone] ALLERGIES Allergen (clinical drug ingredient) Drug/Non Drug [...] 11/06/2023 BMI 23.62 kg/m2 11/06/2023 Post procedure skivtl=BM=730 /84, P=69, R=14. Discharged home per ambulatory. Josué acute distress noted. Encounters Encounter Location Date Provider Diagnosis [facility] [address] [place] [address] 11/06/2023 Odilon Davisick Radiculopathy, cervical region M54.12 [...] discharged home in good condition with a taxi truck driver. X-ray time: 6 seconds Progress [...] patient's typical axial low back pain. Racheal's [place]'s and Gaenslen's are positive bilaterally. There is [...]
--- OUTSIDE RECORDS SUMMARY | 2024-06-25 00:21 | XMS_ITS | Clinical Summary ---
Author Organization [facility] Address [address] [place] [address] Phone Care Team Providers Care Airplane Rental Clerk Name Role Phone Satish Desai MD Primary Care Provider [phone] Allergies Active Allergy Reactions Criticality Noted Date [...] on file Legal Sex Female 4:00 AM BELT SEWER Gender Identity Not on file Sexual Orientation [...] history exists Medical Devices Implanted Type Area Snuff Blender Device Identifier Shelf Expiration Date Model / Serial / Lot Log [id number] - Bladder Slings And Tapes - 1 - Sling Desara System Navin-Ds01 Implanted:Qty: 1 on 05/07/2011 at [facility] Sling Vagina [employer] 08/05/2013 NAVIN-DS01 / / [id number] Procedures Procedure Name Priority Date/Time Associated Diagnosis Comments COLONOSCOPY REPORT 04/19/2019 12 :22 PM BELT SEWER from Last 3 Months or Most Recently Relevant to Health Maintenance Results * COLONOSCOPY REPORT (04/19/2019 12:22 PM BELT SEWER) Narrative Procedure Note Jason Huang MD - 04/19/2019 12:22 PM CST [facility] Endoscopy Patient Name: Vicki Lezama Procedure Date: [...] of Addenda: [address]; [place] [address] Jason Huang MD GI PROCEDURE ORDERABLES Final Result from Last 3 Months or Most Recently Relevant to Health Maintenance Insurance MEDICARE PART A AND B [facility] MEDICARE SUPPLEMENT Advance Directives For more information, please contact: [phone] * Full Code (Latest Code Status on [...] 10:07 AM 05/08/2011 1:30 PM Care Teams Airplane Rental Clerk Relationship Specialty Start Date End Date Satish Desai MD [address] [place] [address] PCP - General Family Practice 05/04/11
--- OUTSIDE RECORDS SUMMARY | 2024-06-25 00:22 | XMS_ITS | Referral Summary ---
Author Organization [facility] [employer] Address [address] [place] [address] Care Team Providers Care Floor Plan Adjuster Name Role Phone Satish Desai MD Primary Care Provider Source Comments [facility] [employer],non-owned Affiliates and Associated Physician Practices is amultiple site organization consisting of ambulatory clinics and hospital sitesin [place], [place], [place] and [place]. This disclosure is being madepursuant to the Care Everywhere program and may not contain all information available regarding this patient. Last updated 18.[facility] Allergies Active Allergy Reactions Criticality Noted Date Comments Bfvhdxef-Ljovpskvfp-Tfksgmqon Rash Medium 2018 Medications * Be aware [...] of Treatment Not on file Care Teams Floor Plan Adjuster Relationship Specialty Start Date End Date Satish Desai MD [address] [place] [address] PCP - General 09/18/18
--- OUTSIDE RECORDS SUMMARY | 2024-06-25 00:22 | XMS_ITS | Referral Summary ---
Author Organization [facility] Address [address] [place] [address] Care Team Providers Care Portfolio Management Marketing Name Role Phone Satish Desai MD Primary Care Provider [phone] Allergies Active Allergy Reactions Criticality Noted Date Comments Adhesive Rash Medium Adhesive Tape-Silicones Itching,Rash Medium 05/04/2011 Neomycin Hives Medium 12/27/2021 Gvalcxwa-Vxqtfmwdax-Vzttfttbf Rash Medium 2018 Neosporin (Neomycin-Polymyx) Rash Medium [...] pain 06/02/2023 Coronary artery disease invo lving [place] coronary artery of [place] heart 06/02/2023 Myogenic ptosis of eyelid of [...] dermatochalasis that is impacting ADLs. Atherosclerosis of [place] ar kieran of both lower extremities with intermittent claudication 07/06/2020 Assessment & Plan (07/06/2020 11:20 AM CAREER DEVELOPMENT COUNSELOR): Impression: Patient complain of cool right foot [...] 07/06/2020 Assessment & Plan (07/06/2020 11:26 AM CAREER DEVELOPMENT COUNSELOR): Impression: Stable chronic hypertension. 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 [...] on file Legal Sex Female 2:03 AM CAREER DEVELOPMENT COUNSELOR Gender Identity Not on file Sexual Orientation Not on file Last Filed Vital Signs Vital Sign Reading Time Taken Comments Blood Pressure 115/43 01/30/2024 2:15 PM CDT Pulse 71 01/30/2024 2:15 PM CDT Temperature 36.3 ??C (97.4 ??F) 06/09/2023 4:02 AM CS T Respiratory Rate 18 01/30/2024 2:15 PM CDT Oxygen Saturation 97% 06/09/2023 4:02 AM CAREER DEVELOPMENT COUNSELOR Inhaled Oxygen Concentration - - Weight 61.2 kg (135 lb) 01/30/2024 2:15 PM CDT Height 154.9 cm (5' 1 ) 01/30/2024 2:15 PM CDT Body Mass Index 25.51 01/30/2024 2:15 PM CDT Plan of Treatment Not on file Medical Devices Implanted Type Area Mortar Mixer Operator Device Identifier Shelf Expiration Date Model / Serial / Lot [employer] 5513-001 Xen 150um 45um 6mm Treatment System Preload Injector Intraocular Latex Free - [id number] - [id number] Implanted:Qty: 1 on 03/04/2019 by Katerina Shirley MD at [facility] Drain Right: Eye [employer] [id number] 07/26/2021 5513-001 / [id number] / [id number] Description:XEN REF 5513-001 Right eye Spinal Cord Stimulator Back [employer] Synergy Xd Monorail 2.25mm 16mm 144cm Delivery System 1 Access [id number] - [id number] Implanted:Qty: 1 on 06/08/2023 by Daniel Prince MD at [facility] [employer] Maya 11/22/2024 [id number] / / [id number] Viola [employer] Coolerado Synergy Xd Monorail 2.5mm 20mm 144cm Delivery System 1 Access [id number] - [id number] Implanted:Qty: 1 on 06/08/2023 by Daniel Prince MD at [facility] [employer] 06/12/2024 [id number] / / [id number] [employer] Synergy Xd Monorail 3.5mm 24mm 144cm Delivery System 1 Access [id number] - [id number] Implanted:Qty: 1 on 06/08/2023 by Daniel Prince MD at [facility] [employer] 06/07/2024 [id number] / / [id number] [employer]che Angio-Seal Vip 6fr Closere Device [id number] - [id number] Implanted:Qty: 1 on 06/08/2023 by Daniel Prince MD at [facility] [employer] 01/19/2024 [id number] / / [id number] Insurance [employer] GENERIC MEDICARE [employer] [address] Advance Directives For more information, please contact: [phone] * Full Code (Latest Code Status on File) Date Activated Date Inactivated Comments 06/08/2023 2:44 PM 06/09/2023 3:19 PM Care Teams Portfolio Management Marketing Relationship Specialty Start Date End Date Satish Desai MD PCP - General 03/08/11
--- OUTSIDE RECORDS SUMMARY | 2024-06-25 00:22 | XMS_ITS | Encounter Summary ---
Author Organization [facility] Address [address] [place] [address] Care Team Providers Care Convenience Recycle Center Tech Name Role Phone Satish Desai MD Primary Care Provider Encounter Details Date Type Department Care Team (Late st Contact Info) Description 02/15/2019 Telephone [facility] - Interventional Radiology [address] [place] [address] Keyonna Canela RN Social History [...] on file Legal Sex Female 2:03 AM DRAPERY HANGER Gender Identity Not on file Sexual Orientation Not on file documented as of this encounter Plan of Treatment Not on file documented as of this encounter Visit Diagnoses Not on filedocumented in this encounter Care Teams Convenience Recycle Center Tech Relationship Specialty Start Date End Date Satish Desai MD PCP - General 03/08/11 documented as of this encounter
--- OUTSIDE RECORDS SUMMARY | 2024-06-25 00:22 | XMS_ITS | Clinical Summary ---
Author Organization [facility] Address [address] [place] [address] Care Team Providers Care Living Specialist Name Role Phone Satish Desai MD Primary Care Provider [phone] Source Comments [facility],non-owned Affiliates and Associated Physician Practices is amultiple site organization consisting of ambulatory clinics and hospital sitesin [place], [place], [place] and [place]. This disclosure is being madepursuant to the Care Everywhere program and may not contain all information available regarding this patient. Last updated 18.[facility] Allergies Active Allergy Reactions Criticality Noted Date Comments Bqlozxir-Hhgjbhggzm-Zyhigaxkg Rash Medium 2018 Medications * Be aware [...] age to complete this topic Care Teams Living Specialist Relationship Specialty Start Date End Date Satish Desai MD [address] [place] [address] PCP - General 09/18/18
--- OUTSIDE RECORDS SUMMARY | 2024-06-25 00:22 | XMS_ITS | Patient Health Summary ---
Author Organization [facility] Address [address] [place] [address] Care Team Providers Care Ceramic Tile Installation Helper Name Role Phone Satish Desai MD Primary Care Provider [phone] Note from [facility],non-owned Affiliates and Associated Physician Practices is amultiple site organization consisting of ambulatory clinics and hospital sitesin [place], [place], [place] and [place]. This disclosure is being madepursuant to the Care Everywhere program and may not contain all information available regarding this patient. Last updated 18.[facility] Allergies * Rniezfkj-Veinzospsm-Ugcnyagos(Rash) -Medium Criticality Medications * Be aware that [...] the time period is included. 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 Check margins. GROSS DESCRIPTION: Received is one formalin filled container labeled with the patients name and designated ant to right sideburn. The specimen consists of a shave biopsy measuring [id number]. The margin is inked green. Jar 0. MICROSCOPIC DESCRIPTION: Sections show an acanthotic lesion composed of relatively uniform keratinocytes. There is hyperkeratosis and pseudo horn cysts. ??Pigment is present in the keratinocytes composing this tumor. Lesion is present at the margin of the specimen. Electronically signed out by Della Torres M.D., PhD. 02/27/2015 2:47:25PM [facility] Comment: Performed at: Dermatopathology Laboratory [facility] - Department of Dermatology [address] [place] [address], [address]th [place] [address] Phone number: [phone] FAX: [phone] 02/25/2015 02/26/2015 Sarbjit Han MD LAB - PATHOLOGY/CYTO LOGY ORDERABLES [facility] [address] [place] [address], [facility] [phone] Care Teams Ceramic Tile Installation Helper Relationship Specialty Start Date End Date Satish Desai MD [address] [place] [address] PCP - General 09/18/18
--- OUTSIDE RECORDS SUMMARY | 2024-06-25 00:22 | XMS_ITS ---
Author Organization [facility] Address [address] [place] [address] [facility] [place] [address] Care Team Providers Care Green Promotions Specialist Name Role Phone CAYLA ALEXANDER, SUSAN Primary Care Provider Odilon Medina Unavailable [phone] ALLERGIES Allergen (clinical drug ingredient) Drug/Non Drug [...] Date Provider Diagnosis [facility] [address] [facility] [place] [address] 11/21/2023 Odilon Stynowick Radiculopathy, lumbosacral region M54.17 [...] of cervical region (ICD-10 - M99.31) 11/21/2023 skilled nursing (current) use of anticoagulants (ICD-10 - Z79.01) [...] patient's typical axial low back pain. Racheal's [place]'s and Gaenslen's are positive bilaterally. There is [...]
--- OUTSIDE RECORDS SUMMARY | 2024-06-25 00:22 | XMS_ITS | Clinical Summary ---
Author Organization [facility] Address [address] [place] [address] Care Team Providers Care Guidance Adviser Name Role Phone Satish Desai MD Primary Care Provider Allergies Active Allergy Reactions Criticality Noted Date Comments Adhesive Rash Medium Adhesive Tape-Silicones Itching,Rash Medium 05/04/2011 Neomycin Hives Medium 12/27/2021 Fevrvdtw-Pizvupzzig-Xdsenajip Rash Medium 2018 Neosporin (Neomycin-Polymyx) Rash Medium [...] 07/06/2020 Assessment & Plan (07/06/2020 11:20 AM SAMPLE TESTER): Impression: Patient complain of cool right foot [...] 07/06/2020 Assessment & Plan (07/06/2020 11:26 AM SAMPLE TESTER): Impression: Stable chronic hypertension. 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 [...] on file Legal Sex Female 2:03 AM SAMPLE TESTER Gender Identity Not on file Sexual Orientation Not on file Obstetrics History Last Filed Vital Signs Vital Sign Reading Time Taken Comments Blood Pressure 115/43 01/30/2024 2:15 PM CDT Pulse 71 01/30/2024 2:15 PM CDT Temperature 36.3 ??C (97.4 ??F) 06/09/2023 4:02 AM CS T Respiratory Rate 18 01/30/2024 2:15 PM CDT Oxygen Saturation 97% 06/09/2023 4:02 AM SAMPLE TESTER Inhaled Oxygen Concentration - - Weight 61.2 [...] 04/21/2033 04/21/2023 Medical Devices Implanted Type Area Margarine Churn Operator Device Identifier Shelf Expiration Date Model / Serial / Lot [employer] 5513-001 Xen 150um 45um 6mm Treatment System Preload Injector Intraocular Latex Free - [id number] - [id number] Implanted:Qty: 1 on 03/04/2019 by Katerina Shirley MD at [facility] Drain Right: Eye [employer] [id number] 07/26/2021 5513-001 / [id number] / [id number] Description:XEN REF 5513-001 Right eye Spinal Cord Stimulator Back [employer] [employer] Synergy Xd Monorail 2.25mm 16mm 144cm Delivery System 1 Access [id number] - [id number] Implanted:Qty: 1 on 06/08/2023 by Daniel Prince MD at [facility] [employer] Maya 11/22/2024 [id number] / / [id number] [employer] Epiclist Synergy Xd Monorail 2.5mm 20mm 144cm Delivery System 1 Access [id number] - [id number] Implanted:Qty: 1 on 06/08/2023 by Daniel Prince MD at [facility] [employer] 06/12/2024 [id number] / / [id number] [employer] Epiclist Synergy Xd Monorail 3.5mm 24mm 144cm Delivery System 1 Access [id number] - [id number] Implanted:Qty: 1 on 06/08/2023 by Daniel Prince MD at [facility] [employer] 06/07/2024 [id number] / / [id number] [employer] Angio-Seal Vip 6fr Closere Device [id number] - [id number] Implanted:Qty: 1 on 06/08/2023 by Daniel Prince MD at [facility] [employer] 01/19/2024 [id number] / / [id number] Insurance COMMERCIAL GENERIC MEDICARE [facility] [place] [address] Advance Directives For more information, please contact: [phone] * Full Code (Latest Code Status on File) Date Activated Date Inactivated Comments 06/08/2023 2:44 PM 06/09/2023 3:19 PM Care Teams Guidance Adviser Relationship Specialty Start Date End Date Satish Desai MD [facility] - General 03/08/11
--- NOTE | 2024-06-25 05:27 | PM.HPGS ---
History of Present Illness History of Present Illness Consent: Risks, benefits, and alternatives have been discussed and questions answered. Patient agrees to proceed with procedure. Chief complaint: [facility] complications of implanted electronic generat Narrative: Vicki Lezama is a 89 year old female with permanently implanted Medtronic spinal cord stimulation system For chronic low back and lower extremity pain related to lumbosacral spondylosis and stenosis with implantable pulse generator at end of life for battery exchange under fluoroscopic guidance. Patient wishes to upgrade to a rechargeable , MRI safe, ECAPS capable Inceptiv Medtronic IPG. possible lead revision and/or pocket revision as necessary. Review of Systems Review of Systems: Patient denies any new infectious, allergic, cardiopulmonary, neurologic or constitutional symptoms or changes in activity tolerance or exercise capacity including new or progressive SOB/QUIÑONEZ, peripheral edema, productive cough, dysuria, nausea/vomiting, diarrhea, weight change, fevers/chills/night sweats, new or progressive neurologic deficit, cognitive or mood changes since last seen, except as documented in the HPI. All systems reviewed & are unremarkable except as noted in HPI and below PMFSH Past Medical History Medical History Chest wall mass Right-sided chest wall pain Hip pain Hypertension Asthma History of heart attack CAD (coronary artery disease) Cough present for greater than 3 weeks Face pain Cough due to OBEY inhibitor Otalgia of left ear Strain of left triceps muscle H/O cataract Contracture of palmar fascia Elevated white blood cell count UTI (urinary tract infection) Shingles outbreak Family history of endometriosis in first degree relative RLQ abdominal pain COVID-19 virus infection Vagina, candidiasis Changing skin lesion Duodenitis Anemia Suprapubic abdominal pain Abdominal pain, epigastric Chronic rhinitis Fall Sinus complaint Headache Foot pain, right Foot callus Decreased pulses in feet Leg cramps Depression, major, in remission Mixed hyperlipidemia Incisional hernia Visual loss Gastric ulcer Hip bursitis Glaucoma Anemia, unspecified Neuralgia and neuritis, unspecified Other intervertebral disc degeneration, lumbar region Surgical History Surgical History H/O heart artery stent x3 Hx of right coronary artery stent placement H/O: hysterectomy H/O Spinal surgery Family History Family History Mother Cerebrovascular accident Hypertension Sibling Family history of coronary artery disease Heart disease Hypertension Cerebrovascular accident Cancer Acute myocardial infarction Father Parkinsons disease Sibling Acute myocardial infarction Heart disease Other Family history of mental disorder Social History Social History Social History: Caffeine-tea Smoking status: Never smoker Second hand tobacco smoke exposure: Yes Alcohol intake: never Substance use: never Substance use type: marijuana 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 Do You Feel Safe in your Home?: Yes Lack of Transportation: No Lack of Food: Never True Current Housing: I Have Housing Concerned About Future Housing: No Difficulty Paying Gas/Electric Bills: No Difficulty Paying for Meds: No Currently Unemployed: No Education: High School Diploma/GED Difficulty w/ Childcare or Family Care: No Living arrangements: with family Additional living arrangements comments: with sp Occupation/Education: retired 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[employer] Gender identity (if verbalized by the patient): Female Spiritual care concerns: No Meds Home Medications and Allergies Home Medications ?Medication ?Instructions ?Recorded ?Confirmed ?Type aspirin 81 mg tablet,delayed 81 mg PO DAILY 06/13/23 06/20/24 History release (Adult Low Dose Aspirin) clopidogrel 75 mg tablet 75 mg PO DAILY 06/13/23 06/20/24 History carvedilol 12.5 mg tablet 12.5 mg PO BID 08/28/23 06/20/24 History atorvastatin 80 mg tablet 80 mg PO DAILY 09/25/23 06/20/24 History fluticasone propionate 50 2 spray intranasal DAILY #16 grams 12/28/23 06/20/24 Rx mcg/actuation nasal spray,suspension (Flonase Allergy Relief) albuterol sulfate 90 mcg/actuation 1 inh inhalation Q4H PRN shortness 04/02/24 06/20/24 Rx aerosol inhaler of breath or wheezing #6.7 grams famotidine 40 mg tablet 40 mg PO DAILY #100 tabs 04/30/24 06/20/24 Rx gabapentin 600 mg tablet 900 mg (1.5 x 600 mg) PO TID #405 05/07/24 06/20/24 Rx tabs duloxetine 60 mg capsule,delayed 60 mg PO DAILY #90 caps 05/20/24 06/20/24 Rx release losartan 50 mg tablet 50 mg PO DAILY #90 tabs 05/20/24 06/20/24 Rx pantoprazole 40 mg tablet,delayed 40 mg PO DAILY #90 tabs 05/28/24 06/20/24 Rx release Allergies Allergy/AdvReac Type Severity Reaction Status Date / Time adhesive tape Allergy Unknown Rash Verified 06/20/24 13:10 bacitracin Allergy Unknown Rash Verified 06/20/24 13:10 gramicidin D Allergy Unknown Rash Verified 06/20/24 13:10 polymyxin B Allergy Unknown Rash Verified 06/20/24 13:10 OBEY Inhibitors AdvReac Intermediate Cough Verified 06/20/24 13:10 montelukast (From Singulair) AdvReac Intermediate Diarrhea Verified 06/20/24 13:10 Exam Narrative: The patient's physical exam is essentially unchanged from prior examination on 05/07/2024. Specifically, patient demonstrates normal lung capacity, tidal volume and respiratory rate without wheezes, crackles, rales or rubs. Heart rate and rhythm are regular without murmurs, gallops or rubs. No JVD. Pulses 2+ globally without increasing peripheral edema. AAOx3 with no evidence of confusion, intoxication or altered mental state, NC/AT without acute distress or altered consciousness. Speech, cognition, mood, insight and judgment at baseline and within normal limits. Assessment and Plan Assessment and plan (1) Postlaminectomy syndrome of lumbosacral region: Code(s): M96.1 - Postlaminectomy syndrome, not elsewhere classified Status: Acute (2) Other mechanical complication of implanted electronic neurostimulator, generator, subsequent encounter: Code(s): T85.193D - Other mechanical complication of implanted electronic neurostimulator, generator, subsequent encounter Status: Acute (3) Lumbosacral radiculopathy: Code(s): M54.17 - Radiculopathy, lumbosacral region Status: Acute Plan proceed as planned with device localization under fluoroscopic guidance, exchange of implanted pulse generator at end of life, possible lead and or pocket revision Under general anesthesia.
--- NOTE | 2024-06-25 05:33 | WPDHPUPDATE1 ---
History and Physical Update Update Date/Time: 06/25/24 05:33 History and Physical has been reviewed, including an updated exam of the patient. There are NO changes in the patient's condition. Risks, benefits, and alternatives have been discussed and questions answered. Patient agrees to proceed with procedure.
--- NOTE | 2024-06-25 05:38 | W.PM.PROC2 ---
Procedure Note - Detailed Date of Procedure 06/25/24 Pre-op Diagnosis [facility] complications of implanted electronic generat Post-op Diagnosis Same Procedure Performed 1. Explantation of , indwelling Spinal Cord Stimulator implantable pulse generator and replacement with new Medtronic rechargeable, MRI-safe programmable implantable pulse generator. 2. Revision of generator pocket. 3. Fluoroscopic localization and evaluation of existing implanted spinal cord stimulator lead(s). Surgeon Faisal Escudero MD Anesthesia General ([General endotracheal anesthesia] in the [prone] position with infiltration of local anesthetic.) Indications End of life implanted Medtronic IPG battery in otherwise functioning spinal cord stimulation system. Description of Procedure INFORMED CONSENT, EDUCATION AND PREPARATION: Procedure was discussed in detail with the patient at a previous visit and at the time of surgery. The risks, benefits, and alternatives to the procedure, including doing nothing, were discussed in detail with the patient, who expressed explicit understanding and consent to proceed. Specific risks discussed with the patient included, but were not limited to the risk of serious local or systemic infection, major or minor bleeding/bruising, allergic reaction to medications or materials, inadvertent lung or other organ injury, inadvertent nerve or spinal cord injury resulting in increased pain, weakness, numbness or temporary or permanent loss of bowel or bladder control, device migration or malfunction and inability to treat pain, device migration or malfunction resulting in the need for repeat or additional surgery, inadvertent dural puncture resulting in acute or chronic CSF leak and post-dural puncture headache, eye or dental injury, joint, nerve, spine or soft tissue injury/pain related to positioning, heart attack, hemorrhagic or ischemic stroke, seizure, coma and . Patient understands these risks and agrees that the opportunity for benefit outweighs the potential risk of harm. Informed Consent form was read, reviewed, signed by the patient and witnessed by staff and physician. All pertinent questions were asked and answered to the patient's satisfaction. Surgical site(s) were pre-treated with chlorhexidine wipes. All materials required for implantation were available and site and side of implant were marked prior to procedure start. Appropriate timeout was conducted prior to incision. PROCEDURE IN DETAIL: Patient was brought to the operative suite and placed in the supine position. ASA standard monitors were attached and utilized throughout. General endotracheal anesthesia was initiated without difficulty. Eyes were protected. Patient was converted to the prone position. Joints were in neutral position and pressure points were padded. Breasts and/or genitals were evaluated and protected as appropriate. Skin overlying the target incision sites was identified and marked with sterile marker. Surgical site was widely prepared with ChloraPrep and allowed to dry for at least 3 minutes. Patient was draped in a typical sterile fashion prior to procedure start. Aseptic technique was utilized throughout. [Fluoroscopic imaging was used to identify and localize the preexisting stimulator lead(s) in the AP and lateral view, which showed lead centered over the midline of the posterior epidural space from mid T7 to mid T9. This is consistent with preoperative x-ray findings. Lead positioning did not change by the completion of the case. All contacts were functioning normally prior to and after closure. Attention was then turned to revision of a generator pocket in the right flank. An approximate 8cm incision was made over the existing pocket, effectively excising the preexisting scar. Scar tissue was discarded. Hemostasis was observed and confirmed. Existing sutures x 2 securing the generator to the gluteal fascia were ligated and excised. After externalizing the device, the existing electrodes were marked for location and connections removed from their respective ports without difficulty following loosening of the retention screws with the canvas baster-supplied ratchet device. The electrode associated with the 0-7 lead position on the previous generator was inserted into the 0-7 position on the new generator. The remaining electrode was placed within the port corresponding with the 8-15 contact position. Appropriate connectivity was carefully noted. Leads were secured to the device by re-tightening the retention screws with the same ratchet device. The existing capsule was macerated with the scalpel blade to promote effective adhesion and healing. Pocket was effectively resized to allow for the new generator. 2 x 0 Ethibond sutures were placed within the superior portion of the pocket, one at the 10 o'clock and one at the 12 o'clock position and secured to gluteal fascia. Excess leads were then coiled behind the generator and generator was placed within the pocket with the canvas baster logo facing externally and lead contact ports in the cephalad position. The device was secured to gluteal fascia using previously placed 0 Ethibond sutures. Each incision site was then copiously irrigated with IrriCept 0.5% chlorhexidine gluconate solution. Hemostasis was again confirmed. Each incision was then closed in a layered fashion using interrupted 2-0 antimicrobial vicryl for the deeper layers, continuous 4-0 antimicrobial monocryl for the superficial layers and wound glue to seal the epidermis. Once wound glue had dried, wounds were covered with Telfa and Tegaderm dressing. Patient was transitioned to the supine position and anesthesia was reversed without difficulty. Patient was then transported to the recovery area in a stable condition with no evidence of complication. The patient was instructed to avoid heavy or repetitive lifting, bending and/or twisting at the waist, reaching or overhead work for the next 6 weeks. Patient and available family members/caregivers were instructed verbally regarding appropriate postoperative activity restrictions and wound care, both in the immediate preoperative period and in the postoperative period. Instructions were both reviewed with and provided to the patient in written form prior to discharge. Patient is to remain in the present of a responsible adult for at least 24 hours. Patient, amongst other requirements, was instructed to avoid driving or soaking/submerging incisions until released and to monitor for signs of infection including fevers, chills, night sweats, any redness, warmth or discharge around the incision sites, increased pain, opening/bleeding of the wound, new pain, weakness, or numbness in the neck, back or upper and lower extremities, loss of bowel or bladder control, confusion or headaches that are persistent, severe or new. Patient expressed understanding prior to leaving the hospital. Signs and symptoms of infection, epidural abscess or hematoma, intracranial hypotension and post-dural puncture headache were described to the patient who was instructed to call if these symptoms present, and in the case of spinal headache to remain recumbent when possible, hydrate as tolerated based on medical conditions to the point of passing clear or mostly clear urine every 2-3 hours, caffeinated beverages and kheo-mid-wuxknna analgesics as able and tolerated. Patient will monitor for all signs/symptoms and call our office immediately should they occur or report directly to the nearest Emergency Department if after hours or no immediate response. Immediate follow up was planned by telephone in 2-3 days and in person in 7-10 days. COMMENTS: None. COMPLICATIONS: None. SPECIMENS: None. ESTIMATED BLOOD LOSS: 10 mL. IV FLUIDS: On Chart. DRAINS: None. Estimated Blood Loss 10 (ml) Drains No Packing No Pathology None sent Complications No immediate complications Condition Stable Disposition PACU [facility] Billing Surgery - Charge Forward: Surgery Billing
--- NOTE | 2024-06-25 07:25 | P.PNAN_ITS ---
Anes - Initial Pre Proc Eval Procedure: Operation Date: 06/25/24 09:00 Proposed Procedures p Fluoroscopic Examination for Device Localization and Evaluation, Revision/Exchange of End of Life Medtronic Implantable Pulse Generator with Possible Pocket Revision, Possible Lead Revision - Faisal Escudero MD Date/Time: 06/25/24 07:25 Surgeon: Faisal Escudero MD Pre Op Diagnosis: [facility] complications of implanted electronic generat Patient Data Age: 89 Gender: F Height: 1.55 m Weight: 60 kg Allergies Allergy/AdvReac Type Severity Reaction Status Date / Time adhesive tape Allergy Unknown Rash Verified 06/20/24 13:10 bacitracin Allergy Unknown Rash Verified 06/20/24 13:10 gramicidin D Allergy Unknown Rash Verified 06/20/24 13:10 polymyxin B Allergy Unknown Rash Verified 06/20/24 13:10 OBEY Inhibitors AdvReac Intermediate Cough Verified 06/20/24 13:10 montelukast (From Singulair) AdvReac Intermediate Diarrhea Verified 06/20/24 13:10 Home Medications ?Medication ?Instructions ?Recorded ?Confirmed ?Type aspirin 81 mg tablet,delayed 81 mg PO DAILY 06/13/23 06/20/24 History release (Adult Low Dose Aspirin) clopidogrel 75 mg tablet 75 mg PO DAILY 06/13/23 06/20/24 History carvedilol 12.5 mg tablet 12.5 mg PO BID 08/28/23 06/20/24 History atorvastatin 80 mg tablet 80 mg PO DAILY 09/25/23 06/20/24 History fluticasone propionate 50 2 spray intranasal DAILY #16 grams 12/28/23 06/20/24 Rx mcg/actuation nasal spray,suspension (Flonase Allergy Relief) albuterol sulfate 90 mcg/actuation 1 inh inhalation Q4H PRN shortness 04/02/24 06/20/24 Rx aerosol inhaler of breath or wheezing #6.7 grams famotidine 40 mg tablet 40 mg PO DAILY #100 tabs 04/30/24 06/20/24 Rx gabapentin 600 mg tablet 900 mg (1.5 x 600 mg) PO TID #405 05/07/24 06/20/24 Rx tabs duloxetine 60 mg capsule,delayed 60 mg PO DAILY #90 caps 05/20/24 06/20/24 Rx release losartan 50 mg tablet 50 mg PO DAILY #90 tabs 05/20/24 06/20/24 Rx pantoprazole 40 mg tablet,delayed 40 mg PO DAILY #90 tabs 05/28/24 06/20/24 Rx release hydrocodone 5 mg-acetaminophen 325 1 tablet PO Q8H PRN pain 7 days 06/25/24 Rx mg tablet #20 tabs Patient hx anesthesia problems: none Family hx anesthesia problems: none Results Review: All pre-operative results and documents have been reviewed as part of the pre- operative evaluation. [facility] Past Medical History Medical History Chest wall mass Right-sided chest wall pain Hip pain Hypertension Asthma History of heart attack CAD (coronary artery disease) Cough present for greater than 3 weeks Face pain Cough due to OBEY inhibitor Otalgia of left ear Strain of left triceps muscle H/O cataract Contracture of palmar fascia Elevated white blood cell count UTI (urinary tract infection) Shingles outbreak Family history of endometriosis in first degree relative RLQ abdominal pain COVID-19 virus infection Vagina, candidiasis Changing skin lesion Duodenitis Anemia Suprapubic abdominal pain Abdominal pain, epigastric Chronic rhinitis Fall Sinus complaint Headache Foot pain, right Foot callus Decreased pulses in feet Leg cramps Depression, major, in remission Mixed hyperlipidemia Incisional hernia Visual loss Gastric ulcer Hip bursitis Glaucoma Anemia, unspecified Neuralgia and neuritis, unspecified Other intervertebral disc degeneration, lumbar region Surgical History Surgical History H/O heart artery stent x3 Hx of right coronary artery stent placement H/O: hysterectomy H/O Spinal surgery Family History Family History Mother Cerebrovascular accident Hypertension Sibling Family history of coronary artery disease Heart disease Hypertension Cerebrovascular accident Cancer Acute myocardial infarction Father Parkinsons disease Sibling Acute myocardial infarction Heart disease Other Family history of mental disorder Social History Social History Social History: Caffeine-tea Smoking status: Never smoker Second hand tobacco smoke exposure: Yes Alcohol intake: never Substance use: never Substance use type: marijuana 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 Do You Feel Safe in your Home?: Yes Lack of Transportation: No Lack of Food: Never True Current Housing: I Have Housing Concerned About Future Housing: No Difficulty Paying Gas/Electric Bills: No Difficulty Paying for Meds: No Currently Unemployed: No Education: High School Diploma/GED Difficulty w/ Childcare or Family Care: No Living arrangements: with family Additional living arrangements comments: with sp Occupation/Education: retired 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 Gender identity (if verbalized by the patient): Female Spiritual care concerns: No Anes - Eval Final PreProcedure Day of Procedure 06/25/24 07:25 Patient weight: normal Heart: regular rate and rhythm Lungs: clear to auscultation and normal air movement Airway: Mallampati scale class II Neurological: alert and oriented Last oral intake: >/= 8 hours ASA classification: III Emergent: no Anesthetic plan: proceed Anesthesia type and monitoring: general ETT and standard monitoring Results Review: All pre-operative results and documents have been reviewed as part of the pre- operative evaluation. Informed Consent: The patient's anesthetic plan and its attendant risks and benefits were discussed with the patient/family/POA. Questions were solicited and answers provided to the satisfaction of the patient/family/POA.
[2024-06-25] MEDS: LACTATED RINGERS 1,000 ML 30 ML IV CONT (07:50)
[2024-06-25] MEDS: ceFAZolin 2 GM/D5W 50 ML 2 GM/50 ML BAG IVPB (09:29)
[2024-06-25] MEDS: LIDOCAINE 1% LOCAL INJ 20 ML VIAL 30 ML INFILTRATE (09:58)
[2024-06-25] MEDS: BUPIVACAINE/EPINEPHRINE 0.5% 30 ML VIAL INFILTRATE (09:58)
[2024-06-25] MEDS: VANCOMYCIN HCL 1,000 MG VIAL 1000 MG TOPICAL (11:35)
--- NOTE | 2024-06-25 13:38 | SUR.PHASEI ---
Pt requiring 1L of O2 in phase [address] Mcclain was called and gave the okay to move to outpatient recovery, and to assess O2 needs there and start incentive spirometer
--- NOTE | 2024-06-25 16:38 | SUR.PHASEII ---
1500: Patient is maintaining O2 sats above 90% on room air while intermittantly using incentive spirometer.
== END 2024-06-25 15:50 | disposition home or self-care (01) ==
PROVIDERS: PCP Family Medicine; Visit Provider Anesthesiology Pain Medicine
PROC: (CPT 63685; principal; 2024-06-25 09:00)
DX: Z45.42 Encounter for adjustment and management of neurostimulator (principal); M96.1 Postlaminectomy syndrome, not elsewhere classified; M47.27 Other spondylosis with radiculopathy, lumbosacral region; M48.07 Spinal stenosis, lumbosacral region
CPT/HCPCS: 63685; 99199; J0330; J0690; J1100; J1596; J2003; J2371; J2405; J2704; J3010; J3370; J7120

== ENCOUNTER 2024-10-16 09:41 | Observation (INO) | payer OTHER, SELFPAY ==
[2024-10-16] VITALS (20 sets, daily range): BP systolic 109–167; BP diastolic 29–91; PULSE 70–85; RESP 12–24; TEMP 36.4–36.9; O2SAT 97–100
--- NOTE | ~2024-10-16 | XR_ITS ---
XR chest 2V 10/16/2024 12:40 Indication: Shortness of breath Procedure: AP and lateral views of the chest Comparison: Comparison to multiple prior studies sequentially, with oldest reviewed study dated 03/30. Findings: Small pleural effusions. Cardiomegaly. There is a hiatal hernia. There is evidence of chron ic granulomatous disease. No focal pneumonia, edema or pneumothorax. Impression: 1: Small pleural effusions. 2: Cardiomegaly. 3: Hiatal hernia. Reviewed, dictated and finalized at location B. Impression: 1: Small pleural effusions. 2: Cardiomegaly. 3: Hiatal hernia.
--- OUTSIDE RECORDS SUMMARY | 2024-10-16 10:18 | XMS_ITS | Clinical Summary ---
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 Gender Identity Not on file Sexual Orientation Not on file Occupation Industry Job Start Date Job End Date Not on file Not on file Not on file Not on file Last Filed Vital Signs Vital Sign Reading Time Taken Comments Blood Pressure 142/80 11/25/2020 1:22 PM CDT Pulse 78 11/25/2020 1:22 PM CDT Temperature 36.1 C (97 F) 10/25/2019 8:24 AM CDT Respiratory Rate 18 [...] (1 - Tdap) 1956 PNEUMOCOCCAL VACCINE 50+ YEA RS (1 of 2 - PCV) 1956 ZOSTER VACCINE (1 of 2) 1987 OSTEOPOROSIS SCREENING 2002 RSV VACCINE (60+ or ) (1 - 1-dose 75+ series) 2012 INFLUENZA VACCINE (#1) 2023 02/26/2019, 2010 COLORECTAL SCREENING 04/19/2024 04/19/2019, 04/19/2019, 02/16/2017, Additional history exists Medical Devices Implanted Type Area P D Driver Device Identifier Shelf Expiration Date Model / Serial / Lot Log [id number] - Bladder Slings And Tapes - 1 - Sling Desara System Navin-Ds01 Implanted:Qty: 1 on 05/07/2011 at [facility] Sling Vagina [employer] 08/05/2013 NAVIN-DS01 / / [id number] Procedures Procedure Name Priority Date/Time Associated Diagnosis Comments COLONOSCOPY REPORT 04/19/2019 12 :22 PM FLIGHT MECHANIC from Last 3 Months or Most Recently Relevant to Health Maintenance Results * COLONOSCOPY REPORT (04/19/2019 12:22 PM FLIGHT MECHANIC) Narrative Procedure Note Jason Huang MD - 04/19/2019 12:22 PM CST [facility] Endoscopy Patient Name: Vicki Lezama Procedure [...] signed electronically. Number of Addenda: [address]; [place] [address] Jason Huang MD GI PROCEDURE ORDERABLES Final Result from Last 3 Months or Most Recently Relevant to Health Maintenance Insurance MEDICARE PART A AND B [facility] MEDICARE SUPPLEMENT Advance Directives For more information, please contact: [phone] * Full Code (Latest Code Status on [...] 10:07 AM 05/08/2011 1:30 PM Care Teams Science Analyst Relationship Specialty Start Date End Date Satish Desai MD [address] [place] [address] PCP - General Family Practice 05/04/11
--- OUTSIDE RECORDS SUMMARY | 2024-10-16 10:18 | XMS_ITS | Continuity of Care Document ---
Author Organization [facility] [place] [employer] [facility] Address [address] [facility] [address] [place] [address] Phone Care Team Providers Care Billing Collections Specialist Name Role Phone Alden ESPINOSA, Katelynn Unavailable Unavailable Allergies, Adverse Reactions, Alerts Substance Reaction Status Criticality TAPE, OCCLUSIVE ADHESIVE Active No Information PRAMOXINE HCL Active No Information POLYMYXIN B SULFATE Active No Infor mation NEOMYCIN SULFATE Active No Informat ion BACITRACIN ZINC Active No Informati on naproxen Active No Information Medications Medication Instructions Dosage Effective Dates (start - stop) Status Comments Tylenol Arthritis Pain 650 mg tablet,extended release take 2 tablet by oral route every 8 hours as needed swallowing whole with water. Do not break, crush, dissolve and/or chew. 1300 MG - Active Calcium 600 600 mg calcium (1,500 mg) tablet take one tablet daily - Active gabapentin 300 mg capsule take 1 capsule by oral route 3 times every day 300 MG - Active Stool Softener 50 mg capsule take 1 capsule by oral route every day at bedtime as needed 50 MG - Active multivitamin capsule take 1 capsule by oral route every day - Active aspirin 81 mg tablet,delayed release take 1 tablet by oral route every day 81 MG - Active Prozac 20 mg capsule take 1 capsule by oral route every day in the morning 20 MG - No Longer Active omeprazole 40 mg capsule,delayed release take 1 capsule by oral route every day before a meal 40 MG - No Longer Active vitamin E 400 unit capsule take one tablet daily - No Longer Active ProAir HFA 90 mcg/actuation aerosol inhaler inhale 2 puff by inhalation route every 4 - 6 hours as needed - No Longer Active montelukast 10 mg tablet take 1 tablet by oral route every day in the evening 10 MG - No Longer Active Arnuity Ellipta 100 mcg/actuation powder for inhalation inhale 1 puff by inhalation route every day at the same time each day 100 MCG - No Longer Active verapamil ER (SR) [...] Copied on Encounter Office/outpa tient Visit, Est [facility], [address], [place], [place], [address], [place] tel:[phone] SEC Cong [place] Professional Work In Emergency (chief complaint) Subconjunctiv al hemorrhage of left eye Oct-2 4 Alden OD Katelynn. [address] [place] [address] [address], [address], [place], [place], [address], [place]. tel:[phone] Ray Hernandez MD.Omid Mitchell MD.Scooter Solorzano MD.Referrin g Provider: Trev Mead, [facility] [address] [facility] [address], [place], [address]. tel:[phone] [facility], [address] [place] [address] [address], [place], [place], [address], [place] tel:[phone] SEC [place] Professional Follow up visit (chief complaint) Pseudophakia of both eyesEpiretina l membrane (ERM) of left eyePrimary open-angle glaucoma, bilateral, severe stage 3 Kip Biggs. [address] [facility], [address], [place], [place], [address], [place]. tel:[phone] Ray Hernandez MD.Omid Mitchell MD.Scooter Solorzano MD.Referrin g Provider: Trev Mead, [facility] [address] [facility] [address], [place], [address]. tel:[phone] [facility], [address] [place] [address] [address], [place], [place], [address], [place] tel:[phone] SEC [place] Professional Complete Exam (chief complaint) Chorioretinal scar of right eyePseudophak ia of both eyesEpiretina l membrane (ERM) of left eyePrimary open-angle glaucoma, bilateral, severe stagePtosis of both upper eyelids 2 Kip Biggs. [address] [facility], [address], [place], [place], [address], [place]. tel:[phone] Ray Hernandez MD.Omid Mitchell MD.Scooter Solorzano MD.Speciali [place]: [place], [address] [facility] [address], [place], [address]. tel:[phone] ring Provider: Trev Mead, [facility] [address] [facility] [address], [place], [address]. tel:[phone] [facility], [address], [place], [place], [address], [place] tel:[phone] SEC Cong [place] Professional Complete Exam (chief complaint) Chorioretinal scar of right eyeEpiretinal membrane (ERM) of left eyePrimary open-angle glaucoma, bilateral, severe stagePseudoph daisy of both eyes 1 Kip Biggs. [address], [address], [place], [place], [address], [place]. tel:[phone] Specialist: Ray Hernandez MD, [facility]1 [facility] [address] [facility], [place], [address]. [phone] alist: Omid Mitchell MD, [address] [place], [address]. [phone] alist: Scooter Solorzano MD, [address] [place], [address]. [phone] ring Provider: Trev Mead, [address], [place], [address]. tel:[phone] House Party [facility], [address], [place], [place], [address], [place] tel:[phone] ETTA SLADE Professional Complete Exam (chief complaint) Primary open-angle glaucoma, bilateral, severe stagePresence of pseudophakiaO ther secondary cataract, left eye 0 Kip Biggs. [address], [address], [place], [place], [address], [place]. tel:[phone] Ray Hernandez MD.Omid Mitchell MD.Referrin g Provider: Trev Mead, [employer] [address], [place], [address]. tel:[phone] Office/outpa tient Visit, Est [facility] [employer] [facility], [address], [place], [place], [address], [place] tel:[phone] SEC Cong [place] Professional WIE (chief complaint) Bilateral visual field constrictionB and keratopathy of right eyeAge-relate d macular degeneration with central geographic atrophyGlauco ma filtering bleb of left eyeOther secondary cataract, left eyePrimary open-angle glaucoma, bilateral, severe stage Feb-2 6-202 0 Sakina OD Jak. [address] [facility], [address] [facility], [place], [address], [place]. tel:[phone] Specialist: Ray Hernandez MD, [address] [facility] [address] [facility], [place], [address]. tel:[phone] alist: Omid Mitchell MD, [address] [place], [address]. tel:[phone] ring Provider: Trev Mead, [address], [place], [address]. tel:[phone] [facility], [facility], [address], [place], [place], [address], [place] tel:[phone] SEC Cong [place] Professional Complete Exam (chief complaint) Primary open-angle glaucoma, bilateral, severe stagePseudoph daisy of both eyesOther secondary cataract, left eyeBand keratopathy of right eyeChorioreti nal scar of right eyeEpiretinal membrane (ERM) of left eyeVitreous degeneration, left eyeGlaucoma filtering bleb of left eyeRPE mottling of macula Jul- 9-201 9 Hollister Kalyan. [address] [facility], [address], [place], [place], [address], [place]. tel:[phone] Specialist: Ray Hernandez MD, [facility]1 [address], [place], [address]. tel:[phone] alist: Omid Mitchell MD, [address] [facility], [address], [place], [address]. tel:[phone] Provider: Omid Mitchell MD, [address] [facility], [address], [place], [address]. tel:[phone] Provider: Ray Hernandez MD, [address] [facility], [place], [address]. tel:[phone] ring Provider: Trev Mead, [address] [facility] [address], [place], [address]. tel:[phone] [facility], [address] [place] [address] [address], [place], [place], [address], [place] [phone] SEC Cong [place] Professional Complete Exam and OCT (chief complaint) Primary open-angle glaucoma, bilateral, severe stageVitreous degeneration, left eyeDry eye syndrome of bilateral lacrimal glandsPresenc e of pseudophakiaE piretinal membrane (ERM) of right eyeAge-relate d macular degeneration with central geographic atrophyMacula r edema Jul- 8 Kip Biggs. [address] [facility], [address], [place], [place], [address], [place]. tel:[phone] Referring Provider: Trev Mead, [address] [place] [address] [facility] [address], [place], [address]. [phone] Office/outpa tient Visit, [facility], [address] [place] [address] [address], [place], [place], [address], [place] tel:[phone] SEC Jorge Umanzor glaucoma, pressure check (chief complaint) No Information 7 Kip Biggs. [address], [address], [place], [place], [address], [place]. tel:[phone] Referring Provider: Roney Mead, [address] [facility] [address], [place], [address]. tel:[phone] Office/outpa tient Visit, [facility], [address] [place] [address] [address], [place], [place], [address], [place] tel:[phone] SEC [place] Professional glaucoma, pressure check (chief complaint) No Information 7 Kip Biggs. [address], [address] [place], [place], [address], [place]. tel:[phone] Referring Provider: Roney Mead, [address], [place], [address]. tel:[phone] Office/outpa tient Visit, [facility], [facility] [address], [place], [place], [address], tel:[phone] SEC [place] N [place] IOP ck (chief complaint) No Information Kip Biggs. [address], [address] [place], [place], [address], . tel:[phone] Referring Provider: Roney Mead, [address], [place], [address]. tel:[phone] [facility] HospitalD[facility], [facility] [address], [place], [place], [address], tel:[phone] SEC Jorge N [place] Blurry vision (chief complaint) No Information [place] Trev. [facility] [employer], [address], [place], [address], . tel:[phone] Referring Provider: Roney Mead, [address], [place], [address]. tel:[phone] Office/outpa tient Visit, [facility] [employer] [facility], [address], [place], [place], [address], tel:[phone] SEC Cong [place] Professional glaucoma, pressure check (chief complaint) No Information 7 Karthikeyan Karimi. [facility] [employer], [address], [place], [place], [address], [place]. tel:[phone] Referring Provider: Roney Mead, [address] [facility] A, [place], [address]. tel:[phone] Office/outpa tient Visit, [facility], [address] [place] [address] [address], [place], [place], [address], [place] tel:[phone] SEC Cong [place] Professional IOP ck (chief complaint) No Information 6 [place] Trev. [address] [place] [address], [address], [place], [place], [address], [place]. tel:[phone] Referring Provider: Roney Mead, [address] [facility] A, [place], [address]. [phone] Office/outpa tient Visit, [facility], [address] [place] [address] [address], [place], [place], [address], [place] tel:[phone] SEC Cong [place] Professional Discharge, mucus (chief complaint) No Information 6 Kip Ortegason. [address] [facility], [facility] A, [place], [place], [address], [place]. tel:[phone] Referring Provider: Roney Mead, [address] [facility] A, [place], [address]. tel:[phone] Office/outpa tient Visit, [facility], [address] [place] [address] [address], [place], [place], [address], [place] tel:[phone] SEC Pacific [facility] IOP ck (chief complaint) No Information 6 [place] Trev. [address] [place] [address], [address], [place], [place], [address], [place]. tel:[phone] Referring Provider: Omid Verduzco, [address] [place] [address], [address]. tel:[phone] Office/outpa tient Visit, Est [facility], [address], [place], [place], [address], [place] tel:[phone] SEC Cong [place] Professional 3 week IOP check (chief complaint) No Information 6 Nathan Sim. [address], [address], [place], [place], [address], [place]. tel:[phone] Referring Provider: Roneysarahi Mead, [address] [employer], [place], [address]. tel:[phone] [facility], [address], [place], [place], [address], [place] tel:[phone] SEC Cong [place] Professional Yearly-Com plete (chief complaint) No Information 6 Karthikeyan Karimi. [facility] [address], [address], [place], [place], [address], [place]. tel:[phone] Referring Provider: Roneysarahi Mead, [address] [address], [place], [address]. tel:[phone] [facility], [address], [place], [place], [address], [place] tel:[phone] SEC Cong [place]ADE Professional No Information 6 Nathan Sim. [address], [address], [place], [place], [address], [place]. tel:[phone] [facility] [employer] [facility], [address], [place], [place], [address], [place] tel:[phone] SEC Jorge Silva Complete Exam (chief complaint) No Information 4 Karthikeyan Trev. [address], [address], [place], [place], [address], . tel:[phone] Referring Provider: Roney Mead, [address] [facility] [address], [place], [address]. tel:[phone] Office/outpa tient Visit, [facility], [address] [place] [address] [address], [place], [place], [address], tel:[phone] SEC [place] [address] [place] No Information Apr-2 2-201 4 [place] Trev. [address] [place] [address], [address], [place], [place], [address], . tel:[phone] Referring Provider: Roney Mead, [address] [facility] [address], [place], [address]. tel:[phone] Office/outpa tient Visit, [facility], [address] [place] [address] [address], [place], [place], [address], [place] tel:[phone] SEC [place] No Information Dec-2 3-201 3 Karthikeyan Trev. [address] [place] [address], [address], [place], [place], [address], [place]. tel:[phone] Referring Provider: Roney Mead, [address] [facility] [address], [place], [address]. tel:[phone] Office/outpa tient Visit, [facility], [address] [place] [address] [address], [place], [place], [address], [place] tel:[phone] SEC [place] [address] No Information Sep-2 3-201 3 Karthikeyan Trev. [address] [place] [address], [address], [place], [place], [address], . tel:[phone] Referring Provider: Omid Verduzco, [address] [place] [address], [address]. tel:[phone] Office/outpa tient Visit, Est [facility], [address], [place], [place], [address], [place] tel:[phone] SEC Cong YANY Professional No Information Rashid-2 0-201 3 Wankanderson Sim. [address], [address], [place], [place], [address], [place]. tel:[phone] Referring Provider: Roney Mead, [address], [place], [address]. tel:[phone] [facility], [address], [place], [place], [address], [place] tel:[phone] SEC [place] YANY Professional No Information September-2 1-201 3 Wanbessy Sim. [address], [address] [place], [place], [address], [place]. tel:[phone] Referring Provider: Roney Mead, [address], [place], [address]. tel:[phone] [facility], [address], [place], [place], [address], [place] tel:[phone] SEC [place] YANY Professional No Information Dec-1 3-201 2 Wanbessy Sim. [address], [address] [place], [place], [address], [place]. tel:[phone] Referring Provider: Roney Mead, [address] [place] [place], [address]. tel:[phone] [facility], [address], [place], [place], [address], [place] tel:[phone] SEC Cong YANY Professional No Information Nov-3 0-201 2 Wankanderson Sim. [address], [address], [place], [place], [address], [place]. tel:[phone] Referring Provider: Roney Mead, [address] [facility] [address], [place], [address]. tel:[phone] [facility], [address], [place], [place], [address], [place] tel:[phone] [facility] No Information 2 Karthikeyan Trev. [address] [employer], [address], [place], [place], [address], [place]. tel:[phone] Referring Provider: Roney Mead, [address] [facility] [address], [place], [address]. tel:[phone] [facility], [address], [place], [place], [address], [place] tel:[phone] SEC Pacific [facility] No Information 2 Karthikeyan Trev. [address] [employer], [address], [place], [place], [address], [place]. tel:[phone] Referring Provider: Roney Mead, [address] [facility] [address], [place], [address]. tel:[phone] Office/outpa tient Visit, [facility], [address], [place], [place], [address], [place] tel:[phone] SEC [place] Professional No Information 2 [place] Trev. [address] [employer], [address], [place], [place], [address], [place]. tel:[phone] Referring Provider: Roney Mead, [address] [facility] [address], [place], [address]. [phone], [address], [place], [place], [address], [place] tel:[phone] SEC Cong [place] Professional No Information Dec-1 3-201 2 Nathan Sim. [address] [facility], [facility] [place], [place], [address], [place]. tel:[phone] Referring Provider: Roney Mead, [address] [facility] [place], [address]. tel:[phone] [facility], [address], [place], [place], [address], [place] tel:[phone] SEC [place] YANY Professional No Information Dec-0 8-201 1 Nathan Sim. [address] [facility], [facility] [place], [address], [place]. tel:[phone] [facility], [address], [place], [place], [address], [place] tel:[phone] SEC Cong [place] Professional No Information Nov-0 7-201 0 Nathan Sim. [address] [facility], [facility] [place], [address], [place]. tel:[phone] Office/outpa tient Visit, [facility], [address], [place], [place], [address], [place] tel:[phone] SEC Cong [place] Professional No Information Nov-2 4-200 9 Wanbessy Sim. [address] [facility], [facility] [place], [place], [address], [place]. tel:[phone] [facility], [address], [place], [place], [address], [place] tel:[phone] SEC [place] YANY Professional No Information May-0 5-200 9 Wankanderson iSm. [address] [facility], [facility] [place]ew [place], [place], [address], [place]. tel:[phone] [facility], [address], [place], [place], [address], [place] tel:[phone] ETTA Gar YANY Professional No Information 8 Nathan Sim. [address] [facility], [address], [place], [place], [address], [place]. tel:[phone] Family History Family Member Type Diagnosis Age At Onset Multiple Problem (finding) Heart Disease Problem (finding) Family history of diabetes mellitus type 2 Payers Payer name Insurance type Covered constitution party ID Authoriza tion(s) [employer] HM [id number] Social History Type Description Quantity Date Captured [...] Action Status Referral Referred To: Ray Hernandez [facility]0 Giovanni Eric [place], [place] [id number] Ordered: Referrals: Ophthalmology. Ray Hernandez. Evaluate and [...] and Vitrectomy followed by Dr [place] at [place]. Pt saw [place] 02-26-[address] Mitchell suggests adding to [...] Occ HTN. Pt saw Dr Mitchell at [place] and he was concrened that OD IOP [...] with no changes.Patient see's Dr Mitchell at [place]. Functional Status Date Functional Assessmen t No Information Instructions Date Instruction Additional Infor nola Impression/Plan Impression/Plan Impression/Plan Impression/Plan Impression/Plan Impression/Plan Impression/Plan Impression/Plan Use of eye drops discussed. 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 Mitchell's office; 25 today- Possible steroid response; now off all steroids- Continue Simbrinza TID OU and Travatan QHS OU- Once Travatan sample is gone switch to Latanoprost QHS OU.- Start Timolol OU BID, sent Rx to [facility] today.- Continue Ketorolac BID OU - Recommend patient return to clinic in 2 weeks for IOP check and HVF 24-2MGD OU:- Explain diagnosis to patient- Start patient on warm compress OU BID- Recommend AFTS to rinse eyes out and cold compress to aide with itching Impression/Plan - PO AG:- IOP has responded [...] for Complete + HVF 24-2 and PACHS Primary open-angle g laucoma, bilateral, mild stage - Use of eye drops discussed Related to Primary open-angle glaucoma, bilateral, mild stage Follow up - IOP check in 1-2 wemilad lujan Impression/Plan - IO P is significant elevated [...] her insurance coverage. Ok to schedule in Cong with JOSE or ALETA. Pt will be leaving town for 1 week to take care of her sister. Follow up - 6 months complete ex am Impression/Plan - PC F discussed along with [...] rec she discuss this with her PCP. Other secondary landry ract, left eye - Surgery not indicated now. Related to Other secondary cataract, left eye Follow up - 6 moths IOP check Ocular hypertension, bilateral - Use of eye drops discussed Related to Ocular hypertension, bilateral Impression/Plan - In traocular pressure well controlled, tolerating medications. Will continue with same regimen. Will alternate visits with Dr. Mitchell so she is being seen by someone every 6 months. Impression/Plan - Di agnosis discussed with patient. [...] Will change to Simbrinza TID. ERX to [employer]. If too expensive she will contact our [...] OP Check with RAFAELA or JOSE - OU: Discussed diag nosis in detail with patient. Will continue to observe condition and or symptoms. Call if [facility] worsens. Educational materials provided:about today's exam. Keep appointment with Dr. Mitchell Related to See list of assessments above - 6 months follow up Related to See list of assessments above - 3-4 months complete Related to MACULAR PUCKERING OCULAR HYPERTENSION MACULAR PUCKERING monitored by [place] - Meds reviewed Pred taper to qday for 1 week, then every other day for 1 week then stop Pred. Continue Bromday. Use Brimonidine OU BID. Pt planning a trip to [place] to see her son. Educational materials provided:about today's exam.Pt will call if refills are needed Related to MACULAR PUCKERING General plan -OCULAR HYPERTENSION - Intraocular pressure well controlled, tolerating medications. Will continue with same regimen. Educational materials provided:Medication Instruction.will rotate every [address] Mitchell Related to See impression: general plan - 4 months IOP check Related to See impression: general plan OCULAR HYPERTENSION OU - Ocular hypertension, intraocular pressure elevated OD, will start medication(s). Brimonidine OD qday- Erx'd to pharmacy Prescription(s) given to patient. Diagnosis explained and patient verbalized understanding. Related to OCULAR HYPERTENSION - 3 months IOP check Related to OCULAR HYPERTENSION cme-saw Dr. Mitchell and he adjusted meds ou and told her ok to get glasses os-already has od - new left lens elevated iop os but nl optic n - will see Dr. Mitchell [facility] a critical [facility] resolving cme-review ed Dr Hernandez letter from [...] Hernandez to see pt then return to [facility]. Related to FOLLOW-UP SURGERY NOS 1day postop [...]
--- OUTSIDE RECORDS SUMMARY | 2024-10-16 10:18 | XMS_ITS ---
Author Organization [facility] Address [address] [place] [address] [place] [address] Care Team Providers Care Radioactivity Technician Name Role Phone CAYLA ALEXANDER, SUSAN Primary Care Provider Odilon Medina Unavailable [phone] ALLERGIES Allergen (clinical drug ingredient) Drug/Non Drug [...] 11/06/2023 BMI 23.62 kg/m2 11/06/2023 Post procedure kemobr=KZ=886 /84, P=69, R=14. Discharged home per ambulatory. Josué acute distress noted. Encounters Encounter Location Date Provider Diagnosis [facility] [address] [facility] [place] [address] 11/06/2023 Odilon Davisick Radiculopathy, cervical region M54.12 [...] discharged home in good condition with a emergency medical technician/driver. X-ray time: 6 seconds Progress Notes * [...] patient's typical axial low back pain. Racheal's Kirk's and Gaenslen's are positive bilaterally. There is [...]
--- OUTSIDE RECORDS SUMMARY | 2024-10-16 10:18 | XMS_ITS | Clinical Summary ---
Author Organization [facility] Address [address] [place] [address] Care Team Providers Care Swing Saw Operator Name Role Phone Satish Desai MD Primary Care Provider [phone] Allergies Active Allergy Reactions Criticality Noted Date Comments Adhesive Rash Medium Adhesive Tape-Silicones Itching,Rash Medium 05/04/2011 Neomycin Hives Medium 12/27/2021 Udxjgdos-Pioxgxqsji-Zjevbnsqd Rash Medium 2018 Neosporin (Neomycin-Polymyx) Rash Medium Medications docusate sodium (COLACE) 100 mg capsule Take 1 capsule (100 mg total) by mouth daily as needed Active multivitamin tablet Take 1 tablet by mouth daily Active acetaminophen ER (TYLENOL) 650 mg 8 hr tablet Take 1 tablet (650 mg total) by mouth 2 (two) times a day 2 in morning and 2 in evening Active calcium carbonate (OS-NAVIN) 1,500 mg (600 mg elemental) tablet every 12 hours Activ e diclofenac sodium (Voltaren Arthritis Pain) 1 % gel Active aspirin 81 mg chewable tablet Take 1 tablet (81 mg total) by mouth daily 30 tablet 4 Active lisinopriL (PRINIVIL,ZESTR IL) 10 mg tablet Take 1 tablet (10 mg total) by mouth daily 30 tablet 4 Active Additional Information Patient not taking.Reported on 07/17/2023 losartan (COZAAR) 50 mg tablet Oral for 90 Active clopidogreL (PLAVIX) 75 mg tablet TAKE 1 TABLET BY MOUTH EVERY DAY 90 tablet 1 4 Active gabapentin (NEURONTIN) 600 mg tablet Take 0.5 tablets (300 mg total) by mouth 3 (three) times a day 5 Active famotidine (PEPCID) 40 mg tablet Take 1 tablet (40 mg total) by mouth daily [address] (CYMBALTA) 60 mg capsule Take 1 capsule (60 mg total) by mouth daily Active atorvastatin (LIPITOR) 80 mg tablet TAKE 1 TABLET BY MOUTH EVERY DAY 90 tablet 2 5 Active carvediloL (COREG) 12.5 mg tablet TAKE 1 TABLET BY MOUTH TWICE A DAY WITH MEALS 180 tablet 2 5 Active Active Problems Problem Noted Date Diagnosed Date Bilateral carotid artery stenosis 07/17/2023 CAD (coronary artery disease) 06/08/2023 Nonrheumatic aortic valve insufficiency 06/08/19 Chest pain 06/02/2023 Coronary artery disease invo lving [place] coronary artery of [place] heart 06/02/2023 Myogenic ptosis of eyelid of [...] dermatochalasis that is impacting ADLs. Atherosclerosis of [place] ar kieran of both lower extremities with intermittent claudication 07/06/2020 Assessment & Plan (07/06/2020 11:20 AM CLAMP OPERATOR): Impression: Patient complain of cool right [...] 07/06/2020 Assessment & Plan (07/06/2020 11:26 AM CLAMP OPERATOR): Impression: Stable chronic hypertension. Plan: Medications [...] (02/06/2019): Added automatically from request for surgery [id number] Borderline glaucoma with ocular hypertension 7 02/08/2018 Encounters Date Type Department Care Team Description 08/16/2024 2:00 PM CDT Office Visit [facility] at [address] [place] [address] Whitney Bay NP Coronary artery disease involving [place] coronary artery of [place] heart, unspecified whether angina present (Primary Dx); Nonrheumatic aortic valve insufficiency; PSVT (paroxysmal supraventricular tachycardia); Mixed hyperlipidemia; Primary hypertension; Bilateral carotid bruits; SOB (shortness of breath); Dyslipidemia 07/31/[address] [facility] at [address] [address] Whitney Bay NP Bilateral carotid bruits (Primary Dx) 07/31/2024 Results Follow-Up [facility] at [address] [place] [address] Whiteny Bay NP US EVERTON, US Carotids Duplex Bilateral 07/30/2024 12:57 PM CLAMP OPERATOR - 07/30/2024 11:59 PM CLAMP OPERATOR Hospital Encounter [facility] [address] [place] [address] Carotid bruit, unspecified laterality Discharge Disposition: Discharge to home or self care 07/30/2024 12:57 PM CLAMP OPERATOR - 07/30/2024 11:59 PM CLAMP OPERATOR Hospital Encounter [facility] [address] [place] [address] Atherosclerosis of [place] arteries of extremities with rest pain, right leg (HCC) Discharge Disposition: Discharge to home or self care from Last 3 Months Immunizations Immunization Administration Dates Next Due Tdap 04/21/2023 Surgical [...] on file Legal Sex Female 2:03 AM CLAMP OPERATOR Gender Identity Not on file Sexual Orientation Not on file Obstetrics History Last Filed Vital Signs Vital Sign Reading Time Taken Comments Blood Pressure 116/60 08/16/2024 2:07 PM CDT Pulse 67 08/16/2024 2:07 PM CDT Temperature 36.3 C (97.4 F) 06/09/2023 4:02 AM CLAMP OPERATOR Respiratory Rate 18 01/30/2024 2:15 PM CDT Oxygen Saturation 97% 06/09/2023 4:02 AM CLAMP OPERATOR Inhaled Oxygen Concentration - - Weight 60.3 kg (133 lb) 08/16/2024 2:07 PM CDT Height 154.9 cm (5' 1 ) 08/16/2024 2:07 PM CDT Body Mass Index 25.13 08/16/2024 2:07 PM CDT Plan of Treatment Health Maintenance Due Date Last Done Comments Hepatitis B Screening 1953 Pneumococcal vaccine 65+ (1 of 2 - PCV) 1956 Zoster Vaccine (1 of 2) 1987 Well Visit 65+ 2002 Depression Screening 04/04/2020 04/04/2019 Fall Risk Assessment 06/09/2024 06/09/2023 Influenza Vaccine (Season Ended) 2025 02/26/2019, 04/03/2018, 02/01/2016, Additional history exists DTaP/Tdap/Td Vaccine (2 - Td or Tdap) 04/21/2033 04/21/2023 Medical Devices Implanted Type Area Charging Car Operator Device Identifier Shelf Expiration Date Model / Serial / Lot [employer] 5513-001 Xen 150um 45um 6mm Treatment System Preload Injector Intraocular Latex Free - [id number] - [id number] Implanted:Qty: 1 on 03/04/2019 by Katerina Shirley MD at [facility] Drain Right: Eye [employer] [id number] 07/26/2021 5513-001 / [id number] / [id number] Description:XEN REF 5513-001 Right eye Spinal Cord Stimulator Back [employer] Synergy Xd Monorail 2.25mm 16mm 144cm Delivery System 1 Access [id number] - [id number] Implanted:Qty: 1 on 06/08/2023 by Daniel Prince MD at [facility] [employer] 11/22/2024 [id number] / / [id number] [employer] Synergy Xd Monorail 2.5mm 20mm 144cm Delivery System 1 Access [id number] - [id number] Implanted:Qty: 1 on 06/08/2023 by Daniel Prince MD at [facility] [employer] 06/12/2024 [id number] / / [id number] [employer] Synergy Xd Monorail 3.5mm 24mm 144cm Delivery System 1 Access [id number] - [id number] Implanted:Qty: 1 on 06/08/2023 by Daniel Prince MD at [facility] [employer] 06/07/2024 [id number] / / [id number] [employer] Angio-Seal Vip 6fr Closere Device [id number] - [id number] Implanted:Qty: 1 on 06/08/2023 by Daniel Prince MD at [facility] [employer] 01/19/2024 [id number] / / [id number] Procedures Procedure Name Priority Date/Time Associated Diagnosis Comments US CAROTIDS DUPLEX BILATERAL Schedule Routine, Read Routine (OP Routine) 07/30/2024 2:40 PM CLAMP OPERATOR Carotid bruit, unspecified laterality US EVERTON Schedule Routine, Read Routine (OP Routine) 07/30/2024 2:31 PM CLAMP OPERATOR Atherosclerosis of [place] arteries of extremities with rest pain, right leg (HCC) from Last 3 Months Results * US Carotids Duplex Bilateral (07/30/2024 2:40 PM CLAMP OPERATOR) Anatomical Region Laterality Modality Vascular Bilateral Ultrasound 07/30/2024 2:03 PM CLAMP OPERATOR Narrative 07/30/2024 7:01 PM CLAMP OPERATOR [address] [place] [address] Carotid Duplex Report Patient Name: YOMAIRA VALDES L : 1935 (89y 4m) Gender: F Study Date: 2024-07-30 02:03:39 PM Pond Supervisor: CO Order Provider: DATILLO, WHITNEY Quality: Adequate Ref Provider: WHITNEY BAY PROCEDURES: Arterial Report: Color Duplex ultrasound examination, including velocity measurements, was performed of the extracranial carotid arteries bilaterally. INDICATIONS: R09.89 Other specified symptoms and signs involving the circulatory and respiratory systems. CONCLUSIONS: 1. Plaque in the right internal carotid artery is moderate calcified. The right internal carotid artery has 60-79% stenosis. 2. Plaque in the left internal carotid artery is moderate calcified. The left internal carotid artery has 60-79% stenosis. 3. Consider follow-up study after six months. FINDINGS: Right CCA: The right common carotid artery is normal in appearance. Right Bifurcation: The right bifurcation is normal in appearance. Right ECA: The right external carotid artery is normal in appearance. Right ICA: Plaque in the right internal carotid artery is moderate calcified. The right internal carotid artery has 60-79% stenosis. Right Vert: The right vertebral artery is patent with antegrade flow. Left CCA: The left common carotid artery is normal in appearance. Left Bifurcation: The left bifurcation is normal in appearance. Left ECA: The left external carotid artery is normal in appearance. Left ICA: Plaque in the left internal carotid artery is moderate calcified. The left internal carotid artery has 60-79% stenosis. Left Vert: The left vertebral artery is patent with antegrade flow. MEASUREMENTS: Right Value Left Value Rt ICA Prx PSV 94.90 cm/sec Lt ICA Prx PSV 159.20 cm/sec Rt ICA Prx EDV 31.20 cm/sec Lt ICA Prx EDV 45.30 cm/sec Rt ICA Mid PSV 119.20 cm/sec Lt ICA Mid PSV 126.80 cm/sec Rt ICA Mid EDV 30.10 cm/sec Lt ICA Mid EDV 31.50 cm/sec Rt ICA Dst PSV 87.00 cm/sec Lt ICA Dst PSV 107.40 cm/sec Rt ICA Dst EDV 20.40 cm/sec Lt ICA Dst EDV 20.40 cm/sec Rt CCA Prx PSV 186.30 cm/sec Lt CCA Prx PSV 67.90 cm/sec Rt CCA Prx EDV 18.50 cm/sec Lt CCA Prx EDV 11.80 cm/sec Rt CCA Mid PSV 151.50 cm/sec Lt CCA Mid PSV 66.90 cm/sec Rt CCA Mid EDV 13.90 cm/sec Lt CCA Mid EDV 11.80 cm/sec Rt CCA Dst PSV 103.00 cm/sec Lt CCA Dst PSV 70.60 cm/sec Rt CCA Dst EDV 12.70 cm/sec Lt CCA Dst EDV 15.00 cm/sec Rt ECA PSV 124.00 cm/sec Lt ECA PSV 87.90 cm/sec Rt ECA EDV 0.00 cm/sec Lt ECA EDV 0.00 cm/sec Rt Vert PSV 49.60 cm/sec Lt Vert PSV 74.00 cm/sec Rt Vert EDV 6.70 cm/sec Lt Vert EDV 16.70 cm/sec Rt ICA/CCA Ratio 1.16 ratio Lt ICA/CCA Ratio 2.25 ratio Electronically Signed By: Marcus Price MD, [facility] 2024-07-30 6:14:18 PM CLAMP OPERATOR Procedure Note Marcus Price MD - 07/30/[address] [address] Carotid Duplex Report Patient Name: YOMAIRA VALDES L : 1935 (89y 4m) Gender: F Study Date: 2024-07-30 02:03:39 PM Pond Supervisor: CO Order Provider: WHITNEY BAY Quality: Adequate Ref Provider: WHITNEY BAY PROCEDURES: Arterial Report: Color Duplex ultrasound examination, including velocitymeasurements, was performed of the extracranial carotid arteries bilaterally. INDICATIONS: R09.89 Other specified symptoms and signs involving the circulatory andrespiratory systems. CONCLUSIONS: 1. Plaque in the right internal carotid artery is moderate calcified. Theright internal carotid artery has 60-79% stenosis. 2. Plaque in the left internal carotid artery is moderate calcified. Theleft internal carotid artery has 60-79% stenosis. 3. Consider follow-up study after six months. FINDINGS: Right CCA: The right common carotid artery is normal in appearance. Right Bifurcation: The right bifurcation is normal in appearance. Right ECA: The right external carotid artery is normal in appearance. Right ICA: Plaque in the right internal carotid artery is moderatecalcified. The right internal carotid artery has 60-79% stenosis. Right Vert: The right vertebral artery is patent with antegrade flow. Left CCA: The left common carotid artery is normal in appearance. Left Bifurcation: The left bifurcation is normal in appearance. Left ECA: The left external carotid artery is normal in appearance. Left ICA: Plaque in the left internal carotid artery is moderatecalcified. The left internal carotid artery has 60-79% stenosis. Left Vert: The left vertebral artery is patent with antegrade flow. MEASUREMENTS: Right Value Left Value Rt ICA Prx PSV 94.90 cm/sec Lt ICA Prx PSV 159.20 cm/sec Rt ICA Prx EDV 31.20 cm/sec Lt ICA Prx EDV 45.30 cm/sec Rt ICA Mid PSV 119.20 cm/sec Lt ICA Mid PSV 126.80 cm/sec Rt ICA Mid EDV 30.10 cm/sec Lt ICA Mid EDV 31.50 cm/sec Rt ICA Dst PSV 87.00 cm/sec Lt ICA Dst PSV 107.40 cm/sec Rt ICA Dst EDV 20.40 cm/sec Lt ICA Dst EDV 20.40 cm/sec Rt CCA Prx PSV 186.30 cm/sec Lt CCA Prx PSV 67.90 cm/sec Rt CCA Prx EDV 18.50 cm/sec Lt CCA Prx EDV 11.80 cm/sec Rt CCA Mid PSV 151.50 cm/sec Lt CCA Mid PSV 66.90 cm/sec Rt CCA Mid EDV 13.90 cm/sec Lt CCA Mid EDV 11.80 cm/sec Rt CCA Dst PSV 103.00 cm/sec Lt CCA Dst PSV 70.60 cm/sec Rt CCA Dst EDV 12.70 cm/sec Lt CCA Dst EDV 15.00 cm/sec Rt ECA PSV 124.00 cm/sec Lt ECA PSV 87.90 cm/sec Rt ECA EDV 0.00 cm/sec Lt ECA EDV 0.00 cm/sec Rt Vert PSV 49.60 cm/sec Lt Vert PSV 74.00 cm/sec Rt Vert EDV 6.70 cm/sec Lt Vert EDV 16.70 cm/sec Rt ICA/CCA Ratio 1.16 ratio Lt ICA/CCA Ratio 2.25 ratio Electronically Signed By: Marcus Price MD, [facility] 2024-07-30 6:14:18 PM CLAMP OPERATOR us Whitney Fariha Bay [employer] IMG US PROCEDURES Final Result * US EVERTON (07/30/2024 2:31 PM CLAMP OPERATOR) Anatomical Region Laterality Modality Vascular N/A Ultrasound 07/30/2024 1:35 PM CLAMP OPERATOR Narrative 07/30/2024 3:39 PM CLAMP OPERATOR [address] [address] Ankle Brachial Index Report Patient Name: YOMAIRA VALDES : 1935 (89y 4m) Gender: F Study Date: 07/30/2024 01:35:00 PM Pond Supervisor: Luz Marina Provider: WHITNEY BAY Quality: Adequate Ref Provider: WHITNEY BAY PROCEDURES: Arterial Report: A bilateral extremities ankle/brachial index was performed. INDICATIONS: I70.221 Atherosclerosis of [place] arteries of extremities with rest pain, right leg. CONCLUSIONS: 1. In the right lower extremity, the ankle brachial index is normal, EVERTON 1.13 Triphasic wave form. 2. In the left lower extremity, the ankle brachial index is normal, EVERTON 1.11 Triphasic wave form. FINDINGS: Electronically Signed By: Calvin Bermudez MD [facility] 07/30/2024 3:04:03 PM CLAMP OPERATOR Procedure Note Calvin Bermudez MD - 07/30/[address] [address] Ankle Brachial Index Report Patient Name: YOMAIRA VALDES : 1935 (89y 4m) Gender: F Study Date: 07/30/2024 01:35:00 PM Pond Supervisor: Luz Marina Provider: WHITNEY BAY Quality: Adequate Ref Provider: WHITNEY BAY PROCEDURES: Arterial Report: A bilateral extremities ankle/brachial index wasperformed. INDICATIONS: I70.221 Atherosclerosis of [place] arteries of extremities with rest pain,right leg. CONCLUSIONS: 1. In the right lower extremity, the ankle brachial index is normal, ABI1.13 Triphasic wave form. 2. In the left lower extremity, the ankle brachial index is normal, ABI1.11 Triphasic wave form. FINDINGS: Electronically Signed By: Calvin RICH 07/30/2024 3:04:03 PM CLAMP OPERATOR Whitney Bay NP [facility] PROCEDURES Final Result from Last 3 Months Insurance COMMERCIAL GENERIC MEDICARE [employer] [place] [address] Advance Directives For more information, please contact: [phone] * Full Code (Latest Code Status on File) Date Activated Date Inactivated Comments 06/08/2023 2:44 PM 06/09/2023 3:19 PM Care Teams Swing Saw Operator Relationship Specialty Start Date End Date Satish Desai MD PCP - General 03/08/11
--- OUTSIDE RECORDS SUMMARY | 2024-10-16 10:18 | XMS_ITS ---
Author Organization [facility] Address [address] [place] [address] [place] [address] Care Team Providers Care Sound Engineer Audio Control Name Role Phone CAYLA ALEXANDER, SUSAN Primary Care Provider Odilon Medina Unavailable [phone] ALLERGIES Allergen (clinical drug ingredient) Drug/Non Drug [...] W/U Status Risk SNOMED Code Notes Problem long term acute care registered nurse (current) use of anticoagulants (Z79.01) Active confirmed Long-term current use of anticoagulant ([id number]) VITAL SIGNS Blood pressure systolic 122 mm Hg 10/27/19 24 Blood pressure diastolic 55 mm Hg 024 Heart Rate 68 /min 10/27/2023 Respiratory Rate 18 /min 10/27/2023 Height 5 ft 1 in in 10/27/2023 Weight 125 lbs 10/27/2023 BMI 23.62 kg/m2 10/27/2023 Encounters Encounter Location Date Provider Diagnosis [facility] [address] [place] [address] 10/27/2023 Odilon Benton Radiculopathy, lumbosacral region M54.17 [...] 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 I made the patient aware that she will be at an increased risk for a thromboembolic event during this time and she is willing to accept this risk. The patient was instructed to notify her primary care physician and/or firer boiler to obtain clearance prior to discontinuing this [...] is agreeable to proceeding at this time. [facility] (current) use of anticoagulant s The patient was instructed to discontinue aspirin for 6 days prior to the procedure. I made the patient aware that she will be at an increased risk for a thromboembolic event during this time and she is willing to accept this risk. The patient was instructed to notify her primary care physician and/or firer boiler to obtain clearance prior to discontinuing this [...] patient's typical axial low back pain. Racheal's [place]'s and Gaenslen's are positive bilaterally. There is [...] and Follow-up: Follow-up Plan documevan jacqueline:: Yes [facility] Quality 2020: [facility] Documented:: Compliant
--- OUTSIDE RECORDS SUMMARY | 2024-10-16 10:19 | XMS_ITS | Clinical Summary ---
Author Organization [facility] Address [address] [facility] [place] [address] Care Team Providers Care Architectural Draftsman Name Role Phone Satish Desai MD Primary Care Provider [phone] [facility],non-owned Affiliates and Associated Physician Practices is amultiple site organization consisting of ambulatory clinics and hospital sitesin [place], [place] and [place]. This disclosure is being madepursuant to the Care Everywhere program and may not contain all information available regarding this patient. Last updated 18.[facility] Allergies Active Allergy Reactions Criticality Noted Date Comments Rlnjobtr-Jdegxgogkh-Djtimihuy Rash Medium 2018 Medications * Be aware that medications may not be up to date on this document. Alwaysverify current medications with the patient. ARNUITY ELLIPTA 100 MCG/ACT inhaler 1 tablet [...] = 0.6 oz pur e alcohol) Comments Unknown Sex and Gender Information Value Date Recorded Sex Assigned at Not on file Legal Sex Female 6:23 AM GROUND CREWMAN Gender Identity Not on file Sexual Orientation Not on file Plan of Treatment Health Maintenance Due Date Last Done Comments BONE DENSITY TESTING 1935 MEDICARE AWV 12 MONTHS 1935 DTAP/TDAP/TD VACCINES (1 - Tdap) 1956 PNEUMOCOCCAL VACCINE 50+ (1 of 1 - PCV) 1987 ZOSTER VACCINE (1 of 2) 1987 Respiratory Syncytial Virus (RSV) Vaccine Pt: or over 60 yrs (1 - 1-dose 75+ series) 2012 COVID-19 VACCINE ( - 2023-2 5 season) 2024 DEPRESSION SCREENING 05/29/2024 INFLUENZA VACCINE (Season Ended) 2025 HEPATITIS B VACCINE Aged Out No longe r eligible based on patient's age to complete this topic HIB VACCINE Aged Out No longer eligi ble based on patient's age to complete this topic HPV VACCINE Aged Out No longer eligi ble based on patient's age to complete this topic MENINGOCOCCAL (Group B) VACC INE SHARED DECISION-MAKING Aged Out No longer eligibl e based on patient's age to complete this topic MENINGOCOCCAL GROUPS A/C/Y/W VACCINE Aged Out No longer eligible b ased on patient's age to complete this topic Insurance MEDICARE [employer] MED[employer] ADV PPO SELF PAY NO INSURANCE Member Subscriber Plan / Payer (Ef fective for All Dates) Name:Yomaira Lezama Member ID:Not on file Relation to Subscriber:Not on file Name:YOMAIRA LEZAMA Subscriber ID:Not on file (Home) Address: [address] [address] [place] [address] Payer ID:Not on file Group ID:Not on file Type:Self Pay Address: [place], [place] Care Teams Architectural Draftsman Relationship Specialty Start Date End Date Satish Desai MD [address] [place] [address] PCP - General 09/18/18
--- OUTSIDE RECORDS SUMMARY | 2024-10-16 10:19 | XMS_ITS | Encounter Summary ---
Author Organization [facility] Healthcare Address [address] [place] [address] Care Team Providers Care Lamination Machine Operator Name Role Phone Satish Desai MD Primary Care Provider Encounter Details Date Type Department Care Team (Late st Contact Info) Description 02/15/2019 Telephone [facility] - Interventional Radiology [address] [place] [address] Keyonna Canela, RN Social History Tobacco Use Types Packs/Day Years Used Date Smoking Tobacco: Never Smokeless Tobacco: Never AUDIT-C Answer Date Recorded Frequency of Alcohol Consumption Never 02/18/2019 Average Number of Drinks Not on file 019 Frequency of Binge Drinking Not on file 01/28 Comments Unknown Sex and Gender Information Value Date Recorded Sex Assigned at Not on file Legal Sex Female 2:03 AM HEALTH EDUCATOR Gender Identity Not on file Sexual Orientation Not on file documented as of this encounter Functional Status documented as of this encounter Plan of Treatment Not on file documented as of this encounter Visit Diagnoses Not on filedocumented in this encounter Care Teams Lamination Machine Operator Relationship Specialty Start Date End Date Satish Desai MD PCP - General 03/08/11 documented as of this encounter
--- OUTSIDE RECORDS SUMMARY | 2024-10-16 10:19 | XMS_ITS | Patient Health Record ---
Author Organization [facility] Address [address] [place] [address] KATIE Barger [address] Care Team Providers Care Spa Director Name Role Phone CAYLA ALEXANDER, SUSAN Primary Care Provider Ivisa Odilon Hedrick Unavailable [phone] ALLERGIES Allergen (clinical drug ingredient) Drug/Non Drug Allergy documented on EMR Reaction Allergy Type Onset Date Status neomycin Neomycin hives Drug Allergy Active Tape peels skin off Allergy Activ e REASON FOR REFERRAL No Information MEDICATIONS Medication SIG (Take, Route, Frequency, Duration) Notes Start Date End Date Status Calcium 600 MG 1 tablet with meals Orally Twice a day for 30 day(s) Active Pantoprazole Sodium 20 MG 1 tablet Orall y Once a day for 30 day(s) Active Aspirin 81 81 MG 1 tablet Orally Once a day for 30 day(s) Active Voltaren 1 % apply 4 grams to beto nful joint(s) Transdermal 4x/day as needed for pain for 30 days Active Losartan Potassium 50 MG Oral for 90 Active Gabapentin 100 MG as directed Orally 2 am, 2 at noon, and 3 at night Active FLUoxetine HCl 40 MG 1 capsule Orally On ce a day for 30 day(s) Active Atorvastatin Calcium 40 MG Oral for 90 Active Fluticasone Propionate 50 MCG/ACT Nasal for 30 Active Lisinopril 10 MG TAKE 1 TABLET BY CHUN TH DAILY Oral for 90 Active Clopidogrel Bisulfate 75 MG Oral for 90 Active Carvedilol 12.5 MG Oral for 90 Active Airsupra 90-80 MCG/ACT Inhalation for 30 Active DULoxetine HCl 60 MG TAKE 1 CAPSULE BY M OUTH DAILY Oral for 90 Active SOCIAL HISTORY Sex Assigned At : Social History Observation Description Sex Assigned At Unknown PROBLEMS Problem Type ICD Code Onset Dates Problem Status W/U Status Risk SNOMED Code Notes Problem Primary osteoarthritis, left shoulder (M19.012) Active confirmed Localized, prim yossi osteoarthritis of the shoulder region (125952881) Problem Primary osteoarthritis, unspecified shoulder (M19.019) Active confirmed Localized , primary osteoarthritis of the shoulder region () Problem Unspecified osteoarthritis, unspecified site (M19.90) Active confirmed Osteoarthritis (874390270) Problem Pain in left shoulder (M25.512) Active confirmed Shoulder joint pain (547219280) Problem Scoliosis, unspecified (M41.9) Active confirmed Scoliosis (775730655) Problem Spondylolisthesis, lumbar region (M43.16) Active confirmed Acquired spondylolisthesis (001657641) Problem Sacroiliitis, not elsewhere classified (M46.1) Active confirmed Solitary sacroiliitis (269762035) Problem Spondylosis without myelopathy or radiculopathy, cervical region (M47.812) Active confirmed Cervical spondylosis without myelopathy (899983248) Problem Spondylosis without myelopathy or radiculopathy, cervicothoracic region (M47.813) Active confirmed Cervical spondylosis without myelopathy (666834779) Problem Spondylosis without myelopathy or radiculopathy, lumbar region (M47.816) Active confirmed Lumbosacral spondylosis without myelopathy (66127847) Problem Spondylosis without myelopathy or radiculopathy, lumbosacral region (M47.817) Active confirmed Lumbosacral spondylosis without myelopathy (disorder) (07292146) Problem Spinal stenosis, cervical region (M48.02) Active confirmed Spinal stenosis in cervical region (64933068) Problem Other intervertebral disc degeneration, lumbar region (M51.36) Active confirmed Degeneration of lumbar intervertebral disc (69671135) Problem Other intervertebral disc degeneration, lumbosacral region (M51.37) Active confirmed Degeneration of lumbosacral intervertebral disc (39900650) Problem Radiculopathy, cervical region (M54.12) Active confirmed Cervical radiculopathy (64806504) Problem Radiculopathy, cervicothoracic region (M54.13) Active confirmed Cervical radiculopathy (49152285) Problem Radiculopathy, lumbar region (M54.16) Active confirmed Lumbar radiculopathy (226962905) Problem Radiculopathy, lumbosacral region (M54.17) Active confirmed Lumbosacral radiculopathy (6888338) Problem Unspecified rotator cuff tear or rupture of left shoulder, not specified as traumatic (M75.102) Active confirmed Nontraumatic rupture of muscle or tendon structure of rotator cuff of left shoulder (disorder) (1542560758619344) Problem Postlaminectomy syndrome, not elsewhere classified (M96.1) Active confirmed Post-lami nectomy syndrome (99439508) Problem 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) Active confirmed Spinal stenosis in cervical region (90221252) Problem Osseous stenosis of neural canal of lumbar region (M99.33) Active confirmed Spinal stenosis of lumbar region (90063932) Problem Osseous and subluxation stenosis of intervertebral foramina of lumbar region (M99.63) Active confirmed Spinal steno sis of lumbar region (58592176) Problem half-way (current) use of anticoagulants (Z79.01) Active confirmed Long-term curre nt use of anticoagulant (224723041) Problem Myalgia, other site (M79.18) Active confirmed Muscle pain (26310459) VITAL SIGNS Heart Rate 73 /min 11/06/2023 Post procedure enbdrq=QN=056/84, P=69, R=14. Discharged home per ambulatory. Josué acute distress noted. Respiratory Rate 16 /min 11/06/2023 Post proced ure hmscpm=JR=516/84, P=69, R=14. Discharged home per ambulatory. Josué acute distress noted. Blood pressure diastolic 60 mm Hg 11/06/2023 Pos t procedure jeqobl=KO=599/84, P=69, R=14. Discharged home per ambulatory. Josué acute distress noted. Height 5 ft 1 in in 11/06/2023 Post procedure flmfjk=EY=717/84, P=69, R=14. Discharged home per ambulatory. Josué acute distress noted. Blood pressure systolic 147 mm Hg 11/06/2023 Post procedure yqpcxz=LC=164/84, P=69, R=14. Discharged home per ambulatory. Josué acute distress noted. Weight 125 lbs 11/06/2023 Post procedure cyjykx=QX=950/84, P=69, R=14. Discharged home per ambulatory. Josué acute distress noted. BMI 23.62 kg/m2 11/06/2023 Post procedure ayvtjf=BM=289/84, P=69, R=14. Discharged home per ambulatory. Josué acute distress noted. Encounters Encounter Location Date Provider Diagnosis [facility] [address] [place] [phone] 10/27/2023 Odilon Stynowick Radiculopathy, lumbosacral region M54.17 ; [...] and half-way (current) use of anticoagulants Z79.01 [facility] [address] [place] [address] 11/06/2023 Odilon Stynowick Radiculopathy, cervical region M54.12 ; Radiculopathy, cervicothoracic region M54.13 and Spinal stenosis, cervical region M48.02 [facility] [address] [place] [address] 11/21/2023 Odilon Stynowick Radiculopathy, lumbosacral region M54.17 [...] 11/21/2023 Radiculopathy, lumbosacral region (ICD-10 - M54.17) 11/06/2023 Radiculopathy, cervical region (ICD-10 - M54.12) 11/06/2023 Radiculopathy, cervicothoracic region (ICD-10 - M54.13) 10/27/2023 Radiculopathy, cervical region (ICD-10 - M54.12) [...] agreeable to proceeding at this time. 10/27/2023 Radiculopathy, lumbosacral region (ICD-10 - M54.17) 11/06/2023 Spinal stenosis, cervical region (ICD-10 - M48.02) 10/27/2023 Sacroiliitis, not elsewhere classified (ICD-10 - M46.1) 11/21/2023 Radiculopathy, cervical region (ICD-10 - M54.12) 11/21/2023 Sacroiliitis, not elsewhere classified (ICD-10 - M46.1) 10/27/2023 Spondylosis without myelopathy or radiculopathy, 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) 10/27/2023 Spondylosis without myelopathy or radiculopathy, lumbar region (ICD-10 - M47.816) 11/21/2023 Spondylosis without myelopathy or radiculopathy, 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) 11/21/2023 Spondylosis without myelopathy or radiculopathy, lumbar region (ICD-10 - M47.816) 10/27/2023 Postlaminectomy syndrome, not elsewhere classified (ICD-10 - M96.1) 10/27/2023 Primary osteoarthritis, left shoulder (ICD-10 - M19.012) 11/21/2023 Postlaminectomy syndrome, not elsewhere classified (ICD-10 - M96.1) 11/21/2023 Primary osteoarthritis, left shoulder (ICD-10 - M19.012) 10/27/2023 Unspecified rotator cuff tear or rupture of left shoulder, not specified as traumatic (ICD-10 - M75.102) 10/27/2023 Radiculopathy, lumba r region (ICD-10 - M54.16) 11/21/2023 Unspecified rotator cuff tear or rupture of left shoulder, not specified as traumatic (ICD-10 - M75.102) 11/21/2023 Radiculopathy, lumba r region (ICD-10 - M54.16) 10/27/2023 Osseous stenosis of neural canal of cervical region (ICD-10 - M99.31) 10/27/2023 termite control representative (current) use of anticoagulants (ICD-10 - Z79.01) The patient was instructed to discontinue aspirin for 6 days prior to the procedure. I made the patient aware that she will be at an increased risk for a thromboembolic event during this time and she is willing to accept this risk. The patient was instructed to notify her primary care physician and/or infection prevention practitioner to obtain clearance prior to discontinuing this medication. 11/21/2023 Osseous stenosis of neural canal of cervical region (ICD-10 - M99.31) 11/21/2023 termite control representative (current) use of anticoagulants (ICD-10 - Z79.01) 10/27/2023 Other The above-named patient was evaluated [...] dictated by DELFIN Burch PLAN OF TREATMENT Pending Test Test Name Order Date CT Scan : Lumbar Spine 10/04/2022 CT Scan : Shoulder 11/15/2021 CT Scan : C-Spine W/O Contrast 2 CT Scan : C-Spine W/O Contrast 3 Insurance Providers Payer Name Payer Address Payer Phone Subscriber Number Group Number Insured Name Patient Relationship to Insured Coverage Start Date Coverage End Date [facility] [address] [place] [address] [id number] YOMAIRA VALDES Self - patient is the insured MEDICAL (GENERAL) HISTORY Medical History History ICD Code Anemia Depression Gastric ulcer Hypertension Stroke Surgical History Surgery Date(Month/Year) Anterior lumbar fusion 2000 Lumbar fusion L4/5 2006 Anterior cervical discectomy and fusion C4-5 & C5-6 2013 Lumbar surgery 2014 3 Cardiac Stents placed 05/2023
--- OUTSIDE RECORDS SUMMARY | 2024-10-16 10:19 | XMS_ITS ---
Author Organization [facility] Address [address] [place] [address] [facility] [place] [address] Care Team Providers Care Space And Storage Clerk Name Role Phone CAYLA ALEXANDER, SUSAN Primary Care Provider Odilon Medina Unavailable [phone] ALLERGIES Allergen (clinical drug ingredient) Drug/Non Drug [...] Date Provider Diagnosis [facility] [address] [facility] [place] [address] 11/21/2023 Odilon Stynowick Radiculopathy, lumbosacral region M54.17 [...] neural canal of cervical region M99.31 and terminal make up operator (current) use of anticoagulants Z79.01 ASSESSMENTS Encounter [...] of cervical region (ICD-10 - M99.31) 11/21/2023 terminal make up operator (current) use of anticoagulants (ICD-10 - Z79.01) [...] patient's typical axial low back pain. Racheal's [place]'s and [place]enslen's are positive bilaterally. There is [...]
--- OUTSIDE RECORDS SUMMARY | 2024-10-16 10:19 | XMS_ITS | Referral Summary ---
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, unspecified whether angina present (Primary Dx); Nonrheumatic aortic valve insufficiency; PSVT (paroxysmal supraventricular tachycardia); Mixed hyperlipidemia; Primary hypertension; Bilateral carotid bruits; SOB (shortness of breath); Dyslipidemia 07/31/2024 Orders Only [facility] [employer] [facility] at [address] [address] Whitney Bay NP Bilateral carotid bruits (Primary Dx) 07/31/2024 Results Follow-Up [facility] at [address] [place] [address] Whitney Bay NP US EVERTON, US Carotids Duplex Bilateral 07/30/2024 12:57 PM STRUCTURES ENGINEER - 07/30/2024 11:59 PM STRUCTURES ENGINEER Hospital Encounter [facility] [address] [place] [address] 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, right leg (HCC) Discharge Disposition: Discharge to home or self care 07/30/2024 12:57 PM STRUCTURES ENGINEER - 07/30/2024 11:59 PM STRUCTURES ENGINEER Hospital Encounter [facility] [address] [place] [address] Carotid bruit, unspecified laterality Discharge Disposition: Discharge to home or self care from Last 3 Months Allergies Active Allergy Reactions Criticality Noted Date Comments Adhesive Rash Medium Adhesive Tape-Silicones Itching,Rash Medium 05/04/2011 Neomycin Hives Medium 12/27/2021 Ohyguonw-Utcjlyoyxj-Fzhardpjp Rash Medium 2018 Neosporin (Neomycin-Polymyx) Rash Medium [...] pain 06/02/2023 Coronary artery disease invo lving eyak coronary artery of eyak heart 06/02/2023 Myogenic ptosis of eyelid of [...] dermatochalasis that is impacting ADLs. Atherosclerosis of eyak ar kieran of both lower extremities with intermittent claudication 07/06/2020 Assessment & Plan (07/06/2020 11:20 AM STRUCTURES ENGINEER): Impression: Patient complain of cool right foot [...] 07/06/2020 Assessment & Plan (07/06/2020 11:26 AM STRUCTURES ENGINEER): Impression: Stable chronic hypertension. Plan: Medications reviewed [...] (02/06/2019): Added automatically from request for surgery [id number] Borderline glaucoma with ocular hypertension 7 02/08/2018 Immunizations Immunization Administration Dates Next Due Tdap 04/21/2023 Social [...] on file Legal Sex Female 2:03 AM STRUCTURES ENGINEER Gender Identity Not on file Sexual Orientation Not on file Last Filed Vital Signs Vital Sign Reading Time Taken Comments Blood Pressure 116/60 08/16/2024 2:07 PM CDT Pulse 67 08/16/2024 2:07 PM CDT Temperature 36.3 C (97.4 F) 06/09/2023 4:02 AM STRUCTURES ENGINEER Respiratory Rate 18 01/30/2024 2:15 PM CDT Oxygen Saturation 97% 06/09/2023 4:02 AM STRUCTURES ENGINEER Inhaled Oxygen Concentration - - Weight 60.3 kg (133 lb) 08/16/2024 2:07 PM CDT Height 154.9 cm (5' 1 ) 08/16/2024 2:07 PM CDT Body Mass Index 25.13 08/16/2024 2:07 PM CDT Plan of Treatment Not on file Medical Devices Implanted Type Area Substation Manager Device Identifier Shelf Expiration Date Model / Serial / Lot [employer] 5513-001 Xen 150um 45um 6mm Treatment System Preload Injector Intraocular Latex Free - [id number] - [id number] Implanted:Qty: 1 on 03/04/2019 by Katerina Shirley MD at [facility] Advanced Medicine Drain Right: Eye [employer] [id number] 07/26/2021 5513-001 / [id number] / [id number] Description:XEN REF 5513-001 Right eye Spinal Cord Stimulator Back [employer] interspireSubmit Synergy Xd Monorail 2.25mm 16mm 144cm Delivery System 1 Access [id number] - [id number] Implanted:Qty: 1 on 06/08/2023 by Daniel Prince MD at [facility] [employer] 11/22/2024 [id number] / / [id number] [employer] Maya Synergy Xd Monorail 2.5mm 20mm 144cm Delivery System 1 Access [id number] - [id number] Implanted:Qty: 1 on 06/08/2023 by Daniel Prince MD at [facility] [employer] 06/12/2024 [id number] / / [id number] [employer] interspireSubmit Synergy Xd Monorail 3.5mm 24mm 144cm Delivery System 1 Access [id number] - [id number] Implanted:Qty: 1 on 06/08/2023 by Daniel Prince MD at [facility] [employer] 06/07/2024 [id number] / / [id number] [employer] Angio-Seal Vip 6fr Closere Device [id number] - [id number] Implanted:Qty: 1 on 06/08/2023 by Daniel Prince MD at [facility] [employer] 01/19/2024 [id number] / / [id number] Procedures Procedure Name Priority Date/Time Associated Diagnosis Comments US CAROTIDS DUPLEX BILATERAL Schedule Routine, Read Routine (OP Routine) 07/30/2024 2:40 PM STRUCTURES ENGINEER Carotid bruit, unspecified laterality US EVERTON Schedule Routine, Read Routine (OP Routine) 07/30/2024 2:31 PM STRUCTURES ENGINEER 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, right leg (HCC) from Last 3 Months Results * US Carotids Duplex Bilateral (07/30/2024 2:40 PM STRUCTURES ENGINEER) Anatomical Region Laterality Modality Vascular Bilateral Ultrasound 07/30/2024 2:03 PM STRUCTURES ENGINEER Narrative 07/30/2024 7:01 PM STRUCTURES ENGINEER [address] [address] Carotid Duplex Report Patient Name: VICKI VALDES L : 1935 (89y 4m) Gender: F Study Date: 2024-07-30 02:03:39 PM Tree Tapping Laborer: BRYANT Order Provider: WHITNEY BAY Quality: Adequate Ref [...] ratio Electronically Signed By: Marcus Price MD, [facility] 2024-07-30 6:14:18 PM STRUCTURES ENGINEER Procedure Note Marcus Price MD - 07/30/[address] [address] Carotid Duplex Report Patient Name: VICKI VALDES L : 1935 (89y 4m) Gender: F Study Date: 2024-07-30 02:03:39 PM Tree Tapping Laborer: BRYANT Order Provider: WHITNEY BAY Quality: Adequate Ref [...] ratio Electronically Signed By: Marcus Price MD, [facility] 2024-07-30 6:14:18 PM STRUCTURES ENGINEER us Whitney Fariha Bay NP IMG US PROCEDURES Final Result * US EVERTON (07/30/2024 2:31 PM STRUCTURES ENGINEER) Anatomical Region Laterality Modality Vascular N/A Ultrasound 07/30/2024 1:35 PM STRUCTURES ENGINEER Narrative 07/30/2024 3:39 PM STRUCTURES ENGINEER [address] [place] [address] Ankle Brachial Index Report Patient Name: VICKI VALDES : 1935 (89y 4m) Gender: F Study Date: 07/30/2024 01:35:00 PM Tree Tapping Laborer: Order Provider: WHITNEY BAY Quality: Adequate Ref Provider: WHITNEY BAY PROCEDURES: Arterial Report: A bilateral extremities ankle/brachial index was performed. 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 CONCLUSIONS: 1. In the right lower extremity, the ankle brachial index is normal, EVERTON 1.13 Triphasic wave form. 2. In the left lower extremity, the ankle brachial index is normal, EVERTON 1.11 Triphasic wave form. FINDINGS: Electronically Signed By: Calvin Bermudez MD [facility] 07/30/2024 3:04:03 PM STRUCTURES ENGINEER Procedure Note Calvin Bermudez MD - 07/30/[address] [place] [address] Ankle Brachial Index Report Patient Name: VICKI VALDES : 1935 (89y 4m) Gender: F Study Date: 07/30/2024 01:35:00 PM Tree Tapping Laborer: Luz Marina Provider: WHITNEY BAY Quality: Adequate Ref Provider: WHITNEY BAY PROCEDURES: Arterial Report: A bilateral extremities ankle/brachial index wasperformed. INDICATIONS: I70.221 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,right leg. CONCLUSIONS: 1. In the right lower extremity, the ankle brachial index is normal, ABI1.13 Triphasic wave form. 2. In the left lower extremity, the ankle brachial index is normal, ABI1.11 Triphasic wave form. FINDINGS: Electronically Signed By: Calvin Bermudez MD [facility] 07/30/2024 3:04:03 PM STRUCTURES ENGINEER [facility] Fariha Bay NP G US PROCEDURES Final Result from Last 3 Months Insurance [employer] GENERIC MEDICARE [employer] [place] [address] Advance Directives For more information, please contact: [phone] * Full Code (Latest Code Status on File) Date Activated Date Inactivated Comments 06/08/2023 2:44 PM 06/09/2023 3:19 PM Care Teams Traffic Operator Relationship Specialty Start Date End Date Satish Desai MD PCP - General 03/08/11
[2024-10-16 10:20] LABS: Basophils Percent Auto 0.4 % (0.2-1.2); Eosinophils Absolute Auto 0.2 K/mm3 (0-0.3); Eosinophils Percent Auto 3.1 % (0-4.4); Immature Granulocyte Absolute 0.01 K/mm3 (0.00-0.031); Immature Granulocyte Percent A 0.2 % (0-0.5); Immature Platelet Fraction Pct 4.8 % (0.9-11.2); Lymphocytes Absolute Auto 0.92 K/mm3 (0.9-3.2); Mean Corpuscular HGB Conc 24.7 g/dl (32-36); Mean Corpuscular Hemoglobin 16.9 pg (26-34); Mean Corpuscular Volume 68.3 fl (80-100); Mean Platelet Volume 11.2 fl (7.4-10.4); Monocytes Absolute Auto 0.4 K/mm3 (0.1-0.6); Monocytes Percent Auto 8.4 % (2.6-8.5); Neutrophils Absolute Auto 3.6 K/mm3 (1.3-6.7); Neutrophils Percent Auto 69.9 % (45.5-73.1); Platelet Count Result 190 k/mm3 (150-375); Red Cell Distribution Width 19.2 % (11.5-14.5); White Blood Count 5.1 K/mm3 (4.5-10.0)
[2024-10-16 10:35] LABS: Alanine Aminotransferase 22 U/L (6-35); Albumin Level 3.8 g/dL (3.5-5.1); Alkaline Phosphatase 56 U/L (38-126); Anion Gap 8 mmol/L (4-12); Aspartate Amino Transferase 28 U/L (14-36); Bilirubin,Total 0.6 mg/dL (0.2-1.3); Blood Urea Nitrogen 11 mg/dL (7-17); Calcium 8.9 mg/dL (8.4-10.2); Carbon Dioxide 24 mmol/L (22-30); Chloride 110 mmol/L (98-107); Estimated CRCL calculation 42 ml/min; Estimated Glomerular Filt Rate > 60; Glucose 125 mg/dL (65-110); Sodium 142 mmol/L (137-145)
[2024-10-16 10:39] LABS: INR 1.1; Prothrombin Time 14.9 Seconds (11.1-14.7)
[2024-10-16 10:40] LABS: Partial Thromboplastin Time 30.7 Seconds (22.3-36.8)
[2024-10-16 10:43] LABS: Hemoglobin 4.9 g/dL (12.0-15.0)
[2024-10-16 10:44] LABS: Hematocrit 19.8 % (37.0-47.0)
[2024-10-16 10:45] LABS: Hypochromasia 2+; Ovalocytes 1+; Platelet Estimate Adequate (Adequate)
[2024-10-16 10:46] LABS: Acanthocytes 1+
[2024-10-16 10:47] LABS: Microcytosis 2+ (NORMAL)
--- OUTSIDE RECORDS SUMMARY | 2024-10-16 10:48 | XMS_ITS | Clinical Summary ---
Author Organization [facility] Address [address] [place] [address] Phone Care Team Providers Care Precinct Police Captain Name Role Phone Satish Desai MD Primary Care Provider [phone] Allergies Active Allergy Reactions Criticality Noted Date [...] on file Legal Sex Female 4:00 AM DIET AID Gender Identity Not on file Sexual Orientation [...] history exists Medical Devices Implanted Type Area Leisure Travel Agent Device Identifier Shelf Expiration Date Model / Serial / Lot Log [id number] - Bladder Slings And Tapes - 1 - Sling Desara System Navin-Ds01 Implanted:Qty: 1 on 05/07/2011 at [facility] Sling Vagina [employer]IE [email or web address] 08/05/2013 NAVIN-DS01 / / [id number] Procedures Procedure Name Priority Date/Time Associated Diagnosis Comments COLONOSCOPY REPORT 04/19/2019 12 :22 PM DIET AID from Last 3 Months or Most Recently Relevant to Health Maintenance Results * COLONOSCOPY REPORT (04/19/2019 12:22 PM DIET AID) Narrative Procedure Note Jason Huang MD - 04/19/2019 12:22 PM CST [facility] Endoscopy Patient Name: Vicki Lzeama Procedure Date: 04/19/2019 Date of : 1935 [...] Addenda: [address]; [place] [address] Jason Huang MD GI PROCEDURE ORDERABLES Final Result from Last 3 Months or Most Recently Relevant to Health Maintenance Insurance MEDICARE PART A AND B [facility] MEDICARE SUPPLEMENT Advance Directives For more information, please contact: [phone] * Full Code (Latest Code Status on [...] 10:07 AM 05/08/2011 1:30 PM Care Teams Precinct Police Captain Relationship Specialty Start Date End Date Satish Desai MD [address] [place] [address] PCP - General Family Practice 05/04/11
--- OUTSIDE RECORDS SUMMARY | 2024-10-16 10:48 | XMS_ITS | Clinical Summary ---
Author Organization [facility] Address [address] [place] [address] Care Team Providers Care Provisioning Analyst Name Role Phone Satish Desai MD Primary Care Provider + [phone] Allergies Active Allergy Reactions Criticality Noted Date Comments Adhesive Rash Medium Adhesive Tape-Silicones Itching,Rash Medium 05/04/2011 Neomycin Hives Medium 12/27/2021 Mgxrqkaj-Cfnsroegsz-Qlqzbhlvm Rash Medium 2018 Neosporin (Neomycin-Polymyx) Rash Medium [...] pain 06/02/2023 Coronary artery disease invo lving te-mo[place] coronary artery of [place] heart 06/02/2023 Myogenic ptosis of eyelid of [...] dermatochalasis that is impacting ADLs. 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 Plan: Medications reviewed [...] (02/06/2019): Added automatically from request for surgery [id number] Borderline glaucoma with ocular hypertension 7 02/08/2018 Encounters Date Type Department Care Team Description 08/16/2024 2:00 PM CDT Office Visit [facility] at [address] [place] [address] Whitney Bay NP Coronary artery disease involving te-moak coronary artery of [place] heart, unspecified whether angina present (Primary Dx); Nonrheumatic aortic valve insufficiency; PSVT (paroxysmal supraventricular tachycardia); Mixed hyperlipidemia; Primary hypertension; Bilateral carotid bruits; SOB (shortness of breath); Dyslipidemia 07/31/[address] [facility] at [address] [address] Whitney Bay NP Bilateral carotid bruits (Primary Dx) 07/31/2024 Results Follow-Up [facility] at [address] [place] [address] Whitney Bay NP US [place], US Carotids Duplex Bilateral 07/30/2024 12:57 PM COMMERCIAL LINES MANAGER - 07/30/2024 11:59 PM COMMERCIAL LINES MANAGER Hospital Encounter [facility] [address] [place] [address] Carotid bruit, unspecified laterality Discharge Disposition: Discharge to home or self care 07/30/2024 12:57 PM COMMERCIAL LINES MANAGER - 07/30/2024 11:59 PM COMMERCIAL LINES MANAGER Hospital Encounter [facility] [address] [place] [address] Atherosclerosis of [place] arteries of extremities with rest pain, right [...] on file Legal Sex Female 2:03 AM COMMERCIAL LINES MANAGER Gender Identity Not on file Sexual Orientation Not on file Obstetrics History Last Filed Vital Signs Vital Sign Reading Time Taken Comments Blood Pressure 116/60 08/16/2024 2:07 PM CDT Pulse 67 08/16/2024 2:07 PM CDT Temperature 36.3 C (97.4 F) 06/09/2023 4:02 AM COMMERCIAL LINES MANAGER Respiratory Rate 18 01/30/2024 2:15 PM CDT Oxygen Saturation 97% 06/09/2023 4:02 AM COMMERCIAL LINES MANAGER Inhaled Oxygen Concentration - - Weight 60.3 [...] 04/21/2033 04/21/2023 Medical Devices Implanted Type Area Embedded Systems Engineer Device Identifier Shelf Expiration Date Model / Serial / Lot [employer] 5513-001 Xen 150um 45um 6mm Treatment System Preload Injector Intraocular Latex Free - [id number] - [id number] Implanted:Qty: 1 on 03/04/2019 by Katerina Shirley MD at [facility] Drain Right: Eye [employer] [id number] 07/26/2021 5513-001 / [id number] / [id number] Description:XEN REF 5513-001 Right eye Spinal Cord Stimulator Back [employer]ap[employer] Synergy Xd Monorail 2.25mm 16mm 144cm Delivery System 1 Access [id number] - [id number] Implanted:Qty: 1 on 06/08/2023 by Daniel Prince MD at [facility] [employer] 11/22/2024 [id number] / / [id number] Zapcoder Synergy Xd Monorail 2.5mm 20mm 144cm Delivery System 1 Access [id number] - [id number] Implanted:Qty: 1 on 06/08/2023 by Daniel Prince MD at [facility] [employer] Maya 06/12/2024 [id number] / / [id number] Zap[employer] Synergy Xd Monorail 3.5mm 24mm 144cm Delivery System 1 Access [id number] - [id number] Implanted:Qty: 1 on 06/08/2023 by Daniel Prince MD at [facility] [employer] 06/07/2024 [id number] / / [id number] Eoscene Angio-Seal Vip 6fr Closere Device [id number] - [id number] Implanted:Qty: 1 on 06/08/2023 by Daniel Prince MD at [facility] [employer] 01/19/2024 [id number] / / [id number] Procedures Procedure Name Priority Date/Time Associated Diagnosis Comments US CAROTIDS DUPLEX BILATERAL Schedule Routine, Read Routine (OP Routine) 07/30/2024 2:40 PM COMMERCIAL LINES MANAGER Carotid bruit, unspecified laterality US [place] Schedule Routine, Read Routine (OP Routine) 07/30/2024 2:31 PM COMMERCIAL LINES MANAGER Atherosclerosis of te-[place] arteries of extremities with rest pain, right leg (HCC) from Last 3 Months Results * US Carotids Duplex Bilateral (07/30/2024 2:40 PM COMMERCIAL LINES MANAGER) Anatomical Region Laterality Modality Vascular Bilateral Ultrasound 07/30/2024 2:03 PM COMMERCIAL LINES MANAGER Narrative 07/30/2024 7:01 PM COMMERCIAL LINES MANAGER [address] [place] [address] Carotid Duplex Report Patient Name: YOMAIRA VALDES L : 1935 (89y 4m) Gender: F Study Date: 2024-07-30 02:03:39 PM Take Down Sorter: CO Order Provider: DATILLO, WHITNEY Quality: Adequate [...] ratio Electronically Signed By: Marcus Price MD, [facility] 2024-07-30 6:14:18 PM COMMERCIAL LINES MANAGER Procedure Note Marcus Price MD - 07/30/[address] [address] Carotid Duplex Report Patient Name: YOMAIRA VALDES L : 1935 (89y 4m) Gender: F Study Date: 2024-07-30 02:03:39 PM Take Down Sorter: CO Order Provider: WHITNEY BAY Quality: Adequate [...] ratio Electronically Signed By: Marcus Price MD, [facility] 2024-07-30 6:14:18 PM COMMERCIAL LINES MANAGER us Whitney Fariha Bay MAINTENANCE TEAM LEADER IMG US PROCEDURES Final Result * US [place] (07/30/2024 2:31 PM COMMERCIAL LINES MANAGER) Anatomical Region Laterality Modality Vascular N/A Ultrasound 07/30/2024 1:35 PM COMMERCIAL LINES MANAGER Narrative 07/30/2024 3:39 PM COMMERCIAL LINES MANAGER [address] [address] Ankle Brachial Index Report Patient Name: YOAMIRA VALDES : 1935 (89y 4m) Gender: F Study Date: 07/30/2024 01:35:00 PM Take Down Sorter: Luz Marina Provider: WHITNEY BAY Quality: Adequate Ref Provider: WHITNEY BAY PROCEDURES: Arterial Report: A bilateral extremities ankle/brachial index was performed. INDICATIONS: I70.221 Atherosclerosis of [place] arteries of extremities with rest pain, right leg. CONCLUSIONS: 1. In the right lower extremity, the ankle brachial index is normal, EVERTON 1.13 Triphasic wave form. 2. In the left lower extremity, the ankle brachial index is normal, EVERTON 1.11 Triphasic wave form. FINDINGS: Electronically Signed By: Calvin Bermudez MD [facility] 07/30/2024 3:04:03 PM COMMERCIAL LINES MANAGER Procedure Note Calvin Bermudez MD - 07/30/[address] [address] Ankle Brachial Index Report Patient Name: YOMAIRA VALDES : 1935 (89y 4m) Gender: F Study Date: 07/30/2024 01:35:00 PM Take Down Sorter: Luz Marina Provider: WHITNEY BAY Quality: Adequate Ref Provider: WHITNEY BAY PROCEDURES: Arterial Report: A bilateral extremities ankle/brachial index wasperformed. INDICATIONS: I70.221 Atherosclerosis of [place] arteries of extremities with rest pain,right leg. CONCLUSIONS: 1. In the right lower extremity, the ankle brachial index is normal, ABI1.13 Triphasic wave form. 2. In the left lower extremity, the ankle brachial index is normal, ABI1.11 Triphasic wave form. FINDINGS: Electronically Signed By: Calvin RICH 07/30/2024 3:04:03 PM COMMERCIAL LINES MANAGER Whitney Bay NP [facility] PROCEDURES Final Result from Last 3 Months Insurance COMMERCIAL GENERIC MEDICARE [employer] [place] [address] Advance Directives For more information, please contact: [phone] * Full Code (Latest Code Status on File) Date Activated Date Inactivated Comments 06/08/2023 2:44 PM 06/09/2023 3:19 PM Care Teams Provisioning Analyst Relationship Specialty Start Date End Date Satish Desai MD PCP - General 03/08/11
--- OUTSIDE RECORDS SUMMARY | 2024-10-16 10:48 | XMS_ITS | Continuity of Care Document ---
Author Organization [facility] Address [address] [place] [address] Phone Care Team Providers Care Research Manufacturing Operator Name Role Phone Omid Tobar MD Unavailable [...] on Encounter Office/outpat ient visit,to[facility], [address], [place], [place], [id number], [place] tel:[phone] [facility] LOC PRIM OSTEOARTH-ONEAL DROTATOR CUFF RUPTURE 3-201 3 Ekaterina Anne. [address], [address], [place], [place], [id number] , [place]. tel:[phone] Referring Provider: Robert Alvarado, [address] [place] [address], [place], [address]. tel:[phone] Office/outpat ient visit,[facility], [address] [facility], [place], [place], [id number], tel:[phone] [facility] PAIN IN LIMBROTATOR CUFF RUPTURE 3 Ekaterina Anne. [address], [address], [place], [place], [id number] , [place]. tel:[phone] Referring Provider: Robert Alvarado, [address] [place] [address], [place], [address]. tel:[phone] Family History Family Member Type Diagnosis Age At Onset No Information Immunizations Vaccine Date Status Comments Flu (split) (3 yrs or older) administered Source: New Immunization Record Payers Payer name Insurance type Covered alliance party ID Authoriza tion(s) [place] Part B [id number] [facility] [id number] Social History Type Description Quantity Date Captured [...]
--- OUTSIDE RECORDS SUMMARY | 2024-10-16 10:48 | XMS_ITS | Continuity of Care Document ---
Author Organization [facility] DevonHuan Xiong [facility] Address [address] [facility] [address] [place] [address] Phone Care Team Providers Care Research Assistant Professor Name Role Phone Alden ESPINOSA, Katelynn Unavailable [...] Copied on Encounter Office/outpa tient Visit, Est [facility], [address], [place], [place], [address], [place] tel:[phone] SEC Cong [place] Professional Work In Emergency (chief complaint) Subconjunctiv al hemorrhage of left eye Oct-2 4 Alden OD Katelynn. [address] [place] [address] [address], [address], [place], [place], [address], [place]. tel:[phone] Ray Hernandez MD.Omid Mitchell MD.Scooter Solorzano MD.Referrin g Provider: Trev Mead, [facility] [address] [employer] [facility] [address], [place], [address]. tel:[phone] [facility], [address] [place] [address] [address], [place], [place], [address], [place] tel:[phone] SEC [place] Professional Follow up visit (chief complaint) Pseudophakia of both eyesEpiretina l membrane (ERM) of left eyePrimary open-angle glaucoma, bilateral, severe stage 3 Kip Biggs. [address] [facility], [address], [place], [place], [address], [place]. tel:[phone] Ray Hernandez MD.Omid Mitchell MD.Scooter Solorzano MD.Referrin g Provider: Trev Mead, [facility] [place] [employer] [facility] [address], [place], [address]. tel:[phone] [facility], [address] [place] [address] [address], [place], [place], [address], [place] tel:[phone] SEC [place] Professional Complete Exam (chief complaint) Chorioretinal scar of right eyePseudophak ia of both eyesEpiretina l membrane (ERM) of left eyePrimary open-angle glaucoma, bilateral, severe stagePtosis of both upper eyelids 2 Kip Biggs. [address] [facility], [address], [place], [place], [address], [place]. tel:[phone] Ray Hernandez MD.Omid Mitchell MD.Scooter Solorzano MD.Speciali st: [place], [address] [facility] [address], [place], [address]. tel:[phone] ring Provider: Trev Mead, [facility] [place] [employer] [facility] [address], [place], [address]. tel:[phone] [facility], [address] [address], [place], [place], [address], [place] tel:[phone] SEC Cong [place] Professional Complete Exam (chief complaint) Chorioretinal scar of right eyeEpiretinal membrane (ERM) of left eyePrimary open-angle glaucoma, bilateral, severe stagePseudoph daisy of both eyes 1 Kip Biggs. [address], [address], [place], [place], [address], [place]. tel:[phone] Specialist: Ray Hernandez MD, [facility]1 [facility] 6th [facility], [place], [address]. [phone] alist: Omid Mitchell MD, [address] [place], [address]. [phone] alist: Scooter Solorzano MD, [address] [place], [address]. [phone] ring Provider: Trev Mead, [address], [place], [address]. tel:[phone] [facility], [address] [address], [place], [place], [address], [place] tel:[phone] ETTA SLADE Professional Complete Exam (chief complaint) Primary open-angle glaucoma, bilateral, severe stagePresence of pseudophakiaO ther secondary cataract, left eye 0 Kip Biggs. [address], [address], [place], [place], [address], [place]. tel:[phone] Ray Hernandez MD.Omid Mitchell MD.Referrin g Provider: Trev Mead, [address], [place], [address]. tel:[phone] Office/outpa tient Visit, Est [facility] Services[facility] X[facility], [address] [address], [place], [place], [address], [place] tel:[phone] SEC Cong [place] Professional WIE (chief complaint) Bilateral visual field constrictionB and keratopathy of right eyeAge-relate d macular degeneration with central geographic atrophyGlauco ma filtering bleb of left eyeOther secondary cataract, left eyePrimary open-angle glaucoma, bilateral, severe stage Feb-2 6-202 0 Sakina OD Jak. [address] [facility], [address]th [facility], [place], [address], [place]. tel:[phone] Specialist: Ray Hernandez MD, [address] [facility] [address]th [facility], [place], [address]. tel:[phone] alist: Omid Mitchell MD, [address] [place], [address]. tel:[phone] ring Provider: Trev Mead, [address], [place], [address]. tel:[phone] [facility], [facility], [address], [place], [place], [address], [place] tel:[phone] SEC Cong [place] Professional Complete Exam (chief complaint) Primary open-angle glaucoma, bilateral, severe stagePseudoph daisy of both eyesOther secondary cataract, left eyeBand keratopathy of right eyeChorioreti nal scar of right eyeEpiretinal membrane (ERM) of left eyeVitreous degeneration, left eyeGlaucoma filtering bleb of left eyeRPE mottling of macula Jul- 9-201 9 Ophelia Kalyan. [address] [facility], [address], [place], [place], [address], [place]. tel:[phone] Specialist: Ray Hernandez MD, [facility]1 [address], [place], [address]. tel:[phone] alist: Omid Mitchell MD, [address] [facility], [address], [place], [address]. tel:[phone] Provider: Omid Mitchell MD, [address] [facility], [address], [place], [address]. tel:[phone] Provider: Ray Hernandez MD, [address] [facility], [place], [address]. tel:[phone] ring Provider: Trev Mead, [address] [employer] [facility] [address], [place], [address]. tel:[phone] [facility], [address] [place] [address] [address], [place], [place], [address], [place] [phone] SEC Cong [place] Professional Complete Exam and OCT (chief complaint) Primary open-angle glaucoma, bilateral, severe stageVitreous degeneration, left eyeDry eye syndrome of bilateral lacrimal glandsPresenc e of pseudophakiaE piretinal membrane (ERM) of right eyeAge-relate d macular degeneration with central geographic atrophyMacula r edema Jul- 8 Kip Biggs. [address] [facility], [address], [place], [place], [address], [place]. tel:[phone] Referring Provider: Trev Mead, [address] [place] [address] IN[employer] [facility] [address], [place], [address]. [phone] Office/outpa tient Visit, [facility], [address] [place] [address] [address], [place], [place], [address], [place] tel:[phone] SEC Jorge Umanzor glaucoma, pressure check (chief complaint) No Information 7 Kip Biggs. [address], [address], [place], [place], [address], [place]. tel:[phone] Referring Provider: Roney Mead, [address] [facility] [address], [place], [address]. tel:[phone] Office/outpa tient Visit, [facility], [address] [place] [address] [address], [place], [place], [address], [place] tel:[phone] SEC Cong [place] Professional glaucoma, pressure check (chief complaint) No Information 7 Kip Biggs. [address], [address] [place], [address], [place]. tel:[phone] Referring Provider: Roney Mead, [address], [place], [address]. tel:[phone] Office/outpa tient Visit, [facility], [facility] [address], [place], [place], [address], tel:[phone] SEC [place] [address] IOP ck (chief complaint) No Information Kip Biggs. [address], [address] [place], [address], . tel:[phone] Referring Provider: Roney Mead, [address], [place], [address]. tel:[phone] [facility], [facility] [address], [place], [place], [address], tel:[phone] SEC Jorge N [address] Blurry vision (chief complaint) No Information [place] Trev. [facility] tript[address], [address], [place], [address], . tel:[phone] Referring Provider: Roney Mead, [address], [place], [address]. tel:[phone] Office/outpa tient Visit, [facility], [address] [address], [place], [place], [address], tel:[phone] SEC Cong [place] Professional glaucoma, pressure check (chief complaint) No Information 7 Karthikeyan Karimi. [facility] [address], [address], [place], [place], [address], [place]. tel:[phone] Referring Provider: Roney Mead, [address] [facility] A, [place], [address]. tel:[phone] Office/outpa tient Visit, [facility], [address] [place] [address] [address], [place], [place], [address], [place] tel:[phone] SEC Cong [place] Professional IOP ck (chief complaint) No Information 6 [place] Trev. [address] [place] [address], [address], [place], [place], [address], [place]. tel:[phone] Referring Provider: Roney Mead, [address] [facility] A, [place], [address]. [phone] Office/outpa tient Visit, [facility], [address] [place] [address] [address], [place], [place], [address], [place] tel:[phone] SEC Cong [place] Professional Discharge, mucus (chief complaint) No Information 6 Kip Ortegason. [address] [facility], [facility] A, [place], [place], [address], [place]. tel:[phone] Referring Provider: Roney Mead, [address] [facility] A, [place], [address]. tel:[phone] Office/outpa tient Visit, [facility], [address] [place] [address] [address], [place], [place], [address], [place] tel:[phone] SEC [place] [facility] IOP ck (chief complaint) No Information 6 [place] Trev. [address] [place] [address], [address], [place], [place], [address], [place]. tel:[phone] Referring Provider: Omid Verduzco, [address] [place] [address], [address]. tel:[phone] Office/outpa tient Visit, [facility], [address] [address], [place], [place], [address], [place] tel:[phone] SEC Cong [place] Professional 3 week IOP check (chief complaint) No Information 6 Nathan Sim. [address], [address], [place], [place], [address], [place]. tel:[phone] Referring Provider: Roneysarahi Mead, [address], [place], [address]. tel:[phone] [facility], [address], [place], [place], [address], [place] tel:[phone] SEC Cong [place] Professional Yearly-Com plete (chief complaint) No Information 6 Karthikeyan Karimi. [facility] [address], [address], [place], [place], [address], [place]. tel:[phone] Referring Provider: Roneysarahi Mead, [address], [place], [address]. tel:[phone] [facility], [address], [place], [place], [address], [place] tel:[phone] SEC Cong [place] Professional No Information 6 Nathan Sim. [address], [address], [place], [place], [address], [place]. tel:[phone] [facility] HospitalH[facility] Xiong [facility], [address], [place], [place], [address], [place] tel:[phone] SEC Jorge Silva Complete Exam (chief complaint) No Information 4 Karthikeyan Trev. [address], [address], [place], [place], [address], . tel:[phone] Referring Provider: Roney Mead, [address] [facility] [address], [place], [address]. tel:[phone] Office/outpa tient Visit, [facility], [address] [place] [address] [address], [place], [place], [address], tel:[phone] SEC [place] [address] No Information Apr-2 2-201 4 [place] Trev. [address] [place] [address], [address], [place], [place], [address], . tel:[phone] Referring Provider: Roney Mead, [address] [facility] [address], [place], [address]. tel:[phone] Office/outpa tient Visit, [facility], [address] [place] [address] [address], [place], [place], [address], [place] tel:[phone] SEC [place] [address] No Information Dec-2 3-201 3 Karthikeyan Trev. [address] [place] [address], [address], [place], [place], [address], [place]. tel:[phone] Referring Provider: Roney Mead, [address] [facility] [address], [place], [address]. tel:[phone] Office/outpa tient Visit, [facility], [address] [place] [address] [address], [place], [place], [address], [place] tel:[phone] SEC [place] [address] No Information Sep-2 3-201 3 Karthikeyan Trev. [address] [place] [address], [address], [place], [place], [address], . tel:[phone] Referring Provider: Omid Verduzco, [address] [place] [address], [address]. tel:[phone] Office/outpa tient Visit, [facility], [address], [place], [place], [address], [place] tel:[phone] SEC Cong YANY Professional No Information Rashid-2 0-201 3 Wankanderson Sim. [address], [address], [place], [place], [address], [place]. tel:[phone] Referring Provider: Roney Mead, [address], [place], [address]. tel:[phone] [facility], [address], [place], [place], [address], [place] tel:[phone] SEC [place] YANY Professional No Information September-2 1-201 3 Wanbessy Sim. [address], [address], [place], [address], [place]. tel:[phone] Referring Provider: Roney Mead, [address], [place], [address]. tel:[phone] [facility], [address], [place], [place], [address], [place] tel:[phone] SEC [place] YANY Professional No Information Dec-1 3-201 2 Wanbessy Sim. [address], [address], [address], [place]. tel:[phone] Referring Provider: Roney Mead, [address] [place], [address]. tel:[phone] [facility], [address] [address], [place], [place], [address], [place] tel:[phone] SEC Cong YANY Professional No Information Nov-3 0-201 2 Wankanderson Sim. [address], [address], [place], [place], [address], [place]. tel:[phone] Referring Provider: Roney Mead, [address] [facility] [address], [place], [address]. tel:[phone] [facility], [address] [address], [place], [place], [address], [place] tel:[phone] [facility] No Information 2 Karthikeyan Trev. [address] [address], [address], [place], [place], [address], [place]. tel:[phone] Referring Provider: Roney Mead, [address] [facility] [address], [place], [address]. tel:[phone] [facility], [address], [place], [place], [address], [place] tel:[phone] SEC [place] [facility] No Information 2 Karthikeyan Trev. [address], [address], [place], [place], [address], [place]. tel:[phone] Referring Provider: Roney Mead, [address] [facility] [address], [place], [address]. tel:[phone] Office/outpa tient Visit, [facility], [address], [place], [place], [address], [place] tel:[phone] SEC [place] Professional No Information 2 [place] Trev. [address], [address], [place], [place], [address], [place]. tel:[phone] Referring Provider: Roney Mead, [address] [facility] [address], [place], [address]. [phone] [facility], [address], [place], [place], [address], [place] tel:[phone] SEC Cong [place] Professional No Information Dec-1 3-201 2 Nathan Sim. [address] [facility], [facility] [place], [address], [place]. tel:[phone] Referring Provider: Roney Mead, [address] [facility] [place], [address]. tel:[phone] [facility], [address], [place], [place], [address], [place] tel:[phone] SEC [place] YANY Professional No Information Dec-0 8-201 1 Nathan Sim. [address] [facility], [facility] [place], [place], [address], [place]. tel:[phone] [facility], [address], [place], [place], [address], [place] tel:[phone] SEC Cong [place] Professional No Information Nov-0 7-201 0 Nathan Sim. [address] [facility], [facility] [place], [address], [place]. tel:[phone] Office/outpa tient Visit, [facility], [address], [place], [place], [address], [place] tel:[phone] SEC Cong SLADE Professional No Information Nov-2 4-200 9 Wanbessy Sim. [address] [facility], [facility] [place], [address], [place]. tel:[phone] [facility], [address], [place], [place], [address], [place] tel:[phone] SEC [place] YANY Professional No Information May-0 5-200 9 Wankanderson Sim. [address] [facility], [facility] [place], [address], [place]. tel:[phone] [facility], [address], [place], [place], [address], [place] tel:[phone] ETTA Gar YANY Professional No Information 8 Nathan Sim. [address] [facility], [address], [place], [place], [address], [place]. tel:[phone] Family History Family Member Type Diagnosis Age At Onset Multiple Problem (finding) Heart Disease Problem (finding) Family history of diabetes mellitus type 2 Payers Payer name Insurance type Covered democrat ID Authoriza tion(s) [employer] HM [id number] Social History Type Description Quantity Date Captured [...] Status Referral Referred To: Ray Hernandez [facility]0 Giovanni Eric [place], [place] [id number] Ordered: Referrals: Ophthalmology. Ray Hernandez. Evaluate and [...] and Vitrectomy followed by Dr Mitchell at [place]. Pt saw [place] 02-26-[address] Mitchell suggests adding to [...] Occ HTN. Pt saw Dr Mitchell at [place] and he was concrened that OD IOP [...] with no changes.Patient see's Dr Mitchell at [place]. 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)- Advised referral to quality improvement specialist for evaluation for possible surgical treatment given inadequate response to maximal drop therapy- Refer to Ray Hernandez MD for evaluation and treatment- Continue same drops in the interim Follow up - Refer to Artificial [facility] [employer] Dr Hernandez for Glaucoma evaluation and possible [...] for Complete + HVF 24-2 and PACHS Impression/Plan - IO P is significant elevated [...] - IOP check in 1-2 wee ks Other secondary landry ract, left eye - [...] 6 months complete ex am Impression/Plan - In traocular pressure well controlled, tolerating medications. Will continue with same regimen. Will alternate visits with Dr. Mitchell so she is being seen by someone every 6 months. Ocular hypertension, bilateral - Use of eye drops discussed Related to Ocular hypertension, bilateral Follow up - 6 moths IOP check Impression/Plan - Di agnosis discussed with patient. [...] Will change to Simbrinza TID. ERX to Abacast. If too expensive she will contact our office for a substitution. Return to the office in a few months for IOP check Impression/Plan - IO P within normal range. Use Ketorlac and Brim to BID OD. Keep appt with Dr Mitchell in 2 weeks. Return to clinic as needed. Follow up - Return t o Dr Mitchell for follow up Impression/Plan - Di agnosis discussed in detail [...] PUCKERING OCULAR HYPERTENSION MACULAR PUCKERING monitored by [place] - Meds reviewed Pred taper to qday [...] Related to See impression: general plan - 3 months IOP check Related to OCULAR HYPERTENSION OCULAR HYPERTENSION OU - Ocular hypertension, intraocular pressure elevated OD, will start medication(s). Brimonidine OD qday- Erx'd to pharmacy Prescription(s) given to patient. Diagnosis explained and patient verbalized understanding. Related to OCULAR HYPERTENSION elevated iop os but nl optic n - will see Dr. Mitchell in [facility] cme-saw Dr. Mitchell and he adjusted meds [...]
--- OUTSIDE RECORDS SUMMARY | 2024-10-16 10:48 | XMS_ITS | Referral Summary ---
Author Organization 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, unspecified whether angina present (Primary Dx); Nonrheumatic aortic valve insufficiency; PSVT (paroxysmal supraventricular tachycardia); Mixed hyperlipidemia; Primary hypertension; Bilateral carotid bruits; SOB (shortness of breath); Dyslipidemia 07/31/2024 Orders Only [employer] [facility] at [address] [address] Whitney Bay NP Bilateral carotid bruits (Primary Dx) 07/31/2024 Results Follow-Up [employer] [facility] at [address] [place] [address] Whitney Bay NP US [place]ERT[place], US Carotids Duplex Bilateral 07/30/2024 12:57 PM APPLICATION PROGRAMMER ANALYST - 07/30/2024 11:59 PM APPLICATION PROGRAMMER ANALYST Hospital Encounter [facility] [address] [place] [address] 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, right leg (HCC) Discharge Disposition: Discharge to home or self care 07/30/2024 12:57 PM APPLICATION PROGRAMMER ANALYST - 07/30/2024 11:59 PM APPLICATION PROGRAMMER ANALYST Hospital Encounter [facility] [address] [place] [address] Carotid bruit, unspecified laterality Discharge Disposition: Discharge to home or self care from Last 3 Months Allergies Active Allergy Reactions Criticality Noted Date Comments Adhesive Rash Medium Adhesive Tape-Silicones Itching,Rash Medium 05/04/2011 Neomycin Hives Medium 12/27/2021 Neayrnxb-Bzfkahbacu-Bzxsfmtgx Rash Medium 2018 Neosporin (Neomycin-Polymyx) Rash Medium [...] pain 06/02/2023 Coronary artery disease invo lving comanche coronary artery of comanche heart 06/02/2023 Myogenic ptosis of eyelid of [...] dermatochalasis that is impacting ADLs. Atherosclerosis of comanche ar kieran of both lower extremities with intermittent claudication 07/06/2020 Assessment & Plan (07/06/2020 11:20 AM APPLICATION PROGRAMMER ANALYST): Impression: Patient complain of cool right foot [...] 07/06/2020 Assessment & Plan (07/06/2020 11:26 AM APPLICATION PROGRAMMER ANALYST): Impression: Stable chronic hypertension. Plan: Medications reviewed [...] (02/06/2019): Added automatically from request for surgery [id number] Borderline glaucoma with ocular hypertension 7 02/08/2018 [...] on file Legal Sex Female 2:03 AM APPLICATION PROGRAMMER ANALYST Gender Identity Not on file Sexual Orientation Not on file Last Filed Vital Signs Vital Sign Reading Time Taken Comments Blood Pressure 116/60 08/16/2024 2:07 PM CDT Pulse 67 08/16/2024 2:07 PM CDT Temperature 36.3 C (97.4 F) 06/09/2023 4:02 AM APPLICATION PROGRAMMER ANALYST Respiratory Rate 18 01/30/2024 2:15 PM CDT Oxygen Saturation 97% 06/09/2023 4:02 AM APPLICATION PROGRAMMER ANALYST Inhaled Oxygen Concentration - - Weight 60.3 kg (133 lb) 08/16/2024 2:07 PM CDT Height 154.9 cm (5' 1 ) 08/16/2024 2:07 PM CDT Body Mass Index 25.13 08/16/2024 2:07 PM CDT Plan of Treatment Not on file Medical Devices Implanted Type Area Cyber Security Systems Engineer Device Identifier Shelf Expiration Date Model / Serial / Lot [employer] 5513-001 Xen 150um 45um 6mm Treatment System Preload Injector Intraocular Latex Free - [id number] - [id number] Implanted:Qty: 1 on 03/04/2019 by Katerina Shirley MD at [facility] Advanced Medicine Drain Right: Eye [employer] [id number] 07/26/2021 5513-001 / [id number] / [id number] Description:XEN REF 5513-001 Right eye Spinal Cord Stimulator Back [place] [employer] Qwiqq Synergy Xd Monorail 2.25mm 16mm 144cm Delivery System 1 Access [id number] - [id number] Implanted:Qty: 1 on 06/08/2023 by Daniel Prince MD at [facility] 11/22/2024 [id number] / / [id number] [place] [employer] Maya Synergy Xd Monorail 2.5mm 20mm 144cm Delivery System 1 Access [id number] - [id number] Implanted:Qty: 1 on 06/08/2023 by Daniel Prince MD at [facility] 06/12/2024 [id number] / / [id number] [place] [employer] Qwiqq Synergy Xd Monorail 3.5mm 24mm 144cm Delivery System 1 Access [id number] - [id number] Implanted:Qty: 1 on 06/08/2023 by Daniel Prince MD at [facility] 06/07/2024 [id number] / / [id number] Instant Information Angio-Seal Vip 6fr Closere Device [id number] - [id number] Implanted:Qty: 1 on 06/08/2023 by Daniel Prince MD at [facility] [employer] 01/19/2024 [id number] / / [id number] Procedures Procedure Name Priority Date/Time Associated Diagnosis Comments US CAROTIDS DUPLEX BILATERAL Schedule Routine, Read Routine (OP Routine) 07/30/2024 2:40 PM APPLICATION PROGRAMMER ANALYST Carotid bruit, unspecified laterality US [place] Schedule Routine, Read Routine (OP Routine) 07/30/2024 2:31 PM APPLICATION PROGRAMMER ANALYST 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, right leg (HCC) from Last 3 Months Results * US Carotids Duplex Bilateral (07/30/2024 2:40 PM APPLICATION PROGRAMMER ANALYST) Anatomical Region Laterality Modality Vascular Bilateral Ultrasound 07/30/2024 2:03 PM APPLICATION PROGRAMMER ANALYST Narrative 07/30/2024 7:01 PM APPLICATION PROGRAMMER ANALYST [address] [address] Carotid Duplex Report Patient Name: VICKI VALDES L : 1935 (89y 4m) Gender: F Study Date: 2024-07-30 02:03:39 PM Piano Instructor: BRYANT Order Provider: WHITNEY BAY Quality: Adequate [...] ratio Electronically Signed By: Marcus Price MD, [facility] 2024-07-30 6:14:18 PM APPLICATION PROGRAMMER ANALYST Procedure Note Marcus Price MD - 07/30/[address] [address] Carotid Duplex Report Patient Name: VICKI VALDES L : 1935 (89y 4m) Gender: F Study Date: 2024-07-30 02:03:39 PM Piano Instructor: BRYANT Order Provider: WHITNEY BAY Quality: Adequate [...] ratio Electronically Signed By: Marcus Price MD, [facility] 2024-07-30 6:14:18 PM APPLICATION PROGRAMMER ANALYST us Whitney Fariha Bay NP IMG US PROCEDURES Final Result * US EVERTON (07/30/2024 2:31 PM APPLICATION PROGRAMMER ANALYST) Anatomical Region Laterality Modality Vascular N/A Ultrasound 07/30/2024 1:35 PM APPLICATION PROGRAMMER ANALYST Narrative 07/30/2024 3:39 PM APPLICATION PROGRAMMER ANALYST [address] [place] [address] Ankle Brachial Index Report Patient Name: VICKI VALDES : 1935 (89y 4m) Gender: F Study Date: 07/30/2024 01:35:00 PM Piano Instructor: Order Provider: WHITNEY BAY Quality: Adequate Ref Provider: WHITNEY BAY PROCEDURES: Arterial Report: A bilateral extremities ankle/brachial index was performed. 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 CONCLUSIONS: 1. In the right lower extremity, the ankle brachial index is normal, EVERTON 1.13 Triphasic wave form. 2. In the left lower extremity, the ankle brachial index is normal, EVERTON 1.11 Triphasic wave form. FINDINGS: Electronically Signed By: Calvin Bermudez MD [facility] 07/30/2024 3:04:03 PM APPLICATION PROGRAMMER ANALYST Procedure Note Calvin Bermudez MD - 07/30/[address] [place] [address] Ankle Brachial Index Report Patient Name: VICKI VALDES : 1935 (89y 4m) Gender: F Study Date: 07/30/2024 01:35:00 PM Piano Instructor: Luz Marina Provider: WHITNEY BAY Quality: Adequate Ref Provider: WHITNEY BAY PROCEDURES: Arterial Report: A bilateral extremities ankle/brachial index wasperformed. 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 CONCLUSIONS: 1. In the right lower extremity, the ankle brachial index is normal, ABI1.13 Triphasic wave form. 2. In the left lower extremity, the ankle brachial index is normal, ABI1.11 Triphasic wave form. FINDINGS: Electronically Signed By: Calvin Bermudez MD [facility] 07/30/2024 3:04:03 PM APPLICATION PROGRAMMER ANALYST [facility] Fariha Bay NP G US PROCEDURES Final Result from Last 3 Months Insurance [employer] GENERIC MEDIC[employer] [place] [address] Advance Directives For more information, please contact: [phone] * Full Code (Latest Code Status on File) Date Activated Date Inactivated Comments 06/08/2023 2:44 PM 06/09/2023 3:19 PM Care Teams Retirement Village Manager Relationship Specialty Start Date End Date Satish Desai MD PCP - General 03/08/11
--- OUTSIDE RECORDS SUMMARY | 2024-10-16 10:48 | XMS_ITS | Encounter Summary ---
Author Organization [facility] Address [address] [place] [address] Care Team Providers Care Exhibition Designer Name Role Phone Satish Desai MD Primary Care Provider Encounter Details Date Type Department Care Team (Late st Contact Info) Description 02/15/[address] [facility] - Interventional Radiology [address] [place] [address] Keyonna Canela, RN Social History [...] on file Legal Sex Female 2:03 AM SPRAY APPLICATOR Gender Identity Not on file Sexual Orientation Not on file documented as of this encounter Functional Status documented as of this encounter Plan of Treatment Not on file documented as of this encounter Visit Diagnoses Not on filedocumented in this encounter Care Teams Exhibition Designer Relationship Specialty Start Date End Date Satish Desai MD PCP - General 03/08/11 documented as of this encounter
--- OUTSIDE RECORDS SUMMARY | 2024-10-16 10:48 | XMS_ITS | Clinical Summary ---
Author Organization [facility] Address [address] [place] [address] Care Team Providers Care Director Of First Impressions Name Role Phone Satish Desai MD Primary Care Provider [phone] [facility],non-owned Affiliates and Associated Physician Practices is amultiple site organization consisting of ambulatory clinics and hospital sitesin [place], [place], [place] and [place]. This disclosure is being madepursuant to the Care Everywhere program and may not contain all information available regarding this patient. Last updated 18.[facility] Allergies Active Allergy Reactions Criticality Noted Date Comments Mflrguqj-Kxluqnpwjp-Ouczyvlim Rash Medium 2018 Medications * Be aware [...] on file Legal Sex Female 6:23 AM MACHINE FITTER Gender Identity Not on file Sexual Orientation [...] ID:Not on file (Home) Address: [address] [address] [place] [address] Payer ID:Not on file Group ID:Not on file Type:Self Pay Address: [place], [place] Care Teams Director Of First Impressions Relationship Specialty Start Date End Date Satish Desai MD [address] [place] [address] PCP - General 09/18/18
[2024-10-16 11:21] LABS: Immature Reticulocyte Fraction 14.5 % (3.0-15.9); Reticulocyte Hemoglobin Conten 13.6 pg (28.2-36.6); Reticulocyte Percent 1.72 % (0.7-4.3); Reticulocytes Absolute 0.05 10^6/uL (0.02-0.10)
[2024-10-16 11:26] LABS: Iron 26 ug/dL (37-170); Lactate Dehydrogenase 201 U/L (120-246)
[2024-10-16 11:33] LABS: Transferrin 324 mg/dL (206-381)
--- NOTE | 2024-10-16 11:34 | ECG_ITS ---
Test Date: 2012-05-29 12:49:17 Measurements Intervals [place] Rate: 74 P: 142 VA: 168 QRS: -35 QRSD: 98 T: 28 QT: 422 QTc: 470 Interpretive Statements NORMAL SINUS RHYTHM MARKED LEFT AXIS DEVIATION [QRS AXIS < -30] ABNORMAL ECG No previous ECG available for comparison Electronically Signed On 10-16-2024 13:11:20 CDT by Pavel Snyder M.D.
--- NOTE | 2024-10-16 11:35 | ED.RECABL ---
HPI - Recheck/Abnormal Lab/Rx General Chief Complaint: Recheck/Abnormal Lab/Rx <Ligia Shetty PA-C - Last Filed: 10/16/24 19:39> Stated Complaint: low hgb per PCP <KRISTINE Miller Last Filed: 10/16/24 19:39> Time Seen by Provider: 10/16/24 09:55 <KRISTINE Miller Last Filed: 10/16/24 19:39> Source: patient <KRISTINE Miller Last Filed: 10/16/24 19:39> Mode of arrival: ambulatory <KRISTINE Miller Last Filed: 10/16/24 19:39> Limitations: no limitations <KRISTINE Miller Last Filed: 10/16/24 19:39> History of Present Illness HPI narrative: Patient is an 89-year-old female, with PMH of HTN, CAD s/p 3 stents, asthma, who presents the ED with report of low hemoglobin. Patient reports she has been feeling increasingly fatigued over the past several days/weeks, intermittent shortness of breath. She saw her primary care doctor earlier this week and had outpatient labs performed. She was notified today that her hemoglobin was very low and to come to the ED for further evaluation. Patient denies previous history of known anemia. Denies ever having blood transfusion before. She is on Plavix. She denies having any bleeding that she is aware of. Denies rectal bleeding, melena, epistaxis, hematuria, vaginal bleeding. Denies abdominal pain, but does note history of ulcers. She is on Protonix. Denies chest pain, lower extremity pain or swelling. Of note, patient reports her mother has hx of sideroblastic anemia. <KRISTINE Miller Last Filed: 10/16/24 19:39> Related Data Home Medications: Home Medications ?Medication ?Instructions ?Recorded ?Confirmed ?Last Taken ?Type aspirin 81 mg tablet,delayed 81 mg PO DAILY 06/13/23 10/16/24 10/15/24 History release (Adult Low Dose Aspirin) clopidogrel 75 mg tablet 75 mg PO DAILY 01/10/16/24 10/16/24 History carvedilol 12.5 mg tablet 12.5 mg PO BID 08/28/23 10/16/24 10/16/24 History atorvastatin 80 mg tablet 80 mg PO DAILY 09/25/23 10/16/24 10/15/24 History gabapentin 600 mg tablet 900 mg PO TID 10/16/24 10/16/24 10/16/24 History <Ligia Shetty PA-C - Last Filed: 10/16/24 19:39> Allergies/Adverse Reactions: Allergies Allergy/AdvReac Type Severity Reaction Status Date / Time adhesive tape Allergy Unknown Rash Verified 10/16/24 14:36 bacitracin Allergy Unknown Rash Verified 10/16/24 14:36 gramicidin D Allergy Unknown Rash Verified 10/16/24 14:36 polymyxin B Allergy Unknown Rash Verified 10/16/24 14:36 OBEY Inhibitors AdvReac Intermediate Cough Verified 10/16/24 14:36 montelukast (From Singulair) AdvReac Intermediate Diarrhea Verified 10/16/24 14:36 <Ligia Shetty PA-C - Last Filed: 10/16/24 19:39> Review of Systems Review of Systems: All systems reviewed & are unremarkable except as noted in HPI. <Ligia Shetty PA-C - Last Filed: 10/16/24 19:39> All systems reviewed & are unremarkable except as noted in HPI and below <Ligia Shetty PA-C - Last Filed: 10/16/24 19:39> [facility] Past Medical History Medical History: Medical History Mass of soft tissue of neck Trigger finger Chronic right hip pain Vertigo Postlaminectomy syndrome of lumbosacral region Left shoulder tendonitis Chest wall mass Hypertension Asthma History of heart attack CAD (coronary artery disease) Face pain Cough due to OBEY inhibitor Otalgia of left ear H/O cataract Contracture of palmar fascia Shingles outbreak Family history of endometriosis in first degree relative COVID-19 virus infection Vagina, candidiasis Changing skin lesion Duodenitis Anemia Chronic rhinitis Headache Foot callus Decreased pulses in feet Depression, major, in remission Mixed hyperlipidemia Incisional hernia Visual loss Gastric ulcer Hip bursitis Glaucoma Neuralgia and neuritis, unspecified Other intervertebral disc degeneration, lumbar region <Ligia Shetty PA-C - Last Filed: 10/16/24 19:39> Surgical History Surgical History: Surgical History H/O heart artery stent x3 Hx of right coronary artery stent placement H/O: hysterectomy H/O Spinal surgery <Ligia Shetty PA-C - Last Filed: 10/16/24 19:39> Family History Family History: Family History Mother Cerebrovascular accident Hypertension Sibling Family history of coronary artery disease Heart disease Hypertension Cerebrovascular accident Cancer Acute myocardial infarction Father Parkinsons disease Sibling Acute myocardial infarction Heart disease Other Family history of mental disorder <Ligia Shetty PA-C - Last Filed: 10/16/24 19:39> Social History Social History: Social History Social History: Caffeine-tea Smoking status: Never smoker Second hand tobacco smoke exposure: Yes Alcohol intake: never Substance use: never Substance use type: does not use 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 Do You Feel Safe in your Home?: Yes Lack of Transportation: No Lack of Food: Never True Current Housing: I Have Housing Concerned About Future Housing: No Difficulty Paying Gas/Electric Bills: No Difficulty Paying for Meds: No Currently Unemployed: No Education: Associate Degree Difficulty w/ Childcare or Family Care: No Living arrangements: with family Additional living arrangements comments: with sp Occupation/Education: retired 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 HEAD: Normocephalic, atraumatic. RESPIRATORY: Airway patent, respirations nonlabored. Clear to auscultation bilaterally, no rales, rhonchi, wheezing. No focal lung sounds. CARDIOVASCULAR: Regular rate and rhythm without murmurs, rubs, or gallops. ABDOMINAL: Soft, no appreciable tenderness, nondistended. Normoactive BS. MUSCULOSKELETAL: Moves all extremities. No gross deformities. No peripheral edema. SKIN: Warm, dry, diffuse pallor NEURO: A&O X3. Speech clear. Cranial nerves II-XII grossly intact. Steady gait. No ataxic movements. PSYCHIATRIC: Appropriate mood and affect. Normal interaction. <Ligia Shetty PA-C - Last Filed: 10/16/24 19:39> Course WEB APPLICATION DEVELOPER/PA Physician Supervision This visit was performed by both a physician and an APC. I performed all aspects of the MDM as documented. <Orlando Sweet MD - Last Filed: 10/16/24 18:38> Vital Signs Vital signs: Vital Signs Pulse Rate 73 10/16/24 09:45 Respiratory Rate 16 10/16/24 09:45 Blood Pressure 145/29 H 10/16/24 09:45 Pulse Oximetry 100 10/16/24 09:45 Oxygen Delivery Room Air 10/16/24 09:45 Temperature 98.1 F 10/16/24 18:26 Pulse Rate 74 10/16/24 18:26 Respiratory Rate 18 10/16/24 18:26 Blood Pressure 141/42 H 10/16/24 18:26 Pulse Oximetry 99 10/16/24 18:26 Oxygen Delivery Room Air 10/16/24 15:12 <Ligia Shetty PA-C - Last Filed: 10/16/24 19:39> Vital Signs Pulse Rate 73 10/16/24 09:45 Respiratory Rate 16 10/16/24 09:45 Blood Pressure 145/29 H 10/16/24 09:45 Pulse Oximetry 100 10/16/24 09:45 Oxygen Delivery Room Air 10/16/24 09:45 Temperature 98.1 F 10/16/24 18:26 Pulse Rate 74 10/16/24 18:26 Respiratory Rate 18 10/16/24 18:26 Blood Pressure 141/42 H 10/16/24 18:26 Pulse Oximetry 99 10/16/24 18:26 Oxygen Delivery Room Air 10/16/24 15:12 <Orlando Sweet MD - Last Filed: 10/16/24 18:38> MDM - Recheck/Abnormal Lab/Rx MDM Narrative Medical decision making narrative: Patient presented to ED with report of abnormal outpatient labs. Report of anemia. Admits to feeling fatigued and intermittently sob over the past few weeks. Vital signs are stable upon arrival. Patient is hemodynamically stable. CBC resulted with critically low hemoglobin at 4.9, hematocrit 19.9. Appears microcytic with MCV of 68. Per records, baseline hemoglobin around 10-12, however these are from 2022. Platelets are within normal range. Normal white blood cell count. CMP is unremarkable. Anemia labs were added on. Seems consistent with iron deficiency anemia. Patient's blood type is O-positive. Will transfuse 2 units. Guaiac exam performed in the ED was Hemoccult negative. Patient does report history of previous peptic ulcer disease, but she has not had any melena, rectal bleeding, abdominal pain. EKG with sinus rhythm, no concerning ST changes. BNP/trop pending. Chest x-ray clear. Patient will be admitted for further evaluation. Discussed case with Bárbara Lundy NP hospitalist, accepted patient for admission. Patient and family in agreement with plan. <KRISTINE Miller Last Filed: 10/16/24 19:39> Medical Records Attestation: I reviewed the patient's medical records. <Ligia Shetty PA-C - Last Filed: 10/16/24 19:39> Lab Data Attestation: I reviewed the patient's lab results. <KRISTINE Miller Last Filed: 10/16/24 19:39> Result diagrams: 10/16/24 10:11 10/16/24 10:11 <Ligia Shetty PA-C - Last Filed: 10/16/24 19:39> Labs: Lab Results 10/16/24 10/16/24 10/16/24 Range/Units 10:01 10:11 11:39 WBC 5.1 (4.5-10.0) K/mm3 RBC 2.90 L (4.2-5.4) M/mm3 Hgb 4.9 L* D (12.0-15.0) g/dL Hct 19.8 L* (37.0-47.0) % MCV 68.3 L (80-100) fl MCH 16.9 L (26-34) pg MCHC 24.7 L (32-36) g/dl RDW 19.2 H (11.5-14.5) % Plt Count 190 (150-375) k/mm3 MPV 11.2 H (7.4-10.4) fl Immature Gran % (Auto) 0.2 (0-0.5) % Neut % (Auto) 69.9 (45.5-73.1) % Lymph % (Auto) 18.0 L (18.3-44.2) % Cloud % (Auto) 8.4 (2.6-8.5) % Eos % (Auto) 3.1 (0-4.4) % Baso % (Auto) 0.4 (0.2-1.2) % Lymph # (Auto) 0.92 (0.9-3.2) K/mm3 Cloud # (Auto) 0.4 (0.1-0.6) K/mm3 Eos # (Auto) 0.2 (0-0.3) K/mm3 Baso # (Auto) 0.0 (0.0-0.1) K/mm3 Abs Immat Gran (auto) 0.01 (0.00-0.031) K/mm3 Absolute Neuts (auto) 3.6 (1.3-6.7) K/mm3 Absolute Nucleated RBC 0.000 (0.0-0.012) K/mm3 Band Neutrophils % Not Reportable Nucleated RBC % 0.0 (0.0-0.2) % Platelet Estimate Adequate (Adequate) % Immature Plt Fraction 4.8 (0.9-11.2) % Hypochromasia 2+ Microcytosis 2+ (NORMAL) Ovalocytes 1+ Acanthocytes (Spur) 1+ Schistocytes Not Reportable Absolute Retic 0.05 (0.02-0.10) 10^6/uL Percent Retic 1.72 (0.7-4.3) % Immature Retic Fraction 14.5 (3.0-15.9) % Retic Hgb Content 13.6 L (28.2-36.6) pg PT 14.9 H (11.1-14.7) Seconds INR 1.1 APTT 30.7 (22.3-36.8) Seconds Sodium 142 (137-145) mmol/L Potassium 4.0 (3.4-5.0) mmol/L Chloride 110 H (98-107) mmol/L Carbon Dioxide 24 (22-30) mmol/L Anion Gap 8 (4-12) mmol/L BUN 11 (7-17) mg/dL Creatinine 0.71 (0.7-1.0) mg/dL Estim Creat Clear Calc 42 ml/min Estimated GFR > 60 (59 - ) Glucose 125 H (65-110) mg/dL Calcium 8.9 (8.4-10.2) mg/dL Iron 26 L (37-170) ug/dL TIBC 463 H (261-462) ug/dL % Saturation 6 L (20-50) % Transferrin 324 (206-381) mg/dL Ynes Transferrin Receptr Pending Ferritin 5.25 L (11.1-264) ng/mL Total Bilirubin 0.6 (0.2-1.3) mg/dL AST 28 (14-36) U/L ALT 22 (6-35) U/L Alkaline Phosphatase 56 (38-126) U/L Lactate Dehydrogenase 201 (120-246) U/L Troponin I < 0.012 (0.000-0.034) ng/mL NT-Pro-B Natriuret Pep 1610 H (19.9-100) pg/mL Total Protein 6.0 L (6.3-8.2) g/dL Albumin 3.8 (3.5-5.1) g/dL Vitamin B12 Pending Folate Pending TSH (Reflex) 1.420 (0.465-4.68) uIU/mL Blood Type O Positive Antibody Screen Negative Crossmatch See Detail <Ligia Shetty PA-C - Last Filed: 10/16/24 19:39> Lab Results 10/16/24 10/16/24 10/16/24 Range/Units 10:01 10:11 11:39 WBC 5.1 (4.5-10.0) K/mm3 RBC 2.90 L (4.2-5.4) M/mm3 Hgb 4.9 L* D (12.0-15.0) g/dL Hct 19.8 L* (37.0-47.0) % MCV 68.3 L (80-100) fl MCH 16.9 L (26-34) pg MCHC 24.7 L (32-36) g/dl RDW 19.2 H (11.5-14.5) % Plt Count 190 (150-375) k/mm3 MPV 11.2 H (7.4-10.4) fl Immature Gran % (Auto) 0.2 (0-0.5) % Neut % (Auto) 69.9 (45.5-73.1) % Lymph % (Auto) 18.0 L (18.3-44.2) % Cloud % (Auto) 8.4 (2.6-8.5) % Eos % (Auto) 3.1 (0-4.4) % Baso % (Auto) 0.4 (0.2-1.2) % Lymph # (Auto) 0.92 (0.9-3.2) K/mm3 Cloud # (Auto) 0.4 (0.1-0.6) K/mm3 Eos # (Auto) 0.2 (0-0.3) K/mm3 Baso # (Auto) 0.0 (0.0-0.1) K/mm3 Abs Immat Gran (auto) 0.01 (0.00-0.031) K/mm3 Absolute Neuts (auto) 3.6 (1.3-6.7) K/mm3 Absolute Nucleated RBC 0.000 (0.0-0.012) K/mm3 Band Neutrophils % Not Reportable Nucleated RBC % 0.0 (0.0-0.2) % Platelet Estimate Adequate (Adequate) % Immature Plt Fraction 4.8 (0.9-11.2) % Hypochromasia 2+ Microcytosis 2+ (NORMAL) Ovalocytes 1+ Acanthocytes (Spur) 1+ Schistocytes Not Reportable Absolute Retic 0.05 (0.02-0.10) 10^6/uL Percent Retic 1.72 (0.7-4.3) % Immature Retic Fraction 14.5 (3.0-15.9) % Retic Hgb Content 13.6 L (28.2-36.6) pg PT 14.9 H (11.1-14.7) Seconds INR 1.1 APTT 30.7 (22.3-36.8) Seconds Sodium 142 (137-145) mmol/L Potassium 4.0 (3.4-5.0) mmol/L Chloride 110 H (98-107) mmol/L Carbon Dioxide 24 (22-30) mmol/L Anion Gap 8 (4-12) mmol/L BUN 11 (7-17) mg/dL Creatinine 0.71 (0.7-1.0) mg/dL Estim Creat Clear Calc 42 ml/min Estimated GFR > 60 (59 - ) Glucose 125 H (65-110) mg/dL Calcium 8.9 (8.4-10.2) mg/dL Iron 26 L (37-170) ug/dL TIBC 463 H (261-462) ug/dL % Saturation 6 L (20-50) % Transferrin 324 (206-381) mg/dL Ynes Transferrin Receptr Pending Ferritin 5.25 L (11.1-264) ng/mL Total Bilirubin 0.6 (0.2-1.3) mg/dL AST 28 (14-36) U/L ALT 22 (6-35) U/L Alkaline Phosphatase 56 (38-126) U/L Lactate Dehydrogenase 201 (120-246) U/L Troponin I < 0.012 (0.000-0.034) ng/mL NT-Pro-B Natriuret Pep 1610 H (19.9-100) pg/mL Total Protein 6.0 L (6.3-8.2) g/dL Albumin 3.8 (3.5-5.1) g/dL Vitamin B12 Pending Folate Pending TSH (Reflex) 1.420 (0.465-4.68) uIU/mL Blood Type O Positive Antibody Screen Negative Crossmatch See Detail <Orlando Sweet MD - Last Filed: 10/16/24 18:38> Imaging Data Attestation: I personally reviewed and interpreted this imaging study as follows: <Ligia Shetty PA-C - Last Filed: 10/16/24 19:39> Radiologist's impression: ITS Impressions Chest X-Ray 10/16/24 12:53 Impression: 1: Small pleural effusions. 2: Cardiomegaly. 3: Hiatal hernia. <Ligia Shetty PA-C - Last Filed: 10/16/24 19:39> ECG Data EKG #1: Attestation: I personally reviewed and interpreted this ECG as follows: <Ligia Shetty PA-C - Last Filed: 10/16/24 19:39> ECG completion date: 10/16/24 <Ligia Shetty PA-C - Last Filed: 10/16/24 19:39> ECG completion time: 12:03 <KRISTINE Miller Last Filed: 10/16/24 19:39> EKG Interpretation: normal rate (74), sinus rhythm, non-specific ST changes and other (baseline artifact) <Ligia Shetty PA-C - Last Filed: 10/16/24 19:39> Discharge Plan Discharge Clinical Impression: Symptomatic anemia Iron deficiency anemia Qualifiers: Iron deficiency anemia type: unspecified iron deficiency Qualified Code(s): D50.9 - Iron deficiency anemia, unspecified <Ligia Shetty PA-C - Last Filed: 10/16/24 19:39> Patient Disposition: Still a Patient <KRISTINE Miller Last Filed: 10/16/24 19:39> Condition: Stable <KRISTINE Miller Last Filed: 10/16/24 19:39>
[2024-10-16 11:36] LABS: Percent Iron Saturation 6 % (20-50)
[2024-10-16 12:03] LABS: Ferritin 5.25 ng/mL (11.1-264)
[2024-10-16] MEDS: SODIUM CHLORIDE 0.9% IV 250 ML 30 ML IV CONT (12:12)
[2024-10-16] MEDS: TUBING, BLOOD SET 1 EACH XX (12:12)
--- NOTE | 2024-10-16 14:35 | ADMGEN ---
This patient, Vicki Lezama, was admitted to 2 Medical Room 241-01. Patient/family oriented to hospital policies and general routines including ID bracelet, bed and alarms, visiting hours, pain management, procedures, bathroom and other care routines, personal items, smoking policy, room service/diet, and visiting hours. Information on how to activate the Rapid Response Team has been discussed. Patient/Family are encouraged to report perceived risks to care and to ask questions if they do not understand what they are told or what they should do.
--- NOTE | 2024-10-16 14:37 | PM.IMHP ---
H&P: HPI History of Present Illness Date/Time: 10/16/24 14:37 Chief Complaint: Abnormal Lab Narrative: 89 y/o F with PMH of hypertension, asthma, myocardial infarction, coronary artery disease s/p stent placement x3, anemia, depression, hyperlipidemia, glaucoma, and gastric ulcer presents here with abnormal lab - low hemoglobin. The patient presents here from home for further evaluation of low hemoglobin. She reports she has been feeling intermittently short of breath and fatigued over the past few days to several weeks. She initially sought care through her PCP for evaluation. She had outpatient labs performed on 10/15 which showed a hemoglobin of 5.1. She was sent to the emergency department for further evaluation and transfusion. She denies a previously known history of anemia and has never received a blood transfusion. However, upon chart review she does have a history of anemia which appears to have been diagnosed back in 2019. No clear etiology given/reported. She is on Plavix, no further anticoagulation or anti-platelet therapy. She denies dark tarry stools, hematemesis, vaginal bleeding, or any other abnormal bleeding. She does have a history of gastric ulcers, currently on a PPI. She does report a family history of sideroblastic anemia - her mother. Repeat hemoglobin today upon evaluation was 4.9. Initial VS at presentation: 97.5? F, HR 73, R 16, 145 R 29, and 100% on RA. ED workup showed: No leukocytosis, hemoglobin 4.9, MCV 68.3 and MCHC 24.7, INR within normal limits, PT 14.9, no significant electrolyte derangements, glucose 125, creatinine 0.71 and GFR >60, TSH within normal limits. CXR showed a small pleural effusion, cardiomegaly, and a hiatal hernia. Review of Systems Review of Systems: All systems reviewed & are unremarkable except as noted in HPI and below PMFSH Past Medical History Medical History Mass of soft tissue of neck Trigger finger Chronic right hip pain Vertigo Postlaminectomy syndrome of lumbosacral region Left shoulder tendonitis Chest wall mass Hypertension Asthma History of heart attack CAD (coronary artery disease) Face pain Cough due to OBEY inhibitor Otalgia of left ear H/O cataract Contracture of palmar fascia Shingles outbreak Family history of endometriosis in first degree relative COVID-19 virus infection Vagina, candidiasis Changing skin lesion Duodenitis Anemia Chronic rhinitis Headache Foot callus Decreased pulses in feet Depression, major, in remission Mixed hyperlipidemia Incisional hernia Visual loss Gastric ulcer Hip bursitis Glaucoma Neuralgia and neuritis, unspecified Other intervertebral disc degeneration, lumbar region Surgical History Surgical History H/O heart artery stent x3 Hx of right coronary artery stent placement H/O: hysterectomy H/O Spinal surgery Family History Family History Mother Cerebrovascular accident Hypertension Sibling Family history of coronary artery disease Heart disease Hypertension Cerebrovascular accident Cancer Acute myocardial infarction Father Parkinsons disease Sibling Acute myocardial infarction Heart disease Other Family history of mental disorder Social History Social History Social History: Caffeine-tea Smoking status: Never smoker Second hand tobacco smoke exposure: Yes Alcohol intake: never Substance use: never Substance use type: does not use 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 Do You Feel Safe in your Home?: Yes Lack of Transportation: No Lack of Food: Never True Current Housing: I Have Housing Concerned About Future Housing: No Difficulty Paying Gas/Electric Bills: No Difficulty Paying for Meds: No Currently Unemployed: No Education: Associate Degree Difficulty w/ Childcare or Family Care: No Living arrangements: with family Additional living arrangements comments: with sp Occupation/Education: retired 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[employer] Gender identity (if verbalized by the patient): Female Spiritual care concerns: No Meds Home Medications and Allergies Home Medications ?Medication ?Instructions ?Recorded ?Confirmed ?Type aspirin 81 mg tablet,delayed 81 mg PO DAILY 06/13/23 10/16/24 History release (Adult Low Dose Aspirin) clopidogrel 75 mg tablet 75 mg PO DAILY 06/13/23 10/16/24 History carvedilol 12.5 mg tablet 12.5 mg PO BID 08/28/23 10/16/24 History atorvastatin 80 mg tablet 80 mg PO DAILY 09/25/23 10/16/24 History fluticasone propionate 50 2 spray intranasal DAILY #16 grams 12/28/23 10/16/24 Rx mcg/actuation nasal spray,suspension (Flonase Allergy Relief) albuterol sulfate 90 mcg/actuation 1 inh inhalation Q4H PRN shortness 04/02/24 10/16/24 Rx aerosol inhaler of breath or wheezing #6.7 grams losartan 50 mg tablet 50 mg PO DAILY #90 tabs 05/20/24 10/16/24 Rx pantoprazole 40 mg tablet,delayed 40 mg PO QAM #90 tabs 08/15/24 10/16/24 Rx release duloxetine 60 mg capsule,delayed 60 mg PO DAILY #90 caps 08/19/24 10/16/24 Rx release diclofenac sodium 1 % topical gel 4 g topical QID arm pain #100 grams 10/14/24 10/16/24 Rx (Voltaren Arthritis Pain) gabapentin 600 mg tablet 900 mg PO TID 10/16/24 10/16/24 History Allergies Allergy/AdvReac Type Severity Reaction Status Date / Time adhesive tape Allergy Unknown Rash Verified 10/16/24 14:36 bacitracin Allergy Unknown Rash Verified 10/16/24 14:36 gramicidin D Allergy Unknown Rash Verified 10/16/24 14:36 polymyxin B Allergy Unknown Rash Verified 10/16/24 14:36 OBEY Inhibitors AdvReac Intermediate Cough Verified 10/16/24 14:36 montelukast (From Singulair) AdvReac Intermediate Diarrhea Verified 10/16/24 14:36 Vital Signs Vital Signs - 24 hr 10/16/24 09:45 10/16/24 10:14 10/16/24 10:15 Temperature Pulse Rate 73 72 78 Respiratory Rate 16 16 24 H Blood Pressure 145/29 H Pulse Oximetry 100 98 100 Oxygen Delivery Room Air 10/16/24 11:04 10/16/24 11:15 10/16/24 11:30 Temperature Pulse Rate 77 73 73 Respiratory Rate 18 18 18 Blood Pressure Pulse Oximetry 100 100 Oxygen Delivery 10/16/24 12:07 10/16/24 12:16 10/16/24 12:25 Temperature 97.5 F L 98.5 F Pulse Rate 75 77 76 Respiratory Rate 18 19 18 Blood Pressure 109/38 L 116/39 L 126/91 H Pulse Oximetry 100 99 100 Oxygen Delivery 10/16/24 13:25 10/16/24 13:58 Temperature 97.5 F L 97.5 F L Pulse Rate 85 76 Respiratory Rate 18 16 Blood Pressure 149/47 H 167/54 H Pulse Oximetry 97 100 Oxygen Delivery Exam Const: General: comfortable and no acute distress Other: , female, elderly, nontoxic appearance HENMT: Face/Nose/Sinus: Normal nares present Mouth: Yes moist mucous membranes Eyes: General: appearance normal, both eyes and all related structures Sclera: sclerae normal Pupils: Equal, round and reactive pupils present EOM: EOMs intact bilaterally Resp: Effort & Inspection: normal respiratory effort Auscultation: clear to auscultation bilaterally Cardio: Rate: regular rate Rhythm: regular rhythm Other: S1-S2 present without murmur, rub, ectopy GI: Other: Abdomen soft, nondistended, nontender. Normoactive bowel sounds in all quadrants. Skin: General skin exam: normal color and no rashes or lesions noted Wounds: no wounds Neuro: Speech: normal speech Motor exam (neuro): 5/5 motor strength present throughout Sensory Exam: normal sensation Other: A&O x4 Extrem: General: normal to inspection Psych: Mental Status: mental status grossly normal Affect: normal affect Other: Good insight and judgment, pleasant H&P: Results Labs Labs: Short CBC 10/16/24 Range/Units 10:11 WBC 5.1 (4.5-10.0) K/mm3 Hgb 4.9 L* D (12.0-15.0) g/dL Hct 19.8 L* (37.0-47.0) % Plt Count 190 (150-375) k/mm3 BMP 10/16/24 10:11 Sodium 142 Potassium 4.0 Chloride 110 H Carbon Dioxide 24 BUN 11 Creatinine 0.71 Glucose 125 H Calcium 8.9 Liver Function 10/16/24 Range/Units 10:11 Total Bilirubin 0.6 (0.2-1.3) mg/dL AST 28 (14-36) U/L ALT 22 (6-35) U/L Alkaline Phosphatase 56 (38-126) U/L Albumin 3.8 (3.5-5.1) g/dL Assessment and Plan Assessment and plan (1) Symptomatic anemia: Code(s): D64.9 - Anemia, unspecified Status: Acute Assessment and Plan: - Hgb 4.9, MCV 68.3, MCHC 24.7 - Hx of anemia per chart review, not known to patient. Family history of sideroblastic anemia (mother). - check iron, TIBC, ferritin, B12, folic acid, and TSH Iron 26, TIBC 463,% saturation 6%, ferritin 5.25, transferrin 324 -> likely DELORES. start iron supplementation - ferrous sulfate 325 mg p.o. t.i.d.. TSH 1.42 - transfuse if <7 Plan for 2 units PRBC - trend H&H - stool occult negative - patient reported shortness of breath, cardiac workup thus far unremarkable. Suspect shortness of breath secondary to current anemia. (2) Essential hypertension: Code(s): I10 - Essential (primary) hypertension Status: Chronic Assessment and Plan: - chronic, currently 137/41 - continue home medications: Coreg, Losartan - monitor Plan Diet: Heart healthy GI Prophylaxis: Pantoprazole p.o. DVT Prophylaxis: SCDs IV fluids: None Lines/Tubes: Peripheral IV Code Status: Full code Quality VTE Prophylaxis VTE prophylaxis: mechanical ordered Hospitalist MIPS Advance Care Plan I have confirmed that the patient's Advanced Care Plan is present, code status is documented, or surrogate decision maker is listed in patient medical record.: Yes Medication Reconciliation I have utilized all available resources to obtain, update and review the patients current medications (includes all prescriptions, OTC, herbals, cannabis, and nutritional supplements).: Yes
[2024-10-16] MEDS: SODIUM CHLORIDE 0.9% IV 250 ML 30 ML (14:46)
[2024-10-16 15:34] LABS: NT Pro B Type Natriuretic Pept 1610 pg/mL (19.9-100); Troponin I < 0.012 ng/mL (0.000-0.034)
[2024-10-16] MEDS: GABAPENTIN 300 MG CAPSULE 900 MG PO (17:11)
[2024-10-16] MEDS: FERROUS SULFATE 325 MG TABLET DR PO (17:11)
[2024-10-16] MEDS: ACETAMINOPHEN 325 MG TABLET 650 MG PO (19:49)
[2024-10-16 20:14] LABS: Folic Acid > 20.0 ng/mL (2.76->20)
[2024-10-16] MEDS: carvediloL 12.5 MG TABLET PO (20:52)
[2024-10-16] MEDS: polyethylene glycoL 3350 17 GM POWD.PACK PO (20:52)
[2024-10-16] MEDS: guaiFENesin 12 HR 600 MG TABCR PO (20:52)
[2024-10-16] MEDS: DOCUSATE SODIUM 100 MG CAPSULE PO (20:53)
[2024-10-16 21:05] LABS: Hematocrit 27.5 % (37.0-47.0); Hemoglobin 8.1 g/dL (12.0-15.0)
[2024-10-17] VITALS (7 sets, daily range): BP systolic 129–161; BP diastolic 42–49; PULSE 65–77; RESP 16–20; TEMP 36.1–36.5; O2SAT 94–100
--- NOTE | 2024-10-17 07:59 | PM.IMPN ---
Progress Note: A&P Assessment and Plan (1) Symptomatic anemia: Code(s): D64.9 - Anemia, unspecified Status: Acute Assessment and Plan: - Hgb 4.9, MCV 68.3, MCHC 24.7 - Hx of anemia per chart review, not known to patient. Family history of sideroblastic anemia (mother). - check iron, TIBC, ferritin, B12, folic acid, and TSH Iron 26, TIBC 463,% saturation 6%, ferritin 5.25, transferrin 324 -> likely DELORES. start iron supplementation - ferrous sulfate 325 mg p.o. t.i.d.. TSH 1.42 - transfuse if <7 Plan for 2 units PRBC - trend H&H - stool occult negative - patient reported shortness of breath, cardiac workup thus far unremarkable. Suspect shortness of breath secondary to current anemia. will repeat labs this am to trend HG continue fall precautions - PT/OT ordered on iron supplements -if hg stable overnight-anticipate discharge (2) Essential hypertension: Code(s): I10 - Essential (primary) hypertension Status: Chronic Assessment and Plan: - chronic, currently 137/41 - continue home medications: Coreg, Losartan - monitor Plan Diet: Heart healthy GI Prophylaxis: Pantoprazole p.o. DVT Prophylaxis: SCDs IV fluids: None Lines/Tubes: Peripheral IV Code Status: Full code Time Spent With Patient Time with patient: 25 - 35 minutes Subjective Date/time seen: 10/17/24 07:59 Interval history: 89 y/o F with PMH of hypertension, asthma, myocardial infarction, coronary artery disease s/p stent placement x3, anemia, depression, hyperlipidemia, glaucoma, and gastric ulcer presents here with abnormal lab - low hemoglobin. Initial VS at presentation: 97.5? F, HR 73, R 16, 145 R 29, and 100% on RA. HG 4.9. Pt symptomatic- sob ED workup showed: No leukocytosis, hemoglobin 4.9, MCV 68.3 and MCHC 24.7, INR within normal limits, PT 14.9, no significant electrolyte derangements, glucose 125, creatinine 0.71 and GFR >60, TSH within normal limits. CXR showed a small pleural effusion, cardiomegaly, and a hiatal hernia. Received 2 units upon addition. Labs ordered. Stool occult negative. Pt is seen and examined this am. She received blood transfusion, feeling a little bit better. Will work with PT/OT. if hg stable overnight, anticipate discharge. Review of Systems Review of Systems: All systems reviewed & are unremarkable except as noted in HPI and below Exam Const: General: comfortable and no acute distress Other: , female, elderly, nontoxic appearance HENMT: Face/Nose/Sinus: Normal nares present Mouth: Yes moist mucous membranes Eyes: General: appearance normal, both eyes and all related structures Sclera: sclerae normal Pupils: Equal, round and reactive pupils present EOM: EOMs intact bilaterally Resp: Effort & Inspection: normal respiratory effort Auscultation: clear to auscultation bilaterally Cardio: Rate: regular rate Rhythm: regular rhythm Other: S1-S2 present without murmur, rub, ectopy GI: Other: Abdomen soft, nondistended, nontender. Normoactive bowel sounds in all quadrants. Skin: General skin exam: normal color and no rashes or lesions noted Wounds: no wounds Neuro: Cranial nerves: Yes Equal, round and reactive pupils present Speech: normal speech Motor exam (neuro): 5/5 motor strength present throughout Sensory Exam: normal sensation Other: A&O x4 Extrem: General: normal to inspection Psych: Mental Status: mental status grossly normal Affect: normal affect Other: Good insight and judgment, pleasant Objective Data Vital Signs Vital Signs: Vital Signs - 24 hr 10/16/24 09:45 10/16/24 10:14 10/16/24 10:15 Temperature Pulse Rate 73 72 78 Respiratory Rate 16 16 24 H Blood Pressure 145/29 H Pulse Oximetry 100 98 100 Oxygen Delivery Room Air 10/16/24 11:04 10/16/24 11:15 10/16/24 11:30 Temperature Pulse Rate 77 73 73 Respiratory Rate 18 18 18 Blood Pressure Pulse Oximetry 100 100 Oxygen Delivery 10/16/24 12:07 10/16/24 12:16 10/16/24 12:25 Temperature 97.5 F L 98.5 F Pulse Rate 75 77 76 Respiratory Rate 18 19 18 Blood Pressure 109/38 L 116/39 L 126/91 H Pulse Oximetry 100 99 100 Oxygen Delivery 10/16/24 13:25 10/16/24 13:58 10/16/24 14:47 Temperature 97.5 F L 97.5 F L 97.8 F Pulse Rate 85 76 72 Respiratory Rate 18 16 12 Blood Pressure 149/47 H 167/54 H 137/41 L Pulse Oximetry 97 100 100 Oxygen Delivery 10/16/24 15:03 10/16/24 15:12 10/16/24 15:19 Temperature 97.8 F 98.0 F Pulse Rate 72 75 Respiratory Rate 12 16 Blood Pressure 137/41 L 139/38 L Pulse Oximetry 100 100 100 Oxygen Delivery Room Air 10/16/24 16:19 10/16/24 17:19 10/16/24 18:26 Temperature 97.8 F 98.5 F 98.1 F Pulse Rate 75 76 74 Respiratory Rate 18 18 18 Blood Pressure 133/40 L 165/45 H 141/42 H Pulse Oximetry 98 100 99 Oxygen Delivery 10/16/24 20:00 10/16/24 20:42 10/16/24 20:52 Temperature 98.0 F Pulse Rate 70 70 Respiratory Rate 16 Blood Pressure 152/44 H Pulse Oximetry 97 Oxygen Delivery Room Air 10/17/24 05:21 Temperature 97.7 F Pulse Rate 77 Respiratory Rate 16 Blood Pressure 129/42 L Pulse Oximetry 94 Oxygen Delivery Intake/Output Intake/Output: Intake & Output 10/14/24 10/15/24 10/16/24 10/17/24 23:59 23:59 23:59 23:59 Intake Total 1140 300 Balance 1140 300 Meds/Results Medications: Active Medications Generic Name Dose Route Start Last Admin Trade Name Freq PRN Reason Stop Dose Admin Acetaminophen 650 mg 10/16/24 13:09 10/16/24 19:49 Acetaminophen 325 Mg Tablet PO 650 mg Q4H PRN Administration Mild Pain (1-3) or Fever Albuterol 1 puff 10/16/24 15:01 Albuterol Sulfate (*Sp) Aerosol 1 Puff INHALATION Q4HRT PRN shortness of breath or wheezin Aspirin 81 mg 10/17/24 09:00 Aspirin 81 Mg Enteric Tablet PO DAILY [facility] Atorvastatin Calcium 80 mg 10/17/24 09:00 Atorvastatin 40 Mg Tablet PO DAILY SALLY Benzocaine 1 lozenge 10/16/24 20:27 Benzocaine/Menthol (*Bkc) 18 Ea Lozenge PO PRN PRN Sore Throat Carvedilol 12.5 mg 10/16/24 21:00 10/16/24 20:52 Carvedilol 12.5 Mg Tablet PO 12.5 mg Q12HR SALLY Administration Clopidogrel Bisulfate 75 mg 10/17/24 09:00 Clopidogrel Bisulfate 75 Mg Tablet PO DAILY SALLY Dextrose 12.5 gm 10/16/24 13:18 Dextrose 50% 25 Gm/50 Ml Syringe IV PUSH PRN PRN Hypoglycemia Protocol Diclofenac Sodium 1 applic 10/16/24 17:00 10/16/24 20:54 Diclofenac Sodium 1% 100 Gm Gel (*Bkc) TOPICAL Not Given QID SALLY Docusate Sodium 100 mg 10/16/24 21:00 10/16/24 20:53 Docusate Sodium 100 Mg Capsule PO 100 mg Q12HR SALLY Administration Duloxetine HCl 60 mg 10/17/24 09:00 Duloxetine Hcl 60 Mg Capsule.Dr PO DAILY SALLY Ferrous Sulfate 325 mg 10/16/24 17:00 10/16/24 17:11 Ferrous Sulfate [address] PO 325 mg TID SALLY Administration Fluticasone Propionate 2 spray 10/17/24 09:00 Fluticasone Propionate 0.05% Na Spr 16 Gm Btl (*Bkc) NASAL DAILY S[facility] Gabapentin 900 mg 10/16/24 17:00 10/16/24 17:11 Gabapentin 300 Mg Capsule PO 900 mg TID SALLY Administration Glucagon 1 mg 10/16/24 13:18 Glucagon For Inj 1 Mg Vial IM PRN PRN Hypoglycemia Protocol Glucose 15 gm 10/16/24 13:18 Glucose Oral Gel 15 Gm Of Glucse In 37.5 Gm Tube PO PRN PRN Hypoglycemia Protocol Guaifenesin 600 mg 10/16/24 21:00 10/16/24 20:52 Guaifenesin 12 Hr 600 Mg Tabcr PO 600 mg Q12HR SALLY Administration Dextrose 1,000 mls @ 100 mls/hr 10/16/24 13:18 Dextrose 5% 1,000 Ml IVPB PRN PRN Hypoglycemia Protocol Losartan Potassium 50 mg 10/17/24 09:00 Losartan Potassium 50 Mg Tablet PO DAILY [facility] Ondansetron HCl 4 mg 10/16/24 13:09 Ondansetron Inj 4 Mg/2 Ml Vial IV PUSH Q4H PRN Nausea Pantoprazole Sodium 40 mg 10/17/24 09:00 Pantoprazole 40 Mg Tablet PO QAM [facility] Polyethylene Glycol 17 gm 10/16/24 20:30 10/16/24 20:52 Polyethylene Glycol 3350 17 Gm Powd.Pack PO [address] [facility] Administration Radiology Results: ITS Impressions Chest X-Ray 10/16/24 12:53 Impression: 1: Small pleural effusions. 2: Cardiomegaly. 3: Hiatal hernia. Labs Labs: Laboratory Results - last 24 hr 10/16/24 10/16/24 10/16/24 10:01 10:11 21:00 WBC 5.1 RBC 2.90 L Hgb 4.9 L* D 8.1 L D Hct 19.8 L* 27.5 L MCV 68.3 L MCH 16.9 L MCHC 24.7 L RDW 19.2 H Plt Count 190 MPV 11.2 H Immature Gran % (Auto) 0.2 Neut % (Auto) 69.9 Lymph % (Auto) 18.0 L [place] % (Auto) 8.4 Eos % (Auto) 3.1 Baso % (Auto) 0.4 Lymph # (Auto) 0.92 [place] # (Auto) 0.4 Eos # (Auto) 0.2 Baso # (Auto) 0.0 Abs Immat Gran (auto) 0.01 Absolute Neuts (auto) 3.6 Absolute Nucleated RBC 0.000 Band Neutrophils % Not Reportable Nucleated RBC % 0.0 Platelet Estimate Adequate % Immature Plt Fraction 4.8 Hypochromasia 2+ Microcytosis 2+ Ovalocytes 1+ Acanthocytes (Spur) 1+ Schistocytes Not Reportable Absolute Retic 0.05 Percent Retic 1.72 Immature Retic Fraction 14.5 Retic Hgb Content 13.6 L PT 14.9 H INR 1.1 APTT 30.7 Sodium 142 Potassium 4.0 Chloride 110 H Carbon Dioxide 24 Anion Gap 8 BUN 11 Creatinine 0.71 Estim Creat Clear Calc 42 Estimated GFR > 60 Glucose 125 H Calcium 8.9 Iron 26 L TIBC 463 H % Saturation 6 L Transferrin 324 Ferritin 5.25 L Total Bilirubin 0.6 AST 28 ALT 22 Alkaline Phosphatase 56 Lactate Dehydrogenase 201 Troponin I < 0.012 NT-Pro-B Natriuret Pep 1610 H Total Protein 6.0 L Albumin 3.8 Vitamin B12 753.0 Folate > 20.0 H TSH (Reflex) 1.420 Blood Type O Positive Antibody Screen Negative Crossmatch See Detail Quality VTE Prophylaxis VTE prophylaxis: mechanical ordered
[2024-10-17 08:12] LABS: Basophils Absolute Auto 0.1 K/mm3 (0.0-0.1); Basophils Percent Auto 0.8 % (0.2-1.2); Eosinophils Absolute Auto 0.2 K/mm3 (0-0.3); Eosinophils Percent Auto 3.2 % (0-4.4); Hematocrit 30.8 % (37.0-47.0); Hemoglobin 9.2 g/dL (12.0-15.0); Immature Granulocyte Absolute 0.03 K/mm3 (0.00-0.031); Immature Granulocyte Percent A 0.5 % (0-0.5); Lymphocytes Absolute Auto 1.25 K/mm3 (0.9-3.2); Lymphocytes Percent Auto 20.1 % (18.3-44.2); Mean Corpuscular HGB Conc 29.9 g/dl (32-36); Mean Corpuscular Hemoglobin 21.8 pg (26-34); Mean Platelet Volume 10.1 fl (7.4-10.4); Monocytes Absolute Auto 0.6 K/mm3 (0.1-0.6); Monocytes Percent Auto 9.6 % (2.6-8.5); Neutrophils Absolute Auto 4.1 K/mm3 (1.3-6.7); Neutrophils Percent Auto 65.8 % (45.5-73.1); Platelet Count Result 202 k/mm3 (150-375); Red Blood Count 4.22 M/mm3 (4.2-5.4); White Blood Count 6.2 K/mm3 (4.5-10.0)
[2024-10-17 08:31] LABS: Hypochromasia 1+; Platelet Estimate Adequate (Adequate); Poikilocytosis 1+
[2024-10-17 08:32] LABS: Anisocytosis 2+; Ovalocytes 1+; Schistocytes Rare; Target Cells 1+; Tear Drop Cells 1+
[2024-10-17 08:37] LABS: Alanine Aminotransferase 20 U/L (6-35); Albumin Level 3.8 g/dL (3.5-5.1); Alkaline Phosphatase 58 U/L (38-126); Anion Gap 6 mmol/L (4-12); Aspartate Amino Transferase 28 U/L (14-36); Bilirubin,Total 1.3 mg/dL (0.2-1.3); Blood Urea Nitrogen 8 mg/dL (7-17); Calcium 8.8 mg/dL (8.4-10.2); Carbon Dioxide 27 mmol/L (22-30); Chloride 110 mmol/L (98-107); Estimated CRCL calculation 40 ml/min; Estimated Glomerular Filt Rate > 60; Glucose 98 mg/dL (65-110); Sodium 143 mmol/L (137-145)
[2024-10-17] MEDS: ASPIRIN 81 MG ENTERIC TABLET PO (08:44)
[2024-10-17] MEDS: carvediloL 12.5 MG TABLET PO ×2 (08:45→21:14)
[2024-10-17] MEDS: CLOPIDOGREL BISULFATE 75 MG TABLET PO (08:45)
[2024-10-17] MEDS: ATORVASTATIN 40 MG TABLET 80 MG PO (08:45)
[2024-10-17] MEDS: guaiFENesin 12 HR 600 MG TABCR PO ×2 (08:46→21:15)
[2024-10-17] MEDS: DULoxetine HCL 60 MG CAPSULE.DR PO (08:46)
[2024-10-17] MEDS: DOCUSATE SODIUM 100 MG CAPSULE PO ×2 (08:46→21:15)
[2024-10-17] MEDS: LOSARTAN POTASSIUM 50 MG TABLET PO (08:46)
[2024-10-17] MEDS: GABAPENTIN 300 MG CAPSULE 900 MG PO ×3 (08:46→17:26)
[2024-10-17] MEDS: FERROUS SULFATE 325 MG TABLET DR PO ×2 (08:46→17:26)
[2024-10-17] MEDS: PANTOPRAZOLE 40 MG TABLET PO (08:47)
[2024-10-17] MEDS: polyethylene glycoL 3350 17 GM POWD.PACK PO (08:47)
[2024-10-17] MEDS: ACETAMINOPHEN 325 MG TABLET 650 MG PO (14:13)
[2024-10-17] MEDS: DICLOFENAC SODIUM 1% 100 GM GEL (*BKC) 1 APPLIC TOPICAL (21:16)
[2024-10-18 03:51] VITALS: BP 150/49; PULSE 69; RESP 20; TEMP 36.5; O2SAT 96
[2024-10-18 08:12] LABS: Basophils Absolute Auto 0.1 K/mm3 (0.0-0.1); Eosinophils Absolute Auto 0.2 K/mm3 (0-0.3); Eosinophils Percent Auto 3.2 % (0-4.4); Hematocrit 30.7 % (37.0-47.0); Immature Granulocyte Absolute 0.02 K/mm3 (0.00-0.031); Immature Granulocyte Percent A 0.3 % (0-0.5); Immature Platelet Fraction Pct 4.5 % (0.9-11.2); Lymphocytes Absolute Auto 1.15 K/mm3 (0.9-3.2); Lymphocytes Percent Auto 18.3 % (18.3-44.2); Mean Corpuscular HGB Conc 29.3 g/dl (32-36); Mean Corpuscular Hemoglobin 21.8 pg (26-34); Mean Corpuscular Volume 74.3 fl (80-100); Mean Platelet Volume 10.7 fl (7.4-10.4); Monocytes Absolute Auto 0.6 K/mm3 (0.1-0.6); Monocytes Percent Auto 9.6 % (2.6-8.5); Neutrophils Absolute Auto 4.3 K/mm3 (1.3-6.7); Neutrophils Percent Auto 67.6 % (45.5-73.1); Platelet Count Result 186 k/mm3 (150-375); Red Blood Count 4.13 M/mm3 (4.2-5.4); Red Cell Distribution Width 23.9 % (11.5-14.5); White Blood Count 6.3 K/mm3 (4.5-10.0)
[2024-10-18 08:44] LABS: Anisocytosis 1+; Burr Cells 1+; Hypochromasia 1+; Microcytosis 1+ (NORMAL); Ovalocytes 1+; Platelet Estimate Adequate (Adequate); Schistocytes None Seen; Tear Drop Cells 1+
[2024-10-18 08:52] LABS: Alanine Aminotransferase 20 U/L (6-35); Albumin Level 3.7 g/dL (3.5-5.1); Alkaline Phosphatase 63 U/L (38-126); Anion Gap 5 mmol/L (4-12); Aspartate Amino Transferase 25 U/L (14-36); Bilirubin,Total 1.1 mg/dL (0.2-1.3); Blood Urea Nitrogen 9 mg/dL (7-17); Calcium 8.9 mg/dL (8.4-10.2); Carbon Dioxide 27 mmol/L (22-30); Chloride 110 mmol/L (98-107); Estimated CRCL calculation 42 ml/min; Estimated Glomerular Filt Rate > 60; Glucose 100 mg/dL (65-110); Potassium 4.5 mmol/L (3.4-5.0); Sodium 142 mmol/L (137-145)
[2024-10-18] MEDS: FLUTICASONE PROPIONATE 0.05% NA SPR 16 GM BTL (*BKC) 2 SPRAY NASAL (09:05)
[2024-10-18] MEDS: ATORVASTATIN 40 MG TABLET 80 MG PO (09:06)
[2024-10-18] MEDS: PANTOPRAZOLE 40 MG TABLET PO (09:06)
[2024-10-18] MEDS: DULoxetine HCL 60 MG CAPSULE.DR PO (09:06)
[2024-10-18 09:07] VITALS: PULSE 69
[2024-10-18] MEDS: carvediloL 12.5 MG TABLET PO (09:07)
[2024-10-18] MEDS: guaiFENesin 12 HR 600 MG TABCR PO (09:07)
[2024-10-18] MEDS: DOCUSATE SODIUM 100 MG CAPSULE PO (09:07)
[2024-10-18] MEDS: LOSARTAN POTASSIUM 50 MG TABLET PO (09:07)
[2024-10-18] MEDS: CLOPIDOGREL BISULFATE 75 MG TABLET PO (09:07)
[2024-10-18] MEDS: ASPIRIN 81 MG ENTERIC TABLET PO (09:07)
[2024-10-18] MEDS: polyethylene glycoL 3350 17 GM POWD.PACK PO (09:07)
[2024-10-18] MEDS: FERROUS SULFATE 325 MG TABLET DR PO (09:07)
[2024-10-18] MEDS: GABAPENTIN 300 MG CAPSULE 900 MG PO ×2 (09:07→12:44)
--- NOTE | 2024-10-18 09:56 | PM.DS ---
DS: Admitting Diagnosis Discharge Date 10/18 Admitting Diagnosis dizziness DS: Discharge Diagnosis Discharge Diagnosis (1) Symptomatic anemia: Code(s): D64.9 - Anemia, unspecified Status: Acute (2) Essential hypertension: Code(s): I10 - Essential (primary) hypertension Status: Chronic DS: Summary Hospital Course Hospital Course: 89 y/o F with PMH of hypertension, asthma, myocardial infarction, coronary artery disease s/p stent placement x3, anemia, depression, hyperlipidemia, glaucoma, and gastric ulcer presents here with abnormal lab - low hemoglobin. Initial VS at presentation: 97.5? F, HR 73, R 16, 145 R 29, and 100% on RA. HG 4.9. Pt symptomatic- sob ED workup showed: No leukocytosis, hemoglobin 4.9, MCV 68.3 and MCHC 24.7, INR within normal limits, PT 14.9, no significant electrolyte derangements, glucose 125, creatinine 0.71 and GFR >60, TSH within normal limits. CXR showed a small pleural effusion, cardiomegaly, and a hiatal hernia. Received 2 units upon addition. Labs ordered. Stool occult negative. #anemia - Hgb 4.9, MCV 68.3, MCHC 24.7 - Hx of anemia per chart review, not known to patient. Family history of sideroblastic anemia (mother). - check iron, TIBC, ferritin, B12, folic acid, and TSH Iron 26, TIBC 463,% saturation 6%, ferritin 5.25, transferrin 324 -> likely DELORES. start iron supplementation - ferrous sulfate 325 mg p.o. t.i.d.. TSH 1.42 - transfuse if <7 Plan for 2 units PRBC - trend H&H - stool occult negative - patient reported shortness of breath, cardiac workup thus far unremarkable. Suspect shortness of breath secondary to current anemia. continue fall precautions - PT/OT ordered on iron supplements Hg/HCT remained stable- 02/15.7 today will order CBC repeated in a week or so close f/u with PCP- to review labs and further eval # htn chronic, currently 137/41 - continue home medications: Coreg, Losartan - no changes to regimen Time Spent with Patient Time attestation: Total time spent providing and/or coordinating discharge services: Exam Narrative: up in a chair, calm and comfortable, no pain Const: General: comfortable and no acute distress HENMT: Face/Nose/Sinus: Normal nares present Mouth: Yes moist mucous membranes Eyes: General: appearance normal, both eyes and all related structures Sclera: sclerae normal Pupils: Equal, round and reactive pupils present EOM: EOMs intact bilaterally Resp: Effort & Inspection: normal respiratory effort Auscultation: clear to auscultation bilaterally Cardio: Rate: regular rate Rhythm: regular rhythm Other: S1-S2 present without murmur, rub, ectopy GI: Other: Abdomen soft, nondistended, nontender. Normoactive bowel sounds in all quadrants. Skin: General skin exam: normal color and no rashes or lesions noted Wounds: no wounds Neuro: Cranial nerves: Yes Equal, round and reactive pupils present Speech: normal speech Motor exam (neuro): 5/5 motor strength present throughout Sensory Exam: normal sensation Other: A&O x4 Extrem: General: normal to inspection Psych: Mental Status: mental status grossly normal Affect: normal affect Other: Good insight and judgment, pleasant DS: Data Data Completed and Pending Labs on day of discharge: Labs from last 24 hours 10/18/24 08:04 WBC 6.3 RBC 4.13 L Hgb 9.0 L Hct 30.7 L MCV 74.3 L MCH 21.8 L MCHC 29.3 L RDW 23.9 H Plt Count 186 MPV 10.7 H Immature Gran % (Auto) 0.3 Neut % (Auto) 67.6 Lymph % (Auto) 18.3 Davidson % (Auto) 9.6 H Eos % (Auto) 3.2 Baso % (Auto) 1.0 Lymph # (Auto) 1.15 Davidson # (Auto) 0.6 Eos # (Auto) 0.2 Baso # (Auto) 0.1 Abs Immat Gran (auto) 0.02 Absolute Neuts (auto) 4.3 Absolute Nucleated RBC 0.000 Band Neutrophils % Not Reportable Nucleated RBC % 0.0 Platelet Estimate Adequate % Immature Plt Fraction 4.5 Hypochromasia 1+ Anisocytosis 1+ Microcytosis 1+ Tear Drop Cells 1+ Ovalocytes 1+ [place] Cells 1+ Schistocytes None seen Sodium 142 Potassium 4.5 Chloride 110 H Carbon Dioxide 27 Anion Gap 5 BUN 9 Creatinine 0.70 Estim Creat Clear Calc 42 Estimated GFR > 60 Glucose 100 Calcium 8.9 Total Bilirubin 1.1 AST 25 ALT 20 Alkaline Phosphatase 63 Total Protein 6.0 L Albumin 3.7 Discharge Plan Discharge Attending physician on discharge: Houston Clark Discharging Clinician: Roxanna Hernandez Patient Disposition: Home Activity: may shower Diet: regular Discharge Instructions: You were admitted for anemia. You received 2 units of blood. Your iron levels were low and you were started on iron supplements. Please take SLOW FE-it is over the counter iron supplement that is absorbed slow;y and should not cause much GI discomfort. Take miralax daily to avoid constipation (as iron supplements can cause constipation) Received 2 units upon addition. Labs ordered. Stool occult negative. Will order CBC repeated in a week or so Please f/u with PCP- to review labs and further eval Patient Instructions: Antibiotic Form Patient Language: Vietnamese Stand Alone Forms: General Discharge Information Follow-up/Referrals: Satish Desai MD [Primary Care Provider] - 1 Week Discharge Medications: Continued clopidogrel 75 mg tablet 75 mg PO DAILY Patient Comments: HOLD for [address] Acosta aspirin [Adult Low Dose Aspirin] 81 mg tablet,delayed release (/EC) 81 mg PO DAILY Patient Comments: HOLD [address] ACOSTA carvedilol 12.5 mg tablet 12.5 mg PO BID atorvastatin 80 mg tablet 80 mg PO DAILY albuterol sulfate 90 mcg/actuation HFA aerosol inhaler 1 inh inhalation Q4H PRN (Reason: shortness of breath or wheezing) Qty: 6.7 3RF diclofenac sodium [Voltaren Arthritis Pain] 1 % gel 4 g topical QID Qty: 100 0RF Rx Instructions: apply to single knee, ankle, foot; for foot includes sole/toes/top of foot gabapentin 600 mg tablet 900 mg PO TID fluticasone propionate [Flonase Allergy Relief] 50 mcg/actuation spray,suspension 2 spray intranasal DAILY Qty: 16 0RF Rx Instructions: administer into each nostril losartan 50 mg tablet 50 mg PO DAILY Qty: 90 2RF pantoprazole 40 mg tablet,delayed release (DR/EC) 40 mg PO QAM Qty: 90 0RF duloxetine 60 mg capsule,delayed release(DR/EC) 60 mg PO DAILY Qty: 90 0RF Other Ambulatory Orders: Complete Blood Count no Diff (Routine) Timeframe: 1 Week Location: Determined by Patient Ordered By: Roxanna Hernandez Date of admission: 10/16/24 13:09 Primary Care Provider: Satish Desai Admitting Provider: Houston Clark Attending physician on admission: Houston Clark Condition: Stable Quality VTE Prophylaxis VTE prophylaxis: mechanical ordered Hospitalist MIPS Heart Failure (Exclusion) Patient has history of Heart Transplant or Left Ventricular Assistive Device?: No IF YES, STOP HERE Heart Failure (Qualifier) Patient has current or prior documentation of LVEF less than or equal to 40%, or mod/servere depressed LVSF?: No IF NO, STOP HERE
--- NOTE | 2024-10-18 13:14 | PCPTNOTE ---
received PT orders; pt has discharge orders. Met with pt, she reports she is doing fine and does not need any therapy. She uses a cane and is going to go home with her . States she will call Dr Desai if she needs HH therapy or has any problems. PT eval not performed.
[2024-10-18 14:04] LABS: Soluble Transferrin Receptor 5.99 mg/L (0.76-1.76)
== END 2024-10-18 12:53 | disposition home or self-care (01) ==
LOC: ANHED 10:15 → ANH2MED 13:44
PROVIDERS: Nurse Practitioner; Student in an Organized Health Care Education/Training Program; Admitting Provider General Practice; Emergency Provider Physician Assistant; PCP Family Medicine; Visit Provider General Practice
DX: D64.9 Anemia, unspecified (principal); I10 Essential (primary) hypertension; I25.10 Atherosclerotic heart disease of native coronary artery without angina pectoris; I25.2 Old myocardial infarction; J45.909 Unspecified asthma, uncomplicated; F32.9 Major depressive disorder, single episode, unspecified; H40.9 Unspecified glaucoma; E78.2 Mixed hyperlipidemia; Z79.02 Long term (current) use of antithrombotics/antiplatelets; Z79.51 Long term (current) use of inhaled steroids; Z79.899 Other long term (current) drug therapy; Z86.16 Personal history of COVID-19; Z87.11 Personal history of peptic ulcer disease; Z95.5 Presence of coronary angioplasty implant and graft
CPT/HCPCS: 36415; 36430; 71046; 80053; 82607; 82728; 82746; 83540; 83550; 83615; 83880; 84238; 84443; 84466; 84484; 85014; 85018; 85025; 85046; 85055; 85610; 85730; 86850; 86900; 86901; 86923; 93005; 96374; 99285; A9270; G0378; J7050; P9016

== ENCOUNTER 2024-11-20 10:56 | Outpatient (CLI) | payer OTHER, SELFPAY ==
--- NOTE | ~2024-11-20 | US_ITS ---
BILATERAL LOWER EXTREMITY VENOUS ULTRASOUND Ordering provider: Elle Patiño, PAC History: . M79.89 - Other specified soft tissue disorders . Comparison: None. FINDINGS: RIGHT LOWER EXTREMITY VEINS: --COMMON FEMORAL: Patent and free of thrombus. Normal compressibility, phasic flow and augmentation. --PROXIMAL SUPERFICIAL FEMORAL: Patent and free of thrombus. Normal compressibility, phasic flow and augmentation. --DISTAL SUPERFICIAL FEMORAL: Patent and free of thrombus. Normal compressibility, phasic flow and au gmentation. --POPLITEAL: Patent and free of thrombus. Normal compressibility, phasic flow and augmentation. --POSTERIOR TIBIAL: Patent and free of thrombus. Normal compressibility, phasic flow and augmentation . LEFT LOWER EXTREMITY VEINS: --COMMON FEMORAL: Patent and free of thrombus. Normal compressibility, phasic flow and augmentation. --PROXIMAL SUPERFICIAL FEMORAL: Patent and free of thrombus. Normal compressibility, phasic flow and augmentation. --DISTAL SUPERFICIAL FEMORAL: Patent and free of thrombus. Normal compressibility, phasic flow and au gmentation. --POPLITEAL: Patent and free of thrombus. Normal compressibility, phasic flow and augmentation. --POSTERIOR TIBIAL: Patent and free of thrombus. Normal compressibility, phasic flow and augmentation . IMPRESSION: Negative bilateral lower extremity venous US. No deep vein thrombosis. Reviewed, dictated and finalized at location A.
--- NOTE | ~2024-11-20 | XR_ITS ---
EXAM/ PROCEDURE: XR foot RT 2V - 11/20/2024 11:20 CDT HISTORY: 89 years old Female with M79.671 - Pain in right foot anterior, swelling COMPARISON: None available TECHNIQUE: Three view(s) FINDINGS/ IMPRESSION: There are no fractures or dislocations.Joint space narrowing, subchondral sclerosis, subchondral cyst formation and osteophyte formation, compatible with [id number] osteoarthritis. Reviewed, dictated and finalized at location A.
== END 2024-11-20 10:57 | disposition home or self-care (01) ==
PROVIDERS: PCP Family Medicine; Visit Provider Physician Assistant Medical
DX: M79.661 Pain in right lower leg (principal); M79.671 Pain in right foot; M79.89 Other specified soft tissue disorders
CPT/HCPCS: 73620; 93970

== ENCOUNTER 2025-01-13 11:40 | Emergency (ER) | payer OTHER, SELFPAY ==
[2025-01-13 11:52] VITALS: BP 143/41; PULSE 70; RESP 20; TEMP 36.8; O2SAT 99
--- NOTE | 2025-01-13 12:35 | ED_ITS ---
HPI - Fall General Chief Complaint: Fall Stated Complaint: fell on left side Time Seen by Provider: 01/13/25 12:30 Source: patient and RN notes reviewed Mode of arrival: ambulatory Limitations: no limitations History of Present Illness HPI Narrative: 89-year-old female presents to [facility] complaining of fall approximately 2 days ago. Patient said she was at a theater when she had a ground level fall striking her left side on the table she states. Patient is unsure why she fell. Patient denies hitting her head, loss of consciousness, neck pain, back pain, or any other injuries. Patient is complaining of left rib/flank pain. Patient also states having significant bruising to her left flank and rib area. Patient reports pain with inspiration. Patient denies any headaches, dizziness, lightheadedness, vision changes, nausea, vomiting, black or tarry stools, or any other symptoms. Patient does take Plavix for a cardiac history. Related Data Home Medications ?Medication ?Instructions ?Recorded ?Confirmed ?Last Taken ?Type aspirin 81 mg tablet,delayed 81 mg PO DAILY 06/13/23 01/07/25 10/15/24 History release (Adult Low Dose Aspirin) clopidogrel 75 mg tablet 75 mg PO DAILY 06/13/23 01/07/25 10/16/24 History carvedilol 12.5 mg tablet 12.5 mg PO BID 08/28/23 01/07/25 10/16/24 History atorvastatin 80 mg tablet 80 mg PO DAILY 09/25/23 01/07/25 10/15/24 History ascorbic acid (vitamin C) 500 mg 01/13/25 Unknown History tablet (Vitamin C) Allergies Allergy/AdvReac Type Severity Reaction Status Date / Time adhesive tape Allergy Unknown Rash Verified 01/13/25 13:35 bacitracin Allergy Unknown Rash Verified 01/13/25 13:35 gramicidin D Allergy Unknown Rash Verified 01/13/25 13:35 polymyxin B Allergy Unknown Rash Verified 01/13/25 13:35 OBEY Inhibitors AdvReac Intermediate Cough Verified 01/13/25 13:35 montelukast (From Singulair) AdvReac Intermediate Diarrhea Verified 01/13/25 13:35 Review of Systems Review of Systems: CONSTITUTIONAL: Denies fever, chills, or sweats. EYES: Denies visual changes, redness, or discharge. ENT: Denies rhinorrhea, congestion, sore throat, or otalgia. CARDIOVASCULAR: Denies chest pain, palpitations, dizziness, lightheadedness, or edema. RESPIRATORY: Denies cough or dyspnea. GASTROINTESTINAL: Denies abdominal pain, nausea, vomiting, or diarrhea. GENITOURINARY: Denies dysuria or hematuria. SKIN: Denies rash or itching. MUSCULOSKELETAL: Denies back pain, joint pain, or myalgia. Positive for left ribs/flank pain. NEUROLOGIC: Denies headache, numbness, loss of consciousness, seizures, focal weakness, slurred speech, facial droop, or weakness. PSYCHIATRIC: Denies anxiety or depression. All other systems reviewed are negative, except as documented in HPI. FORMERLY [facility], [facility] Past Medical History Medical History Mass of soft tissue of neck Trigger finger Chronic right hip pain Vertigo Postlaminectomy syndrome of lumbosacral region Left shoulder tendonitis Chest wall mass Hypertension Asthma History of heart attack CAD (coronary artery disease) Face pain Cough due to OBEY inhibitor Otalgia of left ear H/O cataract Contracture of palmar fascia Shingles outbreak Family history of endometriosis in first degree relative COVID-19 virus infection Vagina, candidiasis Changing skin lesion Duodenitis Anemia Chronic rhinitis Headache Foot callus Decreased pulses in feet Depression, major, in remission Mixed hyperlipidemia Incisional hernia Visual loss Gastric ulcer Hip bursitis Glaucoma Neuralgia and neuritis, unspecified Other intervertebral disc degeneration, lumbar region Surgical History Surgical History H/O heart artery stent x3 Hx of right coronary artery stent placement H/O: hysterectomy H/O Spinal surgery Family History Family History Mother Cerebrovascular accident Hypertension Sibling Family history of coronary artery disease Heart disease Hypertension Cerebrovascular accident Cancer Acute myocardial infarction Father Parkinsons disease Sibling Acute myocardial infarction Heart disease Other Family history of mental disorder Social History Social History Social History: Caffeine-tea Smoking status: Never smoker Second hand tobacco smoke exposure: Yes Alcohol intake: never Substance use: never Substance use type: does not use 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 Do You Feel Safe in your Home?: Yes Lack of Transportation: No Lack of Food: Never True Current Housing: I Have Housing Concerned About Future Housing: No Difficulty Paying Gas/Electric Bills: No Difficulty Paying for Meds: No Currently Unemployed: No Education: Associate Degree Difficulty w/ Childcare or Family Care: No Living arrangements: with family Additional living arrangements comments: with sp Occupation/Education: retired 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 There is no relevant family history pertinent to the patient complaint. Exam Narrative: GENERAL: This is a well-nourished, well-developed adult, in no apparent distress. They are non ill-appearing, nontoxic appearing. Patient is sitting in a wheelchair. HEAD: normocephalic, atraumatic. No Covarrubias signs or raccoon eyes. EYES: Sclera clear/white. Conjunctiva normal. Vision is grossly intact. Extraocular movements intact. Pupils PERRLA EARS: External ears normal, Hearing grossly intact. NOSE: External nose normal THROAT: Mucous membranes moist, NECK: Neck supple, non-tender without lymphadenopathy, masses or thyromegaly. No cervical point tenderness, crepitus or step-offs. CARDIOVASCULAR: Regular rate and rhythm without murmurs, gallops, or rubs. RESPIRATORY: Clear to auscultation. Breath sounds equal bilaterally. No wheezes, rales, or rhonchi. GASTROINTESTINAL: Abdomen soft, mild tenderness to palpation to left lateral upper and lower quadrants. Nondistended. Bowel sounds are active. No hepato- splenomegaly, or palpable masses. No guarding or rigidity. Negative emilio sign. Positive stewart turners sign to left flank. SKIN: Significant bruising to the lower left lateral rib extending into left flank and left lower abdomen. It is tender throughout. NEURO: awake, alert, and oriented to person, place and time. There were no obvious focal neurologic abnormalities. EXTREMITIES: No joint tenderness, effusion, or edema noted. BACK: Nontender without deformity. No CVA tenderness. No thoracic or lumbar point tenderness, crepitus or step-offs. Course Course Emergency Course: Portions of this record may have been created with voice recognition software Level of Care: Express Care Visit Vital Signs Vital signs: Vital Signs Temperature 98.2 F 01/13/25 11:52 Pulse Rate 70 01/13/25 11:52 Respiratory Rate 20 01/13/25 11:52 Blood Pressure 143/41 H 01/13/25 11:52 Pulse Oximetry 99 01/13/25 11:52 Oxygen Delivery Room Air 01/13/25 11:52 Temperature 98.2 F 01/13/25 11:52 Pulse Rate 70 01/13/25 11:52 Respiratory Rate 20 01/13/25 11:52 Blood Pressure 143/41 H 01/13/25 11:52 Pulse Oximetry 99 01/13/25 11:52 Oxygen Delivery Room Air 01/13/25 11:52 Reviewed Transfer Transfered to: [facility] Transportation: Other (Private vehicle) Transfer rationale: Patient requires higher level care, possible lab work and advanced imaging, rule out internal injuries. Accepting physician: Kavita Oviedo PA-c MDM - Fall MDM Narrative Medical decision making narrative: Patient is unsure how she fell she has significant bruising to her left ribs/left flank. No neurological symptoms, no headaches. Patient denies any in her head or have any other injuries. However Cannot exclude internal injuries given exam findings. Given patient's symptoms, it is recommend the patient seek a higher level care and proceed immediately to the emergency department. Patient is agreeable to go to [facility]. Called over to [facility] and spoke with Kavita Oviedo PA-C who is aware this patient accepted the patient for transfer. Offered EMS and patient declined. Patient says her spouse will take her via private vehicle. Patient advised to go to the ER immediately remain NPO. Differential Diagnosis Differential diagnosis: Likely syncope and other (Rib fracture, rib contusion, internal bleeding, bruising, head injury) Critical Care Time Critical Care Time Critical Care Time: No Discharge Plan Discharge Clinical Impression: Fall Qualifiers: Encounter type: initial encounter Qualified Code(s): W19.XXXA - Unspecified fall, initial encounter Traumatic ecchymosis of flank Qualifiers: Encounter type: initial encounter Qualified Code(s): S30.1XXA - Contusion of abdominal wall, initial encounter Patient Disposition: Acute Care Hospital Condition: Stable Patient Language: Ukrainian Prescriptions: No Action ascorbic acid (vitamin C) [Vitamin C] 500 mg tablet clopidogrel 75 mg tablet 75 mg PO DAILY Patient Comments: HOLD for [address] Acosta aspirin [Adult Low Dose Aspirin] 81 mg tablet,delayed release (DR/EC) 81 mg PO DAILY Patient Comments: HOLD [address] ACOSTA carvedilol 12.5 mg tablet 12.5 mg PO BID atorvastatin 80 mg tablet 80 mg PO DAILY ferrous sulfate [Slow Release Iron] 142 mg (45 mg iron) tablet extended release 142 mg PO DAILY Qty: 90 2RF ascorbate calcium (vitamin C) 500 mg tablet 500 mg PO DAILY Qty: 90 2RF tramadol 50 mg tablet 25 mg PO Q6H PRN (Reason: pain) Qty: 10 0RF lidocaine 5 % adhesive patch,medicated 1 patch topical DAILY Qty: 15 0RF Rx Instructions: leave on most painful area for up to 12 hrs losartan 50 mg tablet 50 mg PO DAILY Qty: 90 2RF pantoprazole 40 mg tablet,delayed release (DR/EC) 40 mg PO QAM Qty: 90 0RF gabapentin 600 mg tablet See Rx Instructions .ROUTE .COMPLEX Qty: 300 0RF Dose Instruction: TAKE 1 TAB BY MOUTH 3X A DAY. MAX DAILY:1800MG/DAY Rx Instructions: TAKE 1 TAB BY MOUTH 3X A DAY. MAX DAILY:1800MG/DAY duloxetine 60 mg capsule,delayed release(DR/EC) 60 mg PO DAILY Qty: 90 0RF Follow-up/Referrals: Satish Desai MD [Primary Care Provider] - Time of Disposition: 12:00
--- OUTSIDE RECORDS SUMMARY | 2025-01-13 13:00 | XMS_ITS ---
Author Organization [facility] Address [address] [place] [address] [facility] [place] [address] Care Team Providers Care Theatre Instructor Name Role Phone CAYLA ALEXANDER, SUSAN Primary Care Provider Odilon Medina Unavailable [phone] ALLERGIES Allergen (clinical drug ingredient) Drug/Non Drug [...] Date Provider Diagnosis [facility] [address] [facility] [place] [address] [place] [address] 11/21/2023 Odilon Stynowick Radiculopathy, lumbosacral region M54.17 [...] neural canal of cervical region M99.31 and halfway (current) use of anticoagulants Z79.01 ASSESSMENTS Encounter Date Diagnosis Assessment Notes Treatment Notes Treatment Clinical Notes Section Notes 11/21/2023 Radiculopathy, lumbosacral region (ICD-10 - [...] as traumatic (ICD-10 - M75.102) 11/21/2023 Radiculopathy, lumbar region (ICD-10 - M54.16) 11/21/2023 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 Racheal's [place]'s and Gaenslen's are positive bilaterally. There is [...] of Present Illness) Category Sub-Category Detail Notes Category Not es Pain Management Radiographic Imaging CT cervical spine [...]
--- OUTSIDE RECORDS SUMMARY | 2025-01-13 13:00 | XMS_ITS ---
Author Organization [facility] Address [address] [place] [address] [place] [address] Care Team Providers Care Film Or Tape Librarian Name Role Phone CAYLA ALEXANDER, SUSAN Primary Care Provider Odilon Medina Unavailable [phone] ALLERGIES Allergen (clinical drug ingredient) Drug/Non Drug [...] 11/06/2023 BMI 23.62 kg/m2 11/06/2023 Post procedure [id number] /84, P=69, R=14. Discharged home per ambulatory. Josué acute distress noted. Encounters Encounter Location Date Provider Diagnosis [facility] [address] [facility] [place] [address] 11/06/2023 Odilon Davisick Radiculopathy, cervical region M54.12 ; Radiculopathy, cervicothoracic region M54.13 and Spinal stenosis, cervical region M48.02 ASSESSMENTS Encounter Date Diagnosis Assessment Notes Treatment Notes Treatment Clinical Notes Section Notes 11/06/2023 Radiculopathy, cervical region (ICD-10 - [...] epidural needle. A 20 gauge [facility] under fluoroscopic guidance. 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 X-ray time: 6 seconds Progress [...] patient's typical axial low back pain. Racheal's [place]'s and Gaenslen's are positive bilaterally. There is [...] and Follow-up: Follow-up Plan documen jacqueline:: Yes [facility] Quality 2020: MIPS Documented:: Compliant
--- OUTSIDE RECORDS SUMMARY | 2025-01-13 13:00 | XMS_ITS | Clinical Summary ---
Author Organization [facility] Address [address] [place] [address] Phone Care Team Providers Care Acting Instructor Name Role Phone Satish Desai MD Primary Care Provider [phone] Allergies Active Allergy Reactions Criticality Noted Date [...] on file Legal Sex Female 4:00 AM RECONCILIATION MANAGER Gender Identity Not on file Sexual [...] 1:22 PM CDT Height 154.9 cm (5' 1) 11/25/2020 1:22 PM CDT Body Mass Index 22.3 11/25/2020 1:22 PM CDT Plan of Treatment Health Maintenance Due Date Last Done Comments DTAP/TDAP/TD VACCINES (1 - Tdap) 1954 PNEUMOCOCCAL VACCINE 50+ YEA RS (1 of 2 - PCV) 1956 ZOSTER VACCINE (1 of 2) 1987 OSTEOPOROSIS SCREENING 2002 RSV VACCINE (60+ or ) (1 - 1-dose 75+ series) 2012 COLORECTAL SCREENING 04/19/2024 04/19/2019, 04/19/2019, 02/16/2017, Additional history exists INFLUENZA VACCINE (#1) 2024 02/26/2019, 2010 Medical Devices Implanted Type Area Digital Sales Director Device Identifier Shelf Expiration Date Model / Serial / Lot Log [id number] - Bladder Slings And Tapes - 1 - Sling Desara System [id number] Implanted:Qty: 1 on 05/07/2011 at [facility] Sling Vagina [employer] 08/05/2013 [id number]-[id number] / / [id number] Procedures Procedure Name Priority Date/Time Associated Diagnosis Comments COLONOSCOPY REPORT 04/19/2019 12 :22 PM RECONCILIATION MANAGER from Last 3 Months or Most Recently Relevant to Health Maintenance Results * COLONOSCOPY REPORT (04/19/2019 12:22 PM RECONCILIATION MANAGER) Narrative Procedure Note Jason Huang MD - 04/19/2019 12:22 PM CST [facility] Endoscopy Patient Name: Vicki Lezama Procedure [...] Addenda: [address]; [place] [address] Jason Huang MD GI PROCEDURE ORDERABLES Final Result from Last 3 Months or Most Recently Relevant to Health Maintenance Insurance MEDICARE PART A AND B [facility] MEDICARE SUPPLEMENT Advance Directives For more information, please contact: [phone] * Full Code (Latest Code Status on [...] 10:07 AM 05/08/2011 1:30 PM Care Teams Acting Instructor Relationship Specialty Start Date End Date Satish Desai MD [address] [place] [address] PCP - General Family Practice 05/04/11
--- OUTSIDE RECORDS SUMMARY | 2025-01-13 13:00 | XMS_ITS | Encounter Summary ---
Author Organization [facility] Address [address] [place] [address] Care Team Providers Care Home Hospice Aide Name Role Phone Satish Desai MD Primary Care Provider Encounter Details Date Type Department Care Team (Late st Contact Info) Description 02/15/2019 Telephone [facility] - Interventional Radiology [address] [place] [address] Keyonna Canela, RN Social History [...] on file Legal Sex Female 2:03 AM STAFF RESPIRATORY THERAPIST Gender Identity Not on file Sexual Orientation Not on file documented as of this encounter Functional Status documented as of this encounter Plan of Treatment Not on file documented as of this encounter Visit Diagnoses Not on filedocumented in this encounter Care Teams Home Hospice Aide Relationship Specialty Start Date End Date Satish Desai MD PCP - General 03/08/11 documented as of this encounter
--- OUTSIDE RECORDS SUMMARY | 2025-01-13 13:00 | XMS_ITS | Clinical Summary ---
Author Organization [facility] Address [address] [place] [address] Care Team Providers Care Freight Loader Name Role Phone Satish Desai MD Primary Care Provider [phone] Allergies Active Allergy Reactions Criticality Noted Date Comments Adhesive Rash Medium Adhesive Tape-Silicones Itching,Rash Medium 05/04/2011 Neomycin Hives Medium 12/27/2021 Uifhncwr-Mxvcdwgqso-Lryqjvggv Rash Medium 2018 Neosporin (Neomycin-Polymyx) Rash Medium [...] tablet Oral for 90 Active gabapentin (NEURONTIN) 600 mg tablet Take [...] WITH MEALS 180 tablet 2 5 Active clopidogreL (PLAVIX) 75 mg tablet TAKE 1 TABLET BY MOUTH EVERY DAY 90 tablet 1 5 Active Active Problems Problem Noted Date Diagnosed Date Bilateral carotid artery stenosis 07/17/2023 CAD (coronary artery disease) 06/08/2023 Nonrheumatic aortic valve insufficiency 06/08/19 24 Chest pain 06/02/2023 Coronary artery disease invo lving chit[place] coronary artery of [place] heart 06/02/2023 Myogenic ptosis of eyelid of [...] 12/28/2021 Scoliosis 12/28/2021 Sacroiliitis, not elsewhere classified Primary localized osteoarthrosis of shoulder reg ion [...] dermatochalasis that is impacting ADLs. Atherosclerosis of [place] ar kieran of both lower extremities with intermittent claudication 07/06/2020 Assessment & Plan (07/06/2020 11:20 AM ACTUARIAL SCIENCE TEACHER): Impression: Patient complain of cool right foot [...] 07/06/2020 Assessment & Plan (07/06/2020 11:26 AM ACTUARIAL SCIENCE TEACHER): Impression: Stable chronic hypertension. Plan: Medications reviewed [...] (02/06/2019): Added automatically from request for surgery [id number] Borderline glaucoma with ocular hypertension 7 02/08/2018 Encounters Date Type Department Care Team Description 12/31/2024 10:36 AM CDT - 12/31/2024 11:59 PM CDT Hospital Encounter [facility] [address] [place] [address] PAD (peripheral artery disease) Discharge Disposition: Discharge to home or self [...] on file Legal Sex Female 2:03 AM ACTUARIAL SCIENCE TEACHER Gender Identity Not on file Sexual Orientation Not on file Obstetrics History Last Filed Vital Signs Vital Sign Reading Time Taken Comments Blood Pressure 116/60 08/16/2024 2:07 PM CDT Pulse 67 08/16/2024 2:07 PM CDT Temperature 36.3 C (97.4 F) 06/09/2023 4:02 AM ACTUARIAL SCIENCE TEACHER Respiratory Rate 18 01/30/2024 2:15 PM CDT Oxygen Saturation 97% 06/09/2023 4:02 AM ACTUARIAL SCIENCE TEACHER Inhaled Oxygen Concentration - - Weight 60.3 kg (133 lb) 08/16/2024 2:07 PM CDT Height 154.9 cm (5' 1) 08/16/2024 2:07 PM CDT Body Mass Index 25.13 08/16/2024 2:07 PM CDT Plan of Treatment Health Maintenance Due Date Last Done Comments Osteoporosis Screening-Bone Density Scan 1937 Hepatitis B Screening 1955 Pneumococcal vaccine 65+ (1 of 2 - PCV) 1956 Zoster Vaccine (1 of 2) 1987 Well Visit 65+ 2002 Depression Screening 04/04/2020 04/04/2019 Fall Risk Assessment 06/09/2024 06/09/2023 Influenza Vaccine (#1) 2025 9, 04/03/2018, 02/01/2016, Additional history exists DTaP/Tdap/Td Vaccine (2 - Td or Tdap) 04/21/2033 04/21/2023 Medical Devices Implanted Type Area Family Practice Physician Device Identifier Shelf Expiration Date Model / Serial / Lot Allergan Usa Inc 5513-001 Xen 150um 45um 6mm Treatment System Preload Injector Intraocular Latex Free - [id number] - [id number] Implanted:Qty: 1 on 03/04/2019 by Katerina Shirley MD at [facility] Drain Right: Eye Allergan Usa [employer] [id number] 07/26/2021 5513-001 / [id number] Description:XEN REF 5513-001 Right eye Spinal Cord Stimulator Back Armasight Synergy Xd Monorail 2.25mm 16mm 144cm Delivery System 1 Access [id number] - [id number] Implanted:Qty: 1 on 06/08/2023 by Daniel Prince MD at [facility] [employer] TimeBridge 11/22/2024 [id number] / / [id number] [place] [employer] TimeBridge Synergy Xd Monorail 2.5mm 20mm 144cm Delivery System 1 Access [id number] - [id number] Implanted:Qty: 1 on 06/08/2023 by Daniel Prince MD at [facility] [employer] TimeBridge 06/12/2024 [id number] / / [id number] [place] [employer] TimeBridge Synergy Xd Monorail 3.5mm 24mm 144cm Delivery System 1 Access [id number] - [id number] Implanted:Qty: 1 on 06/08/2023 by Daniel Prince MD at [facility] [employer] 06/07/2024 [id number] / / [id number] TerMUV Interactive Angio-Seal Vip 6fr Closere Device [id number] - [id number] Implanted:Qty: 1 on 06/08/2023 by Daniel Prince MD at [facility] [employer] 01/19/2024 [id number] / / [id number] [place] [address] COMMERCIAL GENERIC MEDICARE [employer] [place] [address] Advance Directives For more information, please contact: [phone] * Full Code (Latest Code Status on File) Date Activated Date Inactivated Comments 06/08/2023 2:44 PM 06/09/2023 3:19 PM Care Teams Freight Loader Relationship Specialty Start Date End Date Satish Desai MD PCP - General 03/08/11
--- OUTSIDE RECORDS SUMMARY | 2025-01-13 13:00 | XMS_ITS ---
Author Organization [facility] Address [address] [place] [address] [place] [address] Care Team Providers Care Rigging Foreman Name Role Phone CAYLA ALEXANDER, SUSAN Primary Care Provider Odilon Medina Unavailable [phone] ALLERGIES Allergen (clinical drug ingredient) Drug/Non Drug [...] Status Risk SNOMED Code Notes Problem termite control representative (current) use of anticoagulants (Z79.01) Active confirmed Long-term current use of anticoagulant (907023384) VITAL SIGNS Blood pressure systolic 122 mm Hg 10/27/19 24 Blood pressure diastolic 55 mm Hg 024 Heart Rate 68 /min 10/27/2023 Respiratory Rate 18 /min 10/27/2023 Height 5 ft 1 in in 10/27/2023 Weight 125 lbs 10/27/2023 BMI 23.62 kg/m2 10/27/2023 Encounters Encounter Location Date Provider Diagnosis [facility] [address] [place] [address] 10/27/2023 Odilon Benton Radiculopathy, lumbosacral region M54.17 [...] of cervical region M99.31 and termite control representative (current) use of anticoagulants Z79.01 ASSESSMENTS Encounter Date Diagnosis Assessment Notes Treatment Notes Treatment Clinical Notes Section Notes 10/27/2023 Radiculopathy, lumbosacral region (ICD-10 - [...] as traumatic (ICD-10 - M75.102) 10/27/2023 Radiculopathy, lumbar region (ICD-10 - M54.16) 10/27/2023 Osseous stenosis of neural canal of cervical region (ICD-10 - M99.31) 10/27/2023 shelter (current) use of anticoagulants (ICD-10 - Z79.01) The patient was instructed to discontinue aspirin for 6 days prior to the procedure. I made the patient aware that she will be at an increased risk for a thromboembolic event during this time and she is willing to accept this risk. The patient was instructed to notify her primary care physician and/or reservations sales agent to obtain clearance prior to discontinuing this [...] agreeable to proceeding at this time. termite control representative (current) use of anticoagulant s The patient was instructed to discontinue aspirin for 6 days prior to the procedure. I made the patient aware that she will be at an increased risk for a thromboembolic event during this time and she is willing to accept this risk. The patient was instructed to notify her primary care physician and/or reservations sales agent to obtain clearance prior to discontinuing this [...] patient's typical axial low back pain. Racheal's [place]'s and Gaenslen's are positive bilaterally. There is [...]
--- OUTSIDE RECORDS SUMMARY | 2025-01-13 13:00 | XMS_ITS | Clinical Summary ---
Author Organization [facility] Address [address] [facility] [place] [address] Care Team Providers Care Farm Products Shipper Name Role Phone Satish Desai MD Primary Care Provider [phone] Source Comments [facility],non-owned Affiliates and Associated Physician Practices is amultiple site organization consisting of ambulatory clinics and hospital sitesin [place], [place], [place] and [place]. This disclosure is being madepursuant to the Care Everywhere program and may not contain all information available regarding this patient. Last updated 18.[facility] Allergies Active Allergy Reactions Criticality Noted Date Comments Djzlvvhj-Oasivoltjg-Ooqiprqis Rash Medium 2018 Medications * Be aware [...] on file Legal Sex Female 6:23 AM FREELANCE DIGITAL PROJECT MANAGER Gender Identity Not on file Sexual [...] season) 2024 DEPRESSION SCREENING 05/29/2024 INFLUENZA VACCINE (#1) 2025 HEPATITIS B VACCINE Aged Out No [...] Payer (Ef fective for All Dates) Name:Yomaira eLzama Member ID:Not on file Relation to Subscriber:Not on file Name:YOMAIRA LEZAMA Subscriber ID:Not on file (Home) Address: [address] [address] [place] [address] Payer ID:Not on file Group ID:Not on file Type:Self Pay Address: [place], [place] Care Teams Farm Products Shipper Relationship Specialty Start Date End Date Satish Desai MD [address] [place] [address] PCP - General 09/18/18
--- OUTSIDE RECORDS SUMMARY | 2025-01-13 13:01 | XMS_ITS | Patient Health Record ---
Author Organization [facility] Address [address] [place] [address] KATIE Barger [address] Care Team Providers Care Septic Tank Servicer Name Role Phone CAYLA ALEXANDER, SUSAN Primary Care Provider Ivisa jovanna guillechavezmadhuriOdilon Unavailable [phone] ALLERGIES Allergen (clinical drug ingredient) Drug/Non Drug [...] M OUTH DAILY Oral for 90 Active PROBLEMS Problem Type ICD Code Onset Dates Problem Status W/U Status Risk SNOMED Code Notes Problem Primary osteoarthritis, left shoulder (M19.012) Active confirmed Localized, prim yossi osteoarthritis of the shoulder region (925832830) Problem Primary osteoarthritis, unspecified shoulder (M19.019) Active confirmed Localized , primary osteoarthritis of the shoulder region (183721066) Problem Unspecified osteoarthritis, unspecified site (M19.90) Active confirmed Osteoarthritis (263076517) Problem Pain in left shoulder (M25.512) Active confirmed Shoulder joint pain (114854945) Problem Scoliosis, unspecified (M41.9) Active confirmed Scoliosis (919624480) Problem Spondylolisthesis, lumbar region (M43.16) Active confirmed Acquired spondylolisthesis (987500815) Problem Sacroiliitis, not elsewhere classified (M46.1) Active confirmed Solitary sacroiliitis (991525971) Problem Spondylosis without myelopathy or radiculopathy, cervical region (M47.812) Active confirmed Cervical spondylosis without myelopathy (029726689) Problem Spondylosis without myelopathy or radiculopathy, cervicothoracic region (M47.813) Active confirmed Cervical spondylosis without myelopathy (375817819) Problem Spondylosis without myelopathy or radiculopathy, lumbar region (M47.816) Active confirmed Lumbosacral spondylosis without myelopathy (13550865) Problem Spondylosis without myelopathy or radiculopathy, lumbosacral region (M47.817) Active confirmed Lumbosacral spondylosis without myelopathy (disorder) (05874198) Problem Spinal stenosis, cervical region (M48.02) Active confirmed Spinal stenosis in cervical region (97436544) Problem Other intervertebral disc degeneration, lumbar region (M51.36) Active confirmed Degeneration of lumbar intervertebral disc (67408908) Problem Other intervertebral disc degeneration, lumbosacral region (M51.37) Active confirmed Degeneration of lumbosacral intervertebral disc (88191254) Problem Radiculopathy, cervical region (M54.12) Active confirmed Cervical radiculopathy (46366564) Problem Radiculopathy, cervicothoracic region (M54.13) Active confirmed Cervical radiculopathy (11184717) Problem Radiculopathy, lumbar region (M54.16) Active confirmed Lumbar radiculopathy (950146874) Problem Radiculopathy, lumbosacral region (M54.17) Active confirmed Lumbosacral radiculopathy (2200083) Problem Unspecified rotator cuff tear or rupture of left shoulder, not specified as traumatic (M75.102) Active confirmed Nontraumatic rupture of muscle or tendon structure of rotator cuff of left shoulder (disorder) (1191238815726150) Problem Postlaminectomy syndrome, not elsewhere classified (M96.1) Active confirmed Post-lami nectomy syndrome (54988257) Problem 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) Active confirmed Spinal stenosis in cervical region (04709343) Problem Osseous stenosis of neural canal of lumbar region (M99.33) Active confirmed Spinal stenosis of lumbar region (40329063) Problem Osseous and subluxation stenosis of intervertebral foramina of lumbar region (M99.63) Active confirmed Spinal steno sis of lumbar region (15372956) Problem care home (current) use of anticoagulants (Z79.01) Active confirmed Long-term curre nt use of anticoagulant (174754654) Problem Myalgia, other site (M79.18) Active confirmed Muscle pain (42653118) PLAN OF TREATMENT Pending Test Test Name Order Date CT Scan : Lumbar Spine 10/04/2022 CT Scan : Shoulder 11/15/2021 CT Scan : C-Spine W/O Contrast 2 CT Scan : C-Spine W/O Contrast 3 Insurance Providers Payer Name Payer Address Payer Phone Subscriber Number Group Number Insured Name Patient Relationship to Insured Coverage Start Date Coverage End Date [facility] [address] [place] [address] [id number] YOMAIRA VALDES Self - patient is the insured MEDICAL (GENERAL) HISTORY Medical History History ICD Code Anemia Depression Gastric ulcer Hypertension Stroke Surgical History Surgery Date(Month/Year) Anterior lumbar fusion 2001 Lumbar fusion L4/5 2007 Anterior cervical discectomy and fusion C4-5 & C5-6 2013 Lumbar surgery 2014 3 Cardiac Stents placed 05/2023
== END 2025-01-13 12:44 | disposition short-term general hospital (02) ==
PROVIDERS: PCP Family Medicine
DX: S30.1XXA Contusion of abdominal wall, initial encounter (principal); W18.30XA Fall on same level, unspecified, initial encounter; I10 Essential (primary) hypertension; J45.909 Unspecified asthma, uncomplicated; I25.10 Atherosclerotic heart disease of native coronary artery without angina pectoris; Z86.73 Personal history of transient ischemic attack (TIA), and cerebral infarction without residual deficits; E78.2 Mixed hyperlipidemia; H40.9 Unspecified glaucoma; M51.369 Other intervertebral disc degeneration, lumbar region without mention of lumbar back pain or lower extremity pain; Z95.5 Presence of coronary angioplasty implant and graft; Z86.16 Personal history of COVID-19; Z79.82 Long term (current) use of aspirin; Z79.01 Long term (current) use of anticoagulants
CPT/HCPCS: 99212; G0463

== ENCOUNTER 2025-01-13 13:10 | Emergency (ER) | payer OTHER, SELFPAY ==
--- NOTE | ~2025-01-13 | CT_ITS ---
EXAMINATION: CT chest abdomen pelvis w con DATE: 01/13/2025 18:22 CDT INDICATION: Status post fall. Bruising left ribs and abdomen. TECHNIQUE: Computed tomography (CT) of the chest, abdomen, and pelvis was performed with 100 cc Omnip aque 350 intravenous contrast. The dose-length product was 166.46 mGy-cm. Automated exposure control and iterative reconstruction technique were employed. COMPARISON: CT dated 11/12/2020 FINDINGS: CHEST CT: There is dependent atelectasis. Cardiomegaly. Large hiatal hernia. No significant pleural or pericard ial effusion. No pneumothorax. No endobronchial lesions. There are are calcified granulomas of the artie ngs and multiple lymph nodes in the mediastinum. There are calcified granulomas of the liver and sple en. No evidence for aortic aneurysm or dissection. There is atherosclerosis of the aorta and coronary arteries. There are surgical fusion changes partially visualized in the cervical spine. There is adv anced multilevel spondylosis of the lower cervical, thoracic and upper lumbar spine. ABDOMEN/PELVIS CT: Nonobstructive bowel gas pattern. Moderate colonic fecal loading. Fatty infiltration of the liver. Th e pancreas, adrenal glands and kidneys are unremarkable. No abnormal pelvic masses or fluid collectio ns. No free air or free fluid. There are spinal fusion changes at L2-L5. There is severe lumbar spond ylosis. There is levoscoliosis. Mild osteoarthritis of the hips. There are laminectomy changes at mul tiple levels. IMPRESSION: 1. No acute abnormality of the chest, abdomen or pelvis. Reviewed, dictated and finalized at location A.
--- NOTE | ~2025-01-13 | CT_ITS ---
EXAMINATION: CT brain wo con DATE: 01/13/2025 18:08 INDICATION: Status post fall. Patient on blood thinners. TECHNIQUE: Computed tomography (CT) of the head was performed without intravenous contrast. The dose- length product was 166.46 mGy-cm. Automated exposure control and iterative reconstruction technique w ere employed. COMPARISON: CT dated 10/14/2022 FINDINGS: Brain parenchymal volume normal for age. 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 No ventriculomegaly or midline shift. Basilar cisterns are chambers nt. There is mild mucosal thickening of the ethmoid sinuses. There is a left mastoid effusion. No dep ressed skull fractures. IMPRESSION: 1. No acute intracranial abnormality. Reviewed, dictated and finalized at location A.
--- NOTE | ~2025-01-13 | CT_ITS ---
EXAMINATION: CT cervical spine wo con DATE: 01/13/2025 18:08 INDICATION: Neck pain after fall. Patient on blood thinners. TECHNIQUE: Computed tomography (CT) of the cervical spine was performed without intravenous contrast. The dose-length product was 165 mGy-cm. Automated exposure control and iterative reconstruction tech nique were employed. COMPARISON: CT dated 10/31/2023 FINDINGS: There are changes of anterior fusion C4-C6. Odontoid process is normal. Craniovertebral leanna ction is normal. There is disc narrowing at all remaining cervical spine levels. There is degenerativ e anterolisthesis at C6-7, C7-T1 and T1-T2. No paraspinal soft tissue abnormality. There is advanced multilevel facet and to a lesser degree of uncinate hypertrophy. Mild levocurvature of the cervical s pine. Lung apices are unremarkable. IMPRESSION: 1. No acute abnormality of the cervical spine. 2: Severe cervical spondylosis. Reviewed, dictated and finalized at location A.
--- NOTE | ~2025-01-13 | XR_ITS ---
HISTORY: fall, rib pain COMPARISON: 10/16/2024 TECHNIQUE: 3 views of the left ribs were performed along with a PA and lateral view of the chest FINDINGS: No acute displaced left-sided rib fracture is appreciated. Bone mineralization is age-appropriate. Dorsal column stimulator device is noted. Uncurling of the thoracic aorta is identified, not uncommon in an elderly patient. Calcified lymph nodes within the mediastinum, suggesting prior granulomatous disease. The remainder of the cardiomediastinal silhouette is otherwise unremarkable. Elevation of the left hemidiaphragm with adjacent compressive atelectasis. The lungs are otherwise clear. Aerated stool within the left upper quadrant, with an indeterminate bowel gas pattern and significant fecal stasis. Posterior fixation of the upper lumbar spine. Anterior fixation of the lower cervical spine. IMPRESSION: No acute displaced left-sided rib fracture. Elevation of the left hemidiaphragm with adjacent compressive atelectasis. The lungs are otherwise clear. Significant fecal stasis. Reviewed, dictated and finalized at location A.
[2025-01-13 13:36] VITALS: BP 135/51; PULSE 66; RESP 14; TEMP 36.9; O2SAT 98
--- OUTSIDE RECORDS SUMMARY | 2025-01-13 14:03 | XMS_ITS | Continuity of Care Document ---
Author Organization [facility] Address [address] [place] [address] Phone Care Team Providers Care Color Sprayer Name Role Phone Omid Tobar MD Unavailable [...] on Encounter Office/outpat ient visit,toña han [facility] [employer], [address], [place], [place], [id number], [place] tel:[phone] [facility] LOC PRIM OSTEOARTH-ONEAL DROTATOR CUFF RUPTURE 3-201 3 Ekaterina Anne. [address], [address], [place], [place], [address] , [place]. tel:[phone] Referring Provider: Robert Alvarado, [address] [place] [address], [place], [address]. tel:[phone] Office/outpat ient visit,new, [facility], [address] [facility] [address] [facility], [place], [place], [address], tel:[phone] [facility] PAIN IN LIMBROTATOR CUFF RUPTURE 3 Ekaterina Anne. [address], [address], [place], [place], [address] , [place]. tel:[phone] Referring Provider: Robert Alvarado, [address] [place] [address], [place], [address]. tel:[phone] Family History Family Member Type Diagnosis Age At Onset No Information Immunizations Vaccine Date Status Comments Flu (split) (3 yrs or older) administered Source: New Immunization Record Payers Payer name Insurance type Covered democrat ID Authoriza tion(s) [place] Part B [id number] [facility] [id number] Social History Type Description Quantity Date Captured [...]
--- OUTSIDE RECORDS SUMMARY | 2025-01-13 14:04 | XMS_ITS | Clinical Summary ---
Author Organization [facility] Address [address] [place] [address] Care Team Providers Care Periodicals Clerk Name Role Phone Satish Desai MD Primary Care Provider [phone] Allergies Active Allergy Reactions Criticality Noted Date Comments Adhesive Rash Medium Adhesive Tape-Silicones Itching,Rash Medium 05/04/2011 Neomycin Hives Medium 12/27/2021 Qdhdjlmt-Boloutkmbz-Pzacnrlrm Rash Medium 2018 Neosporin (Neomycin-Polymyx) Rash Medium [...] pain 06/02/2023 Coronary artery disease invo lving [place] coronary artery of [place] heart 06/02/2023 Myogenic ptosis of eyelid of [...] dermatochalasis that is impacting ADLs. Atherosclerosis of [place] ar kieran of both lower extremities with intermittent claudication 07/06/2020 Assessment & Plan (07/06/2020 11:20 AM CLOTHING SUPERVISOR): Impression: Patient complain of cool right foot [...] 07/06/2020 Assessment & Plan (07/06/2020 11:26 AM CLOTHING SUPERVISOR): Impression: Stable chronic hypertension. 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 Encounters Date Type Department Care Team Description 12/31/2024 10:36 AM CDT - 12/31/2024 11:59 PM CDT Hospital Encounter [facility] [address] [place] [address] PAD (peripheral artery disease) Discharge Disposition: Discharge [...] on file Legal Sex Female 2:03 AM CLOTHING SUPERVISOR Gender Identity Not on file Sexual Orientation Not on file Obstetrics History Last Filed Vital Signs Vital Sign Reading Time Taken Comments Blood Pressure 116/60 08/16/2024 2:07 PM CDT Pulse 67 08/16/2024 2:07 PM CDT Temperature 36.3 C (97.4 F) 06/09/2023 4:02 AM CLOTHING SUPERVISOR Respiratory Rate 18 01/30/2024 2:15 PM CDT Oxygen Saturation 97% 06/09/2023 4:02 AM CLOTHING SUPERVISOR Inhaled Oxygen Concentration - - Weight 60.3 [...] 04/21/2033 04/21/2023 Medical Devices Implanted Type Area Pipe Tester Device Identifier Shelf Expiration Date Model / Serial / Lot Allergan Usa Inc 5513-001 Xen 150um 45um 6mm Treatment System Preload Injector Intraocular Latex Free - [id number] - [id number] Implanted:Qty: 1 on 03/04/2019 by Katerina Shirley MD at [facility] Drain Right: Eye Allergan [employer] [id number] 07/26/2021 5513-001 / [id number] Description:XEN REF 5513-001 Right eye Spinal Cord Stimulator Back Chromatik Synergy Xd Monorail 2.25mm 16mm 144cm Delivery System 1 Access [id number] - [id number] Implanted:Qty: 1 on 06/08/2023 by Daniel Prince MD at [facility] [employer] 11/22/2024 [id number] / / [id number] [place] DealPing Synergy Xd Monorail 2.5mm 20mm 144cm Delivery System 1 Access [id number] - [id number] Implanted:Qty: 1 on 06/08/2023 by Daniel Prince MD at [facility] [employer] [place] [employer] 06/12/2024 [id number] / / [id number] [employer] DealPing Synergy Xd Monorail 3.5mm 24mm 144cm Delivery System 1 Access [id number] - [id number] Implanted:Qty: 1 on 06/08/2023 by Daniel Prince MD at [facility] [employer] 06/07/2024 [id number] / / [id number] [employer] Angio-Seal Vip 6fr Closere Device [id number] - [id number] Implanted:Qty: 1 on 06/08/2023 by Daniel Prince MD at [facility] [employer] 01/19/2024 [id number] / / [id number] [place] [address] COMMERCIAL GENERIC MEDICARE [place] [address] Advance Directives For more information, please contact: [phone] * Full Code (Latest Code Status on File) Date Activated Date Inactivated Comments 06/08/2023 2:44 PM 06/09/2023 3:19 PM Care Teams Periodicals Clerk Relationship Specialty Start Date End Date Satish Desai MD PCP - General 03/08/11
--- OUTSIDE RECORDS SUMMARY | 2025-01-13 14:04 | XMS_ITS | Clinical Summary ---
Author Organization [facility] Address [address] [place] [address] Care Team Providers Care Neuropsychiatric Aide Name Role Phone Satish Desai MD Primary Care Provider [phone] Source Comments [facility],non-owned Affiliates and Associated Physician Practices is amultiple site organization consisting of ambulatory clinics and hospital sitesin [place], [place], [place] and [place]. This disclosure is being madepursuant to the Care Everywhere program and may not contain all information available regarding this patient. Last updated 18.[facility] Allergies Active Allergy Reactions Criticality Noted Date Comments Svorqyjp-Fqymmbqilm-Usvtcugzl Rash Medium 2018 Medications * Be aware [...] on file Legal Sex Female 6:23 AM FREEZER PERSON Gender Identity Not on file Sexual Orientation [...] ID:Not on file (Home) Address: [address] [address] [place] [address] Payer ID:Not on file Group ID:Not on file Type:Self Pay Address: [place], [place] Care Teams Neuropsychiatric Aide Relationship Specialty Start Date End Date Satish Desai MD [address] [place] [address] PCP - General 09/18/18
--- OUTSIDE RECORDS SUMMARY | 2025-01-13 14:04 | XMS_ITS | Clinical Summary ---
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 Gender Identity Not on file Sexual [...] 02/26/2019, 2010 Medical Devices Implanted Type Area Device Processing Engineer Device Identifier Shelf Expiration Date Model / Serial / Lot Log [id number] - Bladder Slings And Tapes - 1 - Sling Desara System Navin-Ds01 Implanted:Qty: 1 on 05/07/2011 at [facility] Sling Vagina [employer] 08/05/2013 NAVIN-DS01 / / [id number] Procedures Procedure Name Priority Date/Time Associated Diagnosis Comments COLONOSCOPY REPORT 04/19/2019 12 :22 PM 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; [place] [address] Jason Huang MD GI PROCEDURE ORDERABLES Final Result from Last 3 Months or Most Recently Relevant to Health Maintenance Insurance MEDICARE PART A AND B [facility] MEDICARE SUPPLEMENT Advance Directives For more information, please contact: [phone] * Full Code (Latest Code Status on [...] 10:07 AM 05/08/2011 1:30 PM Care Teams Cotton Farmer Relationship Specialty Start Date End Date Satish Desai MD [address] [place] [address] PCP - General Family Practice 05/04/11
--- OUTSIDE RECORDS SUMMARY | 2025-01-13 14:04 | XMS_ITS | Encounter Summary ---
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
--- OUTSIDE RECORDS SUMMARY | 2025-01-13 14:04 | XMS_ITS | Continuity of Care Document ---
[facility] Address [address] [place] [address] Phone Care Team Providers Care Director Of Estate Name Role Phone Trev Napier MD, FACS Unavailable Unavailab le Allergies, Adverse Reactions, Alerts Substance Reaction Status [...] route every day 81 MG - Active Procedures Procedure Date No Charge Optomap Fundus Photos 025 Visual Field Examination(s) SCODI, Posterior Segment Eye Exam & Treatment No Charge Optomap Fundus Photos - 024 Office/outpatient Visit, Est Refraction SCODI, Retina [...] Yes / No Effective Date File Name No Information Encounters Encounter Description Practice Location Reason(s) For Visit Diagnoses Date Provider Providers Copied on Encounter [facility], [facility] [address], [place], [place], [address], tel:[phone] SEC Cong SLADE Professional No Information 5 Karthikeyan Karimi. [facility] [address], [address], [place], [place], [address], [place]. tel:[phone] [facility], [address], [place], [place], [address], tel:[phone] SEC Cong SLADE Professional Complete Exam (chief complaint) Primary open-angle glaucoma, bilateral, severe stagePseudoph daisy of both eyesPtosis of both upper eyelidsBand keratopathy, bilateralEpir etinal membrane (ERM) of left eyeEversion of lacrimal punctum of both sidesDry eye syndrome of bilateral lacrimal glands 5 Kym OD Norma. [facility] [address], [address], [place], [place], [address], [place]. tel:[phone] Ray Hernandez MD.Omid Mitchell MD.Scooter Solorzano MD.Other Provider: Jak Freedman MD, [address] [facility] [address], [place], [address]. tel:[phone] ring Provider: Trev Mead, [facility] [address], [place], [address]. tel:[phone] Office/outpa tient Visit, Est [facility], [address] [place] [address] [address], [place], [place], [address], tel:[phone] SEC Cong SLADE Professional Work In Emergency (chief complaint) Subconjunctiv al hemorrhage of left eye Oct-2 4 Alden OD Katelynn. [address] [place] [address] [employer] [address], [address], [place], [place], [address], [place]. tel:[phone] Ray Hernandez MD.Omid Mitchell MD.Scooter Solorzano MD.Referrin g Provider: Trev Mead, [address], [place], [address]. [phone] [facility], [facility] [place] [facility] [address], [place], [place], [address], [place] tel:[phone] SEC Cong SLADE Professional Follow up visit (chief complaint) Pseudophakia of both eyesEpiretina l membrane (ERM) of left eyePrimary open-angle glaucoma, bilateral, severe stage September- 3 Kip Biggs. [address] [facility] [address], [address] [place], [address], [place]. tel:[phone] Ray Hernandez MD.Omid Mitchell MD.Scooter Solorzano MD.Referrin g Provider: Trev Mead, [address], [place], [address]. [phone] [facility], [facility] [address], [place], [place], [address], [place] [phone] SEC Cong SLADE Professional Complete Exam (chief complaint) Chorioretinal scar of right eyePseudophak ia of both eyesEpiretina l membrane (ERM) of left eyePrimary open-angle glaucoma, bilateral, severe stagePtosis of both upper eyelids 2 Kip Biggs. [address], [address] [place], [address], [place]. tel:[phone] Ray Hernandez MD.Omid Mitchell MD.Scooter Solorzano MD.Speciali [place]: [place], [address] [facility] [address], [place], [address]. tel:[phone] ring Provider: Trev Mead, [facility] [place] [address], [place], [address]. tel:[phone] [facility], [address] [place] [address] [address], [place], [place], [address], [place] tel:[phone] SEC Cong [place] Professional Complete Exam (chief complaint) Chorioretinal scar of right eyeEpiretinal membrane (ERM) of left eyePrimary open-angle glaucoma, bilateral, severe stagePseudoph daisy of both eyes 1 Kip Biggs. [address], [facility] [address], [address], [place], [address], [place]. tel:[phone] Specialist: Ray Hernandez MD, [address] [facility] [facility], [place], [address]. tel:[phone] alist: Omid Mitchell MD, [address] [place], [address]. tel:[phone] alist: Scooter Solorzano MD, [address] [place], [address]. tel:[phone] ring Provider: Trev Mead, [facility] [place] [address], [place], [address]. tel:[phone] [facility], [address] [place] [address] [address], [place], [place], [address], [place] tel:[phone] SEC [place] Professional Complete Exam (chief complaint) Primary open-angle glaucoma, bilateral, severe stagePresence of pseudophakiaO ther secondary cataract, left eye 0 Kip Biggs. [address] [facility], [address], [address], [place], [address], [place]. tel:[phone] Ray Hernandez MD.Omid Mitchell MD.Referrin g Provider: Trev Mead, [address], [place], [address]. tel:[phone] Office/outpa tient Visit, Est [facility], [address] [employer] [address], [place], [place], [address], [place] tel:[phone] SEC Cong [place] Professional WIE (chief complaint) Bilateral visual field constrictionB and keratopathy of right eyeAge-relate d macular degeneration with central geographic atrophyGlauco ma filtering bleb of left eyeOther secondary cataract, left eyePrimary open-angle glaucoma, bilateral, severe stage Feb-2 6-202 0 Sakina OD Jak. [address] [place] [address], [place], [address], . tel:[phone] Specialist: Ray Hernandez MD, [address] [place] [address], [place], [address]. tel:[phone] alist: Omid Mitchell MD, [address] [place] [address], [address]. tel:[phone] ring Provider: Trev Mead, [address], [place], [address]. tel:[phone] [facility], [facility] [employer] [address], [place], [place], [address], [place] tel:[phone] SEC Cong SLADE Professional Complete Exam (chief complaint) Primary open-angle glaucoma, bilateral, severe stagePseudoph daisy of both eyesOther secondary cataract, left eyeBand keratopathy of right eyeChorioreti nal scar of right eyeEpiretinal membrane (ERM) of left eyeVitreous degeneration, left eyeGlaucoma filtering bleb of left eyeRPE mottling of macula Jul- 9-201 9 Kip Biggs. [address] [facility], [address], [address], [place], [address], . tel:[phone] Specialist: Ray Hernandez MD, [address] [facility] 6th Floor, [place], [address]. tel:[phone] alist: Omid Mitchell MD, [address] [facility], [address], [place], [address]. tel:[phone] Provider: Omid Mitchell MD, [address] [facility] [address], [address], [place], [address]. tel:[phone] Provider: Ray Hernandez MD, [address] [facility] 6th [address], [place], [address]. tel:[phone] ring Provider: Trev Mead, [address], [place], [address]. tel:[phone] [facility], [facility] [address], [place], [place], [address], [place] tel:[phone] SEC Cong SLADE Professional Complete Exam and OCT (chief complaint) Primary open-angle glaucoma, bilateral, severe stageVitreous degeneration, left eyeDry eye syndrome of bilateral lacrimal glandsPresenc e of pseudophakiaE piretinal membrane (ERM) of right eyeAge-relate d macular degeneration with central geographic atrophyMacula r edema Jul- 8 Kip Biggs. [address], [facility] [place], [address], [place]. tel:[phone] Referring Provider: Trev Mead, [address], [place], [address]. tel:[phone] Office/outpa tient Visit, Est [facility], [address], [place], [place], [address], [place] tel:[phone] ETTA Umanzor glaucoma, pressure check (chief complaint) No Information 7 Kip Biggs. [address], [address], [place], [place], [address], [place]. tel:[phone] Referring Provider: Roney Mead, [address], [place], [address]. tel:[phone] Office/outpa tient Visit, [facility], [address] [place] [address] [address], [place], [place], [address], tel:[phone] SEC Cong SLADE Professional glaucoma, pressure check (chief complaint) No Information 7 Kip Biggs. [address], [place], [address], . tel:[phone] Referring Provider: Roney Mead, [address], [place], [address]. tel:[phone] Office/outpa tient Visit, [facility], [address] [place] [address] [address], [place], [place], [address], tel: [phone] Jorge N [address] IOP ck (chief complaint) No Information 7 Kip Biggs. [address], [place], [address], . tel:[phone] Referring Provider: Roney Mead, [address], [place], [address]. tel:[phone] [facility], [address] [place] [address] [address], [place], [place], [address], tel:[phone] SEC [place] N [address] Blurry vision (chief complaint) No Information 7 Karthikeyan Karimi. [address] [place] [address], [address], [place], [place], [address], . tel:[phone] Referring Provider: Roney Mead, [address], [place], [address]. tel:[phone] Office/outpa tient Visit, [facility], [address] [place] [address] [address], [place], [place], [address], [place] tel:[phone] ETTA SLADE Professional glaucoma, pressure check (chief complaint) No Information 7 Karthikeyan Karimi. [address] [place] [address] [employer], [address], [place], [place], [address], [place]. tel:[phone] Referring Provider: Roney Mead, [address], [place], [address]. tel:[phone] Office/outpa tient Visit, [facility], [address] [place] [address] [address], [place], [place], [address], [place] tel:[phone] SEC Cong SLADE Professional IOP ck (chief complaint) No Information 6 Karthikeyan Karimi. [address] [place] [address] [employer], [address], [place], [place], [address], [place]. tel:[phone] Referring Provider: Roney Mead, [address], [place], [address]. tel:[phone] Office/outpa tient Visit, [facility], [address] [place] [address] [address], [place], [place], [address], [place] tel:[phone] ETTA SLADE Professional Discharge, mucus (chief complaint) No Information 6 Kip Biggs. [address], [address], [place], [place], [address], [place]. tel:[phone] Referring Provider: Roney Mead, [address], [place], [address]. tel:[phone] Office/outpa tient Visit, [facility], [address] [place] [address] [address], [place], [place], [address], [place] tel:[phone] SEC [place] N AnchorFree IOP ck (chief complaint) No Information 6 Karthikeyan Trev. [facility] [address], [address], [place], [place], [address], [place]. tel:[phone] Referring Provider: Omid Verduzco, [address] [place], [address]. tel:[phone] Office/outpa tient Visit, Est [facility] [employer] [facility], [address] [employer] [address], [place], [place], [address], [place] tel:[phone] SEC Cong SLADE Professional 3 week IOP check (chief complaint) No Information 6 Nathan Sim. [address], [address], [place], [place], [address], [place]. tel:[phone] Referring Provider: Roney Mead, [address], [place], [address]. tel:[phone] [employer] [facility] [employer] [facility], [address] [employer] [address], [place], [place], [address], [place] tel:[phone] SEC Cong [place] Professional Yearly-Com plete (chief complaint) No Information - 6 [facility] Trev. [facility] [address], [address], [place], [place], [address], [place]. tel:[phone] Referring Provider: Roney Mead, [address], [place], [address]. tel:[phone] [facility] [employer] [facility], [address] [employer] [address], [place], [place], [address], [place] tel:[phone] SEC [place] Professional No Information 6 Wankum Roney. [address], [address], [place], [place], [address], [place]. tel:[phone] [facility], [address] [place] [address], [place], [place], [address], [place] tel:[phone] SEC Jorge Umanzor Complete Exam (chief complaint) No Information 4-201 4 [facility] Trev. [address] [place] [address] [employer], [address], [place], [place], [address], [place]. tel:[phone] Referring Provider: Roney Mead, [address], [place], [address]. tel:[phone] Office/outpa tient Visit, [facility], [address] [place] [address] [address], [place], [place], [address], [place] tel:[phone] SEC Jorge Umanzor No Information 4 [facility] Trev. [address] [place] [address] [employer], [address], [place], [place], [address], [place]. tel:[phone] Referring Provider: Roney Mead, [address], [place], [address]. [phone] Office/outpa tient Visit, [facility], [address] [place] [address] [address], [place], [place], [address], [place] tel:[phone] SEC Jorge Umanzor No Information 201 3 Karthikeyan Trev. [facility] [address], [address], [place], [place], [address], [place]. tel:[phone] Referring Provider: Roney Mead, [address], [place], [address]. tel:[phone] Office/outpa tient Visit, [facility], [address] [place] [address] [address], [place], [place], [address], [place] [phone] SEC Jorge [place] No Information Sep-2 3 3 Karthikeyan Karimi. [address], [address], [place], [place], [address], [place]. tel:[phone] Referring Provider: Omid Verduzco, [address] [place], [address]. tel:[phone] Office/outpa tient Visit, [facility], [address] [place] [address], [place], [place], [address], [place] tel:[phone] SEC Henderson InEdge Professional No Information Rashid- 0 3 Wanbessy Sim. [address], [address] [place], [address], [place]. tel:[phone] Referring Provider: Roney Mead, [address] [facility], [address]. tel:[phone] [facility], [address] [place] [address], [place], [place], [address], [place] tel:[phone] SEC Henderson InEdge Professional No Information 3 Nathan Sim. [address] [facility], [facility] [place], [address], [place]. tel:[phone] Referring Provider: Roney Mead, [address] [place], [address]. tel:[phone] [facility], [address] [place] [address], [place], [place], [address], [place] tel:[phone] SEC Henderson InEdge Professional No Information 2 Nathan Sim. [address] [facility], [address] [place], [address], [place]. tel:[phone] Referring Provider: Roney Mead, [address] [facility] [place], [address]. tel:[phone] [employer] [facility], [address] [place] [address], [place], [place], [address], [place] tel:[phone] SEC Cong YANY Professional No Information Nov-3 0-201 2 Nathan Sim. [address], [address], [place], [place], [address], [place]. tel:[phone] Referring Provider: Roney Mead, [address], [place], [address]. tel:[phone] [employer] [facility], [address] [place] [address], [place], [place], [address], [place] tel:[phone] [facility] No Information Mar- 2 Karthikeyan Trev. [address], [address], [place], [place], [address], [place]. tel:[phone] Referring Provider: Roney Mead, [address], [place], [address]. tel:[phone] [facility], [address] [place] [address], [place], [place], [address], [place] tel:[phone] SEC Jorge Van Hernandezclearsky [facility] No Information Mar- 8 2 Karthikeyan Trev. [address] [address], [address], [place], [place], [address], [place]. tel:[phone] Referring Provider: Roney Mead, [address], [place], [address]. tel:[phone] Office/outpa tient Visit, Est [facility], [address] [place] [address], [place], [place], [address], [place] tel:[phone] SEC Henderson YANY Professional No Information Jan- 2 Karthikeyan Trev. [address], [address], [place], [place], [address], [place]. tel:[phone] Referring Provider: Roneysarahi Mead, [address] [facility] [address], [place], [address]. tel:[phone] [facility], [address] [place] [address], [place], [place], [address], [place] tel:[phone] SEC [place] Professional No Information Aug-1 3-201 2 Wankum Roney. [address] [facility], [address], [place], [place], [address], [place]. tel:[phone] Referring Provider: Roney Mead, [address] [facility] [address], [place], [address]. tel:[phone] [facility], [address] [place] [address], [place], [place], [address], [place] tel:[phone] SEC [place] Professional No Information Aug-0 8-201 1 Wankum Roney. [address] [facility], [address], [place], [place], [address], [place]. tel:[phone] [facility], [address] [place] [address], [place], [place], [address], [place] tel:[phone] SEC Cong [place] Professional No Information Nathaniel-0 7-201 0 Wankum Roney. [address] [facility].in[facility], [address], [place], [place], [address], [place]. tel:[phone] Office/outpa tient Visit, Est [facility], [address] [place] [address], [place], [place], [address], [place] tel:[phone] SEC Cong [place] Professional No Information Nov-2 4-200 9 Wankum Roney. [address] [facility], [address] [place], [address], [place]. tel:[phone] [facility], [address] [facility] [address], [place], [place], [address], tel:[phone] SEC Henderson YANY Professional No Information 9 Nathan Sim. [address] DavidMyxerMount S[facility], [facility] [place], [address], . tel:[phone] [facility], [address] [place] [address], [place], [place], [address], tel:[phone] SEC Cong YANY Professional No Information 8 Nathan Sim. [address], [facility] [place], [address], . tel:[phone] Family History Family Member Type Diagnosis Age At Onset Multiple Problem (finding) Heart Disease Problem (finding) Family history of diabetes mellitus type 2 Payers Payer name Insurance type Covered constitution party ID Authoriza tidomonique(s) [employer] [id number] Social History Type Description Quantity Date Captured Comments Alcohol Use Details Unknown Caffeine Use Details Unknown Tobacco Use Status No Information Smoking Status No Information Sex Female Chief Complaint And Reason For Visit No Information Reason For Referral Reason For Referral No Information Plan Of Treatment Date Type Action Status Referral Referred To: Ray Hernandez [address] [place], [place] [id number] Ordered: Referrals: Ophthalmology. Ray Hernandez. Evaluate and treat ordered Patient Education Dry Eyes: Care Instruct ions completed Patient Education Open-Angle Glaucoma: Ca re Instructions completed Patient Education Open-Angle Glaucoma: Ca re Instructions completed Patient Education Open-Angle Glaucoma: Ca re Instructions completed Patient Education Open-Angle Glaucoma: Ca re Instructions completed Patient Education Open-Angle Glaucoma: Ca re Instructions completed History Of Present Illness Encounter Date Complaint History Of Prese nt Illness Complete Exam The 89 year old patient presents for evaluation of Complete Exam in the right eye and left eye. Patient is pseudo ou with yag caps ou. Patient has Band K. Patient has hx of XEN ou. Patient denies any changes in vision ou. Patient is not going to [facility] any longer. Patient states her left eye matters a lot. 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 [facility] suggests adding to [...] Occ HTN. [facility] and he was concrened that OD IOP [...] with no changes.Patient see's Dr Mitchell at [facility]. Functional Status Date Functional Assessmen t No Information Instructions Date Instruction Additional Infor nola Impression/Plan Impression/Plan Impression/Plan Impression/Plan Impression/Plan Impression/Plan Impression/Plan Impression/Plan Impression/Plan Use of eye drops discussed. Rela jacqeuline to Primary open-angle glaucoma, bilateral, severe stage Primary open-angle g laucoma, right eye, severe stage - Educational material provided Related to Primary open-angle glaucoma, right eye, severe stage Follow up - Refer to [employer] Hernandez for Glaucoma evaluation and possible treatment Impression/Plan - PO AG OU:- IOP elevated OU- Patient on maximum drop regimen- Recent treatment with topical steroids for CME; stopped due to IOP elevation; Off all steroids for 2 weeks; IOP still elevated- HVF today shows significant VF defects OU (OS>OD)- Advised referral to resource specialist for evaluation for possible surgical treatment given inadequate response to maximal drop therapy- Refer to Ray Hernandez MD for evaluation and treatment- Continue same drops in the interim Impression/Plan - PO AG with elevated IOP OS:- IOP in 30s OS yesterday in Dr. Mitchell's office; 25 today- Possible steroid response; now off all steroids- Continue Simbrinza TID OU and Travatan QHS OU- Once Travatan sample is gone switch to Latanoprost QHS OU.- Start Timolol OU BID, sent Rx to [facility] today.- Continue Ketorolac BID OU - Recommend [...] angle glaucoma of both eyes, indeterminate stage Follow up - Return t o clinic in 1 month for Complete + HVF 24-2 and PACHS Impression/Plan - PO AG:- IOP has responded well to Travatan Z sample.- Recommend patient use the sample of Travatan Z QHS OU until gone.- Once sample is gone switch to Latanoprost QHS OU.- Latanoprost was prescribed to [facility] today.- Continue Simbrinza TID OU, Ketorolac BID OU and FML QD OU.- Recommend patient return to clinic in 1 month for complete exam and glaucoma testing or sooner with problems. Follow up - IOP check in 1-2 [...] cataract, left eye Follow up - 6 months complete ex [...] with her PCP. Follow up - 6 moths IOP check Impression/Plan - In traocular pressure well controlled, tolerating medications. Will continue with same regimen. Will alternate visits with Dr. Mitchell so she is being seen by someone every 6 months. Ocular hypertension, bilateral - Use of eye drops discussed Related to Ocular hypertension, bilateral Follow up - Return t o clinic as scheduled Impression/Plan - Di agnosis discussed with patient. [...] return as scheduled or sooner with problems. Impression/Plan - IO P is not at target. Will change to Simbrinza TID. ERX to Secure-NOKpe. If too expensive she will contact our office for a substitution. Return to the office in a few months for IOP check Follow up - Return t o Dr Mitchell for follow up Impression/Plan - IO P within normal range. Use Ketorlac and Brim to BID OD. Keep appt with Dr Mitchell in 2 weeks. Return to clinic as needed. Follow up - 2 week I OP Check with RAFAELA or JOSE Impression/Plan - Di agnosis discussed in detail [...] material provided Related to Ocular hypertension, bilateral - 6 months follow up Related to [...] PUCKERING OCULAR HYPERTENSION MACULAR PUCKERING [facility] - Meds reviewed Pred taper to qday [...] - will see Dr. Mitchell in a [facility] cme-saw Dr. Mitchell and he adjusted meds [...] Hernandez to see pt then return to [facility]. Related to FOLLOW-UP SURGERY NOS 1day postop [...] act, Nuclear Sclerosis Assessments Type Assessment Date No Information Patient Care Teams Name Effective Dates (start - stop) Status Members No Information
--- NOTE | 2025-01-13 14:33 | ED.FALL ---
HPI - Fall General Chief Complaint: Fall <Kavita Oviedo PA-C - Last Filed: 01/14/25 09:45> Stated Complaint: fall on monday <Kavita Oviedo PA-C - Last Filed: 01/14/25 09:45> Time Seen by Provider: 01/13/25 14:33 <Kavita Oviedo PA-C - Last Filed: 01/14/25 09:45> Focused HPI: This is a 89 year old female that presents to the ER for a fall 2 days ago. Unsure of what caused the fall. No prodromal symptoms. Reports a ground level fall. She did not hit her head. Reports she landed on her bottom and hit a table on the left side of her rib pain. Patient takes clopidogrel and baby aspirin daily. GENERAL: Elderly, well-nourished, and in no acute distress. HEAD: Normocephalic, atraumatic. CHEST: Clear to auscultation. ?No respiratory distress. HEART: Regular rate and rhythm.? NEURO: ?Alert and oriented x3. Patient screened in triage and initial orders placed.? ?Additional care and disposition to be based upon?diagnostic testing and treatment. <Kavita Oviedo PA-C - Last Filed: 01/14/25 09:45> Focused HPI: This is a 89 year old female that presents to the ER for a fall 2 days ago. Unsure of what caused the fall. No prodromal symptoms. Reports a ground level fall. She did not hit her head. Reports she landed on her bottom and hit a table on the left side of her rib pain. Patient takes clopidogrel and baby aspirin daily. GENERAL: Elderly, well-nourished, and in no acute distress. HEAD: Normocephalic, atraumatic. CHEST: Clear to auscultation. ?No respiratory distress. HEART: Regular rate and rhythm.? NEURO: ?Alert and oriented x3. Patient screened in triage and initial orders placed.? ?Additional care and disposition to be based upon?diagnostic testing and treatment. <KRISTINE Miller Last Filed: 01/13/25 19:15> Source: patient <KRISTINE Miller Last Filed: 01/13/25 19:15> Mode of arrival: ambulatory <Ligia Shetty PA-C - Last Filed: 01/13/25 19:15> Limitations: no limitations <KRISTINE Miller Last Filed: 01/13/25 19:15> History of Present Illness HPI Narrative: Agree with above HPI. Denies shortness of breath, nausea, vomiting, dizziness, lightheadedness. Patient notes she falls frequently. <KRISTINE Miller Last Filed: 01/13/25 19:15> Related Data Home Medications: Home Medications ?Medication ?Instructions ?Recorded ?Confirmed ?Last Taken ?Type aspirin 81 mg tablet,delayed 81 mg PO DAILY 06/13/23 01/07/25 10/15/24 History release (Adult Low Dose Aspirin) clopidogrel 75 mg tablet 75 mg PO DAILY 06/13/23 01/07/25 10/16/24 History carvedilol 12.5 mg tablet 12.5 mg PO BID 08/28/23 01/07/25 10/16/24 History atorvastatin 80 mg tablet 80 mg PO DAILY 09/25/23 01/07/25 10/15/24 History ascorbic acid (vitamin C) 500 mg 01/13/25 Unknown History tablet (Vitamin C) <Kavita Oviedo PA-C - Last Filed: 01/14/25 09:45> Allergies/Adverse Reactions: Allergies Allergy/AdvReac Type Severity Reaction Status Date / Time adhesive tape Allergy Unknown Rash Verified 01/13/25 13:35 bacitracin Allergy Unknown Rash Verified 01/13/25 13:35 gramicidin D Allergy Unknown Rash Verified 01/13/25 13:35 polymyxin B Allergy Unknown Rash Verified 01/13/25 13:35 OBEY Inhibitors AdvReac Intermediate Cough Verified 01/13/25 13:35 montelukast (From Singulair) AdvReac Intermediate Diarrhea Verified 01/13/25 13:35 <Kavita Oviedo PA-C - Last Filed: 01/14/25 09:45> Review of Systems Review of Systems: All systems reviewed & are unremarkable except as noted in HPI. <KRISTINE Miller Last Filed: 01/13/25 19:15> All systems reviewed & are unremarkable except as noted in HPI and below <Ligia Shetty PA-C - Last Filed: 01/13/25 19:15> [facility] Past Medical History Medical History: Medical History Mass of soft tissue of neck Trigger finger Chronic right hip pain Vertigo Postlaminectomy syndrome of lumbosacral region Left shoulder tendonitis Chest wall mass Hypertension Asthma History of heart attack CAD (coronary artery disease) Face pain Cough due to OBEY inhibitor Otalgia of left ear H/O cataract Contracture of palmar fascia Shingles outbreak Family history of endometriosis in first degree relative COVID-19 virus infection Vagina, candidiasis Changing skin lesion Duodenitis Anemia Chronic rhinitis Headache Foot callus Decreased pulses in feet Depression, major, in remission Mixed hyperlipidemia Incisional hernia Visual loss Gastric ulcer Hip bursitis Glaucoma Neuralgia and neuritis, unspecified Other intervertebral disc degeneration, lumbar region <Kavita Oviedo PA-C - Last Filed: 01/14/25 09:45> Surgical History Surgical History: Surgical History H/O heart artery stent x3 Hx of right coronary artery stent placement H/O: hysterectomy H/O Spinal surgery <Kavita Oviedo PA-C - Last Filed: 01/14/25 09:45> Family History Family History: Family History Mother Cerebrovascular accident Hypertension Sibling Family history of coronary artery disease Heart disease Hypertension Cerebrovascular accident Cancer Acute myocardial infarction Father Parkinsons disease Sibling Acute myocardial infarction Heart disease Other Family history of mental disorder <Kavita Oviedo PA-C - Last Filed: 01/14/25 09:45> Social History Social History: Social History Social History: Caffeine-tea Smoking status: Never smoker Second hand tobacco smoke exposure: Yes Alcohol intake: never Substance use: never Substance use type: does not use 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 Do You Feel Safe in your Home?: Yes Lack of Transportation: No Lack of Food: Never True Current Housing: I Have Housing Concerned About Future Housing: No Difficulty Paying Gas/Electric Bills: No Difficulty Paying for Meds: No Currently Unemployed: No Education: Associate Degree Difficulty w/ Childcare or Family Care: No Living arrangements: with family Additional living arrangements comments: with sp Occupation/Education: retired 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 HEAD: Normocephalic, atraumatic. EYES: PERRL/EOMI, conjunctiva clear, no nystagmus RESPIRATORY: Airway patent, respirations nonlabored. Clear to auscultation bilaterally, no rales, rhonchi, wheezing. Lung sounds equal marcelina CARDIOVASCULAR: Regular rate and rhythm without murmurs, rubs, or gallops. ABDOMINAL: Soft, TTP along L lateral abdomen with sq hematoma formation, significant purple bruising along lateral aspect of chest/body. Nondistended. Normoactive BS. MUSCULOSKELETAL: Moves all extremities. No gross deformities. No appreciable C/T/L midline spinal tenderness. SKIN: Warm, dry, normal color. NEURO: A&O X3. Speech clear. Cranial nerves II-XII grossly intact. Steady gait. No ataxic movements. No focal deficits. PSYCHIATRIC: Appropriate mood and affect. Normal interaction. <KRISTINE Miller Last Filed: 01/13/25 19:15> Course Vital Signs Vital signs: Vital Signs Temperature 98.4 F 01/13/25 13:36 Pulse Rate 66 01/13/25 13:36 Respiratory Rate 14 01/13/25 13:36 Blood Pressure 135/51 L 01/13/25 13:36 Pulse Oximetry 98 01/13/25 13:36 Oxygen Delivery Room Air 01/13/25 13:36 Temperature 98.4 F 01/13/25 13:36 Pulse Rate 66 01/13/25 13:36 Respiratory Rate 14 01/13/25 13:36 Blood Pressure 135/51 L 01/13/25 13:36 Pulse Oximetry 98 01/13/25 13:36 Oxygen Delivery Room Air 01/13/25 13:36 <Kavita Oviedo PA-C - Last Filed: 01/14/25 09:45> Vital Signs Temperature 98.4 F 01/13/25 13:36 Pulse Rate 66 01/13/25 13:36 Respiratory Rate 14 01/13/25 13:36 Blood Pressure 135/51 L 01/13/25 13:36 Pulse Oximetry 98 01/13/25 13:36 Oxygen Delivery Room Air 01/13/25 13:36 Temperature 98.4 F 01/13/25 13:36 Pulse Rate 66 01/13/25 13:36 Respiratory Rate 14 01/13/25 13:36 Blood Pressure 135/51 L 01/13/25 13:36 Pulse Oximetry 98 01/13/25 13:36 Oxygen Delivery Room Air 01/13/25 13:36 <KRISTINE Miller Last Filed: 01/13/25 19:15> MDM - Fall MDM Narrative Medical decision making narrative: Patient presented to ED 2 days status post ground level fall, unclear exactly how the fall occurred. Reports pain to left ribs/abdomen w/ significant bruising/hematoma formation on exam. Patient does not believe she hit her head, but is unsure. Is on Plavix and aspirin. She is neurologically intact. No focal deficits. Laboratory studies with chronic mild anemia, consistent with previous records. Stable coags. CMP unremarkable. Normal LFTs. CT brain and cervical spine without traumatic findings. X-ray of left ribs without obvious rib fracture CT scan of chest/abdomen/pelvis was obtained and also unremarkable. No rib fracture, internal injury, solid organ injury. Patient updated on lab and imaging results. Safe for discharge home. Will discharge with pain medication, lidocaine patches. Will educated on incentive spirometer use. Advised close follow-up with PCP. Given strict return precautions. She agrees with plan. Discharged in stable condition. <KRISTINE Miller Last Filed: 01/13/25 19:15> Medical Records Attestation: I reviewed the patient's medical records. <KRISTINE Miller Last Filed: 01/13/25 19:15> Lab Data Attestation: I reviewed the patient's lab results. <Ligia Shetty PA-C - Last Filed: 01/13/25 19:15> Result diagrams: 01/13/25 15:13 01/13/25 15:13 <Kavita Oviedo PA-C - Last Filed: 01/14/25 09:45> Labs: Lab Results 01/13/25 Range/Units 15:13 WBC 5.2 (4.5-10.0) K/mm3 RBC 3.50 L (4.2-5.4) M/mm3 Hgb 10.0 L (12.0-15.0) g/dL Hct 32.1 L (37.0-47.0) % MCV 91.7 (80-100) fl MCH 28.6 (26-34) pg MCHC 31.2 L (32-36) g/dl RDW 18.5 H (11.5-14.5) % Plt Count 145 L (150-375) k/mm3 MPV 9.3 (7.4-10.4) fl Immature Gran % (Auto) 0.2 (0-0.5) % Neut % (Auto) 58.0 (45.5-73.1) % Lymph % (Auto) 27.3 (18.3-44.2) % [place] % (Auto) 10.8 H (2.6-8.5) % Eos % (Auto) 3.1 (0-4.4) % Baso % (Auto) 0.6 (0.2-1.2) % Lymph # (Auto) 1.42 (0.9-3.2) K/mm3 [place] # (Auto) 0.6 (0.1-0.6) K/mm3 Eos # (Auto) 0.2 (0-0.3) K/mm3 Baso # (Auto) 0.0 (0.0-0.1) K/mm3 Abs Immat Gran (auto) 0.01 (0.00-0.031) K/mm3 Absolute Neuts (auto) 3.0 (1.3-6.7) K/mm3 Absolute Nucleated RBC 0.000 (0.0-0.012) K/mm3 Nucleated RBC % 0.0 (0.0-0.2) % PT 14.6 (11.1-14.7) Seconds INR 1.1 APTT 34.8 (22.3-36.8) Seconds Sodium 141 (137-145) mmol/L Potassium 4.3 (3.4-5.0) mmol/L Chloride 108 H (98-107) mmol/L Carbon Dioxide 28 (22-30) mmol/L Anion Gap 5 (4-12) mmol/L BUN 13 (7-17) mg/dL Creatinine 0.69 L (0.7-1.0) mg/dL Estim Creat Clear Calc 37 ml/min Estimated GFR > 60 (59 - ) Glucose 88 (65-110) mg/dL Calcium 9.4 (8.4-10.2) mg/dL Total Bilirubin 0.6 (0.2-1.3) mg/dL AST 28 (14-36) U/L ALT 29 (6-35) U/L Alkaline Phosphatase 60 (38-126) U/L Total Protein 6.9 (6.3-8.2) g/dL Albumin 4.0 (3.5-5.1) g/dL <Kavita Oviedo PA-C - Last Filed: 01/14/25 09:45> Lab Results 01/13/25 Range/Units 15:13 WBC 5.2 (4.5-10.0) K/mm3 RBC 3.50 L (4.2-5.4) M/mm3 Hgb 10.0 L (12.0-15.0) g/dL Hct 32.1 L (37.0-47.0) % MCV 91.7 (80-100) fl MCH 28.6 (26-34) pg MCHC 31.2 L (32-36) g/dl RDW 18.5 H (11.5-14.5) % Plt Count 145 L (150-375) k/mm3 MPV 9.3 (7.4-10.4) fl Immature Gran % (Auto) 0.2 (0-0.5) % Neut % (Auto) 58.0 (45.5-73.1) % Lymph % (Auto) 27.3 (18.3-44.2) % [place] % (Auto) 10.8 H (2.6-8.5) % Eos % (Auto) 3.1 (0-4.4) % Baso % (Auto) 0.6 (0.2-1.2) % Lymph # (Auto) 1.42 (0.9-3.2) K/mm3 [place] # (Auto) 0.6 (0.1-0.6) K/mm3 Eos # (Auto) 0.2 (0-0.3) K/mm3 Baso # (Auto) 0.0 (0.0-0.1) K/mm3 Abs Immat Gran (auto) 0.01 (0.00-0.031) K/mm3 Absolute Neuts (auto) 3.0 (1.3-6.7) K/mm3 Absolute Nucleated RBC 0.000 (0.0-0.012) K/mm3 Nucleated RBC % 0.0 (0.0-0.2) % PT 14.6 (11.1-14.7) Seconds INR 1.1 APTT 34.8 (22.3-36.8) Seconds Sodium 141 (137-145) mmol/L Potassium 4.3 (3.4-5.0) mmol/L Chloride 108 H (98-107) mmol/L Carbon Dioxide 28 (22-30) mmol/L Anion Gap 5 (4-12) mmol/L BUN 13 (7-17) mg/dL Creatinine 0.69 L (0.7-1.0) mg/dL Estim Creat Clear Calc 37 ml/min Estimated GFR > 60 (59 - ) Glucose 88 (65-110) mg/dL Calcium 9.4 (8.4-10.2) mg/dL Total Bilirubin 0.6 (0.2-1.3) mg/dL AST 28 (14-36) U/L ALT 29 (6-35) U/L Alkaline Phosphatase 60 (38-126) U/L Total Protein 6.9 (6.3-8.2) g/dL Albumin 4.0 (3.5-5.1) g/dL <Ligia Shetty PA-C - Last Filed: 01/13/25 19:15> Imaging Data Attestation: I personally reviewed and interpreted this imaging study as follows: <Ligia Shetty PA-C - Last Filed: 01/13/25 19:15> Radiologist's impression: ITS Impressions Ribs w/Chest X-Ray 01/13/25 15:08 IMPRESSION: No acute displaced left-sided rib fracture. Elevation of the left hemidiaphragm with adjacent compressive atelectasis. The lungs are otherwise clear. Significant fecal stasis. Head CT 01/13/25 18:09 IMPRESSION: 1. No acute intracranial abnormality. Cervical Spine CT 01/13/25 18:14 IMPRESSION: 1. No acute abnormality of the cervical spine. 2: Severe cervical spondylosis. Chest/Abdomen/Pelvis CT 01/13/25 18:22 IMPRESSION: 1. No acute abnormality of the chest, abdomen or pelvis. <Ligia Shetty PA-C - Last Filed: 01/13/25 19:15> Critical Care Time Critical Care Time Critical Care Time: No <Kavita Oviedo PA-C - Last Filed: 01/14/25 09:45> Discharge Plan Discharge Clinical Impression: Fall from ground level Contusion of rib on left side Qualifiers: Encounter type: initial encounter Qualified Code(s): S29.8XXA - Other specified injuries of thorax, initial encounter Hematoma of abdominal wall Qualifiers: Encounter type: initial encounter Qualified Code(s): S30.1XXA - Contusion of abdominal wall, initial encounter <Kavita Oviedo PA-C - Last Filed: 01/14/25 09:45> Patient Disposition: Home <KRISTINE Posey Last Filed: 01/14/25 09:45> Condition: Stable <KRISTINE Posey Last Filed: 01/14/25 09:45> Instructions: Antibiotic Form, Hematoma (ED), Rib Contusion (ED) <KRISTINE Posey Last Filed: 01/14/25 09:45> Additional Instructions: Continue Tylenol as needed for pain. Tramadol as needed for more severe pain. You may use ice/heat, lidocaine patches to area of pain. Utilize incentive spirometer several times throughout the day to encourage deep breathing. Follow-up with your primary care doctor for further evaluation. Call office to make appointment. Return to the ED if you experience worsening or severe pain, recurrent injury, difficulty breathing, unable to keep down food or drink, or any other symptoms of concern. <Kavita Oviedo PA-C - Last Filed: 01/14/25 09:45> Patient Language: Greek <Kavita Oviedo PA-C - Last Filed: 01/14/25 09:45> Prescriptions: New tramadol 50 mg tablet 25 mg PO Q6H PRN (Reason: pain) Qty: 10 0RF lidocaine 5 % adhesive patch,medicated 1 patch topical DAILY Qty: 15 0RF Rx Instructions: leave on most painful area for up to 12 hrs No Action ascorbic acid (vitamin C) [Vitamin C] 500 mg tablet clopidogrel 75 mg tablet 75 mg PO DAILY Patient Comments: HOLD for [address] Acosta aspirin [Adult Low Dose Aspirin] 81 mg tablet,delayed release (DR/EC) 81 mg PO DAILY Patient Comments: HOLD [address] ACOSTA carvedilol 12.5 mg tablet 12.5 mg PO BID atorvastatin 80 mg tablet 80 mg PO DAILY ferrous sulfate [Slow Release Iron] 142 mg (45 mg iron) tablet extended release 142 mg PO DAILY Qty: 90 2RF ascorbate calcium (vitamin C) 500 mg tablet 500 mg PO DAILY Qty: 90 2RF losartan 50 mg tablet 50 mg PO DAILY Qty: 90 2RF pantoprazole 40 mg tablet,delayed release (DR/EC) 40 mg PO QAM Qty: 90 0RF gabapentin 600 mg tablet See Rx Instructions .ROUTE .COMPLEX Qty: 300 0RF Dose Instruction: TAKE 1 TAB BY MOUTH 3X A DAY. MAX DAILY:1800MG/DAY Rx Instructions: TAKE 1 TAB BY MOUTH 3X A DAY. MAX DAILY:1800MG/DAY duloxetine 60 mg capsule,delayed release(DR/EC) 60 mg PO DAILY Qty: 90 0RF <Kavita Oviedo PA-C - Last Filed: 01/14/25 09:45> Follow-up/Referrals: Satish Desai MD [Primary Care Provider, Family Practice] <Kavita Oviedo PA-C - Last Filed: 01/14/25 09:45> Time of Disposition: 18:50 <Kavita Oviedo PA-C - Last Filed: 01/14/25 09:45> 18:50 <Ligia Shetty PA-C - Last Filed: 01/13/25 19:15>
[2025-01-13 15:28] LABS: Hematocrit 32.1 % (37.0-47.0); Hemoglobin 10.0 g/dL (12.0-15.0); Immature Granulocyte Percent A 0.2 % (0-0.5); Lymphocytes Absolute Auto 1.42 K/mm3 (0.9-3.2); Mean Corpuscular HGB Conc 31.2 g/dl (32-36); Mean Corpuscular Hemoglobin 28.6 pg (26-34); Mean Corpuscular Volume 91.7 fl (80-100); Nucleated Red Blood Cells Absolute Auto 0.000 K/mm3 (0.0-0.012); Nucleated Red Blood Cells Perc 0.0 % (0.0-0.2); Platelet Count Result 145 k/mm3 (150-375); Red Blood Count 3.50 M/mm3 (4.2-5.4); White Blood Count 5.2 K/mm3 (4.5-10.0)
[2025-01-13 15:36] LABS: Alanine Aminotransferase 29 U/L (6-35); Albumin Level 4.0 g/dL (3.5-5.1); Alkaline Phosphatase 60 U/L (38-126); Anion Gap 5 mmol/L (4-12); Aspartate Amino Transferase 28 U/L (14-36); Bilirubin,Total 0.6 mg/dL (0.2-1.3); Blood Urea Nitrogen 13 mg/dL (7-17); Calcium 9.4 mg/dL (8.4-10.2); Carbon Dioxide 28 mmol/L (22-30); Chloride 108 mmol/L (98-107); Estimated CRCL calculation 37 ml/min; Estimated Glomerular Filt Rate > 60; Glucose 88 mg/dL (65-110); Potassium 4.3 mmol/L (3.4-5.0); Sodium 141 mmol/L (137-145); Total Protein 6.9 g/dL (6.3-8.2)
[2025-01-13 15:41] LABS: INR 1.1; Prothrombin Time 14.6 Seconds (11.1-14.7)
[2025-01-13 15:42] LABS: Partial Thromboplastin Time 34.8 Seconds (22.3-36.8)
--- OUTSIDE RECORDS SUMMARY | 2025-01-13 15:45 | XMS_ITS | Clinical Summary ---
Author Organization [facility] Address [address] [place] [address] Care Team Providers Care Sales Executive Name Role Phone Satish Desai MD Primary Care Provider [phone] Allergies Active Allergy Reactions Criticality Noted Date Comments Adhesive Rash Medium Adhesive Tape-Silicones Itching,Rash Medium 05/04/2011 Neomycin Hives Medium 12/27/2021 Bcwxkywo-Rtipiqeptg-Rpgdojxtk Rash Medium 2018 Neosporin (Neomycin-Polymyx) Rash Medium [...] pain 06/02/2023 Coronary artery disease invo lving ambler coronary artery of ambler heart 06/02/2023 Myogenic ptosis of eyelid of [...] dermatochalasis that is impacting ADLs. Atherosclerosis of ambler ar kieran of both lower extremities with intermittent claudication 07/06/2020 Assessment & Plan (07/06/2020 11:20 AM SUPERVISOR YARD): Impression: Patient complain of cool right foot [...] 07/06/2020 Assessment & Plan (07/06/2020 11:26 AM SUPERVISOR YARD): Impression: Stable chronic hypertension. Plan: Medications reviewed [...] (02/06/2019): Added automatically from request for surgery [id number] Borderline glaucoma with ocular hypertension 7 02/08/2018 Encounters Date Type Department Care Team Description 12/31/2024 10:36 AM CDT - 12/31/2024 11:59 PM CDT Hospital Encounter [facility] [address] [place] [id number] PAD (peripheral artery disease) Discharge Disposition: Discharge [...] on file Legal Sex Female 2:03 AM SUPERVISOR YARD Gender Identity Not on file Sexual Orientation Not on file Obstetrics History Last Filed Vital Signs Vital Sign Reading Time Taken Comments Blood Pressure 116/60 08/16/2024 2:07 PM CDT Pulse 67 08/16/2024 2:07 PM CDT Temperature 36.3 C (97.4 F) 06/09/2023 4:02 AM SUPERVISOR YARD Respiratory Rate 18 01/30/2024 2:15 PM CDT Oxygen Saturation 97% 06/09/2023 4:02 AM SUPERVISOR YARD Inhaled Oxygen Concentration - - Weight 60.3 [...] 04/21/2033 04/21/2023 Medical Devices Implanted Type Area Mantel Craftsman Device Identifier Shelf Expiration Date Model / Serial / Lot [employer] 5513-001 Xen 150um 45um 6mm Treatment System Preload Injector Intraocular Latex Free - [id number] - [id number] Implanted:Qty: 1 on 03/04/2019 by Katerina Shirley MD at [facility] Drain Right: Eye [employer] [id number] 07/26/2021 5513-001 / [id number] / [id number] Description:XEN REF 5513-001 Right eye Spinal Cord Stimulator Back [employer] Synergy Xd Monorail 2.25mm 16mm 144cm Delivery System 1 Access [id number] - [id number] Implanted:Qty: 1 on 06/08/2023 by Daniel Prince MD at [facility] [employer] 11/22/2024 [id number] / / [id number] [employer] Synergy Xd Monorail 2.5mm 20mm 144cm Delivery System 1 Access [id number] - [id number] Implanted:Qty: 1 on 06/08/2023 by Daniel Prince MD at [facility] [employer] 06/12/2024 [id number] / / [id number] [employer] Synergy Xd Monorail 3.5mm 24mm 144cm Delivery System 1 Access [id number] - [id number] Implanted:Qty: 1 on 06/08/2023 by Daniel Prince MD at [facility] [employer] 06/07/2024 [id number] / / [id number] [employer] Angio-Seal Vip 6fr Closere Device [id number] - [id number] Implanted:Qty: 1 on 06/08/2023 by Daniel Prince MD at [facility] [employer] 01/19/2024 [id number] / / [id number] [place] [address] COMMERCIAL GENERIC MEDICARE [employer] [place] [address] Advance Directives For more information, please contact: [phone] * Full Code (Latest Code Status on File) Date Activated Date Inactivated Comments 06/08/2023 2:44 PM 06/09/2023 3:19 PM Care Teams Sales Executive Relationship Specialty Start Date End Date Satish Desai MD PCP - General 03/08/11
--- OUTSIDE RECORDS SUMMARY | 2025-01-13 15:45 | XMS_ITS | Clinical Summary ---
Author Organization [facility] Address [address] [place] [address] Phone Care Team Providers Care Nissan Sales Consultant Name Role Phone Satish Desai MD Primary Care Provider [phone] Allergies Active Allergy Reactions Criticality Noted Date [...] on file Legal Sex Female 4:00 AM ASSEMBLY ROOM SUPERVISOR Gender Identity Not on file Sexual [...] 02/26/2019, 2010 Medical Devices Implanted Type Area Health And Safety Trainer Device Identifier Shelf Expiration Date Model / Serial / Lot Log [id number] - Bladder Slings And Tapes - 1 - Sling Desara System Navin-Ds01 Implanted:Qty: 1 on 05/07/2011 at [facility] Sling Vagina [email or web address] 08/05/2013 NAVIN-DS01 / / [id number] Procedures Procedure Name Priority Date/Time Associated Diagnosis Comments COLONOSCOPY REPORT 04/19/2019 12 :22 PM ASSEMBLY ROOM SUPERVISOR from Last 3 Months or Most Recently Relevant to Health Maintenance Results * COLONOSCOPY REPORT (04/19/2019 12:22 PM ASSEMBLY ROOM SUPERVISOR) Narrative Procedure Note Jason Huang MD - 04/19/2019 12:22 PM CST [facility] Endoscopy Patient Name: Vicki Lezama Procedure Date: [...] Addenda: [address]; [place] [address] Jason Huang MD GI PROCEDURE ORDERABLES Final Result from Last 3 Months or Most Recently Relevant to Health Maintenance Insurance MEDICARE PART A AND B [facility] MEDICARE SUPPLEMENT Advance Directives For more information, please contact: [phone] * Full Code (Latest Code Status on [...] 10:07 AM 05/08/2011 1:30 PM Care Teams Nissan Sales Consultant Relationship Specialty Start Date End Date Satish Desai MD [address] [place] [address] PCP - General Family Practice 05/04/11
--- OUTSIDE RECORDS SUMMARY | 2025-01-13 15:45 | XMS_ITS | Continuity of Care Document ---
Author Organization [facility] Address [address] [place] [address] Phone Care Team Providers Care College Dean Name Role Phone Omid Tobar MD Unavailable [...] on Encounter Office/outpat ient visit,[facility], [address], [place], [place], [id number], [place] tel:[phone] [facility] LOC PRIM OSTEOARTH-ONEAL DROTATOR CUFF RUPTURE 3-201 3 Ekaterina Anne. [address], [address], [place], [place], [id number] , [place]. tel:[phone] Referring Provider: Robert Alvarado, [address] [place] [address], [place], [address]. tel:[phone] Office/outpat ient visit,[place], [facility], [address] [facility], [place], [place], [id number], tel:[phone] [facility] PAIN IN LIMBROTATOR CUFF RUPTURE 3 Ekaterina Anne. [address] [facility] [address], [address], [place], [place], [id number] , [place]. tel:[phone] Referring Provider: Robert Alvarado, [address] [place] [address], [place], [address]. tel:[phone] Family History Family Member Type Diagnosis Age At Onset No Information Immunizations Vaccine Date Status Comments Flu (split) (3 yrs or older) administered Source: New Immunization Record Payers Payer name Insurance type Covered libertarian ID Authoriza tion(s) [id number] [facility] [id number] Social History Type Description Quantity Date Captured [...]
--- OUTSIDE RECORDS SUMMARY | 2025-01-13 15:45 | XMS_ITS | Continuity of Care Document ---
Author Organization [email or web address] Address [address] [facility] [address] [place] [address] Phone Care Team Providers Care Quality Assurance Lead Name Role Phone Trev Napier MD, FACS [...] Diagnoses Date Provider Providers Copied on Encounter [email or web address], [facility] [address], [place], [place], [address], tel:[phone] SEC Cnog SLADE Professional No Information 5 Karthikeyan Karimi. [facility] [address], [address], [place], [place], [address], [place]. tel:[phone] [facility], [address], [place], [place], [address], tel:[phone] SEC Cong SLADE Professional Complete Exam (chief complaint) Primary open-angle glaucoma, bilateral, severe stagePseudoph daisy of both eyesPtosis of both upper eyelidsBand keratopathy, bilateralEpir etinal membrane (ERM) of left eyeEversion of lacrimal punctum of both sidesDry eye syndrome of bilateral lacrimal glands 5 Kym OD Norma. [facility] [address], [address], [place], [place], [address], [place]. tel:[phone] Ray Hernandez MD.Omid Mitchell MD.Scooter Solorzano MD.Other Provider: Jak Freedman MD, [address] [facility] [facility] [address], [place], [address]. tel:[phone] ring Provider: Trev Mead, [facility] [address], [place], [address]. tel:[phone] Office/outpa tient Visit, Est [facility], [address] [place] [address] [address], [place], [place], [address], tel:[phone] SEC Cong SLADE Professional Work In Emergency (chief complaint) Subconjunctiv al hemorrhage of left eye Oct-2 4 Alden OD Katelynn. [address] [place] [address] [address], [address], [place], [place], [address], [place]. tel:[phone] Ray Hernandez MD.Omid Mitchell MD.Scooter Solorzano MD.Referrin g Provider: Trev Mead, [address], [place], [address]. [phone] [facility], [facility] [address], [place], [place], [address], [place] tel:[phone] SEC Cong SLADE Professional Follow up visit (chief complaint) Pseudophakia of both eyesEpiretina l membrane (ERM) of left eyePrimary open-angle glaucoma, bilateral, severe stage September- 3 Kip Biggs. [address] [facility] [employer] [address] [place], [address], [place]. tel:[phone] Ray Hernandez MD.Omid Mitchell MD.Scooter Solorzano MD.Referrin g Provider: Trev Mead, [address], [place], [address]. [phone] [facility], [facility] [address], [place], [place], [address], [place] [phone] SEC Cong SLADE Professional Complete Exam (chief complaint) Chorioretinal scar of right eyePseudophak ia of both eyesEpiretina l membrane (ERM) of left eyePrimary open-angle glaucoma, bilateral, severe stagePtosis of both upper eyelids 2 Kip Biggs. [address] [employer] [address] [place], [place], [address], [place]. tel:[phone] Ray Hernandez MD.Omid Mitchell MD.Scooter Solorzano MD.Speciali [place]: [place], [address] [facility] [address], [place], [address]. tel:[phone] ring Provider: Trev Mead, [facility] [address], [place], [address]. tel:[phone] [facility], [address] [place] [address] [address], [place], [place], [address], [place] tel:[phone] SEC Cong [place] Professional Complete Exam (chief complaint) Chorioretinal scar of right eyeEpiretinal membrane (ERM) of left eyePrimary open-angle glaucoma, bilateral, severe stagePseudoph daisy of both eyes 1 Kip Biggs. [address] [employer], [facility] A, [place], [place], [address], [place]. tel:[phone] Specialist: Ray Hernandez MD, [address] [facility], [place], [address]. tel:[phone] alist: Omid Mitchell MD, [address] [place], [address]. tel:[phone] alist: Scooter Solorzano MD, [address] [place], [address]. tel:[phone] ring Provider: Trev Mead, [facility] [address], [place], [address]. tel:[phone] [facility] Hospital[facility], [address] [place] [address] [address], [place], [place], [address], [place] tel:[phone] SEC [place] Professional Complete Exam (chief complaint) Primary open-angle glaucoma, bilateral, severe stagePresence of pseudophakiaO ther secondary cataract, left eye 0 Kip Biggs. [address] [facility], [address], [place], [place], [address], [place]. tel:[phone] Ray Hernandez MD.Omid Mitchell MD.Referrin g Provider: Trev Mead, [address], [place], [address]. tel:[phone] Office/outpa tient Visit, Est [facility], [address], [place], [place], [address], [place] tel:[phone] SEC Cong [place] Professional WIE (chief complaint) Bilateral visual field constrictionB and keratopathy of right eyeAge-relate d macular degeneration with central geographic atrophyGlauco ma filtering bleb of left eyeOther secondary cataract, left eyePrimary open-angle glaucoma, bilateral, severe stage Feb-2 6-202 0 Sakina OD Jak. [address] [place] [address], [place], [address], . tel:[phone] Specialist: Ray Hernandez MD, [address] [place] [address], [place], [address]. tel:[phone] alist: Omid Mitchell MD, [address] [place] [address], [address]. tel:[phone] ring Provider: Trev Mead, [address], [place], [address]. tel:[phone] [facility], [facility] [address], [place], [place], [address], [place] tel:[phone] SEC Cong SLADE Professional Complete Exam (chief complaint) Primary open-angle glaucoma, bilateral, severe stagePseudoph daisy of both eyesOther secondary cataract, left eyeBand keratopathy of right eyeChorioreti nal scar of right eyeEpiretinal membrane (ERM) of left eyeVitreous degeneration, left eyeGlaucoma filtering bleb of left eyeRPE mottling of macula Jul- 9-201 9 Kip Biggs. [address] [facility], [address], [place], [place], [address], . tel:[phone] Specialist: Ray Hernandez MD, [address], [place], [address]. tel:[phone] alist: Omid Mitchell MD, [address], [address], [place], [address]. tel:[phone] Provider: Omid Mitchell MD, [address], [address], [place], [address]. tel:[phone] Provider: Ray Hernandez MD, [address], [place], [address]. tel:[phone] ring Provider: Trev Mead, [address], [place], [address]. tel:[phone] [facility], [facility] [address], [place], [place], [address], [place] tel:[phone] SEC Cong SLADE Professional Complete Exam and OCT (chief complaint) Primary open-angle glaucoma, bilateral, severe stageVitreous degeneration, left eyeDry eye syndrome of bilateral lacrimal glandsPresenc e of pseudophakiaE piretinal membrane (ERM) of right eyeAge-relate d macular degeneration with central geographic atrophyMacula r edema Jul- 8 Kip Biggs. [address], [facility] [place], [address], [place]. tel:[phone] Referring Provider: Trev Mead, [address], [place], [address]. tel:[phone] Office/outpa tient Visit, Est [facility], [address], [place], [place], [address], [place] tel:[phone] ETTA Umanzor glaucoma, pressure check (chief complaint) No Information 7 Kip Biggs. [address], [address], [place], [place], [address], [place]. tel:[phone] Referring Provider: Roney Mead, [address], [place], [address]. tel:[phone] Office/outpa tient Visit, [facility], [address] [place] [address] [address], [place], [place], [address], tel:[phone] SEC Cong SLADE Professional glaucoma, pressure check (chief complaint) No Information 7 Kip Biggs. [address], [address] [place], [address], . tel:[phone] Referring Provider: Roney Mead, [address], [place], [address]. tel:[phone] Office/outpa tient Visit, [facility], [address] [place] [address] [address], [place], [place], [address], tel: [phone] Jorge N [address] IOP ck (chief complaint) No Information 7 Kip Biggs. [address], [address] [place], [address], . tel:[phone] Referring Provider: Roney Mead, [address], [place], [address]. tel:[phone] [facility], [address] [place] [address] [address], [place], [place], [address], tel:[phone] SEC [place] N [place] Blurry vision (chief complaint) No Information 7 Karthikeyan Karimi. [address] [place] [address], [address], [place], [place], [address], . tel:[phone] Referring Provider: Roney Mead, [address], [place], [address]. tel:[phone] Office/outpa tient Visit, [facility], [address] [place] [address] [address], [place], [place], [address], [place] tel:[phone] ETTA SLADE Professional glaucoma, pressure check (chief complaint) No Information 7 Karthikeyan Karimi. [address] [place] [address] [employer], [address], [place], [place], [address], [place]. tel:[phone] Referring Provider: Roney Mead, [address], [place], [address]. tel:[phone] Office/outpa tient Visit, [facility], [address] [place] [address] [address], [place], [place], [address], [place] tel:[phone] SEC Cong SLADE Professional IOP ck (chief complaint) No Information 6 Karthikeyan Karimi. [address] [place] [address] [employer], [address], [place], [place], [address], [place]. tel:[phone] Referring Provider: Roney Mead, [address], [place], [address]. tel:[phone] Office/outpa tient Visit, [facility], [address] [place] [address] [address], [place], [place], [address], [place] tel:[phone] ETTA SLADE Professional Discharge, mucus (chief complaint) No Information 6 Kip Biggs. [address], [address], [place], [place], [address], [place]. tel:[phone] Referring Provider: Roney Mead, [address], [place], [address]. tel:[phone] Office/outpa tient Visit, [facility], [address] [place] [address] [address], [place], [place], [address], [place] tel:[phone] SEC [place] N AlaMarka IOP ck (chief complaint) No Information 6 Karthikeyan Trev. [facility] [address], [address], [place], [place], [address], [place]. tel:[phone] Referring Provider: Omid Verduzco, [address] [place], [address]. tel:[phone] Office/outpa tient Visit, Est [facility] [employer] [facility], [address], [place], [place], [address], [place] tel:[phone] SEC Cong SLADE Professional 3 week IOP check (chief complaint) No Information 6 Nathan Sim. [address], [address], [place], [place], [address], [place]. tel:[phone] Referring Provider: Roney Mead, [address], [place], [address]. tel:[phone] [facility] [employer] [facility], [address] [address], [place], [place], [address], [place] tel:[phone] SEC Cong [place] Professional Yearly-Com plete (chief complaint) No Information - 6 Iva Trev. [facility] [address], [address], [place], [place], [address], [place]. tel:[phone] Referring Provider: Roney Mead, [address], [place], [address]. tel:[phone] [facility] RoadReSnap Eye [facility] [employer] [facility], [address] [address] [facility] [address], [place], [place], [address], [place] tel:[phone] SEC [place] Professional No Information 6 Wankum Roney. [address] [employer] [address], [address], [place], [place], [address], [place]. tel:[phone] [facility], [address] [facility] [address], [place], [place], [address], [place] tel:[phone] SEC Jorge Umanzor Complete Exam (chief complaint) No Information 4-201 4 Iva Trev. [address] [place] [address] [employer], [address], [place], [place], [address], [place]. tel:[phone] Referring Provider: Roney Mead, [address], [place], [address]. tel:[phone] Office/outpa tient Visit, [facility], [address] [place] [address] [address], [place], [place], [address], [place] tel:[phone] SEC Jorge Umanzor No Information 4 Iva Trev. [address] [place] [address] [employer], [address], [place], [place], [address], [place]. tel:[phone] Referring Provider: Roney Mead, [address], [place], [address]. [phone] Office/outpa tient Visit, [facility], [address] [place] [address] [address], [place], [place], [address], [place] tel:[phone] SEC Jorge Umanzor No Information 201 3 Karthikeyan Trev. [facility] [address], [address], [place], [place], [address], [place]. tel:[phone] Referring Provider: Roney Mead, [address], [place], [address]. tel:[phone] Office/outpa tient Visit, [facility], [address] [place] [address] [address], [place], [place], [address], [place] [phone] SEC Jorge Van Silvah No Information Sep-2 3 3 Karthikeyan Karimi. [address], [address], [place], [place], [address], [place]. tel:[phone] Referring Provider: Omid Verduzco, [address] [place], [address]. tel:[phone] Office/outpa tient Visit, [facility], [address] [facility] [address], [place], [place], [address], [place] tel:[phone] SEC [place] [employer] Information Professional No Information Rashid- 0 3 Wanbessy Sim. [address] [employer] [address], [place], [address], [place]. tel:[phone] Referring Provider: Roney Mead, [address] [place], [address]. tel:[phone] [facility], [address] [facility] [address], [place], [place], [address], [place] tel:[phone] SEC [place] [employer] Information Professional No Information 3 Nathan Sim. [address] [facility], [facility] [place], [place], [address], [place]. tel:[phone] Referring Provider: Roney Mead, [address] [place], [address]. tel:[phone] [facility], [address] [facility] [address], [place], [place], [address], [place] tel:[phone] SEC [place] [employer] Information Professional No Information 2 Nathan Sim. [address] [facility], [address], [place], [address], [place]. tel:[phone] Referring Provider: Roney Mead, [address] [facility] [place], [address]. tel:[phone] [facility], [address] [facility] [address], [place], [place], [address], [place] tel:[phone] SEC Cong YANY Professional No Information Nov-3 0-201 2 Nathan Sim. [address], [address], [place], [place], [address], [place]. tel:[phone] Referring Provider: Roney Mead, [address], [place], [address]. tel:[phone] [facility], [address] [facility] [address], [place], [place], [address], [place] tel:[phone] [facility] No Information Mar- 2 Karthikeyan Trev. [address], [address], [place], [place], [address], [place]. tel:[phone] Referring Provider: Roney Mead, [address], [place], [address]. tel:[phone] [facility] HospitalCodement[facility], [address], [place], [place], [address], [place] tel:[phone] SEC Jorge Van [facility] No Information Mar- 8 2 Karthikeyan Trev. [address], [address], [place], [place], [address], [place]. tel:[phone] Referring Provider: Roney Mead, [address], [place], [address]. tel:[phone] Office/outpa tient Visit, Est [facility] RoadBeech Tree Labsion [facility], [address], [place], [place], [address], [place] tel:[phone] SEC [place] YANY Professional No Information Jan- 2 Karthikeyan Trev. [address], [address], [place], [place], [address], [place]. tel:[phone] Referring Provider: Roneysarahi Mead, [address] [facility] [address], [place], [address]. tel:[phone] [facility], [address] [facility], [place], [place], [address], [place] tel:[phone] SEC [place] Professional No Information Aug-1 3-201 2 Wankum Roney. [address] [facility], [address], [place], [place], [address], [place]. tel:[phone] Referring Provider: Roney Mead, [address] [facility] [address], [place], [address]. tel:[phone] [facility], [address] [facility], [place], [place], [address], [place] tel:[phone] SEC [place] Professional No Information Aug-0 8-201 1 Wankum Roney. [address] [facility], [address], [place], [place], [address], [place]. tel:[phone] [facility], [address], [place], [place], [address], [place] tel:[phone] SEC Cong [place] Professional No Information Nathaniel-0 7-201 0 Wankum Roney. [address] [facility], [address], [place], [place], [address], [place]. tel:[phone] Office/outpa tient Visit, Est [facility], [address], [place], [place], [address], [place] tel:[phone] SEC Cong [place] Professional No Information Nov-2 4-200 9 Wankum Roney. [address] [facility], [address] [place], [address], [place]. tel:[phone] [facility], [address] [facility] [address], [place], [place], [address], tel:[phone] SEC [place] YANY Professional No Information 9 Nathan Sim. [address] David[address] MediaH[facility], [facility] [place], [place], [address], . tel:[phone] [facility], [address], [place], [place], [address], tel:[phone] SEC Cong YANY Professional No Information 8 Nathan Sim. [address], [facility] [place], [place], [address], . tel:[phone] Family History Family Member Type Diagnosis Age At Onset Multiple Problem (finding) Heart Disease Problem (finding) Family history of diabetes mellitus type 2 Payers Payer name Insurance type Covered alliance party ID Authoriza tidomonique(s) [employer] [id number] Social History Type Description Quantity Date Captured Comments Alcohol Use Details Unknown Caffeine Use Details Unknown Tobacco Use Status No Information Smoking Status No Information Sex Female Chief Complaint And Reason For Visit No Information Reason For Referral Reason For Referral No Information Plan Of Treatment Date Type Action Status Referral Referred To: Ray Hernandez [address] [place], [place] [id number] Ordered: Referrals: Ophthalmology. Ray Hernandez. Evaluate and [...] and Vitrectomy followed by Dr Mitchell [facility]. Pt saw [facility] 02-26-[address] Mitchell suggests adding to [...] Occ HTN. Pt saw Dr Mitchell at [facility] and he was concrened that OD IOP [...] with no changes.Patient see's Dr Mitchell at [place]. Functional Status Date Functional Assessmen t No Information Instructions Date Instruction Additional Infor nola Impression/Plan Impression/Plan Impression/Plan Impression/Plan Impression/Plan Impression/Plan Impression/Plan Impression/Plan Impression/Plan Use of eye drops discussed. Rela jacqueline to Primary open-angle glaucoma, bilateral, severe stage Primary open-angle g laucoma, right eye, severe stage - Educational material provided Related to Primary open-angle glaucoma, right eye, severe stage Follow up - Refer to Cardiac Exercise Specialist Dr Hernandez for Glaucoma evaluation and possible treatment Impression/Plan - PO AG OU:- IOP elevated OU- Patient on maximum drop regimen- Recent treatment with topical steroids for CME; stopped due to IOP elevation; Off all steroids for 2 weeks; IOP still elevated- HVF today shows significant VF defects OU (OS>OD)- Advised referral to student career development specialist for evaluation for possible surgical treatment [...] Timolol OU BID, sent Rx to [facility] today.- Continue Ketorolac BID OU - Recommend [...] QHS OU.- Latanoprost was prescribed to [facility] today.- Continue Simbrinza TID OU, Ketorolac BID [...] Will change to Simbrinza TID. ERX to [facility]. If too expensive she will contact our [...] PUCKERING OCULAR HYPERTENSION MACULAR PUCKERING monitored by [facility] - Meds reviewed Pred taper to qday for 1 week, then every other day for 1 week then stop Pred. Continue Bromday. Use Brimonidine OU BID. Pt planning a trip to [place] to see her son. Educational materials provided:about [...] Dr. [facility] in [facility]-saw Dr. Mitchell and he adjusted meds [...] Hernandez to see pt then return to [facility]. Related to FOLLOW-UP SURGERY NOS 1day postop [...]
--- OUTSIDE RECORDS SUMMARY | 2025-01-13 15:45 | XMS_ITS | Encounter Summary ---
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
--- OUTSIDE RECORDS SUMMARY | 2025-01-13 15:45 | XMS_ITS | Clinical Summary ---
Author Organization [facility] Address [address] [place] [address] Care Team Providers Care Cash Sales Audit Clerk Name Role Phone Satish Desai MD Primary Care Provider [phone] Source Comments [facility],non-owned Affiliates and Associated Physician Practices is amultiple site organization consisting of ambulatory clinics and hospital sitesin [place], [place], [place] and [place]. This disclosure is being madepursuant to the Care Everywhere program and may not contain all information available regarding this patient. 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
[2025-01-13] MEDS: ACETAMINOPHEN 325 MG TABLET 650 MG PO (17:38)
[2025-01-13] MEDS: traMADol HCL (*CRX) 25 MG TABLET PO (17:38)
== END 2025-01-13 19:50 | disposition home or self-care (01) ==
PROVIDERS: Physician Assistant; Emergency Provider Physician Assistant; PCP Family Medicine
DX: S30.1XXA Contusion of abdominal wall, initial encounter (principal); S20.212A Contusion of left front wall of thorax, initial encounter; I10 Essential (primary) hypertension; I25.2 Old myocardial infarction; I25.10 Atherosclerotic heart disease of native coronary artery without angina pectoris; J45.909 Unspecified asthma, uncomplicated; E78.2 Mixed hyperlipidemia; D64.9 Anemia, unspecified; H40.9 Unspecified glaucoma; F32.5 Major depressive disorder, single episode, in full remission; Z95.5 Presence of coronary angioplasty implant and graft; Z86.16 Personal history of COVID-19; Z90.710 Acquired absence of both cervix and uterus; M47.812 Spondylosis without myelopathy or radiculopathy, cervical region; W01.190A Fall on same level from slipping, tripping and stumbling with subsequent striking against furniture, initial encounter
CPT/HCPCS: 36415; 70450; 71046; 71100; 71260; 72125; 74177; 80053; 85025; 85610; 85730; 99284; A9270; Q9967

== ENCOUNTER 2025-04-29 15:00 | Outpatient (RCR) | payer OTHER, SELFPAY ==
--- NOTE | 2025-02-28 14:52 | OTOPEVAL1 ---
Assessment and note entered by Zack Cason, BRIGITTE/Maryse, CHT OT Evaluation Information Assessment Status Evaluation Diagnosis Trigger finger, unspecified finger ICD-10 Condition Codes (OT) Pain in left hand M79.642 Subjective Information Patient reports experiencing right hand pain for about 6 months. She reports the right middle, ring , and small fingers get stuck. She is right handed. She reports the fingers trigger when doing cooking and housework. She reports pain when the fingers trigger. She reports the palm of her hand is very tender. Reported Pain Level Pain Score 0: Self Report Additional Pain Score Comments No pain at rest. Pain increases to 4/10 with active ROM. Assessment OT Clinical Summary Patient referred to OT with dx of trigger finger of her right hand. She presents with pain, stiffness, and weakness in the right hand that limits her ability to use her dominant hand for ADLs and household tasks. Skilled OT indicated for use of modalities, therapeutic exercise, HEP instruction, and manual therapy to maximize functional strength, flexibility, and use of her right/dominant hand. Plan of Care Interventions Therapeutic Exercise,Manual Therapy,Neuro Re- education,Therapeutic Activities,Check Out for Orthotic/Prosthetic,Ultrasound,Paraffin OT Services Indicated Yes Treatment Frequency and 2x/week for 8 visits Duration These treatments will address the objective and functional deficits as defined above. The patient will be advanced safely and appropriately in order for the patient to progress towards his/her prior level of function. Additional exercises will be introduced and as well as a comprehensive home exercise program upon discharge, if needed, ?to ensure carryover of functional gains achieved in the clinic. This treatment plan has been reviewed and agreement upon by the patient.
--- NOTE | 2025-02-28 14:53 | OPREHPOC ---
Outpatient Therapy Plan of Care This is a Multidisciplinary Plan of Care that may contain components documented by all disciplines (PT, OT, and ST.) OT Problem 1 OT Problem #1 Knowledge Deficit OT Goal 1 Goal / Goal Update 1. Patient to be independent with instructed materials. Target Visit 8 OT Problem 2 OT Problem #2 Pain OT Goal 1 Goal / Goal Update 1. Patient to be able to complete ROM (6-pack hand exercises) without pain. Target Visit 8 OT Problem 3 OT Problem #3 Impaired Strength OT Goal 1 Goal / Goal Update 1. Patient to be able to progress to 2 lb. strengthening for the wrist in all planes to increase gross wrist/forearm strength for ADLs. 2. Patient to be able to progress to yellow theraputty for geospatial specialist/pinch strengthening x5 minutes without pain/triggering. Target Visit 8
--- NOTE | 2025-04-01 13:53 | OTOPPROG ---
Assessment and note entered by Zack Cason, BRIGITTE/Maryse, CHT Evaluation Information Assessment Status Progress Diagnosis Trigger finger, unspecified finger ICD-10 Condition Codes (OT) Pain in left hand M79.642 Subjective Information Patient reports she no longer experiencing triggering of the right middle, ring, or small fingers. She reports the triggering is 100% better, no longer locking up with ADLs. She continues to note that the palm of her hand continues to experience pain and soreness. She reports the pain and stiffness is worse first thing in the morning. Assessment OT Clinical Summary Patient referred to OT with dx of trigger finger of her right hand. She has progressed to no longer experiencing triggering in the hand, but she continues to have hand pain and corsetier weakness that limits her ability to use her dominant hand for ADLs and household tasks. Continued skilled OT indicated for use of modalities, therapeutic exercise, HEP instruction, and manual therapy to maximize functional strength, flexibility, and use of her right/dominant hand. Plan of Care Interventions Therapeutic Exercise,Manual Therapy,Neuro Re- education,Therapeutic Activities,Check Out for Orthotic/Prosthetic,Ultrasound,Paraffin OT Services Indicated Yes Treatment Frequency and 2x/week for 8 visits Duration These treatments will address the objective and functional deficits as defined above. The patient will be advanced safely and appropriately in order for the patient to progress towards his/her prior level of function. Additional exercises will be introduced and as well as a comprehensive home exercise program upon discharge, if needed, ?to ensure carryover of functional gains achieved in the clinic. This treatment plan has been reviewed and agreement upon by the patient.
--- NOTE | 2025-04-01 13:53 | OPREHPOC ---
Outpatient Therapy Plan of Care This is a Multidisciplinary Plan of Care that may contain components documented by all disciplines (PT, OT, and ST.) OT Problem 1 OT Problem #1 Knowledge Deficit OT Goal 1 Goal / Goal Update 1. Patient to be independent with instructed materials. ---OT POC UPDATE 04/01/25--- 1. Met, continue as HEP is progressed Target Visit 16 OT Problem 2 OT Problem #2 Pain OT Goal 1 Goal / Goal Update 1. Patient to be able to complete ROM (6-pack hand exercises) without pain. ---OT POC UPDATE 04/01/25--- 1. Met. New goal: 1. Patient to report 0/10 pain upon waking up in the morning. Target Visit 16 OT Problem 3 OT Problem #3 Impaired Strength OT Goal 1 Goal / Goal Update 1. Patient to be able to progress to 2 lb. strengthening for the wrist in all planes to increase gross wrist/forearm strength for ADLs. 2. Patient to be able to progress to yellow theraputty for engineering professor/pinch strengthening x5 minutes without pain/triggering. ---OT POC UPDATE 04/01/25--- 1. Met 2. Not met, complaints of burning sensation with putty Target Visit 16
--- NOTE | 2025-04-29 15:43 | OTOPDC ---
Assessment and note entered by Zack Cason, BRIGITTE/Maryse, CHT Evaluation Information Assessment Status Discharge Diagnosis Trigger finger, unspecified finger ICD-10 Condition Codes (OT) Pain in left hand M79.642 Subjective Information Patient reports she no longer experiencing triggering of the right middle, ring, or small fingers. She reports the triggering is 100% better, no longer locking up with ADLs. She reports there is no longer a pain in the palm of her hand. She reports her hand is no longer stiff first thing in the morning. ROM is WFL with arthritic changes noted. (R) die inspector strength improved from 34 to 40 lbs. Reported Pain Level Pain Score 0: Self Report Assessment OT Clinical Summary Patient referred to OT with dx of trigger finger of her right hand. She has progressed to no longer experiencing triggering or pain in her hand. She reports she is getting stronger and reports no deficits with ADLs. Patient's ROM and die inspector strength has returned to functional limits. No further skilled OT indicated at this time. D/C OT with goals met. Plan of Care OT Services Indicated No
== END 2025-04-30 08:56 | disposition home or self-care (01) ==
LOC: ANHGOSHOT 15:00
PROVIDERS: PCP Family Medicine; Visit Provider Physician Assistant Surgical
DX: M65.30 Trigger finger, unspecified finger (principal)
CPT/HCPCS: 97018; 97035; 97110; 97140; 97165

== ENCOUNTER 2025-05-06 07:16 | Day surgery (SDC) | payer OTHER, SELFPAY ==
[2025-05-01 10:00] VITALS: BMI 24.5
--- NOTE | ~2025-05-06 | XR_ITS ---
EXAM/PROCEDURE: XR fluoroscopy no charge HISTORY: LEFT INTRA-ARTICULAR SI JT INJ COMPARISON: None available. TECHNIQUE: Fluoroscopic spot images for pain service. Fluoroscopy time: 17.7 seconds Dose: 6.4504 mGy IMPRESSION: Fluoroscopic guided imaging. No radiologist present. See also procedure/operative notes for complete evaluation. Reviewed, dictated and finalized at location A. SECURITY CONSULTING DIRECTOR IMPRESSION: Fluoroscopic guided imaging. No radiologist present. See also proce dure/operative notes for complete evaluation.
[2025-05-06 07:46] VITALS: BP 156/47; PULSE 65; RESP 16; TEMP 37.1; O2SAT 100
--- NOTE | 2025-05-06 08:23 | WPDHPUPDATE1 ---
History and Physical Update Update Date/Time: 05/06/25 08:23 History and Physical has been reviewed, including an updated exam of the patient. There are NO changes in the patient's condition. Risks, benefits, and alternatives have been discussed and questions answered. Patient agrees to proceed with procedure.
--- NOTE | 2025-05-06 08:24 | W.PM.PROC2 ---
Procedure Note - Detailed Date of Procedure 05/06/25 Pre-op Diagnosis Sacroiliitis Post-op Diagnosis Same Procedure Performed Left Sacroiliac Joint Steroid Injection under Fluoroscopic Guidance and with Contrast Control. Surgeon Faisal Escudero MD [employer] None Anesthesia Local Description of Procedure INFORMED CONSENT: Risks, benefits and alternatives to the procedure were discussed in detail with the patient who expressed explicit understanding and consent to proceed. Patient was informed verbally and in written form regarding the risks associated with the procedure including the low risk of serious infection, bleeding/bruising, allergic reaction, nerve or organ injury, paralysis, procedural site pain or discomfort, worsening pain and/or mobility, failure to treat and/or disfigurement. The patient expressed explicit understanding and consent to proceed. All materials required for the procedure were available prior to procedure start. Site and side were marked prior to procedure and confirmed in the presence of the patient. PROCEDURE IN DETAIL: The patient was brought to the procedural suite and placed in the prone position. Patient was made comfortable with use of pillows under the head/chest, hips and ankles. Skin overlying the injection site on the affected side(s) was prepared broadly with ChloraPrep applicator and draped in a sterile manner. Aseptic technique was used throughout. The left SI joint was identified in the AP view and contralateral oblique angulation with caudal tilt was utilized to optimize visualization of the inferior and medial joint line representing the posterior portion of the joint. Local anesthesia was established by infiltration with approximately 5 mL of 2% lidocaine via a 1-1/2 inch 27-gauge needle. A 22-gauge 3.5 inch Quincke spinal needle was advanced until the needle entered the inferior third of the joint space approximately 1cm cephalad from its most inferior point. In the AP view, 0.5 mL of Omnipaque 300 contrast medium was injected after negative aspiration for CSF, blood or other bodily fluid, showing appropriate intra-articular spread of contrast without evidence of intravascular, perineural or intrathecal placement. A 1.5 mL solution containing 10 mg of dexamethasone in 0.5% PF bupivacaine was injected after repeat negative aspiration. Appropriate spread of the injectate was confirmed with washout of previous injected contrast. No parasthesias were elicited. Needle was removed completely intact without difficulty. Images were saved and documented in the patient chart. Patient's skin was cleansed and sterile bandage applied. The patient tolerated the procedure well. The patient was transported to the recovery area in stable condition where they were observed for an appropriate amount of time prior to discharge, without evidence of complication. The patient was instructed to avoid excessive activity for the next 48 hours, including climbing and frequent use of stairs. Showers only for 48 hours. They were instructed not to drive or operate heavy machinery for 24 hours. They are to monitor for severe headaches, fevers, chills, night sweats, erythema/swelling at the site or any other signs of infection, bleeding/bruising, bowel or bladder changes as well as new pain, weakness or numbness in the upper or lower extremity. Should they notice these changes, they are instructed to call our office immediately or report directly to the nearest Emergency Department if no answer or if after posted office hours. COMPLICATIONS: None COMMENTS: None CONTRAST WASTED: 29.5 mL Omnipaque 300. Complications No immediate complications Condition Stable Disposition Same day [facility] Billing Surgery - Charge Forward: Surgery Billing
[2025-05-06] MEDS: dexAMETHasone SOD PHOS INJ 10 MG/ML 1 ML VIAL IV PUSH (08:30)
[2025-05-06] MEDS: BUPivacaine HCL 0.5% 10 ML AMP INFILTRATE (08:30)
[2025-05-06 08:34] VITALS: BP 169/65; PULSE 77; RESP 14; O2SAT 100
[2025-05-06 08:39] VITALS: BP 167/67; PULSE 64; RESP 17; O2SAT 100
[2025-05-06 08:50] VITALS: BP 162/45; PULSE 68; RESP 14; O2SAT 100
== END 2025-05-06 09:05 | disposition home or self-care (01) ==
PROVIDERS: PCP Family Medicine; Visit Provider Anesthesiology Pain Medicine
PROC: (CPT G0260; principal; 2025-05-06 08:25)
DX: M46.1 Sacroiliitis, not elsewhere classified (principal)
CPT/HCPCS: G0260; 27096; 99199

== ENCOUNTER 2025-05-27 10:18 | Emergency (ER) | payer OTHER, SELFPAY ==
[2025-05-27] VITALS (17 sets, daily range): BP systolic 117–150; BP diastolic 37–63; PULSE 62–77; RESP 14–21; TEMP 36.7; O2SAT 94–100
--- NOTE | ~2025-05-27 | CT_ITS ---
CT HEAD NON-CONTRAST Clinical History: daily headaches, weakness Comparison: CT brain 01/13/2025 Technique: Unenhanced axial images skull base to vertex Coronal, sagittal reformats CT images acquired with automatic exposure control for dose reduction DLP: 530 mGy-cm Findings: Large chronic infarct left occipital lobe. Mild white matter microvascular ischemic change. Sulci, ventricles: Unremarkable. No intracerebral hemorrhage. No evidence acute territorial infarct. No mass effect, midline shift. Bony calvarium intact. Visualized paranasal sinuses: Clear. Mastoid air cells: Fluid left side. IMPRESSION: 1. No acute intracranial findings. Reviewed, dictated and finalized at location R. AL SURGEON
--- NOTE | ~2025-05-27 | XR_ITS ---
Examination: XR chest 1V portable Clinical History: weakness Comparison: 10/16/2024 Technique: Portable AP Findings: Cardiomegaly. Lungs clear. Except bibasilar atelectasis. Calcified mediastinal and right hilar nodes. No acute bony abnormality. Large hiatal hernia. IMPRESSION: 1. No acute cardiopulmonary findings given portable technique. Reviewed, dictated and finalized at location R. RREL WORKER
--- NOTE | 2025-05-27 10:41 | ECG_ITS ---
Test Date: 2025-05-27 11:40:09 Measurements Intervals [place] Rate: 63 P: 77 [place]: 339 QRS: -39 QRSD: 97 T: -7 QT: 422 QTc: 435 Interpretive Statements SINUS RHYTHM LEFT AXIS DEVIATION DELAYED PRECORDIAL R/S TRANSITION CONSIDER INFERIOR INFARCT, AGE INDETERMINATE BASELINE ARTIFACT- II, III, AVR, AVL, AVF, V1-V6 ABNORMAL ECG Compared to ECG 06/21/2024 12:50:09 NO SIGNIFICANT CHANGE Electronically Signed On 05-27-2025 19:49:24 SUPERCALENDER OPERATOR by Justin Patton D.O.
--- OUTSIDE RECORDS SUMMARY | 2025-05-27 10:48 | XMS_ITS | Clinical Summary ---
Author Organization [facility] Address [address] [place] [address] Care Team Providers Care Fiberglass Machine Operator Name Role Phone Satish Desai MD Primary Care Provider [phone] Allergies Active Allergy Reactions Criticality Noted Date Comments Adhesive Rash Medium Adhesive Tape-Silicones Itching,Rash Medium 05/04/2011 Neomycin Hives Medium 12/27/2021 Jyculmvv-Tiyzvyibxf-Wnuoyocfi Rash Medium 2018 Neosporin (Neomycin-Polymyx) Rash Medium [...] mg total) by mouth daily 30 tablet 06/10/19 24 Active lisinopriL (PRINIVIL,ZEST RIL) 10 mg tablet Take 1 tablet (10 mg total) by mouth daily 30 tablet 06/09/19 24 Active Additional Information Patient not taking.Reported on 02/21/2025 losartan (COZAAR) 50 mg tablet Oral for 90 Active gabapentin (NEURONTIN) 600 mg tablet Take 0.5 tablets (300 mg total) by mouth 3 (three) times a day 08/09/19 25 Active famotidine (PEPCID) 40 mg tablet Take 1 tablet (40 mg total) by mouth daily 06/18/[address] (CYMBALTA) 60 mg capsule Take 1 capsule (60 mg total) by mouth daily Active ascorbic acid 500 mg tablet,chewabl e 01/14/20 25 Active clopidogreL (PLAVIX) 75 mg tablet TAKE 1 TABLET BY MOUTH EVERY DAY 90 tablet 3 04/30/20 25 Active atorvastatin (LIPITOR) 80 mg tablet TAKE 1 TABLET BY MOUTH EVERY DAY 90 tablet 3 05/19/20 25 Active carvediloL (COREG) 12.5 mg tablet TAKE 1 TABLET BY MOUTH TWICE A DAY WITH FOOD 180 tablet 3 05/19/20 25 Active atorvastatin (LIPITOR) 80 mg tablet TAKE 1 TABLET BY MOUTH EVERY DAY 90 tablet 2 08/20/19 25 025 Discontinued carvediloL (COREG) 12.5 mg tablet TAKE 1 TABLET BY MOUTH TWICE A DAY WITH MEALS 180 tablet 2 08/20/19 25 025 Discontinued clopidogreL (PLAVIX) 75 mg tablet TAKE 1 TABLET BY MOUTH EVERY DAY 90 tablet 1 11/11/19 25 025 Discontinued Active Problems Problem Noted Date Diagnosed Date Bilateral carotid artery stenosis 07/17/2023 CAD (coronary artery disease) 06/08/2023 Nonrheumatic aortic valve insufficiency 06/08/19 Chest pain 06/02/2023 Coronary artery disease invo lving [place] coronary artery of [place] heart 06/02/2023 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 Atherosclerosis of [place] ar kieran of both lower extremities with intermittent claudication 07/06/2020 Assessment & Plan (07/06/2020 11:20 AM MICROSOFT EXCHANGE ARCHITECT): Impression: Patient complain of cool right foot [...] 07/06/2020 Assessment & Plan (07/06/2020 11:26 AM MICROSOFT EXCHANGE ARCHITECT): Impression: Stable chronic hypertension. Plan: Medications reviewed [...] (02/06/2019): Added automatically from request for surgery [id number] Borderline glaucoma with ocular hypertension 7 02/08/2018 Encounters Date Type Department Care Team Description 04/29/2025 Telephone College Director [employer] at [address] [place] [address] Whitney Bay NP 03/17/2025 Orders Only [facility] Director [facility] at [address] [place] [phone] Whitney Bay NP Carotid bruit, unspecified laterality (Primary Dx) 03/17/2025 Telephone [facility] Director [employer] at [address] [place] [phone] Whitney Bay NP 02/28/2025 Telephone College Director [facility] at [address] [place] [phone] Sherrie Arreaga 02/28/2025 Telephone College Director [facility] at [address] [place] [phone] Sherrie Arreaga from Last 3 Months Immunizations Immunization Administration [...] on file Legal Sex Female 2:03 AM MICROSOFT EXCHANGE ARCHITECT Gender Identity Not on file Sexual Orientation Not on file Last Filed Vital Signs Vital Sign Reading Time Taken Comments Blood Pressure 134/56 02/21/2025 1:53 PM CDT Pulse 64 02/21/2025 1:53 PM CDT Temperature 36.3 C (97.4 F) 06/09/2023 4:02 AM MICROSOFT EXCHANGE ARCHITECT Respiratory Rate 18 02/21/2025 1:53 PM CDT Oxygen Saturation 97% 06/09/2023 4:02 AM MICROSOFT EXCHANGE ARCHITECT Inhaled Oxygen Concentration - - Weight 59.4 kg (131 lb) 02/21/2025 1:53 PM CDT Height 154.9 cm (5' 1) 02/21/2025 1:53 PM CDT Body Mass Index 24.75 02/21/2025 1:53 PM CDT Plan of Treatment Health Maintenance Due Date Last Done Comments Osteoporosis Screening-Bone Density Scan 1937 Hepatitis B Screening 1955 Pneumococcal vaccine 65+ (1 of 2 - PCV) 1956 Zoster Vaccine (1 of 2) 1987 Well Visit 65+ 2002 Depression Screening 04/04/2020 04/04/2019 Fall Risk Assessment 06/09/2024 06/09/2023 Influenza Vaccine (#1) 2025 4, 02/26/2019, 04/03/2018, Additional history exists DTaP/Tdap/Td Vaccine (2 - Td or Tdap) 04/21/2033 04/21/2023 Medical Devices Implanted Type Area Die Maker Bench Stamping Device Identifier Shelf Expiration Date Model / Serial / Lot Allergan Usa Inc 5513-001 Xen 150um 45um 6mm Treatment System Preload Injector Intraocular Latex Free - [id number] - [id number] Implanted:Qty: 1 on 03/04/2019 by Katerina Shirley MD at [facility] Drain Right: Eye Allergan Usa Inc [id number] 07/26/2021 5513-001 / [id number] Description:XEN REF 5513-001 Right eye Spinal Cord Stimulator Back [employer] Synergy Xd Monorail 2.25mm 16mm 144cm Delivery System 1 Access [id number] - [id number] Implanted:Qty: 1 on 06/08/2023 by Daniel Prince MD at [facility] [employer] Maya 11/22/2024 [id number] / / [id number] Signal[employer] Scientific Maya Synergy Xd Monorail 2.5mm 20mm 144cm Delivery System 1 Access [id number] - [id number] Implanted:Qty: 1 on 06/08/2023 by Daniel Prince MD at [facility] [employer] Scientific Maya 06/12/2024 [id number] / / [id number] Penfield Scientific Maya Synergy Xd Monorail 3.5mm 24mm 144cm Delivery System 1 Access [id number] - [id number] Implanted:Qty: 1 on 06/08/2023 by Daniel Prince MD at [facility] [employer] Maya 06/07/2024 [id number] / / [id number] [employer] Angio-Seal Vip 6fr Closere Device [id number] - [id number] Implanted:Qty: 1 on 06/08/2023 by Daniel Prince MD at [facility] [employer] 01/19/2024 [id number] / / [id number] Insurance COMMERCIAL GENERIC MEDICARE [employer] [address] Advance Directives For more information, please contact: [phone] * Full Code (Latest Code Status on File) Date Activated Date Inactivated Comments 06/08/2023 2:44 PM 06/09/2023 3:19 PM Care Teams Fiberglass Machine Operator Relationship Specialty Start Date End Date Satish Desai MD PCP - General 03/08/11
--- OUTSIDE RECORDS SUMMARY | 2025-05-27 10:48 | XMS_ITS | Clinical Summary ---
Author Organization [facility] Address [address] [place] [address] Phone Care Team Providers Care Military Logistics Specialist Name Role Phone Satish Desai MD Primary Care Provider [phone] Allergies Active Allergy Reactions Criticality Noted Date [...] BY MOUTH BEFORE BREAKFAST 30 Tablet 14 12/28/202 1 Active Active Problems Problem Noted Date [...] on file Legal Sex Female 4:00 AM REC THERAPIST Gender Identity Not on file Sexual [...] 02/26/2019, 2010 Medical Devices Implanted Type Area Shirt Cleaner Device Identifier Shelf Expiration Date Model / Serial / Lot Log [id number] - Bladder Slings And Tapes - 1 - Sling Desara System Navin-Ds01 Implanted:Qty: 1 on 05/07/2011 at [facility] Sling Vagina [employer]IE [employer] 08/05/2013 NAVIN-DS01 / / [id number] Procedures Procedure Name Priority Date/Time Associated Diagnosis Comments COLONOSCOPY REPORT 04/19/2019 12 :22 PM REC THERAPIST from Last 3 Months or Most Recently Relevant to Health Maintenance Results * COLONOSCOPY REPORT (04/19/2019 12:22 PM REC THERAPIST) Narrative Procedure Note Jason Huang MD - 04/19/2019 12:22 PM CST [facility] Patient Name: Vicki Lezama Procedure Date: [...] of Addenda: [address]; [place] [address] Jason Huang MD GI PROCEDURE ORDERABLES Final Result from Last 3 Months or Most Recently Relevant to Health Maintenance Insurance MEDICARE PART A AND B [facility] MEDICARE SUPPLEMENT Advance Directives For more information, please contact: [phone] * Full Code (Latest Code Status on [...] 10:07 AM 05/08/2011 1:30 PM Care Teams Military Logistics Specialist Relationship Specialty Start Date End Date Satish Desai MD [address] [place] [address] PCP - General Family Practice 05/04/11
--- OUTSIDE RECORDS SUMMARY | 2025-05-27 10:48 | XMS_ITS | Clinical Summary ---
Author Organization [facility] Address [address] [place] [address] Care Team Providers Care Herbarium Worker Name Role Phone Satish Desai MD Primary Care Provider [phone] Source Comments [facility],non-owned Affiliates and Associated Physician Practices is amultiple site organization consisting of ambulatory clinics and hospital sitesin [place], [place], [place] and [place]. This disclosure is being madepursuant to the Care Everywhere program and may not contain all information available regarding this patient. Last updated 18.[facility] Allergies Active Allergy Reactions Criticality Noted Date Comments Fdathqck-Bcxdwarzdm-Dehodgjgb Rash Medium 2018 Medications * Be aware [...] on file Legal Sex Female 6:23 AM SPOOL SORTER Gender Identity Not on file Sexual Orientation [...] yrs (1 - 1-dose 75+ series) 2012 DEPRESSION SCREENING 05/29/2024 COVID-19 VACCINE (1 - 2024-2 6 season) 2025 INFLUENZA VACCINE (#1) 2025 HEPATITIS B VACCINE [...] ID:Not on file (Home) Address: [address] [address] [place] [address] Payer ID:Not on file Group ID:Not on file Type:Self Pay Address: [place], [place] Care Teams Herbarium Worker Relationship Specialty Start Date End Date Satish Desai MD [address] [place] [address] PCP - General 09/18/18
--- OUTSIDE RECORDS SUMMARY | 2025-05-27 10:48 | XMS_ITS | Patient Health Record ---
Author Organization [facility] Address [address] [place] [address] KATIE Barger [address] Phone [phone] Care Team Providers Care Supervisor Nut Processing Name Role Phone CAYLA ALEXANDER, SUSAN Primary Care Provider Cele Benton MD Odilon Unavailable [phone] Allergies Allergen (clinical drug ingredient) Drug/Non Drug Allergy documented on EMR Reaction Allergy Type Onset Date Status neomycin Neomycin hives Drug Allergy Active Tape peels skin off Allergy Activ e Reason For Referral No Information Medications Medication SIG (Take, Route, Frequency, Duration) Notes Start Date End Date Diagnosis (ICD Code) Status Calcium 600 MG Tablet 1 tablet with meals Orally Twice a day; Duration: 30 day(s) Active Pantoprazole Sodium 20 MG Tablet Delayed Release 1 tablet Orally Once a day; Duration: 30 day(s) Active Aspirin 81 81 MG Tablet Delayed Release 1 tablet Orally Once a day; Duration: 30 day(s) Active Voltaren 1 % Gel apply 4 grams to painful joint(s) Transdermal 4x/day as needed for pain; Duration: 30 days Unspecified osteoarthritis, unspecified site (ICD_10 - M19.90) Active Losartan Potassium 50 MG Tablet Oral; Duration: 90 Active Gabapentin 100 MG Capsule as directed Orally 2 am, 2 at noon, and 3 at night Active FLUoxetine HCl 40 MG Capsule 1 capsule Orally Once a day; Duration: 30 day(s) Active Atorvastatin Calcium 40 MG Tablet Oral; Duration: 90 Active Fluticasone Propionate 50 MCG/ACT Suspension Nasal; Duration: 30 Active Lisinopril 10 MG Tablet TAKE 1 TABLET BY MOUTH DAILY Oral; Duration: 90 Active Clopidogrel Bisulfate 75 MG Tablet Oral; Duration: 90 Active Carvedilol 12.5 MG Tablet Oral; Duration: 90 Active Airsupra 90-80 MCG/ACT Aerosol Inhalation; Duration: 30 Active DULoxetine HCl 60 MG Capsule Delayed Release Particles TAKE 1 CAPSULE BY MOUTH DAILY Oral; Duration: 90 Active Social History Sex Observation Social History Observation Description Sex Observation Female Social History Section Notes: 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 She is with three children. She denies tobacco, alcohol, or illicit drug abuse. Problems Problem Type SNOMED Code ICD Code Dates Problem Status W/U Status Risk Notes Problem Localized, primary osteoarthritis of the shoulder region (441136560) Primary osteoarthritis, left shoulder (M19.012) Added On:02/27 Active confirmed Problem Localized, primary osteoarthritis of the shoulder region (113543090) Primary osteoarthritis, unspecified shoulder (M19.019) Added On:01/2021 Active confirmed Problem Osteoarthritis (167887451) Unspecified osteoarthritis, unspecified site (M19.90) Added On:09/2021 Active confirmed Problem Shoulder joint pain (911056908) Pain in left shoulder (M25.512) Added On:02/26 Active confirmed Problem Scoliosis (482342207) Scoliosis, unspecified (M41.9) Added On:02/26 Active confirmed Problem Acquired spondylolisthesis (083389184) Spondylolisthesis , lumbar region (M43.16) Added On:02/26 Active confirmed Problem Solitary sacroiliitis (932416860) Sacroiliitis, not elsewhere classified (M46.1) Added On:02/26 Active confirmed Problem Cervical spondylosis without myelopathy (724572787) Spondylosis without myelopathy or radiculopathy, cervical region (M47.812) Added On:02/26 Active confirmed Problem Cervical spondylosis without myelopathy (613075467) Spondylosis without myelopathy or radiculopathy, cervicothoracic region (M47.813) Added On:02/26 Active confirmed Problem Lumbosacral spondylosis without myelopathy (08459669) Spondylosis without myelopathy or radiculopathy, lumbar region (M47.816) Added On:02/26 Active confirmed Problem Lumbosacral spondylosis without myelopathy (disorder) (30191853) Spondylosis without myelopathy or radiculopathy, lumbosacral region (M47.817) Added On:02/26 Active confirmed Problem Spinal stenosis in cervical region (67858086) Spinal stenosis, cervical region (M48.02) Added On:02/26 Active confirmed Problem Degeneration of lumbar intervertebral disc (09473835) Other intervertebral disc degeneration, lumbar region (M51.36) Added On:02/26 Active confirmed Problem Degeneration of lumbosacral intervertebral disc (60804292) Other intervertebral disc degeneration, lumbosacral region (M51.37) Added On:03/29 Active confirmed Problem Cervical radiculopathy (54429983) Radiculopathy, cervical region (M54.12) Added On:02/26 Active confirmed Problem Cervical radiculopathy (68237143) Radiculopathy, cervicothoracic region (M54.13) Added On:02/26 Active confirmed Problem Lumbar radiculopathy (469745785) Radiculopathy, lumbar region (M54.16) Added On:02/26 Active confirmed Problem Lumbosacral radiculopathy (9353775) Radiculopathy, lumbosacral region (M54.17) Added On:02/26 Active confirmed Problem Nontraumatic rupture of muscle or tendon structure of rotator cuff of left shoulder (disorder) (1580941608767243) Unspecified rotator cuff tear or rupture of left shoulder, not specified as traumatic (M75.102) Added On:10/28 Active confirmed Problem Post-laminectomy syndrome (33467978) Postlaminectomy syndrome, not elsewhere classified (M96.1) Added On:02/26 Active confirmed Problem Spinal stenosis in cervical region (50395622) 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) Added On:02/26 Active confirmed Problem Spinal stenosis of lumbar region (02695110) Osseous stenosis of neural canal of lumbar region (M99.33) Added On:03/29 Active confirmed Problem Spinal stenosis of lumbar region (13646956) Osseous and subluxation stenosis of intervertebral foramina of lumbar region (M99.63) Added On:02/26 Active confirmed Problem Long-term current use of anticoagulant (479994480) 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 (Z79.01) Added On:09/28 Active confirmed Problem Muscle pain (44177116) Myalgia, other site (M79.18) Added On:02/26 Active confirmed Plan Of Treatment Pending Test Test Name Order Date CT Scan : Lumbar Spine 10/04/2022 CT Scan : Shoulder 11/15/2021 CT Scan : C-Spine W/O Contrast 2 CT Scan : C-Spine W/O Contrast 3 Insurance Providers Payer Name Payer Address Payer Phone Subscriber Number Group Number Insured Name Patient Relationship to Insured Coverage Start Date Coverage End Date [employer] [address] [address] [place] [address] [id number] YOMAIRA VALDES Self - patient is the insured Medical (General) History Medical History History ICD Code Anemia Depression Gastric ulcer Hypertension Stroke Surgical History Surgery Date(Month/Year) Anterior lumbar fusion 2001 Lumbar fusion L4/5 2007 Anterior cervical discectomy and fusion C4-5 & C5-6 2013 Lumbar surgery 2015 3 Cardiac Stents placed 05/2023
--- OUTSIDE RECORDS SUMMARY | 2025-05-27 10:48 | XMS_ITS | Encounter Summary ---
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
[2025-05-27 11:06] LABS: Hematocrit 30.5 % (37.0-47.0); Hemoglobin 9.0 g/dL (12.0-15.0); Immature Granulocyte Percent A 0.2 % (0-0.5); Lymphocytes Absolute Auto 1.07 K/mm3 (0.9-3.2); Mean Corpuscular HGB Conc 29.5 g/dl (32-36); Mean Corpuscular Hemoglobin 26.2 pg (26-34); Mean Corpuscular Volume 88.7 fl (80-100); Nucleated Red Blood Cells Absolute Auto 0.000 K/mm3 (0.0-0.012); Nucleated Red Blood Cells Perc 0.0 % (0.0-0.2); Platelet Count Result 212 k/mm3 (150-375); Red Blood Count 3.44 M/mm3 (4.2-5.4); White Blood Count 5.8 K/mm3 (4.5-10.0)
[2025-05-27 11:27] LABS: INR 1.0; Prothrombin Time 13.7 Seconds (11.1-14.7)
[2025-05-27 11:28] LABS: Hypochromasia 1+; Partial Thromboplastin Time 32.3 Seconds (22.3-36.8)
[2025-05-27 11:29] LABS: Burr Cells Occasional; Ovalocytes 1+; Target Cells 1+
[2025-05-27 11:31] LABS: Alanine Aminotransferase 27 U/L (6-35); Albumin Level 4.2 g/dL (3.5-5.1); Alkaline Phosphatase 64 U/L (38-126); Anion Gap 4 mmol/L (4-12); Aspartate Amino Transferase 30 U/L (14-36); Bilirubin,Total 0.7 mg/dL (0.2-1.3); Blood Urea Nitrogen 15 mg/dL (7-17); Calcium 9.4 mg/dL (8.4-10.2); Carbon Dioxide 31 mmol/L (22-30); Chloride 106 mmol/L (98-107); Estimated CRCL calculation 39 ml/min; Estimated Glomerular Filt Rate > 60; Glucose 80 mg/dL (65-110); Potassium 3.8 mmol/L (3.4-5.0); Schistocytes None Seen; Sodium 141 mmol/L (137-145); Total Protein 7.1 g/dL (6.3-8.2)
[2025-05-27 11:40] LABS: Influenza A QL RT-PCR Negative (Negative); Influenza B QL RT-PCR Negative (Negative); RSV RNA, RT-PCR Negative (Negative); SARS-CoV-2 RNA PCR Negative (Negative)
[2025-05-27] MEDS: SODIUM CHLORIDE 0.9% IV 500 ML 999 ML IV CONT (12:21)
--- OUTSIDE RECORDS SUMMARY | 2025-05-27 12:29 | XMS_ITS | Clinical Summary ---
Author Organization [facility] Address [address] [place] [address] Care Team Providers Care Loading Checker Name Role Phone Satish Desai MD Primary Care Provider [phone] Allergies Active Allergy Reactions Criticality Noted Date Comments Adhesive Rash Medium Adhesive Tape-Silicones Itching,Rash Medium 05/04/2011 Neomycin Hives Medium 12/27/2021 Aqodrzgf-Nabsutsyzs-Kwpbpyfke Rash Medium 2018 Neosporin (Neomycin-Polymyx) Rash Medium [...] pain 06/02/2023 Coronary artery disease invo lving [place] coronary artery of [place] heart 06/02/2023 Myogenic ptosis of eyelid of [...] dermatochalasis that is impacting ADLs. Atherosclerosis of [place] ar kieran of both lower extremities with intermittent claudication 07/06/2020 Assessment & Plan (07/06/2020 11:20 AM HOME AID): Impression: Patient complain of cool right foot [...] 07/06/2020 Assessment & Plan (07/06/2020 11:26 AM HOME AID): Impression: Stable chronic hypertension. Plan: Medications reviewed [...] (02/06/2019): Added automatically from request for surgery [id number] Borderline glaucoma with ocular hypertension 7 02/08/2018 Encounters Date Type Department Care Team Description 04/29/2025 Telephone [place] [facility] at [address] [place] [phone] Whitney Bay NP 03/17/2025 Orders Only [place] [facility] at [address] [place] [phone] Whitney Bay NP Carotid bruit, unspecified laterality (Primary Dx) 03/17/2025 Telephone [place] [facility] at [address] [place] [phone] Whitney Bay NP 02/28/2025 Telephone [place] [facility] at [address] [place] [phone] Sherrie Arreaga 02/28/2025 Telephone [place] [facility] at [address] [place] [phone] Sherrie Arreaga from Last 3 Months Immunizations [...] on file Legal Sex Female 2:03 AM HOME AID Gender Identity Not on file Sexual Orientation Not on file Last Filed Vital Signs Vital Sign Reading Time Taken Comments Blood Pressure 134/56 02/21/2025 1:53 PM CDT Pulse 64 02/21/2025 1:53 PM CDT Temperature 36.3 C (97.4 F) 06/09/2023 4:02 AM HOME AID Respiratory Rate 18 02/21/2025 1:53 PM CDT Oxygen Saturation 97% 06/09/2023 4:02 AM HOME AID Inhaled Oxygen Concentration - - Weight 59.4 [...] 04/21/2033 04/21/2023 Medical Devices Implanted Type Area Advertisement Distributor Device Identifier Shelf Expiration Date Model / Serial / Lot Allergan Usa Inc 5513-001 Xen 150um 45um 6mm Treatment System Preload Injector Intraocular Latex Free - [id number] - [id number] Implanted:Qty: 1 on 03/04/2019 by Katerina Shirley MD at [facility] Drain Right: Eye Allergan [employer] [id number] 07/26/2021 5513-001 / [id number] Description:XEN REF 5513-001 Right eye Spinal Cord Stimulator Back [employer] Synergy Xd Monorail 2.25mm 16mm 144cm Delivery System 1 Access [id number] - [id number] Implanted:Qty: 1 on 06/08/2023 by Daniel Prince MD at [facility] [employer] 11/22/2024 [id number] / / [id number] Violin [employer] Maya Synergy Xd Monorail 2.5mm 20mm 144cm Delivery System 1 Access [id number] - [id number] Implanted:Qty: 1 on 06/08/2023 by Daniel Prince MD at [facility] [employer] Maya 06/12/2024 [id number] / / [id number] [employer] Maya Synergy Xd Monorail 3.5mm 24mm 144cm Delivery System 1 Access [id number] - [id number] Implanted:Qty: 1 on 06/08/2023 by Daniel Prince MD at [facility] [employer] 06/07/2024 [id number] / / [id number] [facility] Angio-Seal Vip 6fr Closere Device [id number] - [id number] Implanted:Qty: 1 on 06/08/2023 by Daniel Prince MD at [facility] [employer] 01/19/2024 [id number] / / [id number] Insurance COMMERCIAL GENERIC MEDICARE [employer] [place] [address] Advance Directives For more information, please contact: [phone] * Full Code (Latest Code Status on File) Date Activated Date Inactivated Comments 06/08/2023 2:44 PM 06/09/2023 3:19 PM Care Teams Loading Checker Relationship Specialty Start Date End Date Satish Desai MD PCP - General 03/08/11
--- OUTSIDE RECORDS SUMMARY | 2025-05-27 12:29 | XMS_ITS | Clinical Summary ---
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 Gender Identity Not on file Sexual Orientation [...] 02/26/2019, 2010 Medical Devices Implanted Type Area Tile Grinder Device Identifier Shelf Expiration Date Model / Serial / Lot Log [id number] - Bladder Slings And Tapes - 1 - Sling Desara System Navin-Ds01 Implanted:Qty: 1 on 05/07/2011 at [facility] Sling Vagina [employer] 08/05/2013 NAVIN-DS01 / / [id number] Procedures Procedure Name Priority Date/Time Associated Diagnosis Comments COLONOSCOPY REPORT 04/19/2019 12 :22 PM MEDICAL OFFICER PSYCHIATRY from Last 3 Months or Most Recently Relevant to Health Maintenance Results * COLONOSCOPY REPORT (04/19/2019 12:22 PM MEDICAL OFFICER PSYCHIATRY) Narrative Procedure Note Jason Huang MD - 04/19/2019 12:22 PM CST [facility] Patient Name: Vicki Lezama Procedure Date: [...] of Addenda: [address] [place] [address] Jason Huang MD GI PROCEDURE ORDERABLES Final Result from Last 3 Months or Most Recently Relevant to Health Maintenance Insurance MEDICARE PART A AND B [place] MEDICARE SUPPLEMENT Advance Directives For more information, please contact: [phone] * Full Code (Latest Code Status on [...] 10:07 AM 05/08/2011 1:30 PM Care Teams Marquetry Worker Relationship Specialty Start Date End Date Satish Desai MD [address] [place] [address] PCP - General Family Practice 05/04/11
--- OUTSIDE RECORDS SUMMARY | 2025-05-27 12:29 | XMS_ITS | Encounter Summary ---
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
--- OUTSIDE RECORDS SUMMARY | 2025-05-27 12:29 | XMS_ITS | Clinical Summary ---
Author Organization [facility] Address [address] [address] Care Team Providers Care Pipelines Manager Name Role Phone Satish Desai MD Primary Care Provider [phone] Source Comments [facility],non-owned Affiliates and Associated Physician Practices is amultiple site organization consisting of ambulatory clinics and hospital sitesin [place], [place], [place] and [place]. This disclosure is being madepursuant to the Care Everywhere program and may not contain all information available regarding this patient. 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
[2025-05-27 12:30] LABS: Add Urine Microscopic? YES; Appearance Urine Cloudy (Clear); Glucose Urine UA Negative (Negative); Leukocyte Esterase Ur Negative LEU/UL (Negative); Nitrate Urine Negative (Negative); Non Pathogenic Casts 0-2; Specific Grav Ur 1.018 (1.001-1.035)
--- NOTE | 2025-05-27 13:10 | ED.WEAKNESS ---
HPI - Weakness General Chief complaint: Weakness Stated complaint: pcp sent for possible low hgb Time Seen by Provider: 05/27/25 11:21 Source: patient Mode of arrival: ambulatory Limitations: no limitations History of Present Illness HPI Narrative: Patient is an 89-year-old female who presents the ED with report of generalized weakness. Patient reports she feels as though she has been dragging for the past few weeks. Reports generalized weakness, increased fatigue. States she called her primary care doctor about this today was referred to the ED for further evaluation. She states the last time she felt like this her blood levels were low. She denies any recent bleeding, rectal bleeding, melena, epistaxis. Denies dizziness, lightheadedness, focal numbness or weakness, nausea, vomiting, diarrhea, vision changes, chest pain, shortness of breath. Does mention having an occasional headaches for the past few months. Denies current headache. Related Data Home Medications ?Medication ?Instructions ?Recorded ?Confirmed ?Last Taken ?Type aspirin 81 mg tablet,delayed 81 mg PO DAILY 06/13/23 05/06/25 04/28/25 History release (Adult Low Dose Aspirin) clopidogrel 75 mg tablet 75 mg PO DAILY 06/13/23 05/06/25 04/28/25 History carvedilol 12.5 mg tablet 12.5 mg PO BID 08/28/23 05/06/25 05/05/25 History atorvastatin 80 mg tablet 80 mg PO DAILY 09/25/23 05/06/25 05/05/25 History Allergies Allergy/AdvReac Type Severity Reaction Status Date / Time adhesive tape Allergy Unknown Rash Verified 05/27/25 10:20 bacitracin Allergy Unknown Rash Verified 05/27/25 10:20 gramicidin D Allergy Unknown Rash Verified 05/27/25 10:20 polymyxin B Allergy Unknown Rash Verified 05/27/25 10:20 montelukast (From Singulair) AdvReac Intermediate Diarrhea Verified 05/27/25 10:20 Review of Systems Review of Systems: All systems reviewed & are unremarkable except as noted in HPI. All systems reviewed & are unremarkable except as noted in HPI and below PMFSH Past Medical History Medical History Sacroiliitis Trochanteric bursitis of left hip Left hip pain Trigger finger Transfusion history 3 months ago, 2 units Mass of soft tissue of neck Chronic right hip pain Vertigo Postlaminectomy syndrome of lumbosacral region Left shoulder tendonitis Chest wall mass Hypertension Asthma History of heart attack CAD (coronary artery disease) Face pain Cough due to OBEY inhibitor Otalgia of left ear H/O cataract Contracture of palmar fascia Shingles outbreak Family history of endometriosis in first degree relative COVID-19 virus infection Vagina, candidiasis Changing skin lesion Duodenitis Anemia Chronic rhinitis Headache Foot callus Decreased pulses in feet Depression, major, in remission Mixed hyperlipidemia Incisional hernia Visual loss Gastric ulcer Hip bursitis Glaucoma Neuralgia and neuritis, unspecified Other intervertebral disc degeneration, lumbar region Surgical History Surgical History H/O heart artery stent x3 Hx of right coronary artery stent placement H/O: hysterectomy H/O Spinal surgery Family History Family History Mother Cerebrovascular accident Hypertension Sibling Family history of coronary artery disease Heart disease Hypertension Cerebrovascular accident Cancer Acute myocardial infarction Father Parkinsons disease Sibling Acute myocardial infarction Heart disease Other Family history of mental disorder Social History Social History Social History: Caffeine-tea Smoking status: Never smoker Second hand tobacco smoke exposure: Yes Alcohol intake: never Substance use: never Substance use type: does not use 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 Lack of Transportation: No Lack of Food: Never True Current Housing: I Have Housing Concerned About Future Housing: No Difficulty Paying Gas/Electric Bills: No Difficulty Paying for Meds: No Currently Unemployed: No Education: Associate Degree Difficulty w/ Childcare or Family Care: No Living arrangements: with family Additional living arrangements comments: with sp Occupation/Education: retired 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 HEAD: Normocephalic, atraumatic. RESPIRATORY: Airway patent, respirations nonlabored. Clear to auscultation bilaterally, no rales, rhonchi, wheezing. CARDIOVASCULAR: Regular rate and rhythm without murmurs, rubs, or gallops. ABDOMINAL: Soft, nontender, nondistended. Normoactive BS. MUSCULOSKELETAL: Moves all extremities. No gross deformities. No peripheral edema. SKIN: Warm, dry, normal color. NEURO: A&O X3. Speech clear. Cranial nerves II-XII grossly intact. Steady gait. No ataxic movements. Strength 5 of 5 in upper and lower extremities bilaterally. Equal electric razor mechanic strength bilaterally. No pronator drift. No focal deficits. PSYCHIATRIC: Appropriate mood and affect. Normal interaction. Course Vital Signs Vital signs: Vital Signs Pulse Rate 70 05/27/25 10:30 Respiratory Rate 17 05/27/25 10:30 Blood Pressure 143/60 H 05/27/25 10:30 Pulse Oximetry 97 05/27/25 10:30 Temperature 98.0 F 05/27/25 11:22 Pulse Rate 70 05/27/25 13:00 Respiratory Rate 18 05/27/25 13:00 Blood Pressure 117/63 05/27/25 11:31 Pulse Oximetry 98 05/27/25 13:00 Oxygen Delivery Room Air 05/27/25 11:22 MDM MDM Narrative Medical decision making narrative: Patient presented to ED with several week history of generalized weakness. Concern for low hemoglobin. Denies any other significant complaints at this time. Vital signs are stable. Patient in no acute distress. Neurologically intact. No focal deficits. Hemoglobin on CMP 9.0. This does appear fairly consistent with previous records. No leukocytosis. Normal platelets. CMP is unremarkable. No significant electrolyte derangement. Stable kidney function. UA is clear, no evidence of infection. Viral swabs are negative. Chest x-ray is clear. CT brain was negative. EKG without concerning ischemic changes. Troponin undetectable. Patient given fluids. On re-evaluation, she is feeling improved. Discussed overall reassuring/non revealing workup. Feel patient is safe for discharge home at this time. Advised patient to follow-up closely with primary care doctor for further evaluation. She is in agreement with plan. Feels comfortable going home. States she is ready to be discharged. Discussed strict return precautions. Patient voiced understanding. Discharged in stable condition. Differential Diagnosis Differential Diagnosis: Weakness, intracranial bleed/tumor, electrolyte derangement, UTI, viral syndrome, URI Medical Records I have reviewed the following patient records and this information was taken into consideration when formulating the assessment and plan.: previous labs, previous ER visits, previous hospitalizations and previous clinic visits Lab Data MDM Lab Attestation statement: I personally reviewed the patient's lab results. 05/27/25 10:59 05/27/25 10:59 Labs: Lab Results 05/27/25 05/27/25 05/27/25 Range/Units 10:56 10:59 12:23 WBC 5.8 (4.5-10.0) K/mm3 RBC 3.44 L (4.2-5.4) M/mm3 Hgb 9.0 L (12.0-15.0) g/dL Hct 30.5 L (37.0-47.0) % MCV 88.7 (80-100) fl MCH 26.2 (26-34) pg MCHC 29.5 L (32-36) g/dl RDW 18.4 H (11.5-14.5) % Plt Count 212 (150-375) k/mm3 MPV 10.2 (7.4-10.4) fl Immature Gran % (Auto) 0.2 (0-0.5) % Neut % (Auto) 68.7 (45.5-73.1) % Lymph % (Auto) 18.4 (18.3-44.2) % [place] % (Auto) 9.6 H (2.6-8.5) % Eos % (Auto) 2.4 (0-4.4) % Baso % (Auto) 0.7 (0.2-1.2) % Lymph # (Auto) 1.07 (0.9-3.2) K/mm3 Trinity # (Auto) 0.6 (0.1-0.6) K/mm3 Eos # (Auto) 0.1 (0-0.3) K/mm3 Baso # (Auto) 0.0 (0.0-0.1) K/mm3 Abs Immat Gran (auto) 0.01 (0.00-0.031) K/mm3 Absolute Neuts (auto) 4.0 (1.3-6.7) K/mm3 Absolute Nucleated RBC 0.000 (0.0-0.012) K/mm3 Band Neutrophils % Not Reportable Nucleated RBC % 0.0 (0.0-0.2) % Platelet Estimate Adequate (Adequate) Hypochromasia 1+ Target Cells 1+ Ovalocytes 1+ [place] Cells Occasional Schistocytes None seen PT 13.7 (11.1-14.7) Seconds INR 1.0 APTT 32.3 (22.3-36.8) Seconds Sodium 141 (137-145) mmol/L Potassium 3.8 (3.4-5.0) mmol/L Chloride 106 (98-107) mmol/L Carbon Dioxide 31 H (22-30) mmol/L Anion Gap 4 (4-12) mmol/L BUN 15 (7-17) mg/dL Creatinine 0.71 (0.7-1.0) mg/dL Estim Creat Clear Calc 39 ml/min Estimated GFR > 60 (59 - ) Glucose 80 (65-110) mg/dL Calcium 9.4 (8.4-10.2) mg/dL Total Bilirubin 0.7 (0.2-1.3) mg/dL AST 30 (14-36) U/L ALT 27 (6-35) U/L Alkaline Phosphatase 64 (38-126) U/L Troponin I (0.000-0.034) ng/mL Total Protein 7.1 (6.3-8.2) g/dL Albumin 4.2 (3.5-5.1) g/dL Urine Color Yellow (Yellow) Urine Appearance Cloudy H (Clear) Urine pH 7.5 (5.0-9.0) Ur Specific [place] 1.018 (1.001-1.035) Urine Protein Negative (Negative) mg/dL Urine Glucose (UA) Negative (Negative) mg/dL Urine Ketones Negative (Negative) mg/dL Ur Blood (Man) Negative (Negative) Urine Nitrate Negative (Negative) Urine Bilirubin Negative (Negative) Urine Urobilinogen 0.2 (<2.0) mg/dL Leukocyte Esterase Rfl Negative (Negative) JONATHAN/UL Urine RBC 3-5 H (0-2) /hpf Urine WBC 0-5 (0-3) /hpf Ur Squamous Epith Cells None seen (Few) /hpf Urine Bacteria None seen /hpf Urine Casts 0-2 Influenza A (RT-PCR) Negative (Negative) Influenza B (RT-PCR) Negative (Negative) RSV (RT-PCR) Negative (Negative) SARS-CoV-2 RNA (RT-PCR) Negative (Negative) Blood Type O Positive Antibody Screen Negative 05/27/25 Range/Units 13:01 WBC (4.5-10.0) K/mm3 RBC (4.2-5.4) M/mm3 Hgb (12.0-15.0) g/dL Hct (37.0-47.0) % MCV (80-100) fl MCH (26-34) pg MCHC (32-36) g/dl RDW (11.5-14.5) % Plt Count (150-375) k/mm3 MPV (7.4-10.4) fl Immature Gran % (Auto) (0-0.5) % Neut % (Auto) (45.5-73.1) % Lymph % (Auto) (18.3-44.2) % Trinity % (Auto) (2.6-8.5) % Eos % (Auto) (0-4.4) % Baso % (Auto) (0.2-1.2) % Lymph # (Auto) (0.9-3.2) K/mm3 [place] # (Auto) (0.1-0.6) K/mm3 Eos # (Auto) (0-0.3) K/mm3 Baso # (Auto) (0.0-0.1) K/mm3 Abs Immat Gran (auto) (0.00-0.031) K/mm3 Absolute Neuts (auto) (1.3-6.7) K/mm3 Absolute Nucleated RBC (0.0-0.012) K/mm3 Band Neutrophils % Nucleated RBC % (0.0-0.2) % Platelet Estimate (Adequate) Hypochromasia Target Cells Ovalocytes Subhash Cells Schistocytes PT (11.1-14.7) Seconds INR APTT (22.3-36.8) Seconds Sodium (137-145) mmol/L Potassium (3.4-5.0) mmol/L Chloride (98-107) mmol/L Carbon Dioxide (22-30) mmol/L Anion Gap (4-12) mmol/L BUN (7-17) mg/dL Creatinine (0.7-1.0) mg/dL Estim Creat Clear Calc ml/min Estimated GFR (59 - ) Glucose (65-110) mg/dL Calcium (8.4-10.2) mg/dL Total Bilirubin (0.2-1.3) mg/dL AST (14-36) U/L ALT (6-35) U/L Alkaline Phosphatase (38-126) U/L Troponin I < 0.012 (0.000-0.034) ng/mL Total Protein (6.3-8.2) g/dL Albumin (3.5-5.1) g/dL Urine Color (Yellow) Urine Appearance (Clear) Urine pH (5.0-9.0) Ur Specific [place] (1.001-1.035) Urine Protein (Negative) mg/dL Urine Glucose (UA) (Negative) mg/dL Urine Ketones (Negative) mg/dL Ur Blood (Man) (Negative) Urine Nitrate (Negative) Urine Bilirubin (Negative) Urine Urobilinogen (<2.0) mg/dL Leukocyte Esterase Rfl (Negative) JONATHAN/UL Urine RBC (0-2) /hpf Urine WBC (0-3) /hpf Ur Squamous Epith Cells (Few) /hpf Urine Bacteria /hpf Urine Casts Influenza A (RT-PCR) (Negative) Influenza B (RT-PCR) (Negative) RSV (RT-PCR) (Negative) SARS-CoV-2 RNA (RT-PCR) (Negative) Blood Type Antibody Screen Imaging Data Attestation: I personally reviewed and interpreted this imaging study as follows: Radiologist's impression: ITS Impressions Chest X-Ray 05/27/25 10:59 IMPRESSION: 1. No acute cardiopulmonary findings given portable technique. Head CT 05/27/25 12:11 IMPRESSION: 1. No acute intracranial findings. ECG Data EKG #1: Attestation: I personally reviewed and interpreted this ECG as follows: ECG completion date: 05/27/25 ECG completion time: 11:40 normal rate (63), sinus rhythm and non-specific ST changes Discharge Plan Discharge Clinical Impression: Generalized weakness Patient Disposition: Home Condition: Stable Instructions: Antibiotic Form, Weakness (ED), Fatigue (ED) Additional Instructions: Your workup here was reassuring. Recommend staying well hydrated at home. Follow-up with your primary care doctor for further evaluation. Return to the ED if you experience worsening or severe weakness, weakness of one-sided arm or leg, chest pain, shortness of breath, unable to keep down food or drink, persistent fevers, or any other symptoms of concern. Patient Language: Divehi Prescriptions: No Action clopidogrel 75 mg tablet 75 mg PO DAILY Patient Comments: HOLD for [address] Herman aspirin [Adult Low Dose Aspirin] 81 mg tablet,delayed release (DR/EC) 81 mg PO DAILY Patient Comments: HOLD [address] HERMAN carvedilol 12.5 mg tablet 12.5 mg PO BID atorvastatin 80 mg tablet 80 mg PO DAILY ferrous sulfate [Slow Release Iron] 142 mg (45 mg iron) tablet extended release 142 mg PO DAILY Qty: 90 2RF ascorbate calcium (vitamin C) 500 mg tablet 500 mg PO DAILY Qty: 90 2RF tramadol 50 mg tablet 25 mg PO Q6H PRN (Reason: pain) Qty: 10 0RF losartan 50 mg tablet 50 mg PO DAILY Qty: 90 2RF pantoprazole 40 mg tablet,delayed release (DR/EC) 40 mg PO DAILY 90 Days Qty: 90 4RF duloxetine 60 mg capsule,delayed release(DR/EC) 60 mg PO DAILY Qty: 90 0RF gabapentin 600 mg tablet See Rx Instructions .ROUTE .COMPLEX Qty: 300 0RF Dose Instruction: TAKE 1 TAB BY MOUTH 3X A DAY. MAX DAILY:1800MG/DAY Rx Instructions: TAKE 1 TAB BY MOUTH 3X A DAY. MAX DAILY:1800MG/DAY Follow-up/Referrals: Satish Desai MD [Primary Care Provider, [facility]] Time of Disposition: 13:34
[2025-05-27 13:30] LABS: Troponin I < 0.012 ng/mL (0.000-0.034)
== END 2025-05-27 14:21 | disposition home or self-care (01) ==
PROVIDERS: Emergency Medicine; Emergency Provider Physician Assistant; PCP Family Medicine
DX: R53.1 Weakness (principal); Z20.822 Contact with and (suspected) exposure to COVID-19; I10 Essential (primary) hypertension; I25.2 Old myocardial infarction; I25.10 Atherosclerotic heart disease of native coronary artery without angina pectoris; J45.909 Unspecified asthma, uncomplicated; H40.9 Unspecified glaucoma; F32.5 Major depressive disorder, single episode, in full remission; Z86.16 Personal history of COVID-19; Z86.2 Personal history of diseases of the blood and blood-forming organs and certain disorders involving the immune mechanism; Z95.5 Presence of coronary angioplasty implant and graft; Z90.710 Acquired absence of both cervix and uterus; Z77.22 Contact with and (suspected) exposure to environmental tobacco smoke (acute) (chronic); Z79.02 Long term (current) use of antithrombotics/antiplatelets; Z79.82 Long term (current) use of aspirin; Z79.899 Other long term (current) drug therapy; R94.31 Abnormal electrocardiogram [ECG] [EKG]
CPT/HCPCS: 36415; 70450; 71045; 80053; 81001; 84484; 85025; 85610; 85730; 86850; 86900; 86901; 87637; 93005; 96360; 99283; J7040